=== PATIENT | female | born 1960 | race Caucasian/White ===

== ENCOUNTER 2019-07-06 13:18 | Outpatient (CLI) | payer MEDICARE, MEDICAID, SELFPAY ==
--- NOTE | ~2019-07-06 | MMUS_ITS ---
EXAMINATION: MM diagnostic deepak RT w mala, US breast RT complete HISTORY: New right breast pain and axilla and neutral nipple retraction. Patient states she feels a l ump at lower inner quadrant. TECHNIQUE: ML, MLO and cc 3-D tomosynthesis images of the right breast were performed and synthetic 2 -D images were generated. CAD analysis was submitted and interpreted. High resolution complete right breast ultrasound was performed. COMPARISON: 02/08/2019 bilateral digital screening mammogram BREAST PARENCHYMAL COMPOSITION: There are scattered areas of fibroglandular density. FINDINGS: MAMMOGRAPHIC FINDINGS: No interval suspicious mass, architectural distortion, malignant calcification, skin thickening or re traction or significant new or developing density is evident since 02/08/2019 screening mammogram. ULTRASOUND: No sonographic finding is noted in the area of complaint of right breast lump at the lower inner quad rant. At 10:00 4 cm from the nipple there is a 2.4 mm x 2.0 mm sonolucency consistent with small cyst. In the right axilla there is a 3.4 x 7.6 x 6.5 mm parallel circumscribed hypoechoic area with some va scularity at the hilus, likely a lymph node. No suspicious mass or shadowing of the right breast is detected. IMPRESSION: 1. Probably benign sonographic findings 2. 6 month diagnostic right mammogram and right breast ultrasound follow-up are recommended BI-RADS category 3, probably benign findings. Reviewed, dictated and finalized at location A. HER IMPRESSION: 1. Probably benign sonographic findings 2. 6 month diagnostic right mammogram and right breast ultrasound follow-up are recommended BI-RADS category 3, probably benign findings.
== END 2019-07-06 13:19 | disposition home or self-care (01) ==
PROVIDERS: PCP Internal Medicine; Visit Provider Nurse Practitioner
DX: N64.4 Mastodynia (principal); R92.8 Other abnormal and inconclusive findings on diagnostic imaging of breast
CPT/HCPCS: 76641; 77061; 77065; G0279

== ENCOUNTER 2019-07-22 16:23 | Emergency (ER) | payer MEDICARE, MEDICAID, SELFPAY ==
--- NOTE | ~2019-07-22 | XR_ITS ---
EXAMINATION: XR chest 2V DATE: 07/22/2019 17:26 INDICATION: Mid chest pressure TECHNIQUE: PA and lateral views of the chest are obtained. COMPARISON: 12/22/2018 FINDINGS: The lungs are free of acute opacities. There is no pleural effusion or pneumothorax. The ca rdiomediastinal silhouette is normal. There is moderate thoracic spondylosis. There are changes of an terior fusion procedure in the lower cervical spine. IMPRESSION: 1. No acute cardiopulmonary abnormality. Reviewed, dictated and finalized at location A. S PIPE INSPECTOR
--- NOTE | ~2019-07-22 | CT_ITS ---
EXAMINATION: CT brain wo con DATE: 07/22/2019 18:27 INDICATION: Sudden onset headache with subsequent left-sided hemiparesis, facial droop and slurred sp eech TECHNIQUE: Computed tomography (CT) of the head was performed without intravenous contrast. Sagittal and coronal reconstructions were performed. The mA was adjusted according to patient size. Iterative reconstruction technique was employed. The dose-length product was 681.00 mGy-cm. COMPARISON: head CT dated 05/27/2017 FINDINGS: No acute intracranial hemorrhage, acute infarction or abnormal extra axial fluid collection. No signi ficant interval change in mild scattered white matter hypoattenuation consistent with chronic small v essel ischemic disease. Ventricles are normal and symmetric. No mass/mass effect. The orbits, paranas al sinuses and mastoid air cells are normal. IMPRESSION: 1. No acute intracranial process. Pressure protocol discusses with Dr. Mccormack at 6:28 PM 2. Unchanged mild scattered white matter hypoattenuation consistent with chronic small vessel ischemi c disease. Reviewed, dictated and finalized at location A. K TRADER IMPRESSION: 1. No acute intracranial process. Pressure protocol discusses with Dr. Mccormack at 6:28 PM 2. Unchanged mild scattered white matter hypoattenuation consistent with chroni c small vessel ischemic disease.
--- NOTE | 2019-07-22 16:35 | ECG_ITS ---
Measurements Intervals [place] Rate: 81 P: 62 IN: 172 QRS: 21 QRSD: 102 T: 42 QT: 395 QTc: 460 Interpretive Statements SINUS RHYTHM BORDERLINE ST ABNORMALITY- INF/LAT LEADS BASELINE WANDER- AVR, AVL, AVF BORDERLINE ECG Electronically Signed On 07-22-2019 16:47:01 KNOCKER OFF by Remigio Rodriguez D.O.
[2019-07-22 16:36] VITALS: BP 127/84; PULSE 78; RESP 18; TEMP 37.3; O2SAT 100
[2019-07-22 16:44] LABS: Basophils Absolute Auto 0.1 K/mm3 (0.0-0.1); Basophils Percent Auto 0.5 % (0.2-1.2); Eosinophils Absolute Auto 0.3 K/mm3 (0-0.3); Eosinophils Percent Auto 1.9 % (0-4.4); Hematocrit 39.3 % (37.0-47.0); Hemoglobin 12.8 g/dL (12.0-15.0); Immature Granulocyte Absolute 0.04 K/mm3 (0.00-0.031); Immature Granulocyte Percent A 0.2 % (0-0.5); Lymphocytes Absolute Auto 4.25 K/mm3 (0.9-3.2); Lymphocytes Percent Auto 25.9 % (18.3-44.2); Mean Corpuscular HGB Conc 32.6 g/dl (32-36); Mean Corpuscular Hemoglobin 29.2 pg (26-34); Mean Corpuscular Volume 89.7 fl (80-100); Mean Platelet Volume 9.8 fl (7.4-10.4); Monocytes Absolute Auto 1.5 K/mm3 (0.1-0.6); Monocytes Percent Auto 8.8 % (2.6-8.5); Neutrophils Absolute Auto 10.3 K/mm3 (1.3-6.7); Neutrophils Percent Auto 62.7 % (45.5-73.1); Platelet Count Result 320 k/mm3 (150-375); Red Blood Count 4.38 M/mm3 (4.2-5.4); Red Cell Distribution Width 13.3 % (11.5-14.5); White Blood Count 16.4 K/mm3 (4.5-10.0)
[2019-07-22 16:54] LABS: Partial Thromboplastin Time 25.2 SECONDS (22.3-36.8); Prothrombin Time 12.6 Seconds (11.1-14.7)
[2019-07-22 16:55] LABS: Blood Urea Nitrogen 15 mg/dL (7-17); Calcium 10.1 mg/dL (8.4-10.2); Carbon Dioxide 30 mmol/L (22-30); Chloride 97 mmol/L (98-107); Estimated Glomerular Filt Rate > 60; Glucose 95 mg/dL (65-105); Potassium 3.7 mmol/L (3.4-5.0); Sodium 139 mmol/L (137-145)
[2019-07-22 17:07] LABS: Troponin I < 0.012 ng/mL (0.000-0.034)
--- NOTE | 2019-07-22 18:16 | PC.NURSE ---
Pt to ED Room 8 after having sudden facial droop & unable to speak clearly. EDP Dr Wrae at bedside, requesting stat CT. Pts BS in room 79. Pt is alert at this time.
--- NOTE | 2019-07-22 18:23 | ED.GENADULT ---
HPI - General Adult General Chief complaint: Chest Pain Stated complaint: Chest Heaviness Time Seen by Provider: 07/22/19 18:13 History of Present Illness HPI narrative: Patient is a 58-year-old female with history of A. fib and TIA who presents ER with chest pain. Began about 430 this afternoon and was sharp in the center of her chest so she opted to come to the emergency room with her . While in the waiting room at 6 PM patient developed left-sided facial weakness. She was immediately brought back to room here in the ER. On exam patient has a stroke scale of 9. She has history of atrial fibrillation but has not taken a blood thinner since 2016. Symptoms have been persistent since the starting of not improved. Related Data Home Medications Medication Instructions Recorded Confirmed atorvastatin 40 mg tablet 40 mg PO DAILY 05/31/19 epinephrine 0.3 mg/0.3 mL 0.3 mg IM ONCE 05/31/19 injection, auto-injector gabapentin 600 mg tablet 600 mg PO TID 05/31/19 losartan 100 1 tablet PO DAILY 05/31/19 mg-hydrochlorothiazide 25 mg tablet trazodone 100 mg tablet 100 mg PO DAILY tablet 05/31/19 Allergies Allergy/AdvReac Type Severity Reaction Status Date / Time aspirin Allergy Unknown Anaphylactic Verified 07/22/19 18:34 Shock bee venom protein (honey bee) Allergy Unknown Anaphylactic Verified 07/22/19 18:34 Shock codeine Allergy Unknown Hives Verified 07/22/19 18:34 latex Allergy Unknown Hives Verified 07/22/19 18:34 peanut Allergy Unknown Anaphylaxis Verified 07/22/19 18:34 penicillin G Allergy Unknown Anaphylaxis Verified 07/22/19 18:34 Penicillins Allergy Unknown Anaphylaxis Verified 07/22/19 18:34 pseudoephedrine Allergy Unknown Anaphylaxis Verified 07/22/19 18:34 strawberry Allergy Unknown Hives Verified 07/22/19 18:34 Sulfa (Sulfonamide Allergy Unknown Anaphylaxis Verified 07/22/19 18:34 Antibiotics) PSEUDOEPHEDRINE HCL Allergy Intermediate HIVES AND Uncoded 02/21/19 15:34 TONGUE SWELLING Review of Systems Review of Systems: ROS unobtainable: unobtainable due to mental condition PMFSH Family History Family History (Updated 01/11/19 @ 15:56 by DOCTOR UNKNOWN) Mother Family history of premature coronary heart disease, Onset Age: 62 Family history of malignant neoplasm of breast in first degree relative Patient's mother is Family history of gout Hypertension Family history of diabetes mellitus in first degree relative Family history of heart disease in male family member before age 55 Family history of malignant neoplasm of breast Diabetes mellitus Family history of cardiovascular disease Cerebrovascular accident Sibling Family history of kidney disease Family history of seizure disorder Family history of pancreatic cancer Diabetes mellitus Hypertension Family history of cardiovascular disease Family history of malignant neoplasm Father Malignant neoplasm of prostate, Onset Age: 50 Patient's father is Cerebrovascular accident Family history of arthritis Carcinoma of colon Grandparent Family history of malignant neoplasm of brain, Onset Age: 42 Social History Social History Smoking status: Former smoker Smoking end date: 05/26/12 Alcohol intake: never Gender identity (if verbalized by the patient): Female Comments Past medical history: Hyperlipidemia, diabetes type 2, hypertension, atrial fibrillation, GERD, GI bleeding, CVA, peripheral neuropathy, TIA, anxiety, depression, uterine cancer Past surgical history: Tonsillectomy, appendectomy, x3, hysterectomy, right knee arthroscopy, bilateral carpal tunnel release Social history: Former smoker. Exam Narrative: Exam Narrative: GENERAL: Well-appearing, well-nourished, and in no acute distress. HEAD: Normocephalic, atraumatic. EYES: PERRL and EOMI. right eye strabismus ENT: Mucous membranes moist. CHEST: Clear to auscultation. No respiratory distress.
[2019-07-22 18:29] LABS: Glucose Point of Care 79 (65-105)
[2019-07-22 18:45] VITALS: PULSE 79
[2019-07-22] MEDS: ONDANSETRON INJ 4 MG/2 ML VIAL (18:46)
[2019-07-22 18:53] VITALS: BP 148/81; PULSE 82; RESP 14; O2SAT 97
--- NOTE | 2019-07-22 19:26 | PC.NURSE ---
PER VORB DR ECHEVARRIA, ATP BOLUS 5.8 GIVEN AT 185, 51.5MG/HR GTT ONSET 1852.
--- NOTE | 2019-07-22 19:27 | PC.NURSE ---
42.8 ATP WASTED PER PROTOCOL.
[2019-07-22 19:35] VITALS: BP 147/94; PULSE 82; RESP 25; O2SAT 100
== END 2019-07-22 19:24 | disposition short-term general hospital (02) ==
PROVIDERS: Emergency Provider Emergency Medicine; PCP Internal Medicine
DX: I63.9 Cerebral infarction, unspecified (principal); E78.5 Hyperlipidemia, unspecified; I10 Essential (primary) hypertension; K21.9 Gastro-esophageal reflux disease without esophagitis; E11.42 Type 2 diabetes mellitus with diabetic polyneuropathy; R29.709 NIHSS score 9; Z87.891 Personal history of nicotine dependence; Z86.73 Personal history of transient ischemic attack (TIA), and cerebral infarction without residual deficits; Z85.42 Personal history of malignant neoplasm of other parts of uterus; F41.9 Anxiety disorder, unspecified; F32.9 Major depressive disorder, single episode, unspecified; R94.31 Abnormal electrocardiogram [ECG] [EKG]
CPT/HCPCS: 36415; 37195; 70450; 71046; 80048; 84484; 85025; 85610; 85730; 93005; 99285; J2405; J2997

== ENCOUNTER 2019-09-08 18:35 | Emergency (ER) | payer MEDICARE, MEDICAID, SELFPAY ==
[2019-09-08 18:51] VITALS: BP 138/78; PULSE 71; RESP 16; TEMP 36.9; O2SAT 97
--- NOTE | 2019-09-08 19:22 | ED.FEMALEGU ---
HPI - Female Genitourinary General Chief complaint: Urogenital-Female Stated complaint: Possible UTI Time Seen by Provider: 09/08/19 19:22 Source: patient Mode of arrival: ambulatory Limitations: no limitations History of Present Illness HPI Narrative: Gloria Menezes is a 58 yo female with a PMH of HTN, high cholesterol, GERD, who comes to this care with urinary tract infection symptoms x 2 days - has dysuria, pressure, lower abdominal pain Related Data Home Medications Medication Instructions Recorded Confirmed atorvastatin 40 mg tablet 40 mg PO DAILY 05/31/19 epinephrine 0.3 mg/0.3 mL 0.3 mg IM ONCE 05/31/19 injection, auto-injector gabapentin 600 mg tablet 600 mg PO TID 05/31/19 trazodone 100 mg tablet 100 mg PO DAILY tablet 05/31/19 losartan 09/08/19 metformin mg PO 09/08/19 sertraline mg 09/08/19 tramadol mg 09/08/19 trazodone 09/08/19 trazodone 09/08/19 Allergies Allergy/AdvReac Type Severity Reaction Status Date / Time aspirin Allergy Unknown Anaphylactic Verified 07/22/19 18:34 Shock bee venom protein (honey bee) Allergy Unknown Anaphylactic Verified 07/22/19 18:34 Shock codeine Allergy Unknown Hives Verified 07/22/19 18:34 latex Allergy Unknown Hives Verified 07/22/19 18:34 peanut Allergy Unknown Anaphylaxis Verified 07/22/19 18:34 penicillin G Allergy Unknown Anaphylaxis Verified 07/22/19 18:34 Penicillins Allergy Unknown Anaphylaxis Verified 07/22/19 18:34 pseudoephedrine Allergy Unknown Anaphylaxis Verified 07/22/19 18:34 strawberry Allergy Unknown Hives Verified 07/22/19 18:34 Sulfa (Sulfonamide Allergy Unknown Anaphylaxis Verified 07/22/19 18:34 Antibiotics) PSEUDOEPHEDRINE HCL Allergy Intermediate HIVES AND Uncoded 02/21/19 15:34 TONGUE SWELLING Review of Systems Review of Systems: Narrative: CONSTITUTIONAL: Denies fever, chills, sweats. EYES: Denies visual changes, redness, discharge. ENT: Denies rhinorrhea, congestion, sore throat, otalgia. CARDIOVASCULAR: Denies chest pain, palpitations, edema. RESPIRATORY: Denies dyspnea, wheezing, cough GASTROINTESTINAL: Denies abdominal pain, nausea, vomiting, diarrhea. GENITOURINARY: has dysuria, has hematuria, no abnormal discharge SKIN: Denies rash or itching. NEUROLOGIC: Denies numbness, or focal weakness. PSYCHIATRIC: Denies anxiety or depression. PMFSH Family History Family History Mother Family history of premature coronary heart disease, Onset Age: 62 Family history of malignant neoplasm of breast in first degree relative Patient's mother is Family history of gout Hypertension Family history of diabetes mellitus in first degree relative Family history of heart disease in male family member before age 55 Family history of malignant neoplasm of breast Diabetes mellitus Family history of cardiovascular disease Cerebrovascular accident Sibling Family history of kidney disease Family history of seizure disorder Family history of pancreatic cancer Diabetes mellitus Hypertension Family history of cardiovascular disease Family history of malignant neoplasm Father Malignant neoplasm of prostate, Onset Age: 50 Patient's father is Cerebrovascular accident Family history of arthritis Carcinoma of colon Grandparent Family history of malignant neoplasm of brain, Onset Age: 42 Social History Social History Smoking status: Former smoker Smoking end date: 05/26/12 Alcohol intake: never Gender identity (if verbalized by the patient): Female Comments At time of signature, I agree with nursing past medical, surgical, social and family history. There is no relevant family history pertinent to the presenting complaint. Exam Narrative: Exam Narrative: GENERAL: This is a well-nourished, well-developed patient, in mild distress. HEAD: normocephalic, atr
== END 2019-09-08 19:35 | disposition home or self-care (01) ==
PROVIDERS: Emergency Provider Nurse Practitioner; PCP Internal Medicine
DX: N30.01 Acute cystitis with hematuria (principal); Z87.891 Personal history of nicotine dependence; I10 Essential (primary) hypertension; E78.00 Pure hypercholesterolemia, unspecified; K21.9 Gastro-esophageal reflux disease without esophagitis; Z86.73 Personal history of transient ischemic attack (TIA), and cerebral infarction without residual deficits; E11.9 Type 2 diabetes mellitus without complications
CPT/HCPCS: 81003; 87077; 87086; 87088; 87186; 99213; G0463

== ENCOUNTER 2019-10-12 12:48 | Outpatient (CLI) | payer MEDICARE, MEDICAID, SELFPAY ==
--- NOTE | ~2019-10-12 | US_ITS ---
EXAMINATION: US joint non vasc ltd RT DATE: 10/12/2019 13:43 INDICATION: Right knee pain. Assess for Kearns's cyst. TECHNIQUE: Multiple grayscale and Doppler ultrasound images of the posterior right knee were obtained . COMPARISON: None FINDINGS/IMPRESSION: No abnormal masses or fluid collections identified. Specifically no Kearns's cyst identified at the [facility] popliteal fossa Reviewed, dictated and finalized at location A.
--- NOTE | ~2019-10-12 | XR_ITS ---
XR knee RT 3V DATE: 10/12/2019 13:18 INDICATION: Right knee pain TECHNIQUE: 3 views COMPARISON: None FINDINGS: No fracture or dislocation or joint effusion. Joint spaces are well preserved. No radiopaqu e intra-articular loose body or chondrocalcinosis. No periosteal reaction or bone destruction. IMPRESSION: Negative Reviewed, dictated and finalized at location A. IMPRESSION: Negative
== END 2019-10-12 12:49 | disposition home or self-care (01) ==
LOC: ANHIMG 12:58
PROVIDERS: PCP Nurse Practitioner; Visit Provider Nurse Practitioner
DX: M25.461 Effusion, right knee (principal)
CPT/HCPCS: 73562; 76882

== ENCOUNTER 2019-10-26 16:32 | Outpatient (CLI) | payer MEDICARE, MEDICAID, SELFPAY ==
--- NOTE | ~2019-10-26 | MR_ITS ---
EXAMINATION: MR knee RT wo con DATE: 10/26/2019 17:07 INDICATION: Right knee pain. TECHNIQUE: Magnetic resonance imaging (MRI) of the right knee was performed without intravenous contr ast. Sequences included axial PD-weighted FS FSE, coronal PD-weighted FSE and PD-weighted FS FSE, sag ittal PD-weighted FSE, and sagittal T2-weighted FS FSE. COMPARISON: Right knee radiographs 10/12/2019 FINDINGS: Medial compartment: There is a complex tear involving body and posterior horn of medial meniscus. Medial compartment cart ilage is normal. Lateral compartment: Lateral meniscus is normal. Lateral compartment cartilage is normal. Patellofemoral compartment: There is deep partial thickness cartilage loss of patellar medial facet and shallow partial-thickness cartilage loss of patellar median ridge. There is shallow partial-thickness cartilage loss of centra l and medial trochlea. Ligaments and tendons: The anterior and posterior cruciate ligaments are normal. Medial collateral ligament is normal. There are changes of prior sprain of fibular collateral ligament characterized by increased signal at its proximal attachment. The patellar tendon is normal. Fluid: There is a small knee joint effusion. There is a moderate-sized ruptured Kearns's cyst. IMPRESSION: 1. Moderate chondrosis of patellofemoral compartment. 2. Complex tear of medial meniscus. 3. Small knee joint effusion. 4. Moderate-sized ruptured Kearns's cyst. Reviewed, dictated and finalized at location A.
== END 2019-10-26 16:33 | disposition home or self-care (01) ==
LOC: ANHIMG 16:34
PROVIDERS: PCP Nurse Practitioner; Visit Provider Nurse Practitioner
DX: M25.569 Pain in unspecified knee (principal); M22.2X1 Patellofemoral disorders, right knee; S83.206A Unspecified tear of unspecified meniscus, current injury, right knee, initial encounter; M25.461 Effusion, right knee; M71.21 Synovial cyst of popliteal space [Baker], right knee
CPT/HCPCS: 73721

== ENCOUNTER 2019-11-08 10:01 | Outpatient (CLI) | payer MEDICARE, SELFPAY ==
[2019-11-08 10:54] LABS: Blood Urea Nitrogen 22 mg/dL (7-17); Calcium 9.6 mg/dL (8.4-10.2); Carbon Dioxide 32 mmol/L (22-30); Chloride 103 mmol/L (98-107); Estimated Glomerular Filt Rate > 60; Glucose 111 mg/dL (65-105); Potassium 4.9 mmol/L (3.4-5.0); Sodium 138 mmol/L (137-145)
--- NOTE | 2019-11-08 10:55 | ECG_ITS ---
Measurements Intervals [place] Rate: 61 P: 61 MO: 194 QRS: 31 QRSD: 93 T: 48 QT: 421 QTc: 426 Interpretive Statements SINUS RHYTHM BASELINE WANDER- V5 NORMAL ECG Electronically Signed On 11-08-2019 11:03:39 CDT by Remigio Rodriguez D.O.
== END 2019-11-08 10:02 | disposition home or self-care (01) ==
PROVIDERS: PCP Internal Medicine; Visit Provider Orthopaedic Surgery
DX: Z01.818 Encounter for other preprocedural examination (principal); I10 Essential (primary) hypertension
CPT/HCPCS: 36415; 80048; 93005

== ENCOUNTER 2019-12-22 14:48 | Outpatient (CLI) | payer MEDICARE, MEDICAID, SELFPAY ==
--- NOTE | ~2019-12-22 | CT_ITS ---
EXAMINATION: CT abdomen pelvis wo con DATE: 12/22/2019 15:37 INDICATION: History of kidney stones TECHNIQUE: Computed tomography (CT) of the abdomen and pelvis was performed without intravenous contr ast. The dose-length product was 479.02 mGy-cm. Automated exposure control and iterative reconstructi on technique were employed. COMPARISON: CT dated 10/10/2016 FINDINGS: Lung bases unremarkable. Heart size normal. No significant pleural or pericardial effusion. There are calcified granulomas in the spleen. The liver, pancreas, adrenal glands and kidneys are un remarkable. Gallbladder is present. Nonobstructive bowel gas pattern. No significant vascular abnorma lity. No lymphadenopathy. There are posterior spinal fusion changes at L4-S1. The pedicle screws exte nd anterior to the vertebral bodies and sacrum. There are prosthetic disc devices at L4-5 and L5-S1. IMPRESSION: 1. No acute abdominal abnormality. Reviewed, dictated and finalized at location A.
--- NOTE | ~2019-12-22 | XR_ITS ---
XR abdomen/kub 1V 12/22/2019 15:44 INDICATION: Kidney stones TECHNIQUE: KUB COMPARISON: CT dated 12/22/2019 FINDINGS: Bowel gas pattern is normal. There is no evidence of free air, mass, organomegaly, ascites or obstruction. No abnormal calculi are seen. There are pelvic phleboliths. There are surgical vasquez ges consistent with spinal fusion at L4-S1. The bones appear intact. IMPRESSION: 1: No acute abdominal abnormality identified. Reviewed, dictated and finalized at location A.
== END 2019-12-22 14:49 | disposition home or self-care (01) ==
PROVIDERS: PCP Internal Medicine; Visit Provider Urology
DX: Z87.442 Personal history of urinary calculi (principal)
CPT/HCPCS: 74018; 74176

== ENCOUNTER 2020-03-30 09:53 | Outpatient (CLI) | payer MEDICARE, MEDICAID, SELFPAY ==
--- NOTE | ~2020-03-30 | MR_ITS ---
EXAMINATION: MR lumbar spine wo con DATE: 03/30/2020 11:04 INDICATION: Intervertebral disc disorder with myelopathy TECHNIQUE: Magnetic resonance imaging (MRI) of the lumbar spine was performed without intravenous con trast. Sequences included sagittal T2-weighted FSE, sagittal fluid sensitive FSE STIR, sagittal T1-we ighted FSE, and axial T2-weighted FSE. COMPARISON: Lumbar spine CT dated 04/26/2019 FINDINGS: Alignment is normal. Metallic magnetic field artifact associated with bilateral vertical isabela and pedi kayla screw fixation for posterior spinal fusion at L4-S1. Additional artifact associated with interbod y bone graft cages for anterior spinal fusion at L4-L5 and L5-S1. Unfused vertebral heights are ana l. Normal marrow signal. Mild to moderate disc height loss at L3-L4. Mild disc desiccation without d isc height loss at L2-L3. The conus medullaris terminates at L2. There is normal signal in the caudal spinal cord. Paravertebral soft tissues are unremarkable. The following disc levels are specifically discussed: T12-L1: Small central disc protrusion. There is mild hypertrophy of the ligamentum flavum. There is mild bilateral facet joint osteoarthritis. There is no neural foraminal stenosis. There is no central canal stenosis. L1-L2: Tiny central disc protrusion. There is mild hypertrophy of the ligamentum flavum. There is mi ld bilateral facet joint osteoarthritis. There is no neural foraminal stenosis. There is no central c anal stenosis. L2-L3: Small bilateral foraminal disc protrusions. There is hypertrophy of the ligamentum flavum. The re is mild bilateral facet joint osteoarthritis. There is mild bilateral neural foraminal stenosis. T here is no central canal stenosis. L3-L4: Disc is bulging with superimposed right foraminal zone annular fissure and disc extrusion with disc material extending up to 3 mm cephalad to the of the inferior endplate of L3. There is hypertro phy of the ligamentum flavum. There is severe bilateral facet joint osteoarthritis. There is widening of the bilateral facet joints suggesting the possibility of increased mobility with the potential fo r up to 2-3 mm anterolisthesis. There is moderate bilateral neural foraminal stenosis. There is moder ate central canal stenosis. L4-L5: The disc space is fused. There is also posterior spinal fusion. Posterior decompression with l eft sided hemilaminotomy. The interbody fusion device appears shifted towards the left posterior aspe ct of the disc space with magnetic field artifact distorting the left neural foramen which on the chata or CT images appears moderately narrowed due in part to the displaced interbody fusion device. There is mild left neural foraminal stenosis. There is no central canal stenosis. L5-S1: The disc space is fused. There is also posterior spinal fusion. Posterior decompression with l eft-sided hemilaminotomy. 3 mild to moderate bilateral neural foraminal stenosis, suspected which is similarly limited by field artifact from the pedicle screws. There is no central canal stenosis. IMPRESSION: 1. L4-S1 combined instrumented anterior and posterior spinal fusions unchanged left posterior displac ement of the L4-L5 interbody fusion device which contributes to moderate neural foraminal stenosis as evidenced on prior CT. 2. Moderate lumbar spondylosis most prominent at L3-L4 where there is widening of the bilateral L3-L4 facet joint spaces suggesting the potential for motion and up to 2-3 mm anterolisthesis. This could also potentially exacerbate the moderate central canal and bilateral neural foraminal stenosis at thi s level. If clinically indicated this could be further evaluated with lateral radiographs in neutral, flexion and extension. Reviewed, dictated and finalized at location A. Electronically signed by Archie Womack M.D. o
== END 2020-03-30 09:54 | disposition home or self-care (01) ==
PROVIDERS: PCP Internal Medicine; Visit Provider Internal Medicine
DX: M51.06 Intervertebral disc disorders with myelopathy, lumbar region (principal); M47.896 Other spondylosis, lumbar region
CPT/HCPCS: 72148

== ENCOUNTER 2020-04-19 12:55 | Outpatient (CLI) | payer MEDICARE, MEDICAID, SELFPAY ==
--- NOTE | ~2020-04-19 | MM_ITS ---
EXAMINATION: MM screening deepak BI w mala HISTORY: Screening TECHNIQUE: Craniocaudal and mediolateral oblique 3-D tomosynthesis images were obtained and synthetic 2-D images were generated. CAD analysis was submitted and interpreted. COMPARISON: Comparison to multiple prior studies sequentially, with oldest reviewed study dated 12/21. BREAST PARENCHYMAL COMPOSITION: There are scattered areas of fibroglandular density. FINDINGS: There is no evidence of suspicious mass, calcification, or architectural distortion to sugg est malignancy in either breast. There has been no suspicious interval change. IMPRESSION: 1. No mammographic evidence of malignancy. 2. Recommend routine screening mammography in one year. BI-RADS Category 1: Negative Reviewed, dictated and finalized at location A. F NUCLEAR MEDICINE TECHNOLOGIST
== END 2020-04-19 12:56 | disposition home or self-care (01) ==
LOC: ANHIMG 12:59
PROVIDERS: PCP Internal Medicine; Visit Provider Internal Medicine
DX: Z12.31 Encounter for screening mammogram for malignant neoplasm of breast (principal)
CPT/HCPCS: 77063; 77067

== ENCOUNTER 2020-07-16 14:55 | Emergency (ER) | payer MEDICARE, MEDICAID, SELFPAY ==
--- NOTE | 2020-07-16 15:00 | ED.FEMALEGU ---
HPI - Female Genitourinary General Chief complaint: Urogenital-Female Stated complaint: uti Time Seen by Provider: 07/16/20 15:01 Source: patient, RN notes reviewed and old records reviewed Mode of arrival: ambulatory Limitations: no limitations History of Present Illness HPI Narrative: 59-year-old female presents to [facility] stating she believes she has a UTI. Has had burning, urgency, frequency and feeling like her bladder is not emptying since yesterday. Denies fever. Denies generalized abdominal pain. Has suprapubic pressure. Denies fevers, nausea, vomiting or diarrhea. Related Data Home Medications Medication Instructions Recorded Confirmed epinephrine 0.3 mg/0.3 mL 0.3 mg IM ONCE 05/31/19 07/16/20 injection, auto-injector Allergies Allergy/AdvReac Type Severity Reaction Status Date / Time aspirin Allergy Unknown Anaphylactic Verified 06/21/20 09:46 Shock bee venom protein (honey bee) Allergy Unknown Anaphylactic Verified 06/21/20 09:46 Shock codeine Allergy Unknown Hives Verified 06/21/20 09:46 latex Allergy Unknown Hives Verified 06/21/20 09:46 peanut Allergy Unknown Anaphylaxis Verified 06/21/20 09:46 penicillin G Allergy Unknown Anaphylaxis Verified 06/21/20 09:46 Penicillins Allergy Unknown Anaphylaxis Verified 06/21/20 09:46 pseudoephedrine Allergy Unknown Anaphylaxis Verified 06/21/20 09:46 strawberry Allergy Unknown Hives Verified 06/21/20 09:46 Sulfa (Sulfonamide Allergy Unknown Anaphylaxis Verified 06/21/20 09:46 Antibiotics) PSEUDOEPHEDRINE HCL Allergy Intermediate HIVES AND Uncoded 06/21/20 09:46 TONGUE SWELLING Review of Systems Review of Systems: Narrative: CONSTITUTIONAL: Denies fever, chills, or sweats. CARDIOVASCULAR: Denies chest pain, palpitations, or edema. RESPIRATORY: Denies cough or dyspnea. GASTROINTESTINAL: Denies abdominal pain, nausea, vomiting, or diarrhea. GENITOURINARY: Reports dysuria or hematuria. SKIN: Denies rash or itching. MUSCULOSKELETAL: Denies back pain, joint pain, or myalgia. NEUROLOGIC: Denies headache, numbness, or weakness. PSYCHIATRIC: Denies anxiety or depression. All other systems reviewed are negative, except as documented in HPI. [facility] Past Medical History Medical History Cervical radiculopathy Essential hypertension Other dissociative and conversion disorders Prediabetes Family History Family History Mother Family history of premature coronary heart disease, Onset Age: 62 Family history of malignant neoplasm of breast in first degree relative Patient's mother is Family history of gout Hypertension Family history of diabetes mellitus in first degree relative Family history of heart disease in male family member before age 55 Family history of malignant neoplasm of breast Diabetes mellitus Family history of cardiovascular disease Cerebrovascular accident Sibling Family history of kidney disease Family history of seizure disorder Family history of pancreatic cancer Diabetes mellitus Hypertension Family history of cardiovascular disease Family history of malignant neoplasm Father Malignant neoplasm of prostate, Onset Age: 50 Patient's father is Cerebrovascular accident Family history of arthritis Carcinoma of colon Grandparent Family history of malignant neoplasm of brain, Onset Age: 42 Social History Social History Smoking end date: 05/26/12 Alcohol intake: never Gender identity (if verbalized by the patient): Female Comments At the time of my signature, I reviewed and agree with the nursing past medical, surgical, social, and family history. There is no relevant family history pertinent to the patient complaint. Exam Narrative: Exam Narrative: GENERAL: This is a well-nourished, well-developed patient, in no apparent distres
[2020-07-16 15:06] VITALS: BP 138/80; PULSE 86; RESP 20; TEMP 37.1; O2SAT 96
[2020-07-16 15:08] VITALS: BP 138/80; PULSE 86; RESP 20; TEMP 37.1; O2SAT 96
== END 2020-07-16 15:25 | disposition home or self-care (01) ==
PROVIDERS: Emergency Provider Nurse Practitioner; PCP Internal Medicine
DX: N30.01 Acute cystitis with hematuria (principal); I10 Essential (primary) hypertension; R73.03 Prediabetes
CPT/HCPCS: 81003; 87077; 87086; 87088; 87186; 99213; G0463

== ENCOUNTER 2020-08-05 11:26 | Emergency (ER) | payer MEDICARE, MEDICAID, SELFPAY ==
--- NOTE | ~2020-08-05 | CT_ITS ---
EXAMINATION: CT abdomen pelvis wo con DATE: 08/05/2020 12:54 INDICATION: Left flank pain. TECHNIQUE: Computed tomography (CT) of the abdomen and pelvis was performed without intravenous contr ast. Automated exposure control and iterative reconstruction technique were employed. The dose-length product was 231.32 mGy-cm. COMPARISON: CT abdomen and pelvis 12/22/2019 FINDINGS: The visualized portions of the lung bases demonstrate minimal atelectasis. No pleural effus ion. The heart size is normal. No pericardial effusion. Calcifications in the liver and spleen are co nsistent with old granulomatous disease. The gallbladder, pancreas, adrenal glands, and kidneys are n ormal. There is no urolithiasis. There is diverticulosis of the colon without evidence of diverticuli tis. The appendix is not visualized. There are no pathologically enlarged lymph nodes. There is no fr ee intraperitoneal fluid. There are changes of anterior and posterior fusion procedures from L4 to S1 . There is moderate lumbar spondylosis. IMPRESSION: 1. No etiology for the patient's symptoms. Reviewed, dictated and finalized at location A. ING MANAGER
[2020-08-05 11:38] VITALS: BP 169/81; PULSE 105; RESP 14; TEMP 36.4; O2SAT 99
[2020-08-05 11:59] LABS: Add Urine Microscopic? YES; Appearance Urine Cloudy (Clear); Basophils Absolute Auto 0.1 K/mm3 (0.0-0.1); Basophils Percent Auto 0.7 % (0.2-1.2); Bilirubin Urine Negative (Negative); Blood Urine Negative (Negative); Color Urine Yellow (Yellow); Eosinophils Absolute Auto 0.2 K/mm3 (0-0.3); Eosinophils Percent Auto 2.1 % (0-4.4); Glucose Urine UA Negative (Negative); Hematocrit 43.2 % (37.0-47.0); Hemoglobin 14.5 g/dL (12.0-15.0); Immature Granulocyte Absolute 0.02 K/mm3 (0.00-0.031); Immature Granulocyte Percent A 0.2 % (0-0.5); Ketones Urine Negative (Negative); Leukocyte Esterase Ur Negative LEU/UL (Negative); Lymphocytes Absolute Auto 3.03 K/mm3 (0.9-3.2); Lymphocytes Percent Auto 34.6 % (18.3-44.2); Mean Corpuscular HGB Conc 33.6 g/dl (32-36); Mean Corpuscular Volume 89.4 fl (80-100); Mean Platelet Volume 9.5 fl (7.4-10.4); Monocytes Absolute Auto 0.7 K/mm3 (0.1-0.6); Monocytes Percent Auto 8.3 % (2.6-8.5); Neutrophils Absolute Auto 4.7 K/mm3 (1.3-6.7); Neutrophils Percent Auto 54.1 % (45.5-73.1); Nitrate Urine Negative (Negative); Platelet Count Result 332 k/mm3 (150-375); Protein Urine Negative (Negative); RBC Urine 0-2 /hpf (0-2); Red Blood Count 4.83 M/mm3 (4.2-5.4); Red Cell Distribution Width 13.2 % (11.5-14.5); Specific Grav Ur 1.014 (1.001-1.035); Squamous Epithelial Cell Urine Rare /hpf (Few); Urobilinogen Urine Negative mg/dL (<2.0); WBC Urine 0-3 /hpf; White Blood Count 8.8 K/mm3 (4.5-10.0)
--- NOTE | 2020-08-05 12:05 | ED.ABDPAIN ---
HPI - Abdominal Pain General Chief Complaint: Abdominal Pain Stated Complaint: Kidney Stone Pain Time Seen by Provider: 08/05/20 11:59 History of Present Illness HPI narrative: Left flank pain for more than 1 week. Radiates into the LLQ. She reports that she has passed 13 stones in her urine since the pain started. She was put on flomax by urgent care, but the pain is not going away. This is also associated with urinary hesitancy, hematuria, and dysuria. Related Data Home Medications Medication Instructions Recorded Confirmed epinephrine 0.3 mg/0.3 mL 0.3 mg IM ONCE 05/31/19 07/16/20 injection, auto-injector Allergies Allergy/AdvReac Type Severity Reaction Status Date / Time pseudoephedrine Allergy Severe Anaphylaxis Verified 08/05/20 12:24 aspirin Allergy Unknown Anaphylactic Verified 08/05/20 11:43 Shock bee venom protein (honey bee) Allergy Unknown Anaphylactic Verified 08/05/20 11:43 Shock codeine Allergy Unknown Hives Verified 08/05/20 11:43 latex Allergy Unknown Hives Verified 08/05/20 11:43 peanut Allergy Unknown Anaphylaxis Verified 08/05/20 11:43 penicillin G Allergy Unknown Anaphylaxis Verified 08/05/20 11:43 Penicillins Allergy Unknown Anaphylaxis Verified 08/05/20 11:43 strawberry Allergy Unknown Hives Verified 08/05/20 11:43 Sulfa (Sulfonamide Allergy Unknown Anaphylaxis Verified 08/05/20 11:43 Antibiotics) Review of Systems Review of Systems: All systems reviewed & are unremarkable except as noted in HPI and below Constitutional: Constitutional: Denies chills and Denies fever(s) Eyes: Eyes: Reports no additional eye complaints ENT: Reports system reviewed and no additional complaints, except as documented Cardiovascular: Cardiovascular: Reports no additional cardiovascular complaints Respiratory: Respiratory: Denies dyspnea Gastrointestinal: Gastrointestinal: Reports abdominal pain, Denies constipation, Denies diarrhea, Reports nausea and Denies vomiting Genitourinary: Genitourinary: Reports hematuria, Reports dysuria and Reports flank pain Musculoskeletal: Musculoskeletal: Reports back pain Neurologic: Denies numbness and Denies weakness PMFSH Past Medical History Medical History Cervical radiculopathy Essential hypertension Other dissociative and conversion disorders Prediabetes Family History Family History Mother Family history of premature coronary heart disease, Onset Age: 62 Family history of malignant neoplasm of breast in first degree relative Patient's mother is Family history of gout Hypertension Family history of diabetes mellitus in first degree relative Family history of heart disease in male family member before age 55 Family history of malignant neoplasm of breast Diabetes mellitus Family history of cardiovascular disease Cerebrovascular accident Sibling Family history of kidney disease Family history of seizure disorder Family history of pancreatic cancer Diabetes mellitus Hypertension Family history of cardiovascular disease Family history of malignant neoplasm Father Malignant neoplasm of prostate, Onset Age: 50 Patient's father is Cerebrovascular accident Family history of arthritis Carcinoma of colon Grandparent Family history of malignant neoplasm of brain, Onset Age: 42 Social History Social History Smoking end date: 05/26/12 Alcohol intake: never Gender identity (if verbalized by the patient): Female Exam Const: General: healthy appearing, no acute distress and alert Nutritional Appearance: well nourished Orientation/consciousness: patient oriented x3 HENMT: Head: normal to inspection Eyes: Alignment and Position: alignment abnormal Neck: Neck: normal visual inspection Resp: Effort & Inspection: normal respi
[2020-08-05 12:08] LABS: Anion Gap 7 mmol/L (8-16); Blood Urea Nitrogen 15 mg/dL (7-17); Carbon Dioxide 31 mmol/L (22-30); Chloride 101 mmol/L (98-107); Estimated CRCL calculation 64 ml/min; Estimated Glomerular Filt Rate > 60; Glucose 107 mg/dL (65-105); Potassium 3.4 mmol/L (3.4-5.0); Sodium 139 mmol/L (137-145)
[2020-08-05 12:40] LABS: Alanine Aminotransferase 26 U/L (4-35); Albumin Level 4.4 g/dL (3.5-5.1); Alkaline Phosphatase 103 U/L (38-126); Aspartate Amino Transferase 33 U/L (14-36); Bilirubin,Total 0.4 mg/dL (0.2-1.3); Lipase 104 U/L (23-300)
[2020-08-05] MEDS: fentaNYL CITRATE INJ (*CRX) 100 MCG/2 ML VIAL 50 MCG IV PUSH (12:49)
[2020-08-05] MEDS: ONDANSETRON INJ 4 MG/2 ML VIAL IV PUSH (12:49)
[2020-08-05 14:03] VITALS: BP 142/86; PULSE 98; RESP 16; O2SAT 99
== END 2020-08-05 14:18 | disposition home or self-care (01) ==
PROVIDERS: Family Medicine; Emergency Provider Emergency Medicine; PCP Internal Medicine
DX: R10.32 Left lower quadrant pain (principal); I10 Essential (primary) hypertension; R73.03 Prediabetes
CPT/HCPCS: 36415; 74176; 80048; 80076; 81001; 83690; 85025; 96374; 96375; 99284; J2405; J3010

== ENCOUNTER 2020-08-21 09:17 | Outpatient (CLI) | payer MEDICARE, MEDICAID, SELFPAY ==
--- NOTE | ~2020-08-21 | XR_ITS ---
EXAMINATION: XR abdomen/kub 1V EXAM DATE: 08/21/2020 09:31 INDICATION: History of kidney stones. TECHNIQUE: Frontal projection(s) of the abdomen for interpretation. Comparison is made to prior exami nation from 12/22/2019. Correlation was made with 08/05/2012. FINDINGS: There is expected amount of colonic stool and gas. No small bowel dilation, nonobstruct amie bowel gas pattern. Calcifications in the pelvis are believed to be phleboliths. There is no or ganomegaly suspected. Fusion L4-S1. Lung bases are unremarkable. IMPRESSION: Unremarkable abdomen x-ray exam. Reviewed, dictated and finalized at location A.
== END 2020-08-21 09:18 | disposition home or self-care (01) ==
LOC: ANHIMG 09:20
PROVIDERS: PCP Internal Medicine; Visit Provider Nurse Practitioner Family
DX: Z87.442 Personal history of urinary calculi (principal)
CPT/HCPCS: 74018

== ENCOUNTER 2020-10-17 15:55 | Emergency (ER) | payer MEDICARE, MEDICAID, SELFPAY ==
--- NOTE | ~2020-10-17 | CT_ITS ---
EXAMINATION: CT abdomen pelvis w con DATE: 10/17/2020 19:56 INDICATION: Right-sided abdominal pain. Dark stools. TECHNIQUE: Computed tomography (CT) of the abdomen and pelvis was performed with 100 cc Omnipaque 350 intravenous contrast. The dose-length product was 390.57 mGy-cm. Automated exposure control and iter ative reconstruction technique were employed. COMPARISON: CT dated 08/05/2020. FINDINGS: Lung bases unremarkable. Heart size normal. No significant pleural or pericardial effusion. There is atherosclerosis. No aneurysm. No lymphadenopathy. Fatty infiltration of the liver. Calcified granulomas of the spleen. The pancreas, adrenal glands and kidneys are unremarkable. Gallbladder is present. No free air or free fluid. Nonobstructive bowel ga s pattern. Bladder is decompressed. There are changes of anterior and posterior fusion at L4 S1-. Mod erate lumbar spondylosis. IMPRESSION: 1. No acute abdominal abnormality. Reviewed, dictated and finalized at location A.
[2020-10-17 16:57] VITALS: BP 132/99; PULSE 93; RESP 20; TEMP 36.7; O2SAT 98
[2020-10-17 17:10] LABS: Basophils Absolute Auto 0.1 K/mm3 (0.0-0.1); Basophils Percent Auto 0.5 % (0.2-1.2); Eosinophils Absolute Auto 0.2 K/mm3 (0-0.3); Eosinophils Percent Auto 1.7 % (0-4.4); Hematocrit 42.1 % (37.0-47.0); Hemoglobin 13.9 g/dL (12.0-15.0); Immature Granulocyte Absolute 0.04 K/mm3 (0.00-0.031); Immature Granulocyte Percent A 0.4 % (0-0.5); Lymphocytes Percent Auto 28.4 % (18.3-44.2); Mean Corpuscular Volume 90.7 fl (80-100); Mean Platelet Volume 9.7 fl (7.4-10.4); Monocytes Absolute Auto 0.9 K/mm3 (0.1-0.6); Monocytes Percent Auto 7.5 % (2.6-8.5); Neutrophils Absolute Auto 6.9 K/mm3 (1.3-6.7); Neutrophils Percent Auto 61.5 % (45.5-73.1); Platelet Count Result 317 k/mm3 (150-375); Red Blood Count 4.64 M/mm3 (4.2-5.4); Red Cell Distribution Width 13.4 % (11.5-14.5); White Blood Count 11.3 K/mm3 (4.5-10.0)
[2020-10-17 17:24] LABS: Alanine Aminotransferase 26 U/L (4-35); Albumin Level 4.6 g/dL (3.5-5.1); Alkaline Phosphatase 93 U/L (38-126); Anion Gap 7 mmol/L (8-16); Aspartate Amino Transferase 33 U/L (14-36); Bilirubin,Total 0.3 mg/dL (0.2-1.3); Blood Urea Nitrogen 14 mg/dL (7-17); Calcium 10.3 mg/dL (8.4-10.2); Carbon Dioxide 32 mmol/L (22-30); Chloride 102 mmol/L (98-107); Estimated CRCL calculation 56 ml/min; Estimated Glomerular Filt Rate > 60; Glucose 85 mg/dL (65-105); Lipase 168 U/L (23-300); Potassium 3.7 mmol/L (3.4-5.0); Sodium 141 mmol/L (137-145)
--- NOTE | 2020-10-17 19:02 | ED.GENADULT ---
HPI - General Adult General Chief complaint: Abdominal Pain <BHUPINDER Pierre Last Filed: 10/17/20 20:26> Stated complaint: Abd Pain <BHUPINDER Pierre Last Filed: 10/17/20 20:26> Time Seen by Provider: 10/17/20 18:47 <BHUPINDER Pierre Last Filed: 10/17/20 20:26> Source: patient and RN notes reviewed <BHUPINDER Pierre Last Filed: 10/17/20 20:26> Mode of arrival: ambulatory <BHUPINDER Pierre Last Filed: 10/17/20 20:26> Limitations: no limitations <BHUPINDER Pierre Last Filed: 10/17/20 20:26> History of Present Illness HPI narrative: Patient is a 60-year-old female who presents with cramping of the abdomen that began acutely today with episodes of diarrhea a couple episodes of emesis. Patient presents noting cramping throughout the abdomen that is worse in the right lower abdomen. Patient denies any rectal bleeding or melena. Patient notes aching pain of the abdomen with consistent pain. Patient denies sick contacts notes that yesterday she had felt fine <BHUPINDER Pierre Last Filed: 10/17/20 20:26> Related Data Home medications: Home Medications Medication Instructions Recorded Confirmed epinephrine 0.3 mg/0.3 mL 0.3 mg IM ONCE 05/31/19 07/16/20 injection, auto-injector <BHUPINDER Pierre Last Filed: 10/17/20 20:26> Allergies/adverse reactions: Allergies Allergy/AdvReac Type Severity Reaction Status Date / Time pseudoephedrine Allergy Severe Anaphylaxis Verified 09/01/20 13:27 aspirin Allergy Unknown Anaphylactic Verified 09/01/20 13:27 Shock bee venom protein (honey bee) Allergy Unknown Anaphylactic Verified 09/01/20 13:27 Shock codeine Allergy Unknown Hives Verified 09/01/20 13:27 latex Allergy Unknown Hives Verified 09/01/20 13:27 peanut Allergy Unknown Anaphylaxis Verified 09/01/20 13:27 penicillin G Allergy Unknown Anaphylaxis Verified 09/01/20 13:27 Penicillins Allergy Unknown Anaphylaxis Verified 09/01/20 13:27 strawberry Allergy Unknown Hives Verified 09/01/20 13:27 Sulfa (Sulfonamide Allergy Unknown Anaphylaxis Verified 09/01/20 13:27 Antibiotics) <Fidel Grajeda PA-C - Last Filed: 10/17/20 20:26> Review of Systems Review of Systems: All systems reviewed & are unremarkable except as noted in HPI and below <Fidel Grajeda PA-C - Last Filed: 10/17/20 20:26> [facility] Past Medical History Medical History: Medical History Cervical radiculopathy Essential hypertension Other dissociative and conversion disorders Prediabetes <Fidel Grajeda PA-C - Last Filed: 10/17/20 20:26> Family History Family History: Family History Mother Family history of premature coronary heart disease, Onset Age: 62 Family history of cardiovascular disease Cerebrovascular accident Family history of malignant neoplasm of breast in first degree relative Patient's mother is Family history of gout Hypertension Family history of diabetes mellitus in first degree relative Family history of heart disease in male family member before age 55 Family history of malignant neoplasm of breast Diabetes mellitus Sibling Family history of kidney disease Family history of seizure disorder Family history of pancreatic cancer Diabetes mellitus Hypertension Family history of cardiovascular disease Family history of malignant neoplasm Father Malignant neoplasm of prostate, Onset Age: 50 Patient's father is Cerebrovascular accident Family history of arthritis Carcinoma of colon Grandparent Family history of malignant neoplasm of brain, Onset Age: 42 <Fidel Grajeda PA-C - Last Filed: 10/17/20 20:26> Social History Social History: Social History Smoking packs per day: 0.5 Smo
[2020-10-17] MEDS: SODIUM CHLORIDE 0.9% IV 1,000 ML 999 ML IV CONT (19:27)
[2020-10-17] MEDS: ONDANSETRON INJ 4 MG/2 ML VIAL IV PUSH (19:27)
[2020-10-17] MEDS: FAMOTIDINE 20 MG/2 ML VIAL IV PUSH (19:27)
[2020-10-17] MEDS: HYOSCYAMINE SULFATE 0.125 MG TABLET PO (19:27)
[2020-10-17 20:29] LABS: Add Urine Microscopic? YES; Appearance Urine Clear (Clear); Bilirubin Urine Negative (Negative); Blood Urine Negative (Negative); Color Urine Yellow (Yellow); Glucose Urine UA Negative (Negative); Ketones Urine Negative (Negative); Leukocyte Esterase Ur 1+ LEU/UL (Negative); Mucus Urine Rare /lpf; Nitrate Urine Negative (Negative); Protein Urine Negative (Negative); RBC Urine 0-2 /hpf (0-2); Squamous Epithelial Cell Urine Moderate /hpf (Few); Urobilinogen Urine Negative mg/dL (<2.0)
[2020-10-17 20:33] LABS: Specific Grav Ur 1.058 (1.001-1.035)
[2020-10-17 20:52] VITALS: BP 128/89; PULSE 89; RESP 18; TEMP 36.7; O2SAT 98
[2020-10-17 20:54] VITALS: BP 128/89; PULSE 89; RESP 18; TEMP 36.7; O2SAT 98
== END 2020-10-17 20:55 | disposition home or self-care (01) ==
PROVIDERS: Emergency Medicine; Emergency Provider General Practice; PCP Internal Medicine
DX: R10.9 Unspecified abdominal pain (principal); I10 Essential (primary) hypertension; R73.03 Prediabetes
CPT/HCPCS: 36415; 74177; 80053; 81001; 83690; 85025; 96361; 96365; 96375; 99284; A9270; J0131; J2405; J7030; Q9967

== ENCOUNTER → 2020-11-30 14:30 | Outpatient (CLI) | payer MEDICARE, MEDICAID, SELFPAY ==
--- NOTE | ~2020-11-30 | US_ITS ---
EXAMINATION: US transvaginal DATE: 11/30/2020 14:53 INDICATION: Pelvic and perineal pain. Left adnexal tenderness. Comparison:04/10/2017 TECHNIQUE: Multiple transabdominal and endovaginal sonographic images of the pelvis performed. FINDINGS: The uterus and right ovary are surgically absent. Left ovary is not visualized due to overl ilsa bowel gas. No adnexal masses or fluid collections. There is no free fluid in the pelvis. There are no abnormal masses seen on either side. IMPRESSION: 1. Unremarkable pelvic ultrasound. No abnormal pelvic masses or fluid collections. Reviewed, dictated and finalized at location A. IMPRESSION: 1. Unremarkable pelvic ultrasound. No abnormal pelvic masses or fluid collectio ns.
== END ==
PROVIDERS: PCP Internal Medicine; Visit Provider Nurse Practitioner
DX: R10.2 Pelvic and perineal pain (principal)
CPT/HCPCS: 76830

== ENCOUNTER 2021-01-09 13:34 | Outpatient (CLI) | payer MEDICARE, MEDICAID, SELFPAY ==
--- NOTE | ~2021-01-09 | MR_ITS ---
EXAMINATION: MR cervical spine wo con DATE: 01/09/2021 14:27 INDICATION: Neck pain. TECHNIQUE: Magnetic resonance imaging (MRI) of the cervical spine was performed without intravenous c ontrast. Sequences included sagittal T2-weighted FSE, sagittal STIR FSE, sagittal T2-weighted FS FSE, sagittal T1-weighted FSE, axial MERGE, and axial T2-weighted FSE. COMPARISON: Cervical spine MRI 08/28/2015 FINDINGS: There is at least 16 degrees levoscoliosis of cervicothoracic spine. There are changes of a nterior fusion procedure from C4 to C7 with interbody bone graft and anterior plate and screws. Verte bral body heights are normal. There is severely decreased disc height at C3-C4 with endplate remodeli ng. The spinal cord signal intensity is normal. The following disc levels are specifically discussed: C2-C3: The disc does not extend beyond the endplate margin. There is no uncovertebral joint osteoarth ritis. There is mild right and severe left facet joint osteoarthritis. There is mild left neural fora paul stenosis. There is no central canal stenosis. C3-C4: The disc is bulging. There is severe bilateral uncovertebral joint osteoarthritis. There is se jackie bilateral facet joint osteoarthritis. There is moderate bilateral neural foraminal stenosis. The re is mild central canal stenosis with ventral indentation of the spinal cord. C4-C5: There is severe right and mild left uncovertebral joint hypertrophy. There is mild bilateral f acet joint osteoarthritis. There is moderate right neural foraminal stenosis. There is no central can al stenosis. C5-C6: There is moderate bilateral uncovertebral joint hypertrophy. There is mild bilateral facet angus nt hypertrophy. There is mild right neural foraminal stenosis. There is no central canal stenosis. C6-C7: There is mild bilateral uncovertebral joint hypertrophy. There is moderate bilateral facet angus nt hypertrophy. There is mild bilateral neural foraminal stenosis. There is no central canal stenosis . C7-T1: The disc does not extend beyond the endplate margin. There is no uncovertebral joint osteoarth ritis. There is severe bilateral facet joint osteoarthritis. There is mild bilateral neural foraminal stenosis. There is no central canal stenosis. IMPRESSION: 1. Severe cervical spondylosis with interval worsening at C3-C4. 2. Anterior fusion procedure from C4 to C7. Reviewed, dictated and finalized at location B.
== END 2021-01-09 13:35 | disposition home or self-care (01) ==
LOC: ANHIMG 13:47
PROVIDERS: PCP Internal Medicine; Visit Provider Nurse Practitioner
DX: M47.892 Other spondylosis, cervical region (principal); Z98.1 Arthrodesis status
CPT/HCPCS: 72141

== ENCOUNTER 2021-01-23 10:49 | Emergency (ER) | payer MEDICARE, MEDICAID, SELFPAY ==
--- NOTE | ~2021-01-23 | XR_ITS ---
EXAMINATION: XR hand LT min 3V EXAM DATE: 01/23/2021 11:40 INDICATION: Left hand pain swelli x 1 week/no trauma/pain 1st mtacarpal. TECHNIQUE: Left hand frontal, lateral and oblique projections obtained and reviewed. Comparison is ma corwin to prior examination from 05/12/2018. FINDINGS: Left metacarpal bones are unremarkable. There is moderate arthritis at the 1st carpometac arpal joint unchanged. Possible joint effusion at this location given the space between the 1st metac arpal and carpal bones. No demineralization or no bony erosions identified. There are no acute fractu res identified. No radiopaque foreign bodies identified. IMPRESSION: 1. 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 2. No acute osseous change. Reviewed, dictated and finalized at location B.
[2021-01-23 11:11] VITALS: BP 123/64; PULSE 75; RESP 18; TEMP 36.9; O2SAT 100
--- NOTE | 2021-01-23 11:28 | ED.UPPEXIN ---
HPI - Extremity Injury (Upper) General Chief Complaint: Extremity Problem,Nontraumatic Stated Complaint: Lt hand pain Source: patient and RN notes reviewed Mode of arrival: ambulatory History of Present Illness HPI narrative: This is a 60-year-old female presented to urgent care with complaints of right is the left hand swelling and pain. Patient notes that approximately 1 week ago she thinks that she twisted her wrist the wrong way and as a result she developed swelling and pain to the left hand. Patient notes that she took tramadol at home to relieve her pain and apply ice to the site which gave her some relief. Patient notes that in the past she has had issues with her hand muscles and is currently seeing a hand doctor I did explain to her that x-ray images are only able to see bone structure she would have to get a CT to evaluate her soft tissues. The patient denies SOB, CP, palpitation, extremity numbness, lightheadedness, dizziness, constipation, diarrhea, chills, or fever. No neurovascular defects noted patient with full range of motion is with pain to the affected hand pulses are palpable capillary refill within normal limits Related Data Home Medications Medication Instructions Recorded Confirmed epinephrine 0.3 mg/0.3 mL 0.3 mg IM ONCE PRN 05/31/19 01/23/21 injection, auto-injector trimethoprim 100 mg tablet 100 mg PO DAILY 12/19/20 01/23/21 aripiprazole 2 mg PO DAILY 01/23/21 01/23/21 atorvastatin 80 mg PO DAILY 01/23/21 01/23/21 cyclobenzaprine 10 mg PO HS 01/23/21 01/23/21 oxybutynin chloride 10 mg PO DAILY 01/23/21 01/23/21 sertraline 100 mg PO DAILY 01/23/21 01/23/21 trazodone 100 mg PO HS 01/23/21 01/23/21 Allergies Allergy/AdvReac Type Severity Reaction Status Date / Time pseudoephedrine Allergy Severe Anaphylaxis Verified 01/23/21 11:37 aspirin Allergy Unknown Anaphylactic Verified 01/23/21 11:37 Shock bee venom protein (honey bee) Allergy Unknown Anaphylactic Verified 01/23/21 11:37 Shock codeine Allergy Unknown Hives Verified 01/23/21 11:37 latex Allergy Unknown Hives Verified 01/23/21 11:37 peanut Allergy Unknown Anaphylaxis Verified 01/23/21 11:37 penicillin G Allergy Unknown Anaphylaxis Verified 01/23/21 11:37 Penicillins Allergy Unknown Anaphylaxis Verified 01/23/21 11:37 strawberry Allergy Unknown Hives Verified 01/23/21 11:37 Sulfa (Sulfonamide Allergy Unknown Anaphylaxis Verified 01/23/21 11:37 Antibiotics) Review of Systems Review of Systems: A 14 organ system Review of Systems was performed and pertinent positives included in the HPI, otherwise remaining ROS is negative. [facility] Past Medical History Medical History Cervical radiculopathy Essential hypertension Missed x2 Other dissociative and conversion disorders Prediabetes Vaginal delivery x1 Surgical History Surgical History History of appendectomy History of bilateral salpingectomy 09/1985 History of hysterectomy 09/1985 History of right oophorectomy 09/1985 Previous section x3 Family History Family History Mother Family history of premature coronary heart disease, Onset Age: 62 Family history of cardiovascular disease Cerebrovascular accident Family history of malignant neoplasm of breast in first degree relative Patient's mother is Family history of gout Hypertension Family history of diabetes mellitus in first degree relative Family history of heart disease in male family member before age 55 Family history of malignant neoplasm of breast Diabetes mellitus Sibling Family history of kidney disease Family history of seizure disorder Family history of pancreatic cancer Diabetes mellitus Hypertension Family history of cardiovascular disease Family history of malignant neoplasm Father Malignant sihra
== END 2021-01-23 12:24 | disposition home or self-care (01) ==
PROVIDERS: Emergency Provider Nurse Practitioner; PCP Internal Medicine
DX: M25.442 Effusion, left hand (principal); F17.210 Nicotine dependence, cigarettes, uncomplicated; M54.12 Radiculopathy, cervical region; I10 Essential (primary) hypertension; R73.03 Prediabetes
CPT/HCPCS: 73130; 99213; G0463

== ENCOUNTER 2021-05-10 16:12 | Outpatient (CLI) | payer MEDICARE, MEDICAID, SELFPAY ==
--- NOTE | ~2021-05-10 | MM_ITS ---
EXAMINATION: MM screening deepak BI w mala HISTORY: Screening TECHNIQUE: Craniocaudal and mediolateral oblique 3-D tomosynthesis images were obtained and synthetic 2-D images were generated. CAD analysis was submitted and interpreted. COMPARISON: Comparison to multiple prior studies sequentially, with oldest reviewed study dated 07/2015. BREAST PARENCHYMAL COMPOSITION: The breasts are heterogeneously dense, which may obscure small masses . FINDINGS: There is no evidence of suspicious mass, calcification, or architectural distortion to sugg est malignancy in either breast. There has been no suspicious interval change. IMPRESSION: 1. No mammographic evidence of malignancy. 2. Recommend routine screening mammography in one year. BI-RADS Category 1: Negative Reviewed, dictated and finalized at location A. ULAR SURGERY PHYSICIAN
== END 2021-05-10 16:13 | disposition home or self-care (01) ==
LOC: ANHIMG 16:14
PROVIDERS: PCP Internal Medicine; Visit Provider Internal Medicine
DX: Z12.31 Encounter for screening mammogram for malignant neoplasm of breast (principal)
CPT/HCPCS: 77063; 77067

== ENCOUNTER 2021-07-25 21:02 | Emergency (ER) | payer MEDICARE, MEDICAID, SELFPAY ==
[2021-07-25] VITALS (12 sets, daily range): BP systolic 111–153; BP diastolic 71–91; PULSE 60–75; RESP 11–20; TEMP 37.4; O2SAT 98–100
--- NOTE | ~2021-07-25 | XR_ITS ---
XR chest 1V portable 07/25/2021 21:15 Indication: Hypertension. Stroke symptoms. Procedure: AP portable chest Comparison: Comparison to multiple prior studies sequentially, with oldest reviewed study dated 10/07. Findings: Borderline heart size. Mild interstitial edema. No pleural effusion or pneumothorax. No acu te osseous abnormality. Impression: 1: Mild interstitial edema. Reviewed, dictated and finalized at location A. UTIVE CHEF Impression: 1: Mild interstitial edema.
--- NOTE | ~2021-07-25 | CT_ITS ---
EXAMINATION: CT brain wo con DATE: 07/25/2021 21:08 INDICATION: Stroke. TECHNIQUE: Computed tomography (CT) of the head was performed without intravenous contrast. The dose- length product was 681.00 mGy-cm. Automated exposure control and iterative reconstruction technique w ere employed. COMPARISON: CT dated 07/22/2019 FINDINGS: No acute intracranial hemorrhage, infarction, mass or mass effect. Normal brain parenchymal volume. Normal monge-white differentiation. No ventriculomegaly or midline shift. Basilar cisterns ar e patent. There is intracranial atherosclerosis. There are scattered mild periventricular and subcort ical white matter changes, most likely related to small vessel ischemic disease (microangiopathy). Pa ranasal sinuses and mastoids are pneumatized. No depressed skull fractures. IMPRESSION: 1. No acute intracranial abnormality. 2: Chronic age-related findings. As per stroke protocol, I called these results to emergency room, discussed with Dr. Alex gross MD at 07/25/2021 21:13 SENIOR CAREGIVER. Reviewed, dictated and finalized at location A. OR CAREGIVER IMPRESSION: 1. No acute intracranial abnormality. 2: Chronic age-related findings. As per stroke protocol, I called these results to emergency room, discussed wit h Dr. Alex Ware MD at 07/25/2021 21:13 SENIOR CAREGIVER.
--- NOTE | ~2021-07-25 | CT_ITS ---
EXAMINATION: CTA brain carotid DATE: 07/25/2021 22:25 PARLIAMENTARY COUNSEL INDICATION: CVA TECHNIQUE: Computed tomographic angiography (CTA) of the head was performed without and with 100 mL O mnipaque-350 intravenous contrast. CTA of the neck was performed with intravenous contrast. The dose- length product was 1044.03 mGy-cm. Maximum intensity projection and volume rendered 3D-reconstruction s were created by the technologist on a separate workstation. COMPARISON: CT head dated 07/25/2021. FINDINGS: HEAD CTA: The anterior, middle and posterior cerebral arteries are symmetric. There is mild atheroscl erosis of the cavernous sinuses without significant stenosis, occlusion or aneurysm. NECK CTA: There is atherosclerosis of the aortic arch. There is no significant stenosis, occlusion or dissection in the common, internal or external carotid arteries. The vertebral and basilar arteries are unremarkable. There is less than 10% stenosis of the proximal right internal carotid artery relative to normal dist al artery lumen diameter (NASCET criteria). There is less than 10% stenosis of the proximal left inte rnal carotid artery relative to normal distal artery lumen diameter. IMPRESSION: 1: No significant vascular abnormality of the intracranial or neck arteries. Reviewed, dictated and finalized at location A. IAMENTARY COUNSEL
--- NOTE | 2021-07-25 21:03 | ECG_ITS ---
Measurements Intervals [place] Rate: 69 P: 54 DC: 177 QRS: 13 QRSD: 101 T: 33 QT: 419 QTc: 449 Interpretive Statements SINUS RHYTHM WITH SINUS ARRHYTHMIA ARTIFACT DELAYED R-WAVE PROGRESSION BORDERLINE ECG COMPARED TO ECG 11/08/2019 10:59:38 SINUS ARRHYTHMIA NOW PRESENT Electronically Signed On 07-26-2021 9:50:22 DIRECTOR OF HOME HEALTH SERVICES by Jeovanny Gage M.D.
--- NOTE | 2021-07-25 21:19 | ED.NEUROSD ---
HPI - Neuro Symptoms/Deficit General Chief Complaint: Suspected CVA Stated Complaint: stroke symptoms Time Seen by Provider: 07/25/21 21:09 Source: family and EMS History of Present Illness HPI Narrative: Patient brought in for concerns for stroke. Patient has a history of CVA TIAs as well as a conversion disorder mimicking CVA-like symptoms. Reports patient woke up feeling lightheaded dizzy throughout the day today monitor her she had syncopal event around 6 PM however woke up and was acting like her usual self. At 8 PM this evening family noted a small right facial droop they monitored and her symptoms got progressively worse so they brought her to the ER for evaluation. Patient reports today he was in her usual state of health in the past few days no sudden fevers, cough, chest pain, shortness of breath. Family denies recent surgeries or major trauma or the use of blood thinners. Related Data Home Medications Medication Instructions Recorded Confirmed epinephrine 0.3 mg/0.3 mL 0.3 mg IM ONCE PRN 05/31/19 01/23/21 injection, auto-injector cyclobenzaprine 10 mg PO HS 01/23/21 01/23/21 sertraline 100 mg PO DAILY 01/23/21 01/23/21 Allergies Allergy/AdvReac Type Severity Reaction Status Date / Time pseudoephedrine Allergy Severe Anaphylaxis Verified 07/05/21 13:19 aspirin Allergy Unknown Anaphylactic Verified 07/05/21 13:19 Shock bee venom protein (honey bee) Allergy Unknown Anaphylactic Verified 07/05/21 13:19 Shock codeine Allergy Unknown Hives Verified 07/05/21 13:19 latex Allergy Unknown Hives Verified 07/05/21 13:19 peanut Allergy Unknown Anaphylaxis Verified 07/05/21 13:19 penicillin G Allergy Unknown Anaphylaxis Verified 07/05/21 13:19 Penicillins Allergy Unknown Anaphylaxis Verified 07/05/21 13:19 strawberry Allergy Unknown Hives Verified 07/05/21 13:19 Sulfa (Sulfonamide Allergy Unknown Anaphylaxis Verified 07/05/21 13:19 Antibiotics) Review of Systems Review of Systems: CONSTITUTIONAL: Denies fever, chills, or sweats. EYES: Denies visual changes, redness, or discharge. ENT: Denies rhinorrhea, congestion, sore throat, or otalgia. CARDIOVASCULAR: Denies chest pain, palpitations, or edema. RESPIRATORY: Denies cough or dyspnea. GASTROINTESTINAL: Denies abdominal pain, nausea, vomiting, or diarrhea. GENITOURINARY: Denies dysuria or hematuria. SKIN: Denies rash or itching. MUSCULOSKELETAL: Denies back pain, joint pain, or myalgia. NEUROLOGIC: Denies headache, numbness, dizziness, or weakness. PSYCHIATRIC: Denies anxiety or depression. All systems reviewed & are unremarkable except as noted in HPI and below ROS unobtainable: Yes other (ROS may be limited patient reports when asked questions) PMFSH Past Medical History Medical History Cervical radiculopathy Essential hypertension Missed x2 Other dissociative and conversion disorders Prediabetes Vaginal delivery x1 Surgical History Surgical History History of appendectomy History of bilateral salpingectomy 09/1985 History of hysterectomy 09/1985 History of right oophorectomy 09/1985 Previous section x3 Family History Family History Mother Family history of premature coronary heart disease, Onset Age: 62 Family history of cardiovascular disease Cerebrovascular accident Family history of malignant neoplasm of breast in first degree relative Patient's mother is Family history of gout Hypertension Family history of diabetes mellitus in first degree relative Family history of heart disease in male family member before age 55 Family history of malignant neoplasm of breast Diabetes mellitus Sibling Family history of kidney disease Family history of seizure disorder Family history of pancreatic cancer Diabetes mellitus Hypertension Family h
--- NOTE | 2021-07-25 21:20 | PC.NURSE ---
Patient has L sided facial droop. Does not pass Dysphagia screening. Will keep Pt NPO. EDP aware.
[2021-07-25 21:22] LABS: Basophils Absolute Auto 0.1 K/mm3 (0.0-0.1); Basophils Percent Auto 0.8 % (0.2-1.2); Eosinophils Absolute Auto 0.2 K/mm3 (0-0.3); Eosinophils Percent Auto 1.8 % (0-4.4); Hematocrit 41.2 % (37.0-47.0); Hemoglobin 13.7 g/dL (12.0-15.0); Immature Granulocyte Absolute 0.03 K/mm3 (0.00-0.031); Immature Granulocyte Percent A 0.3 % (0-0.5); Lymphocytes Absolute Auto 3.91 K/mm3 (0.9-3.2); Lymphocytes Percent Auto 39.9 % (18.3-44.2); Mean Corpuscular HGB Conc 33.3 g/dl (32-36); Mean Corpuscular Hemoglobin 29.8 pg (26-34); Mean Corpuscular Volume 89.8 fl (80-100); Mean Platelet Volume 9.5 fl (7.4-10.4); Monocytes Absolute Auto 1.1 K/mm3 (0.1-0.6); Monocytes Percent Auto 10.8 % (2.6-8.5); Neutrophils Absolute Auto 4.5 K/mm3 (1.3-6.7); Neutrophils Percent Auto 46.4 % (45.5-73.1); Platelet Count Result 343 k/mm3 (150-375); Red Blood Count 4.59 M/mm3 (4.2-5.4); Red Cell Distribution Width 13.4 % (11.5-14.5); White Blood Count 9.8 K/mm3 (4.5-10.0)
[2021-07-25 21:31] LABS: Partial Thromboplastin Time 27.3 SECONDS (22.3-36.8); Prothrombin Time 12.8 Seconds (11.1-14.7)
[2021-07-25 21:32] LABS: Alanine Aminotransferase 20 U/L (4-35); Albumin Level 4.2 g/dL (3.5-5.1); Alkaline Phosphatase 94 U/L (38-126); Anion Gap 8 mmol/L (8-16); Aspartate Amino Transferase 40 U/L (14-36); Bilirubin,Total 0.1 mg/dL (0.2-1.3); Blood Urea Nitrogen 15 mg/dL (7-17); Calcium 9.1 mg/dL (8.4-10.2); Carbon Dioxide 31 mmol/L (22-30); Chloride 101 mmol/L (98-107); Estimated CRCL calculation 58 ml/min; Estimated Glomerular Filt Rate > 60; Glucose 141 mg/dL (65-110); Potassium 3.4 mmol/L (3.4-5.0); Sodium 140 mmol/L (137-145)
[2021-07-25 21:47] LABS: Troponin I < 0.012 ng/mL (0.000-0.034)
--- NOTE | 2021-07-25 22:01 | PC.NURSE ---
Returned from CT at this time.
[2021-07-25 22:23] LABS: Glucose Point of Care 164 mg/dl (65-105)
--- NOTE | 2021-07-25 23:12 | PC.NURSE ---
50mL NS infused at this time using TPA tubing.
[2021-07-25 23:30] LABS: SARS-CoV-2 RNA PCR Negative
[2021-07-26 00:40] VITALS: BP 114/89; PULSE 60; RESP 14; TEMP 37.2; O2SAT 98
[2021-07-26 01:10] VITALS: BP 115/72; PULSE 64; RESP 14; O2SAT 99
[2021-07-26 01:40] VITALS: BP 101/73; PULSE 67; RESP 12; TEMP 37.2; O2SAT 97
--- NOTE | 2021-07-26 01:43 | PC.NURSE ---
called [facility] to request transport. ETA [phone] called [facility] to request transport. [facility] declined due to short staff.
[2021-07-26 02:10] VITALS: BP 111/70; PULSE 62; RESP 14; O2SAT 98
[2021-07-26 02:40] VITALS: BP 112/68; PULSE 59; RESP 14; O2SAT 99
[2021-07-26 03:10] VITALS: BP 111/70; PULSE 60; RESP 14; O2SAT 98
== END 2021-07-26 03:24 | disposition short-term general hospital (02) ==
PROVIDERS: Emergency Medicine; Emergency Provider Emergency Medicine; PCP Internal Medicine
DX: I63.9 Cerebral infarction, unspecified (principal); R29.720 NIHSS score 20; Z20.822 Contact with and (suspected) exposure to COVID-19; I10 Essential (primary) hypertension; R73.03 Prediabetes; F44.9 Dissociative and conversion disorder, unspecified; Z86.73 Personal history of transient ischemic attack (TIA), and cerebral infarction without residual deficits; Z87.891 Personal history of nicotine dependence; R94.31 Abnormal electrocardiogram [ECG] [EKG]; J81.1 Chronic pulmonary edema
CPT/HCPCS: 36415; 37195; 51702; 70450; 70496; 70498; 71045; 80053; 82948; 84484; 85025; 85610; 85730; 93005; 96365; 99285; C9803; J0131; J2997; Q9967; U0003; U0005

== ENCOUNTER 2021-12-06 17:01 | Emergency (ER) | payer MEDICARE, MEDICAID, SELFPAY ==
--- NOTE | ~2021-12-06 | XR_ITS ---
XR chest 2V DATE: 12/06/2021 17:33 INDICATION: Left-sided chest pain, hemoptysis TECHNIQUE: 2 views COMPARISON: 07/25/2021 portable AP chest FINDINGS: Normal heart size. Aortic arch calcification. No hilar or mediastinal enlargement. No pulmonary infiltrate or consolidation, pleural effusion or pulmonary vascular congestion or pneumo thorax. Osteopenia. Status post anterior cervical and posterior and interbody lumbar surgical fusion. IMPRESSION: No active cardiac pulmonary disease Aortic atherosclerosis Osteopenia Status post surgical fusion of cervical and lumbar spine Reviewed, dictated and finalized at location A.
[2021-12-06 17:15] VITALS: BP 143/96; PULSE 95; RESP 18; TEMP 37.2; O2SAT 99
--- NOTE | 2021-12-06 18:06 | ED.URI ---
HPI - URI/Sore Throat General Chief Complaint: Upper Respiratory Infection Stated Complaint: Sore Throat,Cough Time Seen by Provider: 12/06/21 18:06 Source: patient and RN notes reviewed Mode of arrival: ambulatory Limitations: no limitations History of Present Illness HPI Narrative: 61-year-old female presents to the [facility] with complaints of a sore throat and cough for approximately a week to 10 days. Patient denies smoking. Patient reports that she saw her primary care provider this morning and was prescribed a COVID test that she has an appointment for the drive-through in the morning. Patient states that she really just wanted an x-ray to make sure that she does not have a pneumonia. Denies fevers, chest pain, abdominal pain. Related Data Home Medications Medication Instructions Recorded Confirmed epinephrine 0.3 mg/0.3 mL 0.3 mg IM ONCE PRN Allergic 05/31/19 11/09/21 injection, auto-injector (Auvi-Q) Reaction Allergies Allergy/AdvReac Type Severity Reaction Status Date / Time pseudoephedrine Allergy Severe Anaphylaxis Verified 12/06/21 17:06 aspirin Allergy Unknown Anaphylactic Verified 12/06/21 17:06 Shock bee venom protein (honey bee) Allergy Unknown Anaphylactic Verified 12/06/21 17:06 Shock codeine Allergy Unknown Hives Verified 12/06/21 17:06 latex Allergy Unknown Hives Verified 12/06/21 17:06 peanut Allergy Unknown Anaphylaxis Verified 12/06/21 17:06 penicillin G Allergy Unknown Anaphylaxis Verified 12/06/21 17:06 Penicillins Allergy Unknown Anaphylaxis Verified 12/06/21 17:06 strawberry Allergy Unknown Hives Verified 12/06/21 17:06 Sulfa (Sulfonamide Allergy Unknown Anaphylaxis Verified 12/06/21 17:06 Antibiotics) Review of Systems Review of Systems: All systems reviewed & are unremarkable except as noted in HPI and below Constitutional: Constitutional: Reports no additional constitutional complaints, Denies chills and Denies fever(s) Eyes: Eyes: Reports no additional eye complaints ENT: Reports system reviewed and no additional complaints, except as documented Cardiovascular: Cardiovascular: Reports no additional cardiovascular complaints Respiratory: Respiratory: Reports as per HPI, Reports cough and Denies wheezing Gastrointestinal: Gastrointestinal: Reports no additional gastrointestinal complaints Musculoskeletal: Musculoskeletal: Reports no additional musculoskeletal complaints Integumentary/Breasts: Skin/Breast: Reports system reviewed and no additional complaints, except as docu Neurologic: Reports system reviewed and no additional complaints, except as documented Psychiatric: Psychiatric: Reports no additional psychiatric complaints Allergic/Immunologic: Allergic/Immunologic: Reports no additional allergic/immunologic complaints PMFSH Past Medical History Medical History Cervical radiculopathy Essential hypertension Insomnia with sleep apnea, unspecified Missed x2 Other dissociative and conversion disorders Prediabetes Vaginal delivery x1 Surgical History Surgical History H/O spinal fusion History of appendectomy History of bilateral salpingectomy 09/1985 History of hysterectomy 09/1985 History of right oophorectomy 09/1985 Previous section x3 Family History Family History Mother Family history of premature coronary heart disease, Onset Age: 62 Family history of malignant neoplasm of breast in first degree relative Patient's mother is Family history of gout Hypertension Family history of diabetes mellitus in first degree relative Family history of heart disease in male family member before age 55 Family history of malignant neoplasm of breast Diabetes mellitus Family history of cardiovascular disease Cerebrovascular accident Sibling Family hist
== END 2021-12-06 18:24 | disposition home or self-care (01) ==
PROVIDERS: Emergency Provider Nurse Practitioner; PCP Internal Medicine
DX: R05.9 Cough, unspecified (principal); R09.82 Postnasal drip; Z87.891 Personal history of nicotine dependence; I10 Essential (primary) hypertension; R73.03 Prediabetes
CPT/HCPCS: 71046; 99213; G0463

== ENCOUNTER → 2021-12-07 02:22 | Outpatient (CLI) | payer MEDICARE, MEDICAID, SELFPAY ==
[2021-12-07 17:31] LABS: SARS-CoV-2 RNA PCR Negative
== END ==
PROVIDERS: PCP Internal Medicine; Visit Provider Internal Medicine
DX: R68.89 Other general symptoms and signs (principal); Z20.822 Contact with and (suspected) exposure to COVID-19
CPT/HCPCS: C9803; U0003; U0005

== ENCOUNTER 2022-03-26 14:38 | Emergency (ER) | payer MEDICARE, MEDICAID, SELFPAY ==
--- NOTE | ~2022-03-26 | XR_ITS ---
EXAM: XR abdomen/kub 1V DATE: 03/26/2022 15:06 HISTORY: right side flank pain, no injury . COMPARISON: 08/21/2020. CT abdomen and pelvis 10/17/2020. FINDINGS: Partially visualized uncomplicated appearing lumbar fusion hardware. Normal bowel gas sumi germaine. No organomegaly. Multiple pelvic phleboliths. Regional bones and soft tissues normal for age. IMPRESSION: No radiographic evidence of obstruction or ileus. No radiographic finding that would expl ain right-sided flank pain. Reviewed, dictated and finalized at location K. IMPRESSION: No radiographic evidence of obstruction or ileus. No radiographic f inding that would explain right-sided flank pain.
--- NOTE | 2022-03-26 14:49 | ED.FEMALEGU ---
HPI - Female Genitourinary General Stated complaint: Rt Side Pain Time Seen by Provider: 03/26/22 15:22 Source: patient and RN notes reviewed Mode of arrival: ambulatory Limitations: no limitations History of Present Illness HPI Narrative: 61-year-old female presents with concerns for right flank pain that started last night. She reports the pain radiates to her suprapubic area. She reports she has been nauseated and has vomited several times and has had a fever up to 102. She reports malodorous urine this started yesterday. She reports history of kidney stones and urinary tract infections. She denies dysuria. Reports frequency MD elicited complaint: flank pain Related Data Home Medications Medication Instructions Recorded Confirmed amlodipine 5 mg tablet 5 mg DAILY 03/26/22 03/26/22 atorvastatin 80 mg tablet 80 mg DAILY 03/26/22 03/26/22 metformin 500 mg tablet,extended 500 mg DAILY 03/26/22 03/26/22 release 24 hr Allergies Allergy/AdvReac Type Severity Reaction Status Date / Time pseudoephedrine Allergy Severe Anaphylaxis Verified 03/26/22 15:01 aspirin Allergy Unknown Anaphylactic Verified 12/06/21 17:06 Shock bee venom protein (honey bee) Allergy Unknown Anaphylactic Verified 12/06/21 17:06 Shock codeine Allergy Unknown Hives Verified 12/06/21 17:06 latex Allergy Unknown Hives Verified 12/06/21 17:06 peanut Allergy Unknown Anaphylaxis Verified 12/06/21 17:06 penicillin G Allergy Unknown Anaphylaxis Verified 12/06/21 17:06 Penicillins Allergy Unknown Anaphylaxis Verified 12/06/21 17:06 strawberry Allergy Unknown Hives Verified 12/06/21 17:06 Sulfa (Sulfonamide Allergy Unknown Anaphylaxis Verified 03/26/22 15:01 Antibiotics) Review of Systems Review of Systems: CONSTITUTIONAL: Report malaise, fever. CARDIOVASCULAR: Denies chest pain, palpitations, or edema. RESPIRATORY: Denies cough or dyspnea. GASTROINTESTINAL: Denies abdominal pain, diarrhea. Reports nausea and vomiting GENITOURINARY: Denies dysuria, urgency. Reports right flank pain, frequency see, pain radiating to the suprapubic area SKIN: Denies rash or itching. MUSCULOSKELETAL: Denies back pain or myalgia. All systems reviewed & are unremarkable except as noted in HPI and below PMFSH Past Medical History Medical History Cervical radiculopathy Essential hypertension Insomnia with sleep apnea, unspecified Missed x2 Other dissociative and conversion disorders Prediabetes Vaginal delivery x1 Surgical History Surgical History H/O spinal fusion History of appendectomy History of bilateral salpingectomy 09/1985 History of hysterectomy 09/1985 History of right oophorectomy 09/1985 Previous section x3 Family History Family History Mother Family history of premature coronary heart disease, Onset Age: 62 Family history of malignant neoplasm of breast in first degree relative Patient's mother is Family history of gout Hypertension Family history of diabetes mellitus in first degree relative Family history of heart disease in male family member before age 55 Family history of malignant neoplasm of breast Diabetes mellitus Family history of cardiovascular disease Cerebrovascular accident Sibling Family history of kidney disease Family history of seizure disorder Family history of pancreatic cancer Diabetes mellitus Hypertension Family history of cardiovascular disease Family history of malignant neoplasm Father Malignant neoplasm of prostate, Onset Age: 50 Patient's father is Cerebrovascular accident Family history of arthritis Carcinoma of colon Grandparent Family history of malignant neoplasm of brain, Onset Age: 42 Social History Social History (Reviewed 11/09/21 @ 11:10 by Lisa Slater,
[2022-03-26 14:51] VITALS: BP 142/117; PULSE 86; RESP 20; TEMP 36.7; O2SAT 98
== END 2022-03-26 15:22 | disposition short-term general hospital (02) ==
PROVIDERS: Emergency Provider Nurse Practitioner; PCP Internal Medicine
DX: R10.30 Lower abdominal pain, unspecified (principal); I10 Essential (primary) hypertension; Z87.891 Personal history of nicotine dependence
CPT/HCPCS: 74018; 81003; 99213; G0463

== ENCOUNTER 2022-03-26 15:38 | Emergency (ER) | payer MEDICARE, MEDICAID, SELFPAY ==
--- NOTE | ~2022-03-26 | CT_ITS ---
EXAMINATION: CT abdomen pelvis wo con DATE: 03/26/2022 17:40 INDICATION: Right flank pain since yesterday. History kidney stones. Urinary frequency. TECHNIQUE: Computed tomography (CT) of the abdomen and pelvis was performed without intravenous contr ast. Automated exposure control and iterative reconstruction technique were employed. Exam dose: 231 .55 mGy-cm total exam DLP. COMPARISON: 03/26/2022 KUB 10/17/2020 CT abdomen pelvis with IV contrast material 08/05/2020 CT abdomen pelvis without contrast material FINDINGS: The lung bases are clear. Normal heart size. No pericardial or pleural effusion. Occasional calcified hepatic and splenic granulomas consistent with old granulomatous disease. The li denton, gallbladder, bile ducts, spleen, pancreas and pancreatic duct and adrenal glands are unremarkabl e. No renal mass lesion or urinary tract calculus or hydroureteronephrosis is detected. The urinary blad britany is unremarkable. Status post hysterectomy. There is atherosclerotic calcification but normal caliber of the abdominal aorta and iliac arteries. No intraperitoneal or retroperitoneal or pelvic mass lesion or adenopathy or ascites. Minimal colonic diverticulosis; no CT evidence of diverticulitis. No evidence of appendicitis. No bow el obstruction or intraperitoneal free air. Status post posterior and interbody spinal fusion from L3-S1. No suspicious osteolytic or osteoblastic lesions are noted. IMPRESSION: No urinary tract calculus or hydroureteronephrosis Minimal diverticulosis of the colon; no evidence of diverticulitis or appendicitis Status post posterior and interbody spinal fusion at L3-S1 Reviewed, dictated and finalized at Location [facility]. Reviewed, dictated and finalized at location A. IMPRESSION: No urinary tract calculus or hydroureteronephrosis Minimal diverticulosis of the colon; no evidence of diverticulitis or appendici tis Status post posterior and interbody spinal fusion at L3-S1
[2022-03-26 16:10] VITALS: BP 145/109; PULSE 84; RESP 16; TEMP 36.9; O2SAT 98
[2022-03-26 17:04] LABS: Appearance Urine Clear (Clear); Bilirubin Urine Negative (Negative); Blood Urine 1+ (Negative); Color Urine Yellow (Yellow); Glucose Urine UA Negative (Negative); Ketones Urine Negative (Negative); Leukocyte Esterase Ur Negative LEU/UL (Negative); Nitrate Urine Negative (Negative); Protein Urine Negative (Negative); Specific Grav Ur <= 1.005 (1.001-1.035); Urobilinogen Urine 0.2 mg/dL (<2.0)
[2022-03-26 17:07] VITALS: BP 141/58; PULSE 92; RESP 16; O2SAT 99
[2022-03-26 17:11] LABS: Bacteria Urine Trace /hpf; Mucus Urine Rare /lpf; RBC Urine 0-2 /hpf (0-2); WBC Urine 0-3 /hpf
[2022-03-26 17:24] LABS: Basophils Absolute Auto 0.1 K/mm3 (0.0-0.1); Basophils Percent Auto 0.6 % (0.2-1.2); Eosinophils Absolute Auto 0.2 K/mm3 (0-0.3); Eosinophils Percent Auto 1.7 % (0-4.4); Hematocrit 40.6 % (37.0-47.0); Hemoglobin 13.1 g/dL (12.0-15.0); Immature Granulocyte Absolute 0.01 K/mm3 (0.00-0.031); Immature Granulocyte Percent A 0.1 % (0-0.5); Lymphocytes Absolute Auto 3.17 K/mm3 (0.9-3.2); Mean Corpuscular HGB Conc 32.3 g/dl (32-36); Mean Corpuscular Hemoglobin 28.4 pg (26-34); Mean Corpuscular Volume 87.9 fl (80-100); Monocytes Percent Auto 10.3 % (2.6-8.5); Neutrophils Absolute Auto 5.2 K/mm3 (1.3-6.7); Neutrophils Percent Auto 54.3 % (45.5-73.1); Platelet Count Result 313 k/mm3 (150-375); Red Blood Count 4.62 M/mm3 (4.2-5.4); Red Cell Distribution Width 15.8 % (11.5-14.5); White Blood Count 9.6 K/mm3 (4.5-10.0)
--- NOTE | 2022-03-26 17:29 | ED.FEMALEGU ---
HPI - Female Genitourinary General Chief complaint: Urogenital-Female Stated complaint: R FLANK PAIN Time Seen by Provider: 03/26/22 17:10 History of Present Illness HPI Narrative: 61-year-old female history of kidney stones presents emergency room with sudden onset of right flank pain that began yesterday. Patient states the pain is similar to previous episodes of her kidney stone pain. Patient endorses nausea, and vomiting and inability to find a comfortable position. Patient states that she has been increasing her oral fluid intake since the pain began. Patient denies any dysuria, urinary retention. Related Data Home Medications Medication Instructions Recorded Confirmed amlodipine 5 mg tablet 5 mg DAILY 03/26/22 03/26/22 atorvastatin 80 mg tablet 80 mg DAILY 03/26/22 03/26/22 metformin 500 mg tablet,extended 500 mg DAILY 03/26/22 03/26/22 release 24 hr Allergies Allergy/AdvReac Type Severity Reaction Status Date / Time pseudoephedrine Allergy Severe Anaphylaxis Verified 03/26/22 17:07 aspirin Allergy Unknown Anaphylactic Verified 03/26/22 17:07 Shock bee venom protein (honey bee) Allergy Unknown Anaphylactic Verified 03/26/22 17:07 Shock codeine Allergy Unknown Hives Verified 03/26/22 17:07 latex Allergy Unknown Hives Verified 03/26/22 17:07 peanut Allergy Unknown Anaphylaxis Verified 03/26/22 17:07 penicillin G Allergy Unknown Anaphylaxis Verified 03/26/22 17:07 Penicillins Allergy Unknown Anaphylaxis Verified 03/26/22 17:07 strawberry Allergy Unknown Hives Verified 03/26/22 17:07 Sulfa (Sulfonamide Allergy Unknown Anaphylaxis Verified 03/26/22 17:07 Antibiotics) Review of Systems Review of Systems: CONSTITUTIONAL: Denies fever, chills, or sweats. EYES: Denies visual changes, redness, or discharge. ENT: Denies rhinorrhea, congestion, sore throat, or otalgia. CARDIOVASCULAR: Denies chest pain, palpitations, or edema. RESPIRATORY: Denies cough or dyspnea. GASTROINTESTINAL: Reports right flank pain GENITOURINARY: Denies dysuria or hematuria. SKIN: Denies rash or itching. MUSCULOSKELETAL: Denies back pain, joint pain, or myalgia. NEUROLOGIC: Denies headache, numbness, dizziness, or weakness. PSYCHIATRIC: Denies anxiety or depression. [facility] Past Medical History Medical History Cervical radiculopathy Essential hypertension Insomnia with sleep apnea, unspecified Missed x2 Other dissociative and conversion disorders Prediabetes Vaginal delivery x1 Surgical History Surgical History H/O spinal fusion History of appendectomy History of bilateral salpingectomy 09/1985 History of hysterectomy 09/1985 History of right oophorectomy 09/1985 Previous section x3 Family History Family History Mother Family history of premature coronary heart disease, Onset Age: 62 Family history of malignant neoplasm of breast in first degree relative Patient's mother is Family history of gout Hypertension Family history of diabetes mellitus in first degree relative Family history of heart disease in male family member before age 55 Family history of malignant neoplasm of breast Diabetes mellitus Family history of cardiovascular disease Cerebrovascular accident Sibling Family history of kidney disease Family history of seizure disorder Family history of pancreatic cancer Diabetes mellitus Hypertension Family history of cardiovascular disease Family history of malignant neoplasm Father Malignant neoplasm of prostate, Onset Age: 50 Patient's father is Cerebrovascular accident Family history of arthritis Carcinoma of colon Grandparent Family history of malignant neoplasm of brain, Onset Age: 42 Social History Social History Soci
[2022-03-26 17:31] LABS: Add Urine Microscopic? YES
[2022-03-26 17:37] LABS: Alanine Aminotransferase 23 U/L (6-35); Albumin Level 4.5 g/dL (3.5-5.1); Alkaline Phosphatase 106 U/L (38-126); Anion Gap 12 mmol/L (8-16); Aspartate Amino Transferase 27 U/L (14-36); Bilirubin,Total 0.2 mg/dL (0.2-1.3); Blood Urea Nitrogen 13 mg/dL (7-17); Calcium 9.1 mg/dL (8.4-10.2); Carbon Dioxide 31 mmol/L (22-30); Chloride 99 mmol/L (98-107); Estimated CRCL calculation 57 ml/min; Estimated Glomerular Filt Rate > 60; Glucose 82 mg/dL (65-110); Potassium 3.7 mmol/L (3.4-5.0); Sodium 142 mmol/L (137-145)
[2022-03-26] MEDS: SODIUM CHLORIDE 0.9% IV 1,000 ML 999 ML IV CONT (17:49)
[2022-03-26] MEDS: HYDROmorphone HCL INJ (*CRX) 1 MG/ML SYR IV PUSH (17:50)
[2022-03-26] MEDS: ONDANSETRON INJ 4 MG/2 ML VIAL IV PUSH (17:50)
[2022-03-26 18:54] VITALS: BP 131/81; PULSE 71; RESP 13; O2SAT 96
== END 2022-03-26 18:55 | disposition home or self-care (01) ==
PROVIDERS: Emergency Medicine; Emergency Provider Nurse Practitioner Family; PCP Internal Medicine
DX: R10.9 Unspecified abdominal pain (principal); I10 Essential (primary) hypertension; G47.30 Sleep apnea, unspecified
CPT/HCPCS: 36415; 74018; 74176; 80053; 81001; 81003; 85025; 96361; 96374; 96375; 99284; J1170; J2405; J7030

== ENCOUNTER 2022-03-31 19:49 | Emergency (ER) | payer MEDICARE, MEDICAID, SELFPAY ==
[2022-03-31] VITALS (11 sets, daily range): BP systolic 157–190; BP diastolic 90–103; PULSE 80–107; RESP 11–24; TEMP 37; O2SAT 96–100
--- NOTE | ~2022-03-31 | CT_ITS ---
EXAMINATION: CT cervical spine wo con DATE: 03/31/2022 20:13 INDICATION: fall TECHNIQUE: Computed tomography (CT) of the cervical spine was performed without intravenous contrast. Automated exposure control and iterative reconstruction technique were employed. The dose-length pro duct was 343.71 mGy-cm. COMPARISON: MR C-spine 01/09/2021, x-ray C-spine 07/02/2018 FINDINGS: Vertebral Body Alignment: Intact. Reversed lordosis, centered at C4-5. Stable grade 1 anterolistheses at C2-3 and C3-4. Craniocervical and atlantoaxial alignment: Moderate degenerative change. Alignment intact. Osseous structures/fracture: Anterior hardware fusion from C4 to C7. Hardware is intact. Interbody de vices in good position. No evidence of a lytic or blastic process in the visualized spine. No eviden ce of acute fracture. Cervical soft tissues: The paraspinal soft tissues planes are maintained. Degenerative changes: Multilevel degenerative disc disease. Severe right neural foraminal narrowing a t C4-5. No severe central canal narrowing. IMPRESSION: No acute fracture or traumatic malalignment in the cervical spine. Reviewed, dictated and finalized at location K. FORCE MANAGEMENT COORDINATOR
--- NOTE | ~2022-03-31 | CT_ITS ---
EXAMINATION: CT brain wo con DATE: 03/31/2022 20:13 INDICATION: head injury post fall, hematoma to forehead . TECHNIQUE: Computed tomography (CT) of the head was performed without intravenous contrast. The mA wa s adjusted according to patient size. Iterative reconstruction technique was employed. The dose-lengt h product was 605.33 mGy-cm. COMPARISON: None FINDINGS: No acute intracranial hemorrhage or extra-axial fluid collection. No hydrocephalus, mass, or herniation. No acute ischemic infarct. Unremarkable dural venous sinus attenuation. No acute osseous abnormality. Right frontal scalp swelling. The aerated spaces are clear. Mild atrophy and chronic white matter change. Atherosclerotic intracranial calcifications. IMPRESSION: No acute intracranial process. Reviewed, dictated and finalized at location K. UCTION GRAPHIC DESIGNER
--- NOTE | 2022-03-31 20:30 | ED.HEATRA ---
HPI - Head Injury General Chief complaint: Head Injury <BHUPINDER Suárez Last Filed: 04/01/22 03:07> Stated complaint: fell/ head injury <BHUPINDER Suárez Last Filed: 04/01/22 03:07> Time Seen by Provider: 03/31/22 20:17 <BHUPINDER Suárez Last Filed: 04/01/22 03:07> Source: patient <BHUPINDER Suárez Last Filed: 04/01/22 03:07> Mode of arrival: ambulatory <BHUPINDER Suárez Last Filed: 04/01/22 03:07> Limitations: no limitations <BHUPINDER Suárez Last Filed: 04/01/22 03:07> History of Present Illness HPI Narrative: This is a 61-year-old female that presents to the emergency department after head injury today. Reports she tripped and fell forward. She hit her head on the countertop. She did not lose consciousness. Reports since she has had a headache, dizziness and nausea. She is not on any blood thinners. She denies any other focal areas of pain. Reports intermittent blurry vision. Denies vomiting, or new numbness or weakness. <BHUPINDER Suárez Last Filed: 04/01/22 03:07> Related Data Home medications: Home Medications Medication Instructions Recorded Confirmed amlodipine 5 mg tablet 5 mg DAILY 03/26/22 04/09/22 atorvastatin 80 mg tablet 80 mg DAILY 03/26/22 04/09/22 metformin 500 mg tablet,extended 500 mg DAILY 03/26/22 04/09/22 release 24 hr <BHUPINDER Suárez Last Filed: 04/01/22 03:07> Allergies/Adverse reactions: Allergies Allergy/AdvReac Type Severity Reaction Status Date / Time pseudoephedrine Allergy Severe Anaphylaxis Verified 04/09/22 10:01 aspirin Allergy Unknown Anaphylactic Verified 04/09/22 10:01 Shock bee venom protein (honey bee) Allergy Unknown Anaphylactic Verified 04/09/22 10:01 Shock codeine Allergy Unknown Hives Verified 04/09/22 10:01 latex Allergy Unknown Hives Verified 04/09/22 10:01 peanut Allergy Unknown Anaphylaxis Verified 04/09/22 10:01 penicillin G Allergy Unknown Anaphylaxis Verified 04/09/22 10:01 Penicillins Allergy Unknown Anaphylaxis Verified 04/09/22 10:01 strawberry Allergy Unknown Hives Verified 04/09/22 10:01 Sulfa (Sulfonamide Allergy Unknown Anaphylaxis Verified 04/09/22 10:01 Antibiotics) <Manuela Nicholas PA-C - Last Filed: 04/01/22 03:07> Review of Systems Review of Systems: CONSTITUTIONAL: Denies fever EYES: Reports visual changes CARDIOVASCULAR: Denies chest pain, or edema. RESPIRATORY: Denies dyspnea. GASTROINTESTINAL: Denies vomiting SKIN: Denies rash MUSCULOSKELETAL: Reports joint pain, or myalgia. NEUROLOGIC: Reports headache <Manuela Nicholas PA-C - Last Filed: 04/01/22 03:07> All systems reviewed & are unremarkable except as noted in HPI and below <Manuela Nicholas PA-C - Last Filed: 04/01/22 03:07> [facility] Past Medical History Medical History: Medical History Cervical radiculopathy Essential hypertension Insomnia with sleep apnea, unspecified Missed x2 Other dissociative and conversion disorders Prediabetes Vaginal delivery x1 <Manuela Nicholas PA-C - Last Filed: 04/01/22 03:07> Surgical History Surgical History: Surgical History H/O spinal fusion History of appendectomy History of bilateral salpingectomy 09/1985 History of hysterectomy 09/1985 History of right oophorectomy 09/1985 Previous section x3 <Manuela Nicholas PA-C - Last Filed: 04/01/22 03:07> Family History Family History: Family History Mother Family history of premature coronary heart disease, Onset Age: 62 Family history of malignant neoplasm of breast in first degree relative Patient's mother is Family history of gout Hypertension Family history of diabetes mellitus in first degree relative Family history of heart disease in male
[2022-03-31] MEDS: METOCLOPRAMIDE HCL INJ 10 MG/2 ML VIAL IV PUSH (21:11)
[2022-03-31] MEDS: diphenhydrAMINE HCl INJ 50 MG/ML VIAL 25 MG IV PUSH (21:11)
[2022-03-31] MEDS: SODIUM CHLORIDE 0.9% IV 1,000 ML 999 ML IV CONT (21:11)
--- NOTE | 2022-03-31 22:45 | PC.NURSE ---
Pt not in room upon rounding. IV bag found with IV catheter on bedside table, catheter intact. PA Manuela aware.
== END 2022-03-31 22:51 | disposition left against medical advice (07) ==
LOC: ANHED 20:40
PROVIDERS: Emergency Provider Emergency Medicine; PCP Internal Medicine
DX: S09.90XA Unspecified injury of head, initial encounter (principal); I10 Essential (primary) hypertension; R73.03 Prediabetes; G47.30 Sleep apnea, unspecified; G47.00 Insomnia, unspecified; Z98.1 Arthrodesis status; Z90.721 Acquired absence of ovaries, unilateral; Z90.79 Acquired absence of other genital organ(s); Z90.710 Acquired absence of both cervix and uterus; Z87.891 Personal history of nicotine dependence; W01.198A Fall on same level from slipping, tripping and stumbling with subsequent striking against other object, initial encounter
CPT/HCPCS: 70450; 72125; 96361; 96365; 96375; 99284; J0131; J1200; J2765; J7030

== ENCOUNTER 2022-07-10 14:01 | Outpatient (CLI) | payer MEDICARE, MEDICAID, SELFPAY ==
--- NOTE | ~2022-07-10 | MM_ITS ---
EXAMINATION: MM screening deepak BI w mala HISTORY: Screening mammogram TECHNIQUE: Craniocaudal and mediolateral oblique 3-D tomosynthesis images were obtained and synthetic 2-D images were generated. Bilateral rotated lateral CC views. CAD analysis was submitted and interp reted. COMPARISON: 05/10/2021, 04/19/2020 bilateral screening mammogram examinations BREAST PARENCHYMAL COMPOSITION: There are scattered areas of fibroglandular density. FINDINGS: There is no evidence of suspicious mass, calcification, or architectural distortion to sugg est malignancy in either breast. There has been no suspicious interval change. IMPRESSION: 1. No mammographic evidence of malignancy. 2. Recommend routine screening mammography in one year. BI-RADS Category 1: Negative Reviewed, dictated and finalized at location A. SALES ADVISOR
== END 2022-07-10 14:02 | disposition home or self-care (01) ==
PROVIDERS: PCP Internal Medicine; Visit Provider Internal Medicine
DX: Z12.31 Encounter for screening mammogram for malignant neoplasm of breast (principal)
CPT/HCPCS: 77063; 77067

== ENCOUNTER 2022-08-01 07:28 | Outpatient (CLI) | payer MEDICARE, MEDICAID, SELFPAY ==
--- NOTE | ~2022-08-01 | NM_ITS ---
EXAMINATION: NM pernell stress w perfusion DATE: 08/01/2022 11:26 INDICATION: Chest pain TECHNIQUE: Rest images were obtained following intravenous administration of 10.5 mCi Tc99m tetrofosm in (Myoview). The patient was infused intravenously with Lexiscan (Regadenoson). Then, 31.7 mCi Tc99m tetrofosmin (Myoview) was administered intravenously, and stress images were obtained. Data was evelio nstructed into short axis and horizontal and vertical long axis SPECT images. Gated SPECT images were also obtained. COMPARISON: None. FINDINGS: There is no definite reversible or fixed perfusion abnormality to suggest ischemia or infar ction. There is normal left ventricular chamber size, wall motion and ejection fraction. Left ventr icular ejection fraction measures 64%. IMPRESSION: 1. Normal myocardial perfusion at rest and during stress. 2. Left ventricular ejection fraction measuring 64%. Reviewed, dictated and finalized at location A. RUCTIONAL SPECIALIST
--- NOTE | 2022-08-01 07:54 | EST_ITS ---
Patient Info Name: Gloria Menezes Age: 61 years : 1960 Gender: Female Ht: 60 in Wt: 160 lbs BSA: 1.78 m2 HR: 69 bpm BP: 136 / 80 mmHg Heart Rhythm: Sinus Rhythm Exam Date: 08/01/2022 9:50 AM Exam Location: [facility] Stress Patient Status: Outpatient Admit Date: 08/01/2022 Staff Ordering Physician: Remigio Rodriguez DO Attending Provider: Remigio Rodriguez DO Exercise Technologist: Bernadette Glez CT Exercise Physician: Remigio Rodriguez DO Exam Type: CA stress pernell w NM Study Info Indications R06.09 - Other forms of dyspnea A regadenoson stress test was performed. Summary 1. 1. Negative lexiscan stress test for ischemic ST changes by ECG criteria. 2. 2. Stable hemodynamics throughout the test. 3. 3. Nuclear scan to follow and will be reported separately. Please correlate with it. 4. 4. Patient informed of the above results. Protocol: Lexiscan Stress ECG Details Stage: REST Duration (min): 1 min : 18 sec HR (bpm): 69 SBP (mmHg): 136 DBP (mmHg): 80 Stage: REST Duration (min): 11 min : 42 sec HR (bpm): 68 SBP (mmHg): 136 DBP (mmHg): 80 Stage: STAGE 1 Duration (min): 0 min : 59 sec HR (bpm): 74 SBP (mmHg): 136 DBP (mmHg): 80 Stage: RECOVERY Duration (min): 1 min : 0 sec HR (bpm): 86 SBP (mmHg): 122 DBP (mmHg): 66 Stage: RECOVERY Duration (min): 2 min : 0 sec HR (bpm): 86 SBP (mmHg): 122 DBP (mmHg): 66 Stage: RECOVERY Duration (min): 3 min : 0 sec HR (bpm): 86 SBP (mmHg): 124 DBP (mmHg): 68 Stage: RECOVERY Duration (min): 3 min : 1 sec HR (bpm): 86 SBP (mmHg): 124 DBP (mmHg): 68 Rest HR: 68 bpm Peak HR: 89 bpm Rest Sys BP: 136 mmHg Peak Sys BP: 124 mmHg Max Pred HR: 159 bpm % Max Pred HR: 56 % Target HR: 135 bpm Max RPP: 11,036 bpm*mmHg Termination Reason: Completed protocol Cardiac Symptoms: Shortness of breath Total Time: 1 min : 0 sec Rest Moyer BP: 80 mmHg Peak Moyer BP: 68 mmHg Total Dose: 0.4 mg Resting ECG Sinus rhythm. Stress ECG No ST changes. Arrhythmias None. Report Signatures
--- NOTE | 2022-08-01 07:54 | ECHO_ITS ---
Patient Info Name: Gloria Menezes Age: 61 years : 1960 Gender: Female Ht: 60 in Wt: 160 lbs BSA: 1.78 m2 HR: 69 bpm BP: 146 / 94 mmHg Technical Quality: Good Exam Date: 08/01/2022 8:13 AM Exam Location: [facility] Pulmonary Patient Status: Outpatient Admit Date: 08/01/2022 Staff Ordering Physician: Remigio Rodriguez DO Carbon Printer: Cyn Judge RDCS Attending Provider: Remigio Rodriguez DO Referring Physician: Michael KOTHARI; Exam Type: CA echo doppler color flow Study Info Indications R06.09 - Other forms of dyspnea Complete two-dimensional, color flow and Doppler transthoracic echocardiogram is performed. Summary 1. Complete two-dimensional, color flow and Doppler transthoracic echocardiogram is performed. 2. Left ventricular chamber dimension is normal. 3. Left ventricular systolic function is normal, estimated at 60-65%. 4. There is mild concentric increased left ventricular wall thickness. 5. The left ventricular diastolic function is grade I diastolic dysfunction. 6. E/e' 7 is not elevated. 7. Global longitudinal strain is normal at -17.5%. 8. Left atrial chamber dimension is mildly enlarged. 9. There is mild aortic valve sclerosis. 10. There is mild mitral valve regurgitation. 11. There is trace tricuspid valve regurgitation. 12. No pulmonary hypertension, estimated pulmonary arterial systolic pressure is 26 mmHg. Left Ventricle E/e' 7 is not elevated. Global longitudinal strain is normal at -17.5%. Left ventricular chamber dimension is normal. Left ventricular systolic function is normal, estimated at 60-65%. There is mild concentric increased left ventricular wall thickness. The left ventricular diastolic function is grade I diastolic dysfunction. Right Ventricle Right ventricular chamber dimension is normal. Right ventricular systolic function is normal. Left Atria Left atrial chamber dimension is mildly enlarged. Right Atria Right atrial chamber dimension is normal. Aortic Valve The aortic valve is trileaflet. There is mild aortic valve sclerosis. There is no aortic valve stenosis. There is no aortic valve regurgitation. Pulmonic Valve There is no pulmonic regurgitation. Mitral Valve There is no mitral valve stenosis. There is mild mitral valve regurgitation. Tricuspid Valve There is trace tricuspid valve regurgitation. No pulmonary hypertension, estimated pulmonary arterial systolic pressure is 26 mmHg. Pericardium/Pleural There is no pericardial effusion. Inferior Vena Cava Normal inferior vena cava with >50% collapse upon inspiration consistent with normal right atrial pressure, 5 mmHg. Aorta The aortic root size at the sinus of Valsalva is normal. Left Ventricular Outflow Tract Name Value Normal LVOT 2D LVOT Diameter 2.0 cm LVOT Doppler LVOT Peak Gradient 5 mmHg LVOT Mean Gradient 3 mmHg LVOT VTI 24 cm LVOT VTI/AV VTI Ratio 0.9 LVOT Stroke Volume 74 ml LVOT CO 4.9 l/m
== END 2022-08-01 07:29 | disposition home or self-care (01) ==
LOC: ANHCARD 07:30
PROVIDERS: PCP Internal Medicine; Visit Provider Internal Medicine Cardiovascular Disease
DX: R07.9 Chest pain, unspecified (principal); R06.09 Other forms of dyspnea
CPT/HCPCS: 78452; 93017; 93306; A9502; J2785

== ENCOUNTER 2022-08-06 15:18 | Emergency (ER) | payer MEDICARE, MEDICAID, SELFPAY ==
--- NOTE | ~2022-08-06 | XR_ITS ---
EXAM: XR hand LT min 3V DATE: 08/06/2022 15:35 HISTORY: trauma today fell bent thumb backward/pain 1st cm joint . COMPARISON: 01/23/2021. FINDINGS: Normal mineralization. No fracture or dislocation. No lytic or blastic lesion. Polyarticul ar osteoarthritis of the hand, severe at the trapeziometacarpal joint. Congenitally short fifth middl e phalange. No erosion or periosteal change. Soft tissues within normal limits. IMPRESSION: No acute osseous finding in the left hand. Reviewed, dictated and finalized at location K.
--- NOTE | 2022-08-06 15:26 | ED.UPPEXIN ---
HPI - Extremity Injury (Upper) General Chief Complaint: Extremity Injury, Upper Stated Complaint: lt hand injury Time Seen by Provider: 08/06/22 15:26 Source: patient Mode of arrival: ambulatory Limitations: no limitations History of Present Illness HPI narrative: 61-year-old female presents with complaint of pain and swelling to left thumb. Reports that she was walking up steps and tripped and left thumb hyperextended. Range of motion decreased due to pain. Distal neurovascularly intact. All systems reviewed and negative except as noted above. Related Data Home Medications Medication Instructions Recorded Confirmed atorvastatin 80 mg tablet 80 mg DAILY 03/26/22 07/10/22 Allergies Allergy/AdvReac Type Severity Reaction Status Date / Time aspirin AdvReac Severe Anaphylactic Verified 08/06/22 15:27 Shock bee venom protein (honey bee) AdvReac Severe Anaphylactic Verified 08/06/22 15:27 Shock peanut AdvReac Severe Anaphylaxis Verified 08/06/22 15:27 penicillin G AdvReac Severe Anaphylaxis Verified 08/06/22 15:27 Penicillins AdvReac Severe Anaphylaxis Verified 08/06/22 15:27 pseudoephedrine AdvReac Severe Anaphylaxis Verified 08/06/22 15:27 Sulfa (Sulfonamide AdvReac Severe Anaphylaxis Verified 08/06/22 15:27 Antibiotics) codeine AdvReac Mild Hives Verified 08/06/22 15:27 latex AdvReac Mild Hives Verified 08/06/22 15:27 strawberry AdvReac Mild Hives Verified 08/06/22 15:27 Review of Systems Review of Systems: CONSTITUTIONAL: Denies fever, chills, or sweats. EYES: Denies visual changes, redness, or discharge. ENT: Denies rhinorrhea, congestion, sore throat, or otalgia. CARDIOVASCULAR: Denies chest pain, palpitations, or edema. RESPIRATORY: Denies cough or dyspnea. GASTROINTESTINAL: Denies abdominal pain, nausea, vomiting, or diarrhea. GENITOURINARY: Denies dysuria or hematuria. SKIN: Denies rash or itching. MUSCULOSKELETAL: Reports pain and swelling to left thumb. NEUROLOGIC: Denies headache, numbness, or weakness. PSYCHIATRIC: Denies anxiety or depression. All other systems reviewed are negative, except as documented in HPI. [facility] Past Medical History Medical History Cervical radiculopathy Essential hypertension Insomnia with sleep apnea, unspecified Missed x2 Other dissociative and conversion disorders Prediabetes Vaginal delivery x1 Surgical History Surgical History H/O spinal fusion History of appendectomy History of bilateral salpingectomy 09/1985 History of hysterectomy 09/1985 History of right oophorectomy 09/1985 Previous section x3 Family History Family History Mother Family history of premature coronary heart disease, Onset Age: 62 Family history of malignant neoplasm of breast in first degree relative Patient's mother is Family history of gout Hypertension Family history of diabetes mellitus in first degree relative Family history of heart disease in male family member before age 55 Family history of malignant neoplasm of breast Diabetes mellitus Family history of cardiovascular disease Cerebrovascular accident Sibling Family history of kidney disease Family history of seizure disorder Family history of pancreatic cancer Diabetes mellitus Hypertension Family history of cardiovascular disease Family history of malignant neoplasm Father Malignant neoplasm of prostate, Onset Age: 50 Patient's father is Cerebrovascular accident Family history of arthritis Carcinoma of colon Grandparent Family history of malignant neoplasm of brain, Onset Age: 42 Social History Social History Social History: pt states she stopped smoking in feb Smoking packs per day: 0.50 Smoking cigarett
[2022-08-06 15:27] VITALS: BP 154/100; PULSE 80; RESP 18; TEMP 36.4; O2SAT 98
[2022-08-06 15:28] VITALS: BP 154/100; PULSE 80; RESP 18; TEMP 36.4; O2SAT 98
== END 2022-08-06 15:55 | disposition home or self-care (01) ==
PROVIDERS: Emergency Provider Nurse Practitioner Family; PCP Internal Medicine
DX: S63.602A Unspecified sprain of left thumb, initial encounter (principal); W10.9XXA Fall (on) (from) unspecified stairs and steps, initial encounter; I10 Essential (primary) hypertension; R73.03 Prediabetes
CPT/HCPCS: 73130; 99213; G0463

== ENCOUNTER 2022-10-28 08:17 | Outpatient (CLI) | payer MEDICARE, MEDICAID, SELFPAY ==
[2022-10-28 09:02] LABS: Anion Gap 5 mmol/L (8-16); Blood Urea Nitrogen 20 mg/dL (7-17); Calcium 9.2 mg/dL (8.4-10.2); Carbon Dioxide 32 mmol/L (22-30); Chloride 103 mmol/L (98-107); Estimated Glomerular Filt Rate > 60; Glucose 125 mg/dL (65-110); Potassium 4.7 mmol/L (3.4-5.0); Sodium 140 mmol/L (137-145)
== END 2022-10-28 08:18 | disposition home or self-care (01) ==
LOC: ANHSURGERY 08:22
PROVIDERS: Anesthesiology; PCP Family Medicine; Visit Provider Plastic Surgery
DX: R73.03 Prediabetes (principal); Z01.818 Encounter for other preprocedural examination
CPT/HCPCS: 36415; 80048

== ENCOUNTER 2022-12-13 12:30 | Outpatient (RCR) | payer MEDICARE, MEDICAID, SELFPAY ==
--- NOTE | 2022-11-18 15:23 | OTOPEVAL1 ---
Assessment and note entered by Rusty Evans, OTR/Bradly, CHT Evaluation Information Assessment Status Evaluation Diagnosis s/p left trapezium resection with Arthrex Internal Brace Onset 10/31/22 Subjective Information Patient is a left hand dominate female who underwent a trapezium resection about 3 weeks ago. She presents today for fabrication of a removable splint and initiation of exercise. Reports her has been doing all the cooking and dishes since her surgery. Reported Pain Level Pain Score 0: Self Report Assessment OT Clinical Summary Patient presents just over 3 weeks following left thumb CMC arthroplasty. A custom, forearm-based thumb spica was fabricated today with the IP free. She was issued active ROM HEP. Continued skilled OT indicated to facilitate optimal functional use of her left, dominant UE. Plan of Care Interventions Therapeutic Exercise,Manual Therapy,Hot Pack/Cold Pack,Paraffin OT Services Indicated Yes Treatment Frequency and 0-1x/week for 4 weeks Duration These treatments will address the objective and functional deficits as defined above. The patient will be advanced safely and appropriately in order for the patient to progress towards his/her prior level of function. Additional exercises will be introduced and as well as a comprehensive home exercise program upon discharge, if needed, ?to ensure carryover of functional gains achieved in the clinic. This treatment plan has been reviewed and agreement upon by the patient.
--- NOTE | 2022-11-18 15:24 | OPREHPOC ---
Outpatient Therapy Plan of Care This is a Multidisciplinary Plan of Care that may contain components documented by all disciplines (PT, OT, and ST.) OT Problem 1 OT Problem #1 Knowledge Deficit OT Goal 1 Goal Patient to be independent with instructed materials. Target Visit 4 OT Goal 2 Goal Patient to adhere to splint wearing schedule. Target Visit 4 OT Problem 2 OT Problem #2 Impaired Range of Motion OT Goal 1 Goal Patient to increase left wrist RD to 15 degrees. Target Visit 4 OT Goal 2 Goal Patient to be able to touch the thumb to the base of digit V. Target Visit 4 OT Problem 3 OT Problem #3 Impaired Strength OT Goal 1 Goal Patient to be able to complete order expediter/pinch strengthenining with yellow putty x5 minutes without reports of pain. Target Visit 4
--- NOTE | 2022-12-13 13:01 | OTOPDC ---
Assessment and note entered by Rusty Evans, OTR/L, CHT Evaluation Information Assessment Status Discharge Diagnosis s/p left trapezium resection with Arthrex Internal Brace Onset 10/31/22 Subjective Information Patient is a left hand dominant female who underwent a trapezium resection about 6 weeks ago. She presents today stating she is back to functioning normally. Has been having no pain. Some residual weakness noted, but overall her meal attendant and pinches are very functional: (L) meal attendant 58 lbs. (R) meal attendant 66 lbs. Lateral pinch (L) 3 lbs. (R) 7.33 lbs. Palmar pinch (L) 3 lbs. (R) 3.67 lbs. Reported Pain Level Pain Score 0: Self Report Assessment OT Clinical Summary Patient has made excellent progress with therapy. She has return to functional ROM with some residual weakness with pinching. She has been issued meal attendant/pinch strengthening HEP. No further skilled OT indicated at this time. Plan of Care OT Services Indicated No
== END 2022-12-16 09:19 | disposition home or self-care (01) ==
LOC: ANHOT 12:30
PROVIDERS: PCP Family Medicine; Visit Provider Plastic Surgery
DX: Z48.89 Encounter for other specified surgical aftercare (principal)
CPT/HCPCS: 97110; 97165; L3806

== ENCOUNTER 2022-12-30 14:52 | Outpatient (CLI) | payer MEDICARE, MEDICAID, SELFPAY ==
--- NOTE | ~2022-12-30 | CT_ITS ---
EXAMINATION: CT lung screening DATE: 12/30/2022 15:08 INDICATION: Z87.891 - Personal history of nicotine dependence TECHNIQUE: Computed tomography (CT) of the chest was performed without intravenous contrast. Addition al 3D reconstructions utilizing coronal maximum intensity projection (MIP) were performed. Automated exposure control and iterative reconstruction technique were employed. The dose-length product was 79 .34 mGy-cm. COMPARISON: None FINDINGS: Mild emphysema in the upper lungs. A couple small nodules along the cephalad aspect of the left major fissure the larger measuring 3 mm. Couple additional <3 mm nodules along the right major fissure. Sm all linear band of atelectasis at the posterior aspect of the superior segment of the left lower lobe . Adjacent tiny calcified nodule consistent with old granulomatous disease. No pneumonia, pulmonary e camilo or pleural effusion. Heart size is normal. Small amount of atherosclerotic and/or artery calcifi c lesion along the left anterior descending coronary artery. No pericardial effusion. Thoracic aorta is normal in caliber. No pathologically enlarged thoracic lymphadenopathy. Small splenic and hepatic calcific lesions consistent with old granulomatous disease. Mild thoracic dextrocurvature with severe midthoracic spondylosis. Partially visualized anterior cervical spinal fusion with interbody fusion device at C6-C7 with anterior plate and screw fixation beginning at C7 extending to C6 and beyond the cephalad margin of the [id number]. IMPRESSION: 1. Lung-RADS category 2: Benign appearance or behavior. Continue annual screening with noncontrast lo w-dose chest CT in 12 months. Reviewed, dictated and finalized at location B. IMPRESSION: 1. Lung-RADS category 2: Benign appearance or behavior. Continue annual screeni ng with noncontrast low-dose chest CT in 12 months.
== END 2022-12-30 14:53 | disposition home or self-care (01) ==
PROVIDERS: PCP Family Medicine; Visit Provider Family Medicine
DX: Z12.2 Encounter for screening for malignant neoplasm of respiratory organs (principal); Z87.891 Personal history of nicotine dependence
CPT/HCPCS: 71271

== ENCOUNTER 2023-01-07 19:14 | Emergency (ER) | payer OTHER, MEDICARE, MEDICAID, SELFPAY ==
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
--- NOTE | ~2023-01-07 | XR_ITS ---
EXAMINATION: XR chest 1V portable Exam Date/Time: 01/07/2023 19:52 CDT HISTORY: chest Comparison: CT cervical spine lumbar spine, same date; x-ray chest 12/06/2021; CT lung screening 2022. RESULT: Lines, tubes, and devices: Incompletely visualized cervical fusion hardware. Lungs and pleura: Diffuse groundglass opacity and peripheral reticular opacities. No pneumothorax. N o effusion. Cardiomediastinal silhouette: Stable. Other: No acute osseous or upper abdominal finding. IMPRESSION: Mild pulmonary edema. No other acute process detected in the chest. Reviewed, dictated and finalized at location K.
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
--- NOTE | ~2023-01-07 | XR_ITS ---
EXAM: XR hip LT 2V w AP pelvis DATE: 01/07/2023 20:00 HISTORY: Pain . COMPARISON: None available. FINDINGS: Normal mineralization. Partially visualized lumbar fusion hardware. No fracture or disloca tion. No lytic or blastic lesion. Mild degenerative change in the bilateral hips and pubic symphysis. Spaces are maintained. No erosion or periosteal change. Multiple pelvic phleboliths. IMPRESSION: No acute osseous finding in the pelvis or bilateral hips. Reviewed, dictated and finalized at location K.
[2023-01-07 19:14] VITALS: BP 192/101; PULSE 98; RESP 14; TEMP 36.8; O2SAT 98
[2023-01-07 19:42] VITALS: BP 184/93; PULSE 88; RESP 14; O2SAT 96
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
[2023-01-07] MEDS: ACETAMINOPHEN 500 MG TABLET 1000 MG PO (20:54)
[2023-01-07] MEDS: SODIUM CHLORIDE 0.9% IV 1,000 ML 999 ML IV CONT (20:55)
[2023-01-07 20:56] LABS: Basophils Absolute Auto 0.1 K/mm3 (0.0-0.1); Basophils Percent Auto 0.4 % (0.2-1.2); Eosinophils Absolute Auto 0.2 K/mm3 (0-0.3); Eosinophils Percent Auto 1.5 % (0-4.4); Hematocrit 39.3 % (37.0-47.0); Immature Granulocyte Absolute 0.04 K/mm3 (0.00-0.031); Immature Granulocyte Percent A 0.3 % (0-0.5); Lymphocytes Absolute Auto 3.01 K/mm3 (0.9-3.2); Lymphocytes Percent Auto 26.2 % (18.3-44.2); Mean Corpuscular HGB Conc 33.1 g/dl (32-36); Mean Corpuscular Hemoglobin 29.1 pg (26-34); Mean Corpuscular Volume 87.9 fl (80-100); Mean Platelet Volume 9.8 fl (7.4-10.4); Monocytes Absolute Auto 0.9 K/mm3 (0.1-0.6); Monocytes Percent Auto 7.7 % (2.6-8.5); Neutrophils Absolute Auto 7.3 K/mm3 (1.3-6.7); Neutrophils Percent Auto 63.9 % (45.5-73.1); Platelet Count Result 291 k/mm3 (150-375); Red Blood Count 4.47 M/mm3 (4.2-5.4); White Blood Count 11.5 K/mm3 (4.5-10.0)
[2023-01-07 21:06] LABS: Partial Thromboplastin Time 26.4 SECONDS (22.3-36.8)
[2023-01-07 21:08] LABS: Appearance Urine Clear (Clear); Bacteria Urine None Seen /hpf; Bilirubin Urine Negative (Negative); Blood Urine Trace (Negative); Color Urine Yellow (Yellow); Glucose Urine UA Negative (Negative); Ketones Urine Negative (Negative); Leukocyte Esterase Ur 2+ LEU/UL (Negative); Nitrate Urine Negative (Negative); Non Pathogenic Casts 0-2; Protein Urine Negative (Negative); RBC Urine 0-2 /hpf (0-2); Specific Grav Ur 1.006 (1.001-1.035); Squamous Epithelial Cell Urine None seen /hpf (Few); Urobilinogen Urine 0.2 mg/dL (<2.0)
[2023-01-07 21:13] LABS: Alanine Aminotransferase 21 U/L (6-35); Albumin Level 4.1 g/dL (3.5-5.1); Alkaline Phosphatase 101 U/L (38-126); Anion Gap 1 mmol/L (8-16); Aspartate Amino Transferase 26 U/L (14-36); Bilirubin,Total 0.3 mg/dL (0.2-1.3); Blood Urea Nitrogen 14 mg/dL (7-17); Calcium 9.1 mg/dL (8.4-10.2); Carbon Dioxide 28 mmol/L (22-30); Chloride 107 mmol/L (98-107); Creatine Kinase 120 U/L (30-135); Estimated CRCL calculation 62 ml/min; Estimated Glomerular Filt Rate > 60; Glucose 83 mg/dL (65-110); Potassium 3.5 mmol/L (3.4-5.0); Sodium 136 mmol/L (137-145)
[2023-01-07 21:23] LABS: Add Urine Microscopic? YES
[2023-01-07 22:03] VITALS: BP 184/92; PULSE 90; RESP 14; O2SAT 98
== END 2023-01-07 22:50 | disposition home or self-care (01) ==
PROVIDERS: Emergency Provider Emergency Medicine; PCP Family Medicine
DX: S19.9XXA Unspecified injury of neck, initial encounter (principal); S79.912A Unspecified injury of left hip, initial encounter; N39.0 Urinary tract infection, site not specified; R53.1 Weakness; F44.4 Conversion disorder with motor symptom or deficit; Z79.84 Long term (current) use of oral hypoglycemic drugs; J81.1 Chronic pulmonary edema; V43.52XA Car driver injured in collision with other type car in traffic accident, initial encounter
CPT/HCPCS: 36415; 70450; 71045; 72125; 72131; 73502; 80053; 81001; 82550; 85025; 85610; 85730; 87077; 87086; 87186; 96360; 99284; A9270; J7030

== ENCOUNTER 2023-02-25 07:55 | Outpatient (CLI) | payer OTHER, MEDICARE, MEDICAID, SELFPAY ==
--- NOTE | ~2023-02-25 | MR_ITS ---
MRI of the brain Clinical History: Amnesia Technique: Axial and sagittal T1-weighted images were acquired. These were followed by axial T2-weigh carmen, diffusion weighted, gradient, and FLAIR images. COMPARISON: 08/28/2015 Findings: There is no acute infarct, intracranial hemorrhage or mass lesion. There are mild to modera te chronic microvascular ischemic changes in the periventricular white matter bilaterally, progressed from prior exam. Ventricles and subarachnoid spaces are unremarkable. Orbits are unremarkable. Paranasal sinuses and m astoid air cells are clear. Major intracranial flow voids are intact. Sagittal midline structures are intact. IMPRESSION: No acute intracranial abnormality. Mild to moderate chronic microvascular ischemic change, progressed from prior exam. Reviewed, dictated and finalized at location M. IMPRESSION: No acute intracranial abnormality. Mild to moderate chronic microvascular ischemic change, progressed from prior e xam.
== END 2023-02-25 07:56 | disposition home or self-care (01) ==
PROVIDERS: PCP Family Medicine; Visit Provider Family Medicine
DX: R41.3 Other amnesia (principal)
CPT/HCPCS: 70551

== ENCOUNTER 2023-04-05 11:08 | Emergency (ER) | payer MEDICARE, MEDICAID, SELFPAY ==
--- NOTE | ~2023-04-05 | XR_ITS ---
EXAMINATION: XR ribs LT 2V w CXR 2V DATE: 04/05/2023 11:53 INDICATION: Chest injury and pain. TECHNIQUE: Frontal and lateral views of the chest and 2 views on 3 radiographs of the left ribs were obtained. COMPARISON: Chest single view 01/07/2023 FINDINGS: CHEST TWO VIEWS: There is no pneumonia, pleural effusion, or pneumothorax. The heart size is normal. There are changes of anterior fusion procedure in cervical spine and changes of posterior fusion proc edure in lumbar spine. LEFT RIBS: There is no rib fracture. IMPRESSION: 1. No rib fracture. Reviewed, dictated and finalized at location A. ORATE ASSOCIATE ATTORNEY IMPRESSION: 1. No rib fracture.
[2023-04-05 11:19] VITALS: BP 128/107; PULSE 88; RESP 18; TEMP 36.5; O2SAT 99
--- NOTE | 2023-04-05 11:24 | ED.CHESTPAIN ---
HPI - Chest Pain General Chief Complaint: Chest Pain Stated Complaint: chest pain,fall Time Seen by Provider: 04/05/23 11:20 Source: patient Mode of arrival: ambulatory Limitations: no limitations History of Present Illness HPI narrative: Gloria is a 62-year-old female patient presenting to the clinic today with complaints of left-sided chest pain/rib pain from a fall 1.5 months ago. She reports over the last week she has become increasingly short of breath, increase in pain, and also reports she is coughing up some phlegm with blood in the sputum. Reports there is some stinging pain in her lower sternum. She denies hitting her head any loss of consciousness at that time. Denies any neck pain. Related Data Home Medications Medication Instructions Recorded Confirmed multivitamin 1 cap PO DAILY 10/24/22 02/06/23 Allergies Allergy/AdvReac Type Severity Reaction Status Date / Time aspirin Allergy Severe Anaphylactic Verified 04/05/23 12:38 Shock bee venom protein (honey bee) Allergy Severe Anaphylactic Verified 04/05/23 12:38 Shock Penicillins Allergy Severe Anaphylaxis Verified 04/05/23 12:38 pseudoephedrine Allergy Severe Anaphylaxis Verified 04/05/23 12:38 Sulfa (Sulfonamide Allergy Severe Anaphylaxis Verified 04/05/23 12:38 Antibiotics) codeine Allergy Mild Hives Verified 04/05/23 12:38 latex Allergy Mild Hives Verified 04/05/23 12:38 strawberry Allergy Mild Hives Verified 04/05/23 12:38 Review of Systems Review of Systems: Pertinent positives per HPI. Patient denies any fever, chills, rash, headache, visual changes, dizziness, runny nose, sore throat, palpitations, nausea, vomiting, diarrhea, constipation, abdominal pain, or any urinary issues. [facility] Past Medical History Medical History Cervical radiculopathy Essential hypertension Insomnia with sleep apnea, unspecified Missed x2 Other dissociative and conversion disorders Prediabetes Vaginal delivery x1 Surgical History Surgical History H/O spinal fusion History of appendectomy History of bilateral salpingectomy 09/1985 History of hysterectomy 09/1985 History of right oophorectomy 09/1985 Previous section x3 Family History Family History Mother Family history of premature coronary heart disease, Onset Age: 62 Family history of malignant neoplasm of breast in first degree relative Patient's mother is Family history of gout Hypertension Family history of diabetes mellitus in first degree relative Family history of heart disease in male family member before age 55 Family history of malignant neoplasm of breast Diabetes mellitus Family history of cardiovascular disease Cerebrovascular accident Sibling Family history of kidney disease Family history of seizure disorder Family history of pancreatic cancer Diabetes mellitus Hypertension Family history of cardiovascular disease Family history of malignant neoplasm Father Malignant neoplasm of prostate, Onset Age: 50 Patient's father is Cerebrovascular accident Family history of arthritis Carcinoma of colon Grandparent Family history of malignant neoplasm of brain, Onset Age: 42 Social History Social History Smoking packs per day: 0.50 Smoking cigarettes per day: 10.0 Years smoked: 24 Smoking pack-years: 12.00 Smoking status: Current every day smoker Tobacco type: cigarettes Second hand tobacco smoke exposure: Yes Additional smoking assessment comments: 1/2 ppd x 30 years Alcohol intake: never Substance use: current Substance use type: marijuana Other substance usage details: smoking and eatables 2-3 x a week Lack of Transportation: No Lack of Food: Never True
== END 2023-04-05 12:20 | disposition short-term general hospital (02) ==
PROVIDERS: Emergency Provider Nurse Practitioner Family; PCP Family Medicine
DX: R07.89 Other chest pain (principal); R04.2 Hemoptysis; I10 Essential (primary) hypertension; F17.210 Nicotine dependence, cigarettes, uncomplicated
CPT/HCPCS: 71046; 71100; 99213; G0463

== ENCOUNTER 2023-04-05 12:37 | Observation (INO) | payer MEDICARE, MEDICAID, SELFPAY ==
[2023-04-05] VITALS (10 sets, daily range): BP systolic 114–150; BP diastolic 60–104; PULSE 67–95; RESP 16–20; TEMP 36.2–36.6; O2SAT 97–100; BMI 29.7
--- NOTE | ~2023-04-05 | XR_ITS ---
EXAMINATION: XR barium swallow modified DATE: 04/06/2023 11:22 INDICATION: Silent aspiration. TECHNIQUE: The patient was given barium-containing material of multiple consistencies to swallow by t sammy speech pathologist while I performed fluoroscopy. Fluoroscopy exposure time was 0.7 minutes. The n umber of fluoroscopy images saved to the PACS was 1. Dose-area product was 0.477 Gy-cm^2. FINDINGS: The oral stage, pharyngeal stage, and cervical/esophageal stage of the swallow are normal. IMPRESSION: 1. Normal modified barium swallow. 2. Please refer to the speech therapy report for recommendations. Reviewed, dictated and finalized at location A. P WHEELER
--- NOTE | ~2023-04-05 | CT_ITS ---
EXAMINATION: CTA chest PE abdomen pel DATE: 04/05/2023 14:11 INDICATION: Pulmonary embolism, LUQ PAIN S/P TRAUMA TECHNIQUE: Computed tomography angiography (CTA) of the chest was performed with 100 mL Omnipaque-350 intravenous contrast timed to evaluate the pulmonary arteries, followed by portal venous phase imagi ng of the abdomen and pelvis. Coronal maximum intensity projection 3D-reconstructions were created by the technologist. The dose-length product (DLP) was 672.18 mGy-cm. Automated exposure control and it erative reconstruction technique were employed. COMPARISON: 12/15 and 03/26/2022. FINDINGS: CHEST: Lung parenchyma and airways: Diffuse peripheral groundglass opacities and reticular opacities, may re flect a component of chronic lung disease.. Pleura: Unremarkable. Thoracic inlet, axillae and chest wall: Unremarkable. Thoracic aorta: Mild ectasia and arch calcification. Mediastinum: Dilated central pulmonary arteries as can be seen with pulmonary arterial hypertension. Heart and pericardium: Normal. Coronary artery calcifications: Mild. Thoracic bones: No acute osseous finding. Partially visualized uncomplicated appearing cervical fusio n hardware. Pulmonary arteries: Study quality: Adequate. No pulmonary emboli detected. ABDOMEN/PELVIS: Liver: Normal. Biliary/Gallbladder: Gallbladder is normal. No bile duct dilation. Pancreas: No mass or duct dilation. Spleen: Normal. Adrenals:No mass. Kidneys: No suspicious mass, obstructing stone, or hydronephrosis. Right-sided hypodensities that are too small to characterize but most likely represent cysts. GI tract: No small or large bowel dilation. Appendix not confidently visualized. Diverticulosis witho ut diverticulitis. Mesentery/Peritoneum: No ascites, mass, or free air. Retroperitoneum: No mass. Atherosclerotic abdominal aortic and/or arterial calcifications. Pelvis: Absent uterus. Soft Tissues: Soft tissues and body wall unremarkable. Abdominopelvic bones: No acute osseous finding. Partially visualized uncomplicated appearing lumbar spine fusion hardware. IMPRESSION: No CT evidence of acute pulmonary embolus. No acute process detected in the chest, abdomen, or pelvis. Reviewed, dictated and finalized at location K. NETWORK ENGINEER
--- NOTE | 2023-04-05 12:52 | ECG_ITS ---
Measurements Intervals [place] Rate: 73 P: 49 HI: 173 QRS: 21 QRSD: 101 T: 45 QT: 401 QTc: 444 Interpretive Statements SINUS RHYTHM DELAYED PRECORDIAL R/S TRANSITION BASELINE ARTIFACT- I, II, III, AVR, AVL, AVF, V1, V3, V5 BORDERLINE ECG COMPARED TO ECG 07/25/2021 21:18:26 NO SIGNIFICANT CHANGES Electronically Signed On 04-05-2023 15:41:22 [employer] by Remigio Rodriguez D.O.
--- NOTE | 2023-04-05 12:53 | ED.GENADULT ---
HPI - General Adult General Chief complaint: Unspecified Stated complaint: LUQ pain sent from Time Seen by Provider: 04/05/23 12:52 Source: EMS Mode of arrival: EMS History of Present Illness HPI narrative: 62 years old white female presented to the ED by ambulance from urgent care because of left chest left shoulder blade and left upper quadrant pain started 1 and half month ago after missing a step and falling hitting left side of chest against the edge of one of the steps. Did not lose consciousness at that time. Been having pain at that area for 1 and half month got worse over the last 7 days associated with intermittent coughing up bright red blood the size of small teaspoon. She denies any fever, chills, nausea, vomiting. History of diabetes, hypertension, hyperlipidemia, COPD, CVA with left hemiplegia, patient smokes cigarettes, does not drink and uses marijuana intermittently. Currently patient on Plavix, allergic to aspirin. Patient went to urgent care today, left rib and x-ray showed no acute abnormalities referred to our emergency room for further evaluation. Related Data Home Medications Medication Instructions Recorded Confirmed multivitamin 1 cap PO DAILY 10/24/22 02/06/23 Allergies Allergy/AdvReac Type Severity Reaction Status Date / Time aspirin Allergy Severe Anaphylactic Verified 04/05/23 12:38 Shock bee venom protein (honey bee) Allergy Severe Anaphylactic Verified 04/05/23 12:38 Shock Penicillins Allergy Severe Anaphylaxis Verified 04/05/23 12:38 pseudoephedrine Allergy Severe Anaphylaxis Verified 04/05/23 12:38 Sulfa (Sulfonamide Allergy Severe Anaphylaxis Verified 04/05/23 12:38 Antibiotics) codeine Allergy Mild Hives Verified 04/05/23 12:38 latex Allergy Mild Hives Verified 04/05/23 12:38 strawberry Allergy Mild Hives Verified 04/05/23 12:38 Review of Systems Review of Systems: All systems reviewed & are unremarkable except as noted in HPI and below PMFSH Past Medical History Medical History Cervical radiculopathy Essential hypertension Insomnia with sleep apnea, unspecified Missed x2 Other dissociative and conversion disorders Prediabetes Vaginal delivery x1 Surgical History Surgical History H/O spinal fusion History of appendectomy History of bilateral salpingectomy 09/1985 History of hysterectomy 09/1985 History of right oophorectomy 09/1985 Previous section x3 Family History Family History Mother Family history of premature coronary heart disease, Onset Age: 62 Family history of malignant neoplasm of breast in first degree relative Patient's mother is Family history of gout Hypertension Family history of diabetes mellitus in first degree relative Family history of heart disease in male family member before age 55 Family history of malignant neoplasm of breast Diabetes mellitus Family history of cardiovascular disease Cerebrovascular accident Sibling Family history of kidney disease Family history of seizure disorder Family history of pancreatic cancer Diabetes mellitus Hypertension Family history of cardiovascular disease Family history of malignant neoplasm Father Malignant neoplasm of prostate, Onset Age: 50 Patient's father is Cerebrovascular accident Family history of arthritis Carcinoma of colon Grandparent Family history of malignant neoplasm of brain, Onset Age: 42 Social History Social History Smoking packs per day: 0.50 Smoking cigarettes per day: 10.0 Years smoked: 24 Smoking pack-years: 12.00 Smoking status: Current every day smoker Tobacco type: cigarettes Second hand tobacco smoke exposure: Yes Additional smoking assessment comments: 05/27 ppd x 30 years Al
[2023-04-05] MEDS: SODIUM CHLORIDE 0.9% IV 1,000 ML 999 ML IV CONT (13:07)
[2023-04-05 13:30] LABS: Basophils Absolute Auto 0.1 K/mm3 (0.0-0.1); Basophils Percent Auto 0.7 % (0.2-1.2); Eosinophils Absolute Auto 0.2 K/mm3 (0-0.3); Hematocrit 41.2 % (37.0-47.0); Hemoglobin 12.8 g/dL (12.0-15.0); Immature Granulocyte Absolute 0.02 K/mm3 (0.00-0.031); Immature Granulocyte Percent A 0.3 % (0-0.5); Lymphocytes Absolute Auto 2.64 K/mm3 (0.9-3.2); Lymphocytes Percent Auto 36.1 % (18.3-44.2); Mean Corpuscular HGB Conc 31.1 g/dl (32-36); Mean Corpuscular Hemoglobin 28.3 pg (26-34); Mean Corpuscular Volume 90.9 fl (80-100); Mean Platelet Volume 9.4 fl (7.4-10.4); Monocytes Absolute Auto 0.7 K/mm3 (0.1-0.6); Monocytes Percent Auto 9.2 % (2.6-8.5); Neutrophils Absolute Auto 3.8 K/mm3 (1.3-6.7); Neutrophils Percent Auto 51.7 % (45.5-73.1); Platelet Count Result 334 k/mm3 (150-375); Red Blood Count 4.53 M/mm3 (4.2-5.4); Red Cell Distribution Width 13.9 % (11.5-14.5); White Blood Count 7.3 K/mm3 (4.5-10.0)
[2023-04-05 13:44] LABS: Partial Thromboplastin Time 26.2 SECONDS (22.3-36.8); Prothrombin Time 13.4 Seconds (11.1-14.7)
[2023-04-05 13:46] LABS: Alanine Aminotransferase 17 U/L (6-35); Albumin Level 4.5 g/dL (3.5-5.1); Alkaline Phosphatase 95 U/L (38-126); Anion Gap 9 mmol/L (8-16); Aspartate Amino Transferase 21 U/L (14-36); Bilirubin,Total 0.4 mg/dL (0.2-1.3); Blood Urea Nitrogen 14 mg/dL (7-17); Calcium 9.6 mg/dL (8.4-10.2); Carbon Dioxide 29 mmol/L (22-30); Chloride 104 mmol/L (98-107); Estimated CRCL calculation 72 ml/min; Estimated Glomerular Filt Rate > 60; Glucose 92 mg/dL (65-110); Potassium 3.9 mmol/L (3.4-5.0); Sodium 142 mmol/L (137-145)
[2023-04-05 13:52] LABS: D Dimer 0.59 ug/mL (<0.48)
[2023-04-05 13:57] LABS: NT Pro B Type Natriuretic Pept 64 pg/mL (19.9-100); Troponin I < 0.012 ng/mL (0.000-0.034)
[2023-04-05] MEDS: levoFLOXacin 750 MG/D5W 150 ML 750 MG/150 ML BAG 100 MG IVPB (15:35)
--- NOTE | 2023-04-05 15:37 | PM.IMHP ---
H&P: HPI History of Present Illness Date/Time: 04/05/23 16:30 Chief Complaint: Left-sided chest pain, shortness of breath, coughing up blood. Narrative: This is a 62-year-old female smoker with reported history of stroke on clopidogrel, hypertension, hyperlipidemia, depression, and anxiety who presented to the emergency department via EMS from urgent care for evaluation of left-sided chest pain, shortness a breath, and coughing up blood. The patient provides the following history. She had a fall 1.5 months ago at which time she landed on the left side of her chest and she reports ongoing issues with pain on the left chest and side. This past week she developed a cough which has been productive of brown/rust-colored sputum however 3 times this week she has coughed up bright red blood, perhaps a teaspoon amount each time. She has worsening pain in the left anterior chest and she describes a pleuritic type pain with reports of a poking sensation with cough, deep inspiration, etc.. Additionally she has felt increasingly short of breath with lesser and lesser exertion. She denies sick contacts, fever, sinus congestion, sore throat, exertional chest pain, nausea, vomiting, and diarrhea. She denies concerns for aspiration however does endorse dysphagia with most solid foods ?it feels like it gets stuck in my throat all the time and I have to swallow more.? In the ED: She was afebrile on arrival with stable blood pressures and an SpO2 in the upper 90s on room air. CMP and CBC were pretty unremarkable. D-dimer was fairly elevated 0.59. CTA of the chest, abdomen, and pelvis showed no CT evidence of acute pulmonary embolus or acute process however diffuse peripheral ground-glass opacities and reticular opacities were noted however which the radiologist felt may reflect a component of chronic lung disease. The ED physician discussed the case with the on-call water quality control engineer (Dr. Rodas) who reviewed the patient's EMR and CT. He recommends holding clopidogrel and treating the patient with antibiotics for possible infection. Review of Systems Review of Systems: Twelve systems were reviewed. No vertigo. No syncope or near syncope. She reports mild left-sided weakness from previous stroke which will occasionally cause her to get tripped up and she reports this is what happened 1.5 months ago when she fell walking up steps and landed on her left side/chest. Except as documented, all systems were reviewed and are negative. [facility] Past Medical History Medical History (Updated 04/05/23 @ 17:21 by Isadora San PA-C) Arthritis Cervical radiculopathy Depression with anxiety Essential hypertension Hyperlipidemia Insomnia with sleep apnea, unspecified Missed x2 Other dissociative and conversion disorders Prediabetes Suicide attempt Tobacco abuse Transient ischemic attack Vaginal delivery x1 Surgical History Surgical History (Updated 04/05/23 @ 15:44 by Isadora San PA-C) History of 3 sections History of appendectomy History of arthroscopy of right knee History of bilateral salpingectomy 09/1985 History of carpal tunnel release History of hysterectomy 09/1985 History of right oophorectomy 09/1985 History of spinal fusion History of tonsillectomy Family History Family History Mother Family history of premature coronary heart disease, Onset Age: 62 Family history of malignant neoplasm of breast in first degree relative Patient's mother is Family history of gout Hypertension Family history of diabetes mellitus in first degree relative Family history of heart disease in male family member before age 55 Family history of malignant neoplasm of breast Diabetes mellitus Family history of cardiovascular disease Cerebrovascular accident Sibling Family history of kidney disease Family history of seizure disorder Family history of pancreatic cancer D
--- NOTE | 2023-04-05 16:14 | ADMGEN ---
This patient, Gloria Menezes, was admitted to [facility] Surg Room 306-02. Patient/family oriented to hospital policies and general routines including ID bracelet, bed and alarms, visiting hours, pain management, procedures, bathroom and other care routines, personal items, smoking policy, room service/diet, and visiting hours. Information on how to activate the Rapid Response Team has been discussed. Patient/Family are encouraged to report perceived risks to care and to ask questions if they do not understand what they are told or what they should do.
[2023-04-05 16:29] LABS: Glucose Point of Care 83 mg/dl (65-105)
[2023-04-05 16:35] LABS: Influenza A QL RT-PCR Negative (Negative); Influenza B QL RT-PCR Negative (Negative); RSV RNA, RT-PCR Negative (Negative); SARS-CoV-2 RNA PCR Negative (Negative)
[2023-04-05] MEDS: methylPREDNISolone SOD SUCC 40 MG VIAL IV PUSH (17:40)
[2023-04-05] MEDS: HYDROcodone/acetaminophen (*CRX) 7.5-325 MG TABLET 1 TAB PO (20:30)
[2023-04-05] MEDS: ARIPiprazole 2 MG TABLET BY MOUTH (20:31)
[2023-04-05] MEDS: carvediloL 12.5 MG TABLET PO (20:31)
[2023-04-05] MEDS: traZODone HCL 50 MG TABLET BY MOUTH (20:31)
[2023-04-06] MEDS: methylPREDNISolone SOD SUCC 40 MG VIAL IV PUSH ×3 (00:48→11:52)
[2023-04-06 06:25] VITALS: BP 119/62; PULSE 71; RESP 20; TEMP 36.8; O2SAT 96
[2023-04-06 06:47] LABS: Hematocrit 40.9 % (37.0-47.0); Hemoglobin 13.3 g/dL (12.0-15.0); Mean Corpuscular HGB Conc 32.5 g/dl (32-36); Mean Corpuscular Hemoglobin 28.7 pg (26-34); Mean Corpuscular Volume 88.3 fl (80-100); Mean Platelet Volume 9.8 fl (7.4-10.4); Platelet Count Result 344 k/mm3 (150-375); Red Blood Count 4.63 M/mm3 (4.2-5.4); Red Cell Distribution Width 13.4 % (11.5-14.5); White Blood Count 7.3 K/mm3 (4.5-10.0)
[2023-04-06 06:54] LABS: Anion Gap 9 mmol/L (8-16); Blood Urea Nitrogen 15 mg/dL (7-17); Calcium 9.2 mg/dL (8.4-10.2); Carbon Dioxide 26 mmol/L (22-30); Chloride 105 mmol/L (98-107); Estimated CRCL calculation 72 ml/min; Estimated Glomerular Filt Rate > 60; Glucose 162 mg/dL (65-110); Magnesium 2.2 mg/dL (1.6-2.3); Potassium 3.8 mmol/L (3.4-5.0); Sodium 140 mmol/L (137-145)
[2023-04-06] MEDS: amLODIPine BESYLATE 5 MG TABLET 10 MG PO (08:28)
[2023-04-06] MEDS: ATORVASTATIN 40 MG TABLET BY MOUTH (08:29)
[2023-04-06] MEDS: SERTRALINE HCL 50 MG TABLET BY MOUTH (08:29)
[2023-04-06] MEDS: MULTIVITAMINS THERAPEUTIC TAB (*BKC) 1 TABLET PO (08:29)
[2023-04-06] MEDS: PREGABALIN (*CRX) 75 MG CAPSULE PO ×2 (08:29→11:52)
[2023-04-06] MEDS: carvediloL 12.5 MG TABLET PO (08:29)
[2023-04-06] MEDS: hydroCHLOROthiazide 25 MG TABLET PO (08:29)
[2023-04-06] MEDS: LOSARTAN POTASSIUM 100 MG TABLET PO (08:29)
[2023-04-06] MEDS: HYDROcodone/acetaminophen (*CRX) 7.5-325 MG TABLET 1 TAB PO (08:33)
[2023-04-06] MEDS: ALPRAZolam (*CRX) 0.5 MG TABLET PO (08:34)
--- NOTE | 2023-04-06 09:05 | PM.DS ---
DS: Admitting Diagnosis Discharge Date 04/06/2023 Admitting Diagnosis Acute exacerbation of COPD Acute bronchitis DS: Discharge Diagnosis Discharge Diagnosis (1) Cough with hemoptysis: Code(s): R04.2 - Hemoptysis Status: Inactive (2) Left-sided chest wall pain: Code(s): R07.89 - Other chest pain Status: Inactive (3) Abnormal finding on lung imaging: Code(s): R91.8 - Other nonspecific abnormal finding of lung field Status: Acute (4) Essential hypertension: Code(s): I10 - Essential (primary) hypertension Status: Acute (5) Hyperlipidemia: Code(s): E78.5 - Hyperlipidemia, unspecified Status: Acute (6) Depression with anxiety: Code(s): F41.8 - Other specified anxiety disorders Status: Acute (7) Tobacco abuse: Code(s): Z72.0 - Tobacco use Status: Acute Plan The patient presented to the emergency department from urgent care for evaluation of cough and hemoptysis as detailed in HPI. Labs, imaging, EKG, and all reports were personally reviewed. CTA of the chest, abdomen, and pelvis did not show any acute findings however noted diffuse peripheral ground-glass opacities and reticular opacities which may reflect a component of chronic lung disease. Her doctor believe she probably has emphysema/COPD though she has not had any formal outpatient pulmonary studies. She does endorse intermittent dysphagia, mainly with solid foods, but denies concerns for aspiration. Swallow study has been ordered to rule out silent aspiration. As in HPI, the ED physician spoke with Dr. Rodas who recommend starting antibiotics and holding clopidogrel for now. Send sputum for culture. She can follow-up with him as an outpatient. She continues to have left-sided chest wall pain and analgesics are available as needed. She also has component of pleuritic pain as well. Blood pressures were reviewed and they are stable. Patient reports her depression anxiety are well controlled on medications. Smoking cessation is imperative and was discussed. She has previously stop smoking and feels that she could do it again however her also smokes which makes it more difficult. She declines the need for nicotine patch. Home medications will be reviewed and resumed as appropriate. Labs, imaging, EKG, and all reports were personally reviewed. DS: Summary Hospital Course Reason for hospitalization: Hemoptysis Hospital Course: 62 years old reviewing the admitted to the hospital with complaint of having hemoptysis,patient was found to bronchitis CT CS negative. Pulmonary was consulted. Patient states treat feeling better with treatment. Patient is appointment to see a doctor in tertiary care hospital tomorrow morning. Plan is to discharge her after lungs today, follow-up scheduled. Status at Discharge Cognitive/behavioral status at discharge: Stable Time Spent with Patient Time attestation: Total time spent providing and/or coordinating discharge services: Time spent: Less than 30 minutes Exam Narrative: General: Well-developed, nontoxic-appearing female sitting up in bed. Weight: 69 kg. BMI: 29.7. HEENT: PERRL. Dysconjugate gaze. Sclera anicteric. Oral mucosa moist. Oropharynx clear. Neck: Supple. No lymphadenopathy. Respiratory: Respirations are nonlabored. Lung sounds are diminished throughout all lung rolle with coarse breaths at the bases. Diffuse end-expiratory wheezing. Cardiovascular: Regular rate and rhythm with S1-S2. Chest: Reports tenderness to palpation over the left flank and anterior chest with palpation. No bruising or deformities noted. Gastrointestinal: Abdomen is soft, nontender, and nondistended with positive bowel sounds. Skin: Warm and dry. No rash or lesions on limited exam. Extremities: No cyanosis, clubbing, or edema. Radial and pedal pulses intact. Neurological: Alert. Cranial nerves 2-12 are grossly intact. No gross focal deficits to casual conversati
[2023-04-06 11:32] VITALS: O2SAT 100
--- NOTE | 2023-04-06 11:39 | PCSTNOTE ---
Modified barium swallow study completed. Patient seen in radiology department positioned upright in chair. Cursory oral peripheral examination within normal limits. Patient states that she experiences a feeling of food stuck in her throat often. Trials of thin liquids, pureed consistency, mixed consistency, and solid consistency food in barium contrast were given in varying amounts. No signs or symptoms of aspiration observed. Results are within normal limits. No further speech therapy is recommended for this patient at this time. Thank you for this referral.
[2023-04-06] MEDS: levoFLOXacin 750 MG/D5W 150 ML 750 MG/150 ML BAG 100 MG IVPB (11:52)
== END 2023-04-06 13:40 | disposition home or self-care (01) ==
LOC: ANHED 15:34 → ANH3MEDSUR 17:27
PROVIDERS: Physician Assistant; Admitting Provider Internal Medicine; Emergency Provider Emergency Medicine; PCP Family Medicine; Visit Provider Internal Medicine
DX: R04.2 Hemoptysis (principal); R07.89 Other chest pain; R91.8 Other nonspecific abnormal finding of lung field; E11.9 Type 2 diabetes mellitus without complications; I10 Essential (primary) hypertension; I69.354 Hemiplegia and hemiparesis following cerebral infarction affecting left non-dominant side; E78.5 Hyperlipidemia, unspecified; F41.8 Other specified anxiety disorders; Z20.822 Contact with and (suspected) exposure to COVID-19; J44.9 Chronic obstructive pulmonary disease, unspecified; R79.1 Abnormal coagulation profile; G47.00 Insomnia, unspecified; G47.30 Sleep apnea, unspecified; R94.31 Abnormal electrocardiogram [ECG] [EKG]; F17.210 Nicotine dependence, cigarettes, uncomplicated; F12.90 Cannabis use, unspecified, uncomplicated; Z79.02 Long term (current) use of antithrombotics/antiplatelets; Z79.891 Long term (current) use of opiate analgesic; Z79.899 Other long term (current) drug therapy; Z83.3 Family history of diabetes mellitus; Z82.49 Family history of ischemic heart disease and other diseases of the circulatory system
CPT/HCPCS: 36415; 71046; 71100; 71275; 74177; 80048; 80053; 82948; 83735; 83880; 84484; 85025; 85027; 85380; 85610; 85730; 87040; 87637; 92611; 93005; 96361; 96374; 96375; 96376; 99285; A9270; G0378; J1956; J2920; J7030; Q9967

== ENCOUNTER 2023-06-24 10:31 | Outpatient (CLI) | payer MEDICARE, MEDICAID, SELFPAY ==
--- NOTE | ~2023-06-24 | MMUS_ITS ---
EXAMINATION: MM diagnostic deepak BI w mala, US breast BI complete HISTORY: Follow-up breast asymmetries TECHNIQUE: Additional 3-D tomosynthesis images of the breasts were performed and synthetic 2-D images were generated. CAD analysis was submitted and interpreted. High resolution bilateral complete breas t ultrasound was performed. COMPARISON: Comparison to multiple prior studies sequentially, with oldest reviewed study dated 07/10. BREAST PARENCHYMAL COMPOSITION: Breast composed of scattered areas of fibroglandular density FINDINGS: MAMMOGRAPHIC FINDINGS: There are no suspicious masses, calcifications or architectural distortion in either breast to sugges t malignancy. ULTRASOUND: Complete bilateral US of all 4 quadrants of the breasts and retroareolar region was reviewed. No hete rogeneous echotexture without focal solid or cystic mass. IMPRESSION: 1. No evidence for malignancy in either breast. 2. Routine yearly screening mammogram and regular clinical breast examination are recommended. BI-RADS Category 1: Negative Reviewed, dictated and finalized at location A. UTER APPLICATIONS DEVELOPER IMPRESSION: 1. No evidence for malignancy in either breast. 2. Routine yearly screening mammogram and regular clinical breast examination a re recommended. BI-RADS Category 1: Negative
== END 2023-06-24 10:32 | disposition home or self-care (01) ==
PROVIDERS: PCP Family Medicine; Visit Provider Nurse Practitioner Family
DX: N64.4 Mastodynia (principal); R23.4 Changes in skin texture; Z80.3 Family history of malignant neoplasm of breast
CPT/HCPCS: 76641; 77062; 77066; G0279

== ENCOUNTER 2023-07-04 12:37 | Outpatient (CLI) | payer MEDICARE, MEDICAID, SELFPAY ==
--- NOTE | 2023-07-04 15:49 | WPDSIXMINUTE ---
Six Minute Walk Procedure Procedure Performed Pulmonary Stress Test (6 min walk) Six Minute Walk Six Minute Walk: This is a 6 minute walk test. The test was performed and interpreted in accordance with the 2014 ERS/ATS task force guidelines. Findings: The patient's resting room air oxygen saturation measured by pulse oximetry was 97% and heart rate was 86 bpm. Patient ambulated for 366 meters and oxygen saturation remained 95 to 97%. Heart rate at the end of the study was 107 bpm. The patient did not qualify for supplemental oxygen at rest or with ambulation. There are no prior studies for comparison.
--- NOTE | 2023-07-04 15:50 | WPDPFTINT ---
PFT Procedure Performed PFT Procedure Performed Spirometry with Pre/Post Bronchodilator Plethysmography (Lung Vol) Diffusing Cap (DLCO) Flow Vol Loop PFT Interpretation This is a pulmonary function test with pre and post-bronchodilator spirometry, plethysmography and diffusing capacity. The test was performed and results interpreted in accordance with the 2019 and 2005 ATS/ERS Task Force guidelines respectively using the Global Lung Function Initiative-2012 reference equations. Patient demonstrated good effort and cooperation. Reproducibility criteria were met. The quality of the pre bronchodilator spirometry maneuver was Grade B and post bronchodilator spirometry maneuver was Grade A. Findings: Spirometry: The contour the inspiratory and expiratory flow tracing are normal. The pre bronchodilator FVC is 2.45 L, 92% predicted. The pre bronchodilator FEV1 is 1.90 L, 90% predicted. The pre bronchodilator FEV1: FVC ratio 78%. The post bronchodilator FVC is 2.29 L, representing a 6% decrease. The post bronchodilator FEV1 is 1.90 L, representing no change. The post bronchodilator FEV1: FVC ratio is 83%. Plethysmography: The total lung capacity is 4.16 L, 94% predicted. The functional residual capacity is 1.98 L, 80% predicted. The residual volume is 1.71 L, 94% predicted. Diffusing capacity: The diffusing capacity unadjusted for hemoglobin and carboxyhemoglobin is 9.40, 47% predicted. The diffusing capacity adjusted for alveolar volume is 3.19, 69% predicted. Impression: The spirometry is normal without evidence of an obstructive abnormality. There is no significant improvement after inhaling a single dose of albuterol. The lung volumes are normal. The diffusing capacity unadjusted for hemoglobin and carboxyhemoglobin is moderately decreased and remains mildly decreased when adjusted for alveolar volume. There are no prior studies for comparison
== END 2023-07-04 12:38 | disposition home or self-care (01) ==
LOC: ANHPFT 12:37
PROVIDERS: PCP Family Medicine; Visit Provider Internal Medicine Pulmonary Disease
DX: J61 Pneumoconiosis due to asbestos and other mineral fibers (principal); Z87.891 Personal history of nicotine dependence
CPT/HCPCS: 94060; 94618; 94726; 94729

== ENCOUNTER 2023-08-27 10:20 | Outpatient (CLI) | payer MEDICARE, MEDICAID, SELFPAY ==
--- NOTE | ~2023-08-27 | CT_ITS ---
CT Scan of the Chest without Contrast: Clinical Indication: Lung nodules, smoking history Technique: Contiguous sections were acquired throughout the chest without intravenous contrast. Dose reduction technique was used on this scan by utilizing automated exposure control and iterative recon struction technique. The dose-length product (DLP) was 78.08 mGy-cm. COMPARISON: 04/05/2023 Findings: There is no evidence of any significant mediastinal, hilar or axillary lymphadenopathy. The mediastin al soft tissues appear normal. There is no evidence of pleural or pericardial effusion. The lungs are clear. No pulmonary nodules or infiltrates are noted. Images through the upper abdomen reveal no abnormalities. Impression: No significant abnormalities seen. Reviewed, dictated and finalized at location . Impression: No significant abnormalities seen.
== END 2023-08-27 10:21 | disposition home or self-care (01) ==
LOC: ANHIMG 10:21
PROVIDERS: PCP Family Medicine; Visit Provider Internal Medicine Pulmonary Disease
DX: R91.8 Other nonspecific abnormal finding of lung field (principal)
CPT/HCPCS: 71250

== ENCOUNTER 2024-06-15 15:12 | Outpatient (CLI) | payer MEDICARE, MEDICAID, SELFPAY ==
--- NOTE | ~2024-06-15 | CT_ITS ---
EXAMINATION: CT brain wo con DATE: 06/15/2024 15:49 INDICATION: Unspecified fall, initial encounter. TECHNIQUE: Computed tomography (CT) of the head was performed without intravenous contrast. The mA wa s adjusted according to patient size. Iterative reconstruction technique was employed. The dose-lengt h product was 605.33 mGy-cm. COMPARISON: Head CT 01/07/2023 FINDINGS: There are scattered areas of low attenuation in the cerebral white matter. There is no intr acranial hemorrhage, acute infarction, or abnormal intracranial mass lesion. The ventricles are ana l in size. The orbits are normal. There is mild mucosal thickening in the paranasal sinuses. The mast oid air cells are normal. IMPRESSION: 1. Stable mild nonspecific cerebral white matter disease, which likely represents chronic small vesse l ischemic disease. Reviewed, dictated and finalized at location B. NSTRATOR ELECT[employer]IC G[employer] APPLIANCES IMPRESSION: 1. Stable mild nonspecific cerebral white matter disease, which likely represen ts chronic small vessel ischemic disease.
--- OUTSIDE RECORDS SUMMARY | 2024-06-17 19:40 | XMS_ITS | Patient Health Summary ---
Author Organization [facility] Address [address] [place] [address] Care Team Providers Care Store Leader Name Role Phone Unavailable Primary Care Provider Unavailabl e Note from [facility],non-owned Affiliates and Associated Physician Practices is amultiple site organization consisting of ambulatory clinics and hospital sitesin [place], [place], [place] and [place]. This disclosure is being madepursuant to the Care Everywhere program and may not contain all information available regarding this patient. Last updated 18.[facility] Allergies * Aspirin(Anaphylaxis) -High Criticality * Codeine(Urticaria) -Medium Criticality * Honey Bee Venom(Anaphylaxis) -High Criticality * Latex(Urticaria) -Medium Criticality * Peanut-Derived(Anaphylaxis) -High Criticality * Penicillin G(Anaphylaxis) -High Criticality * Penicillins(Anaphylaxis) -High Criticality * Pseudoephedrine Base(Urticaria) -Medium Criticality * Clear [place](Urticaria) -Medium Criticality * Sulfa Drugs(Anaphylaxis) -High Criticality Medications * Be aware that medications may not be up to date on this document. Alwaysverify current medications with the patient. * atorvastatin (LIPITOR) 40 MG tablet Take 40 mg by mouth at bedtime * gabapentin (NEURONTIN) 600 MG tablet Take 600 mg by mouth 3 times daily * losartan-hydroCHLOROthiazide (HYZAAR) 100-25 MG tablet Take 1 tablet by mouth once daily * amLODIPine (NORVASC) 5 MG tablet Take 5 mg by mouth once daily * baclofen (LIORESAL) 10 MG tablet Take 10 mg by mouth 2 times daily May cause drowsiness. * ALPRAZolam (XANAX) 0.25 MG tablet Take 0.25 mg by mouth 2 times daily Active Problems Problem Noted Date Diagnosed Date Cerebrovascular accident (CVA) 07/22/2019 Social History Tobacco Use Types Packs/Day Years Used Date Smoking Tobacco: Never Smokeless Tobacco: Never Alcohol Use Standard Drinks/Week Comments Never 0 (1 standard drink = 0.6 oz pur e alcohol) AUDIT-C Answer Date Recorded Frequency of Alcohol Consumption Never 07/22/2019 Average Number of Drinks Not on file 020 Frequency of Binge Drinking Not on file 06/27 Sex and Gender Information Value Date Recorded Sex Assigned at Not on file Gender Identity Not on file Sexual Orientation Not on file Last Filed Vital Signs Vital Sign Reading Time Taken Comments Blood Pressure 139/79 07/24/2019 4:42 PM REFRIGERATING MACHINE OPERATOR Pulse 80 07/24/2019 4:17 PM REFRIGERATING MACHINE OPERATOR Temperature 36.8 ??C (98.2 ??F) 07/24/2019 4:17 PM CS T Respiratory Rate 20 07/24/2019 4:17 PM REFRIGERATING MACHINE OPERATOR Oxygen Saturation 99% 07/24/2019 4:17 PM REFRIGERATING MACHINE OPERATOR Inhaled Oxygen Concentration - - Weight 62.9 kg (138 lb 9.6 oz) 07/22/2019 10:38 PM REFRIGERATING MACHINE OPERATOR Height 152.4 cm (5') 07/22/2019 10:38 PM REFRIGERATING MACHINE OPERATOR Body Mass Index 27.07 07/22/2019 10:38 PM REFRIGERATING MACHINE OPERATOR Procedures * CARDIAC EKG ORDER(Performed 08/13/2019) * GLUCOSE - POINT OF CARE(Performed 07/24/2019) * GLUCOSE - POINT OF CARE(Performed 07/24/2019) * GLUCOSE - POINT OF CARE(Performed 07/24/2019) * T4 FREE(Performed 07/24/2019) Performed for Cerebrovascular accident (CVA), unspecified mechanism (HCC) * TSH(Performed 07/24/2019) Performed for Cerebrovascular accident (CVA), unspecified mechanism (HCC) * PHOSPHORUS BLOOD(Performed 07/24/2019) * MAGNESIUM BLOOD(Performed 07/24/2019) * CBC W/O DIFFERENTIAL(Performed 07/24/2019) * BASIC METABOLIC PANEL (CALCIUM TOTAL)(Performed 07/24/2019) * GLUCOSE - POINT OF CARE(Performed 07/23/2019) * MRI BRAIN WO CONTRAST(Performed 07/23/2019) Performed for Cerebrovascular accident (CVA), unspecified mechanism (HCC) * GLUCOSE - POINT OF CARE(Performed 07/23/2019) * ECHO COMPLETE W BUBBLE STUDY(Performed 07/23/2019) Performed for Cerebrovascular accident (CVA), unspecified mechanism (HCC) * GLUCOSE - POINT OF CARE(Performed 07/23/2019) * URINALYSIS REFLEX TO MICROSCOPIC NO CULTURE(Performed 07/23/2019) * GLUCOSE - POINT OF CARE(Performed 07/23/2019) * CARDIAC EKG ORDER(Performed 07/23/2019) * GLUCOSE - POINT OF CARE(Performed 07/23/2019) * TROPONIN I(Performed 07/23/2019) * PHOSPHORUS BLOOD(Performed 07/23/2019) * MAGNESIUM BLOOD(Performed 07/23/2019) * BASIC METABOLIC PANEL (CALCIUM TOTAL)(Performed 07/23/2019) * HEMOGLOBIN A1C(Performed 07/23/2019) * GLUCOSE - POINT OF CARE(Performed 07/23/2019) * CBC W/O DIFFERENTIAL(Performed 07/22/2019) * TROPONIN I(Performed 07/22/2019) * LIPID PROFILE(Performed 07/22/2019) * TROPONIN I(Performed 07/22/2019) * TYPE + SCREEN PANEL(Performed 07/22/2019) * XR CHEST 1VW PORTABLE(Performed 07/22/2019) Performed for Cerebrovascular accident (CVA), unspecified mechanism (HCC) * TROPONIN I(Performed 07/22/2019) * PT-INR [facility](Performed 07/22/2019) * COMPREHENSIVE METABOLIC PANEL(Performed 07/22/2019) * CBC W AUTO DIFFERENTIAL(Performed 07/22/2019) * EKG 12-LEAD(Performed 07/22/2019) Performed for Cerebrovascular accident (CVA), unspecified mechanism (HCC) * CT ANGIO BRAIN NECK STROKE(Performed 07/22/2019) Performed for Cerebrovascular accident (CVA), unspecified mechanism (HCC) * GLUCOSE - POINT OF CARE(Performed 07/22/2019) Results * CARDIAC EKG ORDER (08/13/2019 2:59 PM CDT) Only the most recent of2 resultswithin the time period is included. Narrative 08/13/2019 2:59 PM CDT Ordered by an unspecified provider. Scanned Document CARDIAC SERVICES ORD ERABLES * GLUCOSE - POINT OF CARE (07/24/2019 5:50 PM REFRIGERATING MACHINE OPERATOR) Only the most recent of10 resultswithin the time period is included. Glucose WB/POC 97 70 - 115 mg/dL 07/24/2019 5:51 PM [facility] Specimen Type Arterial/C apillary 07/24/2019 5:51 PM [facility] Blood BLOOD SPECIMEN / Unknown 07/24/2019 5:50 PM REFRIGERATING MACHINE OPERATOR 07/24/2019 5:51 PM REFRIGERATING MACHINE OPERATOR Craig Rosas MD LAB - POINT OF CARE ORDERABLES [address] [phone] * (ABNORMAL) CBC W/O DIFFERENTIAL (07/24/2019 3:06 AM REFRIGERATING MACHINE OPERATOR) Only the most recent of2 resultswithin the time period is included. WBC 9.4 3.5 - 10.5 10? 3 /uL 07/24/2019 4:03 AM [facility] RBC 4.13 3.90 - 5.00 10? 6 /uL 07/24/2019 4:03 AM [facility] Hemoglobin 11.9(L) 12.0 - 15.5 g/dL 07/24/2019 4:03 AM [facility] Hematocrit 36.9 35.0 - 45.0 % 07/24/2019 4:03 AM [facility] MCV 89.3 81.0 - 97.0 fL 07/24/2019 4:03 AM [facility] MCH 28.8 28.0 - 34.0 pg 07/24/2019 4:03 AM [facility] MCHC 32.2 32.0 - 36.0 g/dL 07/24/2019 4:03 AM [facility] Platelet Count 287 150 - 400 10? 3 /uL 07/24/2019 4:03 AM [facility] RDW-SD 43.5 36.0 - 50.0 fL 07/24/2019 4:03 AM [facility] RDW-CV 13.2 11.2 - 14.8 % 07/24/2019 4:03 AM [facility] MPV 10.5 9.3 - 12.8 fL 07/24/2019 4:03 AM [facility] nRBC Absolute 0.00 0 10? 3 /uL 07/24/2019 4:03 AM [facility] nRBC Auto 0.0 0 /100 WBC 07/24/2019 4:03 AM [facility] Blood BLOOD SPECIMEN / Unknown Lab Venipuncture / Unknown 07/24/2019 3:06 AM REFRIGERATING MACHINE OPERATOR 07/24/2019 3:39 AM [facility] Keith Rossi MD LAB - HEMATOLOGY ORD ERABLES [facility] [address] [phone] * (ABNORMAL) BASIC METABOLIC PANEL (CALCIUM TOTAL) (07/24/2019 3:06 AM [facility]) Only the most recent of2 resultswithin the time period is included. BUN 6(L) 7 - 26 mg/dL 07/24/2019 4:35 AM [facility] Creatinine 0.6 0.6 - 1.2 mg/dL 07/24/2019 4:35 AM [facility] Sodium 144 136 - 145 mmol/L 07/24/2019 4:35 AM [facility] Potassium 3.6 3.5 - 4.5 mmol/L 07/24/2019 4:35 AM [facility] Chloride 111(H) 98 - 107 mmol/L 07/24/2019 4:35 AM [facility] CO2 24 22 - 29 mmol/L 07/24/2019 4:35 AM [facility] Glucose 97 70 - 115 mg/dL 07/24/2019 4:35 AM [facility] Calcium 9.2 8.4 - 10.2 mg/dL 07/24/2019 4:35 AM [facility] Anion Gap 13 8 - 18 07/24/2019 4:35 AM [facility] BUN/Creatinine Ratio 10 7 - 23 07/24/2019 4:35 AM [facility] Osmolality Calculated 296 270 - 300 mOsm/kg 07/24/2019 4:35 AM [facility] eGFR >60 >60 mL/min/1.7 3 m2 07/24/2019 4:35 AM REFRIGERATING MACHINE OPERATOR [facility] Blood BLOOD SPECIMEN / Unknown Lab Venipuncture / Unknown 07/24/2019 3:06 AM REFRIGERATING MACHINE OPERATOR 07/24/2019 3:40 AM REFRIGERATING MACHINE OPERATOR Keith Rossi MD LAB - [place] [address], [facility] [phone] * PHOSPHORUS BLOOD (07/24/2019 3:06 AM REFRIGERATING MACHINE OPERATOR) Only the most recent of2 resultswithin the time period is included. Phosphorus 2.9 2.3 - 4.7 mg/dL 07/24/2019 4:35 AM REFRIGERATING MACHINE OPERATOR [facility] Blood BLOOD SPECIMEN / Unknown Lab Venipuncture / Unknown 07/24/2019 3:06 AM REFRIGERATING MACHINE OPERATOR 07/24/2019 3:40 AM REFRIGERATING MACHINE OPERATOR Keith Rossi MD LAB - CHEMISTRY [place] Performing Organization Address [facility] [place] [address], [facility] [phone] * MAGNESIUM BLOOD (07/24/2019 3:06 AM REFRIGERATING MACHINE OPERATOR) Only the most recent of2 resultswithin the time period is included. Magnesium 2.2 1.6 - 2.6 mg/dL 07/24/2019 4:35 AM REFRIGERATING MACHINE OPERATOR [facility] Blood BLOOD SPECIMEN / Unknown Lab Venipuncture / Unknown 07/24/2019 3:06 AM REFRIGERATING MACHINE OPERATOR 07/24/2019 3:40 AM REFRIGERATING MACHINE OPERATOR Keith Rossi MD LAB - CHEMISTRY [place] Performing Organization Address City/[facility]/[place] [address], [facility] [phone] * TSH (07/24/2019 3:06 AM REFRIGERATING MACHINE OPERATOR) TSH 0.710 0.350 - 4.940 uIU/mL 07/24/2019 4:28 AM REFRIGERATING MACHINE OPERATOR [facility] Blood BLOOD SPECIMEN / Unknown Lab Venipuncture / Unknown 07/24/2019 3:06 AM REFRIGERATING MACHINE OPERATOR 07/24/2019 3:40 AM REFRIGERATING MACHINE OPERATOR Keith Rossi MD LAB - CHEMISTRY [place] Performing Organization Address [facility]/ZIP Co de Phone Number [address] [phone] * T4 FREE (07/24/2019 3:06 AM REFRIGERATING MACHINE OPERATOR) T4 Free 0.8 0.7 - 1.5 ng/dL 07/24/2019 4:28 AM REFRIGERATING MACHINE OPERATOR [facility] Blood BLOOD SPECIMEN / Unknown Lab Venipuncture / Unknown 07/24/2019 3:06 AM REFRIGERATING MACHINE OPERATOR 07/24/2019 3:40 AM REFRIGERATING MACHINE OPERATOR Keith Rossi MD LAB - CHEMISTRY [place] Performing Organization Address [facility] Co de Phone Number [address] [phone] * MRI BRAIN WO CONTRAST (07/23/2019 9:38 PM REFRIGERATING MACHINE OPERATOR) Anatomical Region Laterality Modality Head Magnetic Resonan ce 07/24/2019 8:04 AM REFRIGERATING MACHINE OPERATOR Impressions 07/24/2019 8:12 AM REFRIGERATING MACHINE OPERATOR IMPRESSION: 1. No acute infarct. Intracranial atrophy. Small vessel ischemia. 2. Abnormal prominence of the nasopharynx. Direct visualization is recommended. Right greater than left mastoid effusions. This report was electronically signed by CARLOS FREEMAN ??on 07/24/2019 8:12 AM . Narrative 07/24/2019 8:12 AM REFRIGERATING MACHINE OPERATOR INDICATION: Cerebrovascular accident COMPARISON: CT 07/22/2019 TECHNIQUE: MRI brain without intravenous contrast FINDINGS: Secretions in the pharynx. Nasopharynx is prominent. There is no marrow replacement involving the clivus. Right greater than left mastoid effusions. Intracranial atrophy. T2 bright hyperintensities in the supratentorial white matter are nonspecific but statistically most likely related to small vessel ischemia. No abnormal diffusion restriction. No abnormal intracranial blood products. Normal flow voids are seen in the visualized vertebral, basilar, and internal carotid arteries. No abnormal extra-axial fluid collection. No mass effect or midline shift. No hydrocephalus. Procedure Note Carlos Freeman MD - 07/24/2019 INDICATION: Cerebrovascular accident COMPARISON: CT 07/22/2019 TECHNIQUE: MRI brain without intravenous contrast FINDINGS: Secretions in the pharynx. Nasopharynx is prominent. There is no marrow replacement involving the clivus. Right greater than left mastoid effusions. Intracranial atrophy. T2 bright hyperintensities in the supratentorial white matter are nonspecific but statistically mostlikely related to small vessel ischemia. No abnormal diffusion restriction. No abnormal intracranial blood products. Normal flow voids are seen in the visualized vertebral, basilar, and internal carotid arteries. No abnormal extra-axial fluid collection. No mass effect or midline shift. No hydrocephalus. IMPRESSION: 1. No acute infarct. Intracranial atrophy. Small vessel ischemia. 2. Abnormal prominence of the nasopharynx. Direct visualization is recommended. Right greater than left mastoid effusions. This report was electronically signed by CARLOS FREEMAN on 07/24/2019 8:12 AM . Keith Rossi MD MR ORDERABLES * ECHO COMPLETE W BUBBLE STUDY (07/23/2019 2:33 PM REFRIGERATING MACHINE OPERATOR) Anatomical Region Laterality Modality Chest Echo 07/23/2019 2:03 PM REFRIGERATING MACHINE OPERATOR Narrative Procedure Note Ras Harris MD - 07/23/2019 Keith Rossi MD ECHOCARDIOGRAPHY RAD IANT * (ABNORMAL) URINALYSIS REFLEX TO MICROSCOPIC NO CULTURE (07/23/2019 12:09 PM REFRIGERATING MACHINE OPERATOR) Color UA Yellow Straw, Yellow, Colorless 07/23/2019 12:52 PM REFRIGERATING MACHINE OPERATOR [facility] Clarity UA Cloudy(A) Clear, Slt Cloudy 07/23/2019 12:52 PM REFRIGERATING MACHINE OPERATOR [facility] Specific [place] UA 1.011 1.005 - 1.030 07/23/2019 12:52 PM REFRIGERATING MACHINE OPERATOR [facility] pH UA 8.0 5.0 - 8.0 pH 07/23/2019 12:52 PM [facility] Protein UA Negative Negative mg/dL 07/23/2019 12:52 PM [facility] Glucose UA Negative Negative mg/dL 07/23/2019 12:52 PM [facility] Ketone UA Negative Negative mg/dL 07/23/2019 12:52 PM [facility] Bilirubin UA Negative Negative mg/dL 07/23/2019 12:52 PM [facility] Blood UA Negative Negative 07/23/2019 12:52 PM [facility] Nitrite UA Negative Negative 07/23/2019 12:52 PM [facility] Leukocyte Esterase Negative Negative 07/23/2019 12:52 PM [facility] Urobilinogen UA Negative Negative mg/dL 07/23/2019 12:52 PM [facility] RBC UA 3-5 None Seen, 0-2, 3-5 /HPF 07/23/2019 12:52 PM [facility] WBC UA 0-5 None Seen, 0-5 /HPF 07/23/2019 12:52 PM [facility] Bacteria UA 1+(A) None, Trace /HPF 07/23/2019 12:52 PM [facility] Squamous Epithelial Cells UA 0-2 None Seen, 0-2 /HPF 07/23/2019 12:52 PM [facility] Amorphous Crystals Few Rare, Occasional, Few, Moderate, None /HPF 07/23/2019 12:52 PM [facility] Urine URINE SPECIMEN OBTAINED BY CLEAN CATCH PROCEDURE / Unknown Collection / Unknown 07/23/2019 12:09 PM REFRIGERATING MACHINE OPERATOR 07/23/2019 12:15 PM REFRIGERATING MACHINE OPERATOR [facility] - 07/23/2019 12:52 PM REFRIGERATING MACHINE OPERATOR Tyra Ferrell MD LAB - URINALYSIS ORD ERABLES [facility] [address] [phone] * TROPONIN I (07/23/2019 2:22 AM REFRIGERATING MACHINE OPERATOR) Only the most recent of4 resultswithin the time period is included. Troponin I <0.010 <0.032 ng/mL 07/23/2019 3:03 AM [facility] Blood BLOOD SPECIMEN / Unknown Venipuncture / Unknown 07/23/2019 2:22 AM REFRIGERATING MACHINE OPERATOR 07/23/2019 2:30 AM REFRIGERATING MACHINE OPERATOR Keith Rossi MD LAB - CHEMISTRY [place] Performing Organization Address City/[facility]/ZIP Co de Phone Number [address] [phone] * HEMOGLOBIN A1C (07/23/2019 2:22 AM REFRIGERATING MACHINE OPERATOR) Hemoglobin A1c 5.4 4.4 - 6.3 % 07/23/2019 10:06 AM [facility] Estimated Average Glucose 108 mg/dL 07/23/2019 10:06 AM [facility] Comment: HbA1c Interpretation: Treatment target values recommended by ADA and other clinical organizations should be used to evaluate metabolic control in patients. Treatment Target Values: Normal : < 5.7% Pre-diabetes: 5.7-6.4% Diabetes: Equal to or greater than 6.5% Reference: [place] Diabetes [employer] Standards of Care in Diabetes -2014 In patients 70 years and older consider HbA1c target range of 7.0-7.5% Reference: ??Diabetes Mellitus in Older People: Position Statement on behalf of the International Association of Gerontology and Geriatrics (IAGG), the Diabetes Working Libertarian for Older People (EDWPOP), and the International Task Force of Experts in Diabetes. ??Davide Ruiz, et al. J [place] [employer] Association. 2012 Test results diagnostic of diabetes should be repeated for confirmation. The Sebia Capillary 2 assay for the measurement of HbA1c is a National Glycohemoglobin Standardization Program (NGSP)certified method. Blood BLOOD SPECIMEN / Unknown Venipuncture / Unknown 07/23/2019 2:22 AM REFRIGERATING MACHINE OPERATOR 07/23/2019 2:29 AM REFRIGERATING MACHINE OPERATOR Keith Rossi MD LAB - CHEMISTRY [place] [address] [phone] * (ABNORMAL) LIPID PROFILE (07/22/2019 9:05 PM [facility]) Pathologist [facility] Cholesterol Total 167 <200 mg/dL 07/22/2019 9:42 PM [facility] HDL 45 >40 mg/dL 07/22/2019 9:42 PM [facility] Comment: ATP III Classification of HDL Cholesterol: ? <40 mg/dL: ??Considered a major risk factor. ? >60 mg/dL: ??Considered a negative risk factor. ? LDL Calculated 82 <100 mg/dL 07/22/2019 9:42 PM [facility] Comment: ATP III Classification of LDL Cholesterol: ?<100 mg/dL: ??Optimal ? 100 - 129 mg/dL: ??Near Optimal/Above Optimal ? 130 - 159 mg/dL: ??Borderline High ? 160 - 189 mg/dL: ??High ?>190 mg/dL: ??Very High ? Triglycerides 198(H) <150 mg/dL 07/22/2019 9:42 PM [facility] Comment: ATP III Classification of Triglycerides: ?<150 mg/dL: ??Normal ? 150 - 199 mg/dL: ??Borderline High ? 200 - 400 mg/dL: ??High ?>500 mg/dL: ??Very High Blood BLOOD SPECIMEN / Unknown Venipuncture / Unknown 07/22/2019 9:05 PM REFRIGERATING MACHINE OPERATOR 07/22/2019 9:20 PM [facility] Keith Rossi MD LAB - [place] [address], [facility] [phone] * TYPE + SCREEN PANEL (07/22/2019 9:00 PM [facility]) [facility] Antibody Screen NEG 0 10:08 PM REFRIGERATING MACHINE OPERATOR [facility] ABO Rh A POS 07/22/2019 10:08 PM REFRIGERATING MACHINE OPERATOR [facility] Blood Bank BLOOD SPECIMEN / Unknown Venipuncture / Unknown 07/22/2019 9:00 PM REFRIGERATING MACHINE OPERATOR 07/22/2019 9:24 PM REFRIGERATING MACHINE OPERATOR Enrique Alston MD LAB - BLOOD BANK ORD ERABLES [facility] [address] [place] [address], [facility] * XR CHEST 1VW PORTABLE (07/22/2019 8:50 PM REFRIGERATING MACHINE OPERATOR) Anatomical Region Laterality Modality Chest Radiographic Rachael ging 07/22/2019 9:41 PM REFRIGERATING MACHINE OPERATOR Impressions 07/23/2019 6:38 AM REFRIGERATING MACHINE OPERATOR IMPRESSION: Right infrahilar opacity likely reflecting airspace disease and/or atelectasis with possible contribution of prominent right pulmonary artery. Dictated by Kashif Champion MD (resident). I, Dr. NESTOR MYERS have personally reviewed and interpreted this examination/study. This report was electronically signed by NESTOR MYERS ??on 07/23/2019 6:38 AM . Narrative 07/23/2019 6:38 AM REFRIGERATING MACHINE OPERATOR EXAMINATION: Chest radiograph, AP portable HISTORY: CVA COMPARISON: None FINDINGS: Cervical spine fusion hardware is noted. There is no focal consolidation, pleural effusion, or pneumothorax. Right infrahilar opacity likely represents enlarged pulmonary artery when correlating with the CTA head and neck. However right basilar atelectasis or airspace disease not excluded. The cardiac silhouette is normal. The aorta is atherosclerotic. The visible bony thorax is intact. Procedure Note Nestor Myers, DO - 07/23/2019 EXAMINATION: Chest radiograph, AP portable HISTORY: CVA COMPARISON: None FINDINGS: Cervical spine fusion hardware is noted. There is no focal consolidation, pleural effusion, or pneumothorax.Right infrahilar opacity likely represents enlarged pulmonary artery when correlating with the CTA head and neck. However right basilaratelectasis or airspace disease not excluded. The cardiac silhouette is normal. The aorta is atherosclerotic. The visible bony thorax is intact. IMPRESSION: Right infrahilar opacity likely reflecting airspace disease and/or atelectasis with possible contribution of prominent right pulmonary artery. Dictated by Kashif Champion MD (resident). I, Dr. NESTOR MYERS have personally reviewed and interpreted this examination/study. This report was electronically signed by NESTOR MYERS on 07/23/2019 6:38 AM . Keith Rossi MD DIAGNOSTIC IMAGING O RDERABLES * PT-INR [facility] (07/22/2019 8:31 PM REFRIGERATING MACHINE OPERATOR) Pathologist [facility] PT 13.5 12.1 - 14.8 Seconds 07/22/2019 8:50 PM [facility] INR 1.1 See Comment 07/22/2019 8:50 PM [facility] Comment:The suggested therap eutic range for standard coumadin (warfarin) therapy is an INR of 2.0-3.0. For high-risk patients (Mechanical Mitral Valve Prosthesis, etc.), the suggested prophylactic therapeutic range is an INR of 2.5-3.5. Blood BLOOD SPECIMEN / Unknown Venipuncture / Unknown 07/22/2019 8:31 PM REFRIGERATING MACHINE OPERATOR 07/22/2019 8:37 PM REFRIGERATING MACHINE OPERATOR Enrique Alston MD LAB - COAGULATION OR DERABLES Performing Organization Address City/State/[facility] Co de Phone Number [address] [phone] * (ABNORMAL) CBC W AUTO DIFFERENTIAL (07/22/2019 8:31 PM REFRIGERATING MACHINE OPERATOR) WBC 13.1(H) 3.5 - 10.5 10? 3 /uL 07/22/2019 8:49 PM [facility] RBC 4.37 3.90 - 5.00 10? 6 /uL 07/22/2019 8:49 PM [facility] Hemoglobin 12.8 12.0 - 15.5 g/dL 07/22/2019 8:49 PM [facility] Hematocrit 38.6 35.0 - 45.0 % 07/22/2019 8:49 PM [facility] MCV 88.3 81.0 - 97.0 fL 07/22/2019 8:49 PM [facility] MCH 29.3 28.0 - 34.0 pg 07/22/2019 8:49 PM [facility] MCHC 33.2 32.0 - 36.0 g/dL 07/22/2019 8:49 PM [facility] Platelet Count 316 150 - 400 10? 3 /uL 07/22/2019 8:49 PM [facility] RDW-SD 43.2 36.0 - 50.0 fL 07/22/2019 8:49 PM [facility] RDW-CV 13.3 11.2 - 14.8 % 07/22/2019 8:49 PM [facility] MPV 9.8 9.3 - 12.8 fL 07/22/2019 8:49 PM [facility] nRBC Absolute 0.00 0 10? 3 /uL 07/22/2019 8:49 PM [facility] nRBC Auto 0.0 0 /100 WBC 07/22/2019 8:49 PM [facility] Neutrophils % 65.3 35.0 - 70.0 % 07/22/2019 8:49 PM [facility] Lymphocytes % 23.7 19.7 - 55.1 % 07/22/2019 8:49 PM [facility] Monocytes % 7.7 3.0 - 15.0 % 07/22/2019 8:49 PM [facility] Eosinophils % 2.6 0.0 - 6.0 % 07/22/2019 8:49 PM [facility] Basophil % 0.4 0.0 - 1.5 % 07/22/2019 8:49 PM [facility] Neutrophils Absolute 8.5(H) 1.6 - 7.0 10? 3 /uL 07/22/2019 8:49 PM [facility] Lymphocyte Absolute 3.1(H) 0.8 - 2.9 10? 3 /uL 07/22/2019 8:49 PM [facility] Monocytes Absolute 1.00(H) 0.14 - 0.66 10? 3 /uL 07/22/2019 8:49 PM [facility] Eosinophils Absolute 0.34 0.00 - 0.45 10? 3 /uL 07/22/2019 8:49 PM [facility] Basophils Absolute 0.05 0.00 - 0.06 10? 3 /uL 07/22/2019 8:49 PM [facility] Immature Granulocytes % 0.3 0.0 - 1.0 % 07/22/2019 8:49 PM [facility] Blood BLOOD SPECIMEN / Unknown Venipuncture / Unknown 07/22/2019 8:31 PM REFRIGERATING MACHINE OPERATOR 07/22/2019 8:37 PM REFRIGERATING MACHINE OPERATOR Enrique Alston MD LAB - HEMATOLOGY ORD ERABLES [facility] [address] [place] [address] * (ABNORMAL) COMPREHENSIVE METABOLIC PANEL (07/22/2019 8:31 PM [facility]) BUN 12 7 - 26 mg/dL 07/22/2019 8:59 PM [facility] Creatinine 0.7 0.6 - 1.2 mg/dL 07/22/2019 8:59 PM [facility] Sodium 140 136 - 145 mmol/L 07/22/2019 8:59 PM [facility] Potassium 3.4(L) 3.5 - 4.5 mmol/L 07/22/2019 8:59 PM [facility] Chloride 102 98 - 107 mmol/L 07/22/2019 8:59 PM [facility] CO2 28 22 - 29 mmol/L 07/22/2019 8:59 PM [facility] Glucose 77 70 - 115 mg/dL 07/22/2019 8:59 PM [facility] Calcium 9.3 8.4 - 10.2 mg/dL 07/22/2019 8:59 PM [facility] Protein Total 7.1 6.0 - 8.3 g/dL 07/22/2019 8:59 PM [facility] Albumin 4.0 3.4 - 5.0 g/dL 07/22/2019 8:59 PM [facility] Bilirubin Total 0.4 0.2 - 1.2 mg/dL 07/22/2019 8:59 PM [facility] Alkaline Phosphatase 83 40 - 150 Units/L 07/22/2019 8:59 PM [facility] ALT 16 0 - 55 Units/L 07/22/2019 8:59 PM [facility] AST 16 5 - 34 Units/L 07/22/2019 8:59 PM [facility] Anion Gap 13 8 - 18 07/22/2019 8:59 PM [facility] BUN/Creatinine Ratio 17 7 - 23 07/22/2019 8:59 PM [facility] Osmolality Calculated 289 270 - 300 mOsm/kg 07/22/2019 8:59 PM [facility] Albumin/Globulin Ratio 1.3 1.1 - 2.3 07/22/2019 8:59 PM [facility] eGFR >60 >60 mL/min/1.7 3 m2 07/22/2019 8:59 PM [facility] Blood BLOOD SPECIMEN / Unknown Venipuncture / Unknown 07/22/2019 8:31 PM REFRIGERATING MACHINE OPERATOR 07/22/2019 8:37 PM REFRIGERATING MACHINE OPERATOR Enrique Alston MD LAB - CHEMISTRY [place] Performing Organization Address [facility] Co de Phone Number [address] [phone] * EKG 12-LEAD (07/22/2019 8:15 PM REFRIGERATING MACHINE OPERATOR) Ventricular Rate 81 BPM SL MUSE Atrial Rate 81 BPM [facility] MUSE P-R Interval 194 ms [facility] MUSE QRS Duration ms 84 ms [facility] MUSE Q-T Interval ms 414 ms [facility] MUSE QTC Calculation (Bezet) 480 ms [facility] MUSE Calculated P [place] 70 degrees [facility] MUSE Calculated R [place] 55 degrees [facility] MUSE Calculated T [place] 67 degrees [facility] MUSE Interpretation EKG NORMAL SINUS RHYTHM NORMAL ECG NO PREVIOUS ECGS AVAILABLE Confirmed by Jorge L Dunn ([id number]), web editor HUY JOSEPH ([id number]) on 08/06/2019 11:02:08 AM [facility] MUSE 07/22/2019 8:15 PM REFRIGERATING MACHINE OPERATOR 08/06/2019 11:02 AM CDT Enrique Alston MD ECG ORDERABLES Performing Organization Address [facility]/ZIP Co de Phone Number [facility] MUSE * CT ANGIO BRAIN NECK STROKE (07/22/2019 8:09 PM REFRIGERATING MACHINE OPERATOR) Anatomical Region Laterality Modality Head Computed Tomogra phy 07/23/2019 7:54 AM REFRIGERATING MACHINE OPERATOR Impressions 07/23/2019 10:29 AM REFRIGERATING MACHINE OPERATOR IMPRESSION: 1. No acute intracranial hemorrhage. 2. No large arterial occlusions or significant stenoses identified in the head or neck. This report was electronically signed by ARISTEO DEGROOT ??on 07/23/2019 10:29 AM . Narrative 07/23/2019 10:29 AM REFRIGERATING MACHINE OPERATOR CT ANGIO BRAIN NECK STROKE DATE: 07/22/2019 8:10 PM EXAMINATION: 1. Computed tomographic (CT) angiography of the head without and with contrast 2. CT angiography of the neck with contrast HISTORY: Code Stroke TECHNIQUE: CT of the head was performed without contrast according to standard protocol. Then CT angiography of the head and neck was obtained after the uneventful administration of 75 mL Isovue-370 intravenous contrast. Three dimensional postprocessing was performed by the technologist and sent to the workstation for review. COMPARISON: Comparison is made with an outside institution from 07/22/2019 at 6:21 AM FINDINGS: Non-angiographic findings: No acute intra- or extra-axial fluid collections are identified. The ventricles are of stable size, shape, and morphology. The basilar cisterns are patent. No mass effect or midline shift is seen. The monge-white matter differentiation is normal. Periventricular white matter hypoattenuation is indicative of chronic small vessel ischemic disease. There is vascular calcification of the carotid siphons. Other than mild paranasal sinus disease, the visualized portions of the orbits, paranasal sinuses, and mastoids appear normal. No acute fracture is identified. No soft tissue abnormalities are identified in the neck. Postoperative findings ACDF from C4 through C7. Multilevel degenerative changes of the cervical spine. Angiographic findings: There is atherosclerotic disease of the aortic arch. There is a common origin of the innominate and left common carotid arteries from the aortic arch. The innominate artery and both subclavian arteries appear normal. There is atherosclerotic disease of the right carotid bifurcation and origin of the right internal carotid artery with no focal stenosis. The right common and internal carotid arteries otherwise appear normal. There is atherosclerotic disease of the left carotid bifurcation and origin of the left internal carotid artery with no focal stenosis. The left common and internal carotid arteries otherwise appear normal. The cervical vertebral arteries appear normal. There is atherosclerotic disease involving the distal internal carotid arteries without significant focal stenosis. The anterior and middle cerebral arteries appear normal. The distal vertebral arteries appear normal. The basilar artery and posterior cerebral arteries appear normal. No aneurysms, vascular occlusions, or intracranial stenoses are identified. Procedure Note Aristeo Degroot MD - 07/23/2019 CT ANGIO BRAIN NECK STROKE DATE: 07/22/2019 8:10 PM EXAMINATION: 1. Computed tomographic (CT) angiography of the head without and with contrast 2. CT angiography of the neck with contrast HISTORY: Code Stroke TECHNIQUE: CT of the head was performed without contrast according to standard protocol. Then CT angiography of the head and neck was obtained after the uneventful administration of 75 mL Isovue-370 intravenous contrast. Three dimensional postprocessing was performed by the technologist and sent to the workstation for review. COMPARISON: Comparison is made with an outside institution from07/22/2019 at 6:21 AM FINDINGS: Non-angiographic findings: No acute intra- or extra-axial fluid collections are identified. The ventricles are of stable size, shape, and morphology. The basilarcisterns are patent. No mass effect or midline shift is seen. The monge-whitematter differentiation is normal. Periventricular white matter hypoattenuationis indicative of chronic small vessel ischemic disease. There is vascular calcification of the carotid siphons. Other than mild paranasal sinus disease, the visualized portions of the orbits, paranasal sinuses, and mastoids appear normal. No acute fracture is identified. No soft tissue abnormalities are identified in the neck. Postoperative findings ACDF from C4 through C7. Multilevel degenerative changes of the cervical spine. Angiographic findings: There is atherosclerotic disease of the aortic arch. There is a common origin of the innominate and left common carotid arteries from theaortic arch. The innominate artery and both subclavian arteries appear normal. There is atherosclerotic disease of the right carotid bifurcation and origin of the right internal carotid artery with no focal stenosis. The right common and internal carotid arteries otherwise appear normal.There is atherosclerotic disease of the left carotid bifurcation and origin of the left internal carotid artery with no focal stenosis. The left common and internal carotid arteries otherwise appear normal. The cervical vertebral arteries appear normal. There is atherosclerotic disease involving the distal internal carotid arteries without significant focal stenosis. The anterior and middle cerebral arteries appear normal. The distal vertebral arteries appear normal. The basilar artery and posterior cerebral arteries appearnormal. No aneurysms, vascular occlusions, or intracranial stenoses are identified. IMPRESSION: 1. No acute intracranial hemorrhage. 2. No large arterial occlusions or significant stenoses identified inthe head or neck. This report was electronically signed by ARISTEO DEGROOT on07/23/2019 10:29 AM . Enrique Alston MD CT ORDERABLES
--- OUTSIDE RECORDS SUMMARY | 2024-06-17 19:40 | XMS_ITS | Clinical Summary ---
Author Organization [facility] Address [address] [place] [address] Care Team Providers Care Sorter Pricer Name Role Phone Unavailable Primary Care Provider Unavailabl e Source Comments [facility],non-owned Affiliates and Associated Physician Practices is amultiple site organization consisting of ambulatory clinics and hospital sitesin [place], [place], [place] and [place]. This disclosure is being madepursuant to the Care Everywhere program and may not contain all information available regarding this patient. Last updated 18.[facility] GroupCharger Allergies Active Allergy Reactions Criticality Noted Date Comments Aspirin Anaphylaxis High 07/23/2019 Codeine Urticaria Medium 07/23/2019 Honey Bee Venom Anaphylaxis High 07/23/2019 Latex Urticaria Medium 07/23/2019 Peanut-Derived Anaphylaxis High 07/23/2019 Penicillin G Anaphylaxis High 07/23/2019 Penicillins Anaphylaxis High 07/23/2019 Pseudoephedrine Base Urticaria Medium 07/23/2019 With tongue swelling [place] Urticaria Medium 07/23/2019 Sulfa Drugs Anaphylaxis High 07/23/2019 Medications * Be aware that medications may not be up to date on this document. Alwaysverify current medications with the patient. Medication Sig Dispensed Refills Start Date End Date Status atorvastatin (LIPITOR) 40 MG tablet Take 40 mg by mouth at bedtime Active gabapentin (NEURONTIN) 600 MG tablet Take 600 mg by mouth 3 times daily Active losartan-hydroCHLOROth iazide (HYZAAR) 100-25 MG tablet Take 1 tablet by mouth once daily Active amLODIPine (NORVASC) 5 MG tablet Take 5 mg by mouth once daily Active baclofen (LIORESAL) 10 MG tablet Take 10 mg by mouth 2 times daily May cause drowsiness. Active ALPRAZolam (XANAX) 0.25 MG tablet Take 0.25 mg by mouth 2 times daily Active Active Problems Problem Noted Date Diagnosed Date [...] Comments Blood Pressure 139/79 07/24/2019 4:42 PM MANAGER OF PHOTOGRAPHY Pulse 80 07/24/2019 4:17 PM MANAGER OF PHOTOGRAPHY Temperature 36.8 ??C (98.2 ??F) 07/24/2019 4:17 PM CS T Respiratory Rate 20 07/24/2019 4:17 PM MANAGER OF PHOTOGRAPHY Oxygen Saturation 99% 07/24/2019 4:17 PM MANAGER OF PHOTOGRAPHY Inhaled Oxygen Concentration - - Weight 62.9 kg (138 lb 9.6 oz) 07/22/2019 10:38 PM MANAGER OF PHOTOGRAPHY Height 152.4 cm (5') 07/22/2019 10:38 PM MANAGER OF PHOTOGRAPHY Body Mass Index 27.07 07/22/2019 10:38 PM MANAGER OF PHOTOGRAPHY Plan of Treatment Health Maintenance Due Date Last Done Comments COLOGUARD (AGES 45-75) - COL ON CA SCREENING 1960 COLON MONITORING 1960 COLONOSCOPY - COLON CA SCREENING 1960 CT COLONOGRAPHY - COLON CA SCREENING 1960 Colorectal Cancer Screening 1960 FIT - COLON CA SCREENING 1960 FLEX SIG - COLON CA SCREENING 1960 MAMMOGRAM 1960 PAP SMEAR 1960 HIV SCREENING 10/11/1975 HEPATITIS C SCREENING 10/06/1978 DTAP/TDAP/TD VACCINES (1 - Tdap) 10/11/1979 PNEUMOCOCCAL VACCINE 50+ (1 of 1 - PCV) 2010 ZOSTER VACCINE (1 of 2) 2010 COVID-19 VACCINE ( - 2023-2 5 season) 2024 INFLUENZA VACCINE (#1) 2024 DEPRESSION SCREENING 05/26/2024 MEDICARE AWV ? CALENDAR YEAR 2024 Respiratory Syncytial Virus (RSV) Vaccine Pt: or over 60 yrs (1 - 1-dose 75+ series) 10/11/2035 HEPATITIS B VACCINE Aged Out No longe r eligible based on patient's age to complete this topic HIB VACCINE Aged Out No longer eligi ble based on patient's age to complete this topic HPV VACCINE Aged Out No longer eligi ble based on patient's age to complete this topic MENINGOCOCCAL (Group B) VACCINE Aged Out No longer eligible based on patient's age to complete this topic MENINGOCOCCAL VACCINE Aged Out No song peggy eligible based on patient's age to complete this topic PNEUMOCOCCAL VACCINE Aged Out No long er eligible based on patient's age to complete this topic Advance Directives * Full Code (Latest Code Status on File) Date Activated Date Inactivated Comments 07/22/2019 8:22 PM 07/24/2019 8:59 PM * Full Code Date Activated Date Inactivated Comments 07/22/2019 7:59 PM 07/22/2019 9:35 PM
--- OUTSIDE RECORDS SUMMARY | 2024-06-17 19:40 | XMS_ITS | Clinical Summary ---
Author Organization [facility] Address [address] [place] [address]. [place] [address] [place] [address] Care Team Providers Care Stonecutter Apprentice Hand Name Role Phone Kobi Amezquita Primary Care Provider [phone] Allergies Active Allergy Reactions Criticality Noted Date Comments Aspirin Anaphylaxis,Hives High 07/23/2019 Codeine Anaphylaxis High 11/14/2020 Latex Hives,Unknown Medium 08/07/2017 Hives Penicillins Anaphylaxis High 11/14/2020 Pseudoephedrine Anaphylaxis,Hives,Ot her (see comment) High 03/28/2014 With tongue swelling Reaction: With tongue swelling Hives Sulfa Antibiotics Anaphylaxis High 07/23/2019 Medications ALPRAZolam 0.5 MG tablet Take 0.5 mg by mouth 2 (two) times daily as needed. FOR ANXIETY 1 Active amLODIPine 5 MG tablet Take 5 mg by mouth daily. 1 Active ARIPiprazole 2 MG tablet Take 2 mg by mouth daily. 1 Active atorvastatin 80 MG tablet Take 80 mg by mouth daily. 1 Active EPINEPHrine 0.3 MG/0.3ML injection epinephrine 0.3 mg/0.3 mL injection, auto-injector Active gabapentin 600 MG tablet Take 600 mg by mouth 3 (three) times daily. 1 Active losartan-hydroC HLOROthiazide 100-25 MG tablet Take 1 tablet by mouth daily. 1 Active metFORMIN ER 500 MG 24 hr tablet TAKE 1 TABLET BY MOUTH EVERY EVENING WITH SUPPER 1 Active sertraline 100 MG tablet Take 100 mg by mouth daily. 1 Active traMADol 50 MG tablet TAKE 1 TABLET BY MOUTH EVERY 8 HOURS NEEDED FOR PAIN 1 Active traZODone 100 MG tablet Take 100 mg by mouth nightly at bedtime. at bedtime 1 Active pregabalin (LYRICA) 100 MG capsule Active HYDROcodone-thania taminophen (NORCO) 7.5-325 MG tablet 2 Active Social History Tobacco Use Types Packs/Day Years Used Date Smoking Tobacco: Former Cigarettes 1 40 1 973 - 2013 Smokeless Tobacco: Never Tobacco Cessation:Counseling Given: Not Answered Alcohol Use Standard Drinks/Week Comments Not Currently 0 (1 standard drink = 0.6 oz pur e alcohol) Comments No Sex and Gender Information Value Date Recorded Sex Assigned at Not on file Legal Sex Female 7:59 AM CDT Gender Identity Not on file Sexual Orientation Not on file Last Filed Vital Signs Vital Sign Reading Time Taken Comments Blood Pressure 135/79 05/12/2022 1:00 PM RF TEST ENGINEER Pulse 76 05/12/2022 1:05 PM RF TEST ENGINEER Temperature 36.6 ??C (97.8 ??F) 05/12/2022 11:[address] Respiratory Rate 20 05/12/2022 1:05 PM RF TEST ENGINEER Oxygen Saturation 96% 05/12/2022 1:05 PM RF TEST ENGINEER Inhaled Oxygen Concentration - - Weight 70.3 kg (155 lb) 05/12/2022 11:33 AM RF TEST ENGINEER Height 152.4 cm (5') 05/12/2022 11:33 AM RF TEST ENGINEER Body Mass Index 30.27 05/12/2022 11:33 AM RF TEST ENGINEER Plan of Treatment Health Maintenance Due Date Last Done Comments Cervical Cancer Screening Pa p Smear (Age 30 to 64) Every 3 Years 1960 Colorectal Cancer Screening Colonoscopy (10 Years) 1960 Annual Physical 10/11/1963 Hepatitis C 1978 Cervical Cancer Screening Pa p with HPV Testing (Age 30 to 64) Every 5 Years 1990 Cervical Cancer Screening with HPV 1990 Mammogram Screening 2000 Zoster Vaccines (2 of 2) 04/05/2018 02/08/2018 DTaP, Tdap and Td Vaccines ( 2 - Td or Tdap) 05/26/2023 05/26/2013 COVID-19 Vaccine (2 - 2023-2 5 season) 2024 08/31/2020 Influenza Adult (#1) 2024 RSV Immunization or 60+ Years (1 - 1-dose 75+ series) 10/11/2035 Meningococcal Vaccine Aged Out No song peggy eligible based on patient's age to complete this topic Pneumococcal Vaccine: Pediat rics (0 to 5 Years) and At-Risk Patients (6 to 64 Years) Aged Out No longer eligi ble based on patient's age to complete this topic RSV Immunizations Under 20 Months Aged Out No longer eligible based on patient's age to complete this topic Insurance [employer] MEDICAID Care Teams Stonecutter Apprentice Hand Relationship Specialty Start Date End Date Kobi Amezquita DO [address] [address] PCP - General INTERNAL MEDICINE 11/14/20
--- OUTSIDE RECORDS SUMMARY | 2024-06-17 19:40 | XMS_ITS | Referral Summary ---
Author Organization [facility] Address [address] [place] [address] Care Team Providers Care Instructional Technology Specialist Name Role Phone Unavailable Primary Care Provider Unavailabl e Source Comments [facility],non-owned Affiliates and Associated Physician Practices is amultiple site organization consisting of ambulatory clinics and hospital sitesin [place] and [place]. This disclosure is being madepursuant to the Care Everywhere program and may not contain all information available regarding this patient. Last updated 18.[facility] Allergies Active Allergy Reactions Criticality Noted Date Comments Aspirin Anaphylaxis High 07/23/2019 Codeine Urticaria Medium 07/23/2019 Honey Bee Venom Anaphylaxis High 07/23/2019 Latex Urticaria Medium 07/23/2019 Peanut-Derived Anaphylaxis High 07/23/2019 Penicillin G Anaphylaxis High 07/23/2019 Penicillins Anaphylaxis High 07/23/2019 Pseudoephedrine Base Urticaria Medium 07/23/2019 With tongue swelling [place] Urticaria Medium 07/23/2019 Sulfa Drugs Anaphylaxis High [...] Comments Blood Pressure 139/79 07/24/2019 4:42 PM TRUCK CAR AND BUS CLEANER Pulse 80 07/24/2019 4:17 PM TRUCK CAR AND BUS CLEANER Temperature 36.8 ??C (98.2 ??F) 07/24/2019 4:17 PM CS T Respiratory Rate 20 07/24/2019 4:17 PM TRUCK CAR AND BUS CLEANER Oxygen Saturation 99% 07/24/2019 4:17 PM TRUCK CAR AND BUS CLEANER Inhaled Oxygen Concentration - - Weight 62.9 kg (138 lb 9.6 oz) 07/22/2019 10:38 PM TRUCK CAR AND BUS CLEANER Height 152.4 cm (5') 07/22/2019 10:38 PM TRUCK CAR AND BUS CLEANER Body Mass Index 27.07 07/22/2019 10:38 PM TRUCK CAR AND BUS CLEANER Functional Status Functional Status Response Date of Assess ment Is person deaf or have serious hearing difficult y? No 07/24/2019 Is person blind or have serious difficulty seein g? No 07/24/2019 Does person have serious dif ficulty walking/climbing stairs? No 07/24/2019 Does person have difficulty dressing/bathing? No 07/24/2019 Does person have difficulty doing errands alone? No 07/24/2019 Cognitive Status Response Date of Assessm ent Does person have difficulty concentrating/remembering/making decisions? No 07/24/2019 Plan of Treatment Not on file Advance Directives * Full Code (Latest Code Status on File) Date Activated Date Inactivated Comments 07/22/2019 8:22 PM 07/24/2019 8:59 PM * Full Code Date Activated Date Inactivated Comments 07/22/2019 7:59 PM 07/22/2019 9:35 PM
--- OUTSIDE RECORDS SUMMARY | 2024-06-17 19:41 | XMS_ITS | Referral Summary ---
Author Organization [facility] [address] Address [address] [place] [address] Care Team Providers Care Four [employer] Stayer Machine Operator Name Role Phone Ramón Mcdaniel MD Primary Care Provider [phone] Allergies Active Allergy Reactions Criticality Noted Date Comments Adhesive Hives,Redness Medium 05/16/2021 Aspirin Anaphylaxis,Hives High 07/23/2019 Bee Pollen Anaphylaxis High 05/16/2021 Codeine Anaphylaxis,Urticari a High 07/23/2019 Latex Hives,Urticaria Medium 08/07/2017 Hives Other Anaphylaxis High 08/07/2017 Anaphylaxis Peanut Anaphylaxis High 05/16/2021 Penicillins Anaphylaxis,Hives,Ot her (See comments) High 03/28/2014 Reaction: Hives Pseudoephedrine Anaphylaxis,Hives,Ot her (See comments),Urticaria High 03/28/2014 Reaction: With tongue swelling Hives [place] Hives,Itching,Urtica klaus Medium 08/07/2017 Hives Sulfa (Sulfonamide Antibiotics) Anaphylaxis High 07/23/2019 Tree Nut Anaphylaxis High 05/16/2021 Venom-Honey Bee Anaphylaxis High 05/16/2021 Medications losartan-hydroc hlorothiazide (HYZAAR) 100-25 mg per tabletIndicatio ns:hypertension Take 1 tablet by mouth nightly 12/14/2020 Active traZODone (DESYREL) 100 mg tabletIndicatio ns:insomnia associated with depression Take 1 tablet (100 mg total) by mouth nightly 12/14/2020 Active sertraline (ZOLOFT) 100 mg tabletIndicatio ns:Generalized Anxiety Disorder Take 1 tablet (100 mg total) by mouth every morning 08/14/2020 Active ALPRAZolam (XANAX) 0.5 mg tabletIndicatio ns:anxiety Take 1 tablet (0.5 mg total) by mouth 2 (two) times a day as needed 11/17/2020 Active atorvastatin (LIPITOR) 80 mg tabletIndicatio ns:hyperlipidem ia Take 1 tablet (80 mg total) by mouth every morning 12/14/2020 Active ARIPiprazole (ABILIFY) 2 mg tabletIndicatio ns:anxiety Take 1 tablet (2 mg total) by mouth nightly 11/30/2020 Active EPINEPHrine 0.3 mg/0.3 mL auto-injection syringeIndicati ons:Anaphylaxis Inject 0.3 mL (0.3 mg total) under the skin as needed Active pregabalin (LYRICA) 75 mg capsuleIndicati ons:nerve pain Take 1 capsule (75 mg total) by mouth 3 (three) times a day 05/02/2021 Active multivitamin capsuleIndicati ons:Vitamin Deficiency Prevention Take 1 capsule by mouth every morning Active HYDROcodone-thania taminophen (NORCO) 7.5-325 mg per tablet Take by mouth every 8 (eight) hours as needed 11/19/2021 Active amLODIPine (NORVASC) 10 mg tablet 07/21/2022 Active clopidogreL (PLAVIX) 75 mg tablet Take 1 tablet (75 mg total) by mouth daily 07/10/2022 Active carvediloL (COREG) 12.5 mg tablet TAKE 1 TABLET BY MOUTH EVERY 12 HOURS WITH FOOD 07/14/2022 Active predniSONE (DELTASONE) 20 mg tablet Take 2 tablets (40 mg) by mouth daily 04/06/2023 Active Active Problems Problem Noted Date Diagnosed Date DDD (degenerative disc disease), lumbar 12/27/19 21 Assessment & Plan (12/26/2020 4:13 PM CDT): Assessment Status post posterior interbody fusion L4-5, L5-S1 with subsidence of the cage and retropulsion into the left neural foramina at L4-5 producing severe left foraminal stenosis. Degenerative disc disease L3-4 with central canal stenosis. Plan Recommended treatment would be an extension of the fusion to include L3-4. I would also recommend trying to remove the cage at the L4-5 level in an effort to try to relieve some of her left-sided leg pain. I feel another surgery is in order to resolve her continued lower back and left radiating leg pain. DDD (degenerative disc disease), cervical 2020 Assessment & Plan (12/26/2020 4:13 PM CDT): Assessment: Status post cervical spine fusion. Multilevel disc protrusions, degenerative disc disease and kyphosis. Plan I did not have any x-rays of CT scan following her cervical spine fusion by Dr. Murphy, so I cannot comment on her fusion status or any need for further treatment with regard to the cervical spine. DDD (degenerative disc disease), thoracic 2020 Assessment & Plan (12/26/2020 4:14 PM CDT): Assessment: Multilevel degenerative disc disease. Plan Acceptance of her condition. No further treatment is recommended and the patient is not all that symptomatic with regard to her thoracic spine. Current tear of medial cartilage or meniscus of knee 11/30/2019 Cerebrovascular accident (CVA) 07/22/2019 Tendinosis of right shoulder 07/28/2018 Lumbosacral spondylosis without myelopathy 07/28 Herpes labialis 07/28/2018 Atypical chest pain 07/28/2018 Vitamin D deficiency 05/06/2018 Type 2 diabetes mellitus without complication (C MS/HCC) 05/06/2018 Strabismus 05/06/2018 Persistent insomnia 05/06/2018 Overweight 05/06/2018 Osteopenia 05/06/2018 Osteoarthritis 05/06/2018 Neuropathy 05/06/2018 Mixed anxiety and depressive disorder 05/06/2018 Hyperlipidemia 05/06/2018 Anaphylaxis 05/06/2018 Hypertensive disorder 03/07/2017 Chronic neck pain 03/28/2014 Social History Tobacco Use Types Packs/Day Years Used Date Smoking Tobacco: Former Cigarettes 1 33 1 - 2012 Smokeless Tobacco: Never Alcohol Use Standard Drinks/Week Comments No 0 (1 standard drink = 0.6 oz pur e alcohol) AUDIT-C Answer Date Recorded Q1: How often do you have a drink containing alc ohol? Never 08/13/2021 Average Number of Drinks Not on file 022 Frequency of Binge Drinking Not on file 07/25 PHQ-2 Answer Date Recorded PHQ-2 Total Score 3 07/27/2021 Comments No Sex and Gender Information Value Date Recorded Sex Assigned at Not on file Legal Sex Female 2:56 AM WIRE BOUND BOX MACHINE HELPER Gender Identity Not on file Sexual Orientation Not on file Occupation Industry Job Start Date Job End Date disabled Not on file Not on file Not on file Last Filed Vital Signs Vital Sign Reading Time Taken Comments Blood Pressure 133/79 04/07/2023 9:22 AM WIRE BOUND BOX MACHINE HELPER Pulse 76 04/07/2023 9:22 AM WIRE BOUND BOX MACHINE HELPER Temperature 37 ??C (98.6 ??F) 08/15/2021 7:55 AM CDT Respiratory Rate 18 08/15/2021 7:55 AM CDT Oxygen Saturation 96% 08/15/2021 7:55 AM CDT Inhaled Oxygen Concentration - - Weight 71 kg (156 lb 9.6 oz) 04/07/2023 9:22 AM WIRE BOUND BOX MACHINE HELPER Height 152.4 cm (5') 04/07/2023 9:22 AM WIRE BOUND BOX MACHINE HELPER Body Mass Index 30.58 04/07/2023 9:22 AM WIRE BOUND BOX MACHINE HELPER Plan of Treatment Not on file Medical Devices Implanted Type Area Rigger Supervisor Device Identifier Shelf Expiration Date Model / Serial / Lot Bmp Infuse Sm [id number] - [id number] Implanted:Qty: 1 on 08/13/2021 by Jason Garcia MD at [facility] N/A: Spine Lumbar [employer] 12/23/2022 [id number] / / [id number] [employer] [id number] 1-4mm Freeze Dried Crushed Graft 30ml Bone Cancellous - [id number] Implanted:Qty: 1 on 08/13/2021 by Jason Garcia MD at [facility] N/A: Spine Lumbar [employer] 06/21/2025 [id number] / / [id number] [employer] [id number] Creo Od6.5 Mm L50 Mm Thread; Polyaxial Spine Screw Bone Titanium; - [id number] Implanted:Qty: 3 on 08/13/2021 by Jason Garcia MD at [facility] N/A: Spine Lumbar [employer] [id number] / / Glob[employer] 1119.0010 Creo Thread Spinal Cap Locking Nonsterile - [id number] Implanted:Qty: 8 on 08/13/2021 by Jason Garcia MD at [facility] N/A: Spine Lumbar [employer] 1119.0010 / / [employer] 1119.7125 Creo 5.5mm 125mm Curve Javier Spinal Titanium - [id number] Implanted:Qty: 1 on 08/13/2021 by Jason Garcia MD at [facility] N/A: Spine Lumbar [employer] [id number] / / [employer] [id number] Creo Od7.5 Mm L50 Mm Thread; Polyaxial Spine Screw Bone Titanium; - [id number] Implanted:Qty: 3 on 08/13/2021 by Jason Garcia MD at [facility] N/A: Spine Lumbar [employer] [id number] / / [employer] [id number] Creo 5.5mm 125mm Curve Javier Spinal Titanium - [id number] Implanted:Qty: 1 on 08/13/2021 by Jason Garcia MD at [facility] N/A: Spine Lumbar [employer] [id number] / / Globus [id number] Implanted:Qty: 1 on 08/13/2021 by Jason Garcia MD at [facility] N/A: Spine Lumbar GLOBUS [id number] / / Description:Correction. Scre w is 75x40 NOT 75x45 Globuys Tlif Cage [id number] Implanted:Qty: 1 on 08/13/2021 by Jason Garcia MD at [facility] N/A: Spine Lumbar GLOBUS [id number] / / Procedures Procedure Name Priority Date/Time Associated Diagnosis Comments EGFR Routine 08/15/2021 2:46 AM CDT POCT HEMOGLOBIN A1C Routine 08/09/2021 5 :12 PM CDT SERUM LIPID PANEL Routine 07/21/2015 8:3 5 PM WIRE BOUND BOX MACHINE HELPER from Last 3 Months or Most Recently Relevant to Health Maintenance Results * eGFR (08/15/2021 2:46 AM CDT) eGFR 99 mL/min/1. 73 m2 [facility] Comment: Interpretive Data Reference Interval Normal ?>/= 90 mL/min/1.73m2 Mildly decreased* ? 60 - 89 mL/min/1.73m2 Mildly to moderately decreased ?45 - 59 mL/min/1.73m2 Moderately to severely decreased ??30 - 44 mL/min/1.73m2 Severely decreased ?15 - 29 mL/min/1.73m2 Kidney Failure ?< 15 ??mL/min/1.73m2 *Relative to young adult level Estimated glomerular filtration rate is determined by the 2020 CKD-EPI equation recommended by the National Kidney Foundation (A Unifying Approach to GFR Estimation: Recommendations of the NKF-ASK Task Force on Reassessing the Inclusion of Race in Diagnosing Kidney Disease, JASN 202). The CKD-EPI equation should not be used for patients with unstable renal function and has not been validated in children and those over 70. Current interpretive data was last reviewed 2021. Blood 08/15/2021 2:46 AM CDT 08/15/2021 2:53 AM CDT us Blayne Elise MD LAB BLOOD ORDERABLES Fin al Result [facility] [address] [facility]. Department [place] [address] * (ABNORMAL) POCT hemoglobin A1c (08/09/2021 5:12 PM CDT) Hgb A1C, POC 5.7(H) 4.0 - 5.6 % [facility] Est Average Gluc POC 117 mg/dL [facility] Comment: The ADA recommends reporting an estimated Average Glucose (eAG) with all Hemoglobin A1c results using the equation derived from a study of 507 normal and diabetic adults. ??Minority populations were underrepresented and children were not included. ?? (Diabetes Care 31:2756-8857, 2008). ??The eAG is not equivalent to a fasting glucose. Blood 08/09/2021 5:12 PM CDT 08/09/2021 5:12 PM CDT Jason Garcia MD POINT OF CARE TEST ORD ERABLES Final Result [facility] Department [place] [address] * Serum lipid panel (07/21/2015 8:35 PM WIRE BOUND BOX MACHINE HELPER) [facility] Cholesterol 192 0 - 200 mg/dl HISTORICAL RESULTS Comment: Interpretive Data Desirable: ?<200 mg/dL Borderline high: ??200-239 mg/dL High: ? >240 mg/dL Literature Reference: National Cholesterol Education Program (NCEP) Expert Panel on Detection, Evaluation, and Treatment of High Blood Cholesterol in Adults (Adult Treatment Panel III). ??Circulation 2004; 110:227. Current interpretive data was last revised on 2005. Triglycerides 128 0 - 150 mg/dl HISTORICAL RESULTS Comment: Interpretive Data Desirable: ? < 150 mg/dL Borderline High: ? 150 - 199 mg/dL High: ?> 200 mg/dL Literature Reference: See Cholesterol Current interpretive data was last revised on 06. HDL 53 40 - 199 mg/dl HISTORICAL RESULTS Comment: Interpretive Data Less than 40 mg/dL - low; A major risk factor for heart disease. Greater than or equal to 60 mg/dL - High; ??considered protective of heart disease. Literature Reference: See Cholesterol Current interpretive data was last revised on 2008. LDL 113 0 - 129 mg/dl HISTORICAL RESULTS Comment: Interpretive Data Optimal: ? < 100 mg/dL Near Optimal: ?100 - 129 mg/dL Borderline High: ?? 130 - 159 mg/dL High: ?> 160 mg/dL Literature Reference: See Cholesterol Current interpretive data was last revised on 06. Non-HDL cholesterol, calculated 139 mg/dl HISTORICAL RESULTS Comment: Interpretive Data When triglycerides are >200 mg/dL, non-HDL C is a secondary target of therapy, with a goal 30 mg/dL higher than the identified LDL-C goal. Reference: ??See Cholesterol Reference. Current interpretive data was last revised 2011. Serum 07/21/2015 8:35 PM WIRE BOUND BOX MACHINE HELPER Hudson Yung MD LAB BLOOD ORDERABLES Final Res ult HISTORICAL RESULTS from Last 3 Months or Most Recently Relevant to Health Maintenance Insurance [facility] [employer] WORKERS COMPENSATION GENERIC [facility] WORKERS COMPENSATION GENERIC Advance Directives For more information, please contact: [phone] * Full Code (Latest Code Status on File) Date Activated Date Inactivated Comments 08/13/2021 3:04 PM 08/15/2021 3:49 PM * Full Code Date Activated Date Inactivated Comments 07/26/2021 4:34 AM 07/27/2021 1:56 PM Care Teams [employer] Stayer Machine Operator Relationship Specialty Start Date End Date Ramón Mcdaniel MD PCP - General Family Practice 02/17/23
--- OUTSIDE RECORDS SUMMARY | 2024-06-17 19:41 | XMS_ITS | Encounter Summary ---
Author Organization [facility] Healthcare Address [address] [place] [address] Care Team Providers Care Director Of Rotc Name Role Phone Kobi Amezquita Primary Care Provider [phone] Ramón Mcdaniel MD Primary Care Provider [phone] Encounter Details Date Type Department Care Team (Late st Contact Info) Description 08/15/2021 Documentation [facility] Case Management [id number] [place] [address] Jacque Conte RN Social History Tobacco Use Types Packs/Day Years Used Date Smoking Tobacco: Former Cigarettes 1 33 1 2012 Smokeless Tobacco: Never Alcohol Use Standard [...] on file Legal Sex Female 2:56 AM CIGAR BINDER Gender Identity Not on file Sexual Orientation Not on file Occupation Industry Job Start Date Job End Date disabled Not on file Not on file Not on file documented as of this encounter Plan of Treatment Not on file documented as of this encounter Visit Diagnoses Not on filedocumented in this encounter Care Teams Director Of Rotc Relationship Specialty Start Date End Date Kobi Amezquita DO PCP - General Internal Medicine 04/11/20 02/16/23 Ramón Mcdaniel MD PCP - General Family Practice 02/17/23 documented as of this encounter
--- OUTSIDE RECORDS SUMMARY | 2024-06-17 19:41 | XMS_ITS | Clinical Summary ---
Author Organization [facility] [place] [address] Address [address] [place] [address] Care Team Providers Care Butting Saw Operator Name Role Phone Ramón Mcdaniel MD Primary Care Provider [phone] Allergies Active Allergy Reactions Criticality Noted Date Comments Adhesive Hives,Redness Medium 05/16/2021 Aspirin Anaphylaxis,Hives High 07/23/2019 Bee Pollen Anaphylaxis High 05/16/2021 Codeine Anaphylaxis,Urticari a High 07/23/2019 Latex Hives,Urticaria Medium 08/07/2017 Hives Other Anaphylaxis High 08/07/2017 Anaphylaxis Peanut Anaphylaxis High 05/16/2021 Penicillins Anaphylaxis,Hives,Ot her (See comments) High 03/28/2014 Reaction: Hives Pseudoephedrine Anaphylaxis,Hives,Ot her (See comments),Urticaria High 03/28/2014 Reaction: With tongue swelling Hives [place] Hives,Itching,Urtica klaus Medium 08/07/2017 Hives Sulfa (Sulfonamide [...] Hypertensive disorder 03/07/2017 Chronic neck pain 03/28/2014 Surgical History Surgery Date Site/Laterality Comments CARPAL TUNNEL RELEASE 05/26/1991 - 05/25/1992 Bilateral KNEE SURGERY 05/26/1989 - 05/25/1990 Left FOOT SURGERY 05/26/1995 - 05/25/1996 Left SECTION 05/26/1979 - 05/25/1980 SECTION 05/26/1983 - 05/25/1984 SECTION 05/26/1985 - 05/25/1986 HYSTERECTOMY 05/26/1985 - 05/25/1986 APPENDECTOMY 05/26/1987 - 05/25/1988 SPINAL FUSION 06/14/2015 CERVICAL SPINE SURGERY 03/13/2019 TRIGGER FINGER RELEASE 04/25/2013 - 05/25/2013 Left TRIGGER FINGER RELEASE 06/26/2013 - 07/23/2013 Right Medical History Medical History Date Comments Osteoarthritis Osteoarthritis Hx Other Medical history of GI b leed Stroke (HCC) Depression Hypercholesteremia Hypertension Cancer (CMS/HCC) (HCC) Kidney stone GERD (gastroesophageal reflux disease) Family History Medical History Relation Name Comments Cancer Father Family history of malignant neoplasm - (Added by TW Conv) Diabetes Father Family history of diabetes mellitus - (Added by TW Conv) Heart failure Father Congestive Hea rt Failure; Cause of : Congestive Heart Failure Kidney disease Father Family histor y of kidney disease - (Added by TW Conv) Lung disease Father Family history of lung disease - (Added by TW Conv) Other Father Pacemaker; Arthritis Mother Family history of arthritis - (Added by TW Conv) Diabetes Mother Family history of diabetes mellitus - (Added by TW Conv) Heart disease Mother Family history of cardiac disorder - (Added by TW Conv) Hypertension Mother Hypertension; Lung disease Mother Family history of lung disease - (Added by TW Conv) Sudden Mother Sudden ; C ause of : Sudden Other Sister 4 Pacemaker; Other Sister 5 Renal Failure, Acute; Hypertension Sister 6 Hypertension; Seizures Sister 7 Family history of seizures - (Added by TW Conv) Hypertension Sister 8 Family history of hypertension - (Added by TW Conv) Bleeding Disorder Sister 9 Family his tory of bleeding disorder - (Added by TW Conv) Kidney disease Sister 10 Family histor y of kidney disease - (Added by TW Conv) Heart disease Sister 11 Family history of cardiac disorder - (Added by TW Conv) Arthritis Sister 12 Family history of arthritis - (Added by TW Conv) Lung disease Sister 13 Family history of lung disease - (Added by TW Conv) Relation Name Status Comments Father Alive Mother Alive Sister 1 Alive Sister 2 Alive Sister 3 Alive Sister 4 Sister 5 Sister 6 Sister 7 Sister 8 Sister 9 Sister 10 Sister 11 Sister 12 Sister 13 Social History Tobacco Use Types Packs/Day Years [...] on file Legal Sex Female 2:56 AM SYSTEMS ANALYST ENGINEER Gender Identity Not on file Sexual Orientation Not on file Occupation Industry Job Start Date Job End Date disabled Not on file Not on file Not on file Obstetrics History Last Filed Vital Signs Vital Sign Reading Time Taken Comments Blood Pressure 133/79 04/07/2023 9:22 AM SYSTEMS ANALYST ENGINEER Pulse 76 04/07/2023 9:22 AM SYSTEMS ANALYST ENGINEER Temperature 37 ??C (98.6 ??F) 08/15/2021 7:55 AM CDT Respiratory Rate 18 08/15/2021 7:55 AM CDT Oxygen Saturation 96% 08/15/2021 7:55 AM CDT Inhaled Oxygen Concentration - - Weight 71 kg (156 lb 9.6 oz) 04/07/2023 9:22 AM SYSTEMS ANALYST ENGINEER Height 152.4 cm (5') 04/07/2023 9:22 AM SYSTEMS ANALYST ENGINEER Body Mass Index 30.58 04/07/2023 9:22 AM SYSTEMS ANALYST ENGINEER Plan of Treatment Health Maintenance Due Date Last Done Comments Albumin Creatinine Ratio, Urine 1960 Breast Cancer Screening-Mammogram 1960 Colon Cancer Screening-Colonoscopy 1960 Hepatitis C Screening 1960 Dilated Eye Exam 1960 Foot Exam 1960 Hepatitis B Screening 1978 Regular Well Visit/Exam 18-64 1978 Lung Cancer Screening 2010 Zoster Vaccine (2 of 2) 04/05/2018 02/08/2018 Pneumococcal vaccine <65 (2 of 2 - PCV) 05/06/2019 05/06/2018 Lipid Panel 07/22/2020 07/22/2019, 07/21/2015 Hemoglobin A1C 02/09/2022 08/09/2021 Depression Screening 07/25/2022 07/25/2021, 07/25/2021, 12/14/2020, Additional history exists eGFR 08/15/2022 08/15/2021, 07/25, 08/13/2021, Additional history exists DTaP/Tdap/Td Vaccine (2 - Td or Tdap) 05/26/2023 05/26/2013 Covid-19 Vaccine (3 - 2023-2 5 season) 2024 06/04/2021, 08/31/2020 Influenza Vaccine (#1) 2024 8, 02/08/2018, 06/13/2014 Medical Devices Implanted Type Area Wind Turbine Performance Engineer Device Identifier Shelf Expiration Date Model / Serial / Lot Bmp Infuse Sm [id number] - [id number] Implanted:Qty: 1 on 08/13/2021 by Jason Garcia MD at [facility] N/A: Spine Lumbar Medtronic Inc 12/23/2022 [id number] / / [id number] [employer] [id number] 1-4mm Freeze Dried Crushed Graft 30ml Bone Cancellous - [id number] Implanted:Qty: 1 on 08/13/2021 by Jason Garcia MD at [facility] N/A: Spine Lumbar Allosource 06/21/2025 [id number] / / [id number] Globus [employer] 5146.1652 Creo Od6.5 Mm L50 Mm Thread; Polyaxial Spine Screw Bone Titanium; - [id number] Implanted:Qty: 3 on 08/13/2021 by Jason Garcia MD at [facility] N/A: Spine Lumbar [employer] 5146.1652 / / [employer] 1119.0010 Creo Thread Spinal Cap Locking Nonsterile - [id number] Implanted:Qty: 8 on 08/13/2021 by Jason Garcia MD at [facility] N/A: Spine Lumbar [employer] 1119.0010 / / [employer] 1119.7125 Creo 5.5mm 125mm Curve Javier Spinal Titanium - [id number] Implanted:Qty: 1 on 08/13/2021 by Jason Garcia MD at [facility] N/A: Spine Lumbar [employer] 1119.7125 / / [employer] 5146.1752 Creo Od7.5 Mm L50 Mm Thread; Polyaxial Spine Screw Bone Titanium; - [id number] Implanted:Qty: 3 on 08/13/2021 by Jason Garcia MD at [facility] N/A: Spine Lumbar [employer] 5146.1752 / / [employer] 1119.7125 Creo 5.5mm 125mm Curve Javier Spinal Titanium - [id number] Implanted:Qty: 1 on 08/13/2021 by Jason Garcia MD at [facility] N/A: Spine Lumbar [employer] 1119.7125 / / Globus 75x45 Implanted:Qty: 1 on 08/13/2021 by Jason Garcia MD at [facility] N/A: Spine Lumbar GLOBUS [id number] / / Description:Correction. Scre w is 75x40 NOT 75x45 Globuys Tlif Cage [id number] Implanted:Qty: 1 on 08/13/2021 by Jason Garcia MD at [facility] N/A: Spine Lumbar GLOBUS 168.251 / / Procedures Procedure Name Priority Date/Time Associated Diagnosis Comments EGFR Routine 08/15/2021 2:46 AM CDT POCT HEMOGLOBIN A1C Routine 08/09/2021 5 :12 PM CDT SERUM LIPID PANEL Routine 07/21/2015 8:3 5 PM SYSTEMS ANALYST ENGINEER from Last 3 Months or Most Recently Relevant to Health Maintenance Results * eGFR (08/15/2021 2:46 AM CDT) [facility] eGFR 99 mL/min/1. 73 m2 [facility] [...] of Race in Diagnosing Kidney Disease, JASN 2020). The CKD-EPI equation should not be used for patients with unstable renal function and has not been validated in children and those over 70. Current interpretive data was last reviewed 2021. Blood 08/15/2021 2:46 AM CDT 08/15/2021 2:53 AM CDT us Blayne Elise MD LAB BLOOD ORDERABLES Fin al Result [facility] [address] [facility] [place] [address] * (ABNORMAL) POCT hemoglobin A1c (08/09/2021 5:12 PM CDT) Hgb A1C, POC 5.7(H) 4.0 - 5.6 % [facility] Est Average Gluc POC 117 mg/dL [facility] Comment: The ADA recommends reporting an estimated Average Glucose (eAG) with all Hemoglobin A1c results using the equation derived from a study of 507 normal and diabetic adults. ??Minority populations were underrepresented and children were not included. ?? (Diabetes Care 31:1318-9140, 2008). ??The eAG is not equivalent to a fasting glucose. Blood 08/09/2021 5:12 PM CDT 08/09/2021 5:12 PM CDT us Jason Garcia MD POINT OF CARE TEST ORD ERABLES Final Result [facility] Department [place] [address] * Serum lipid panel (07/21/2015 8:35 PM SYSTEMS ANALYST ENGINEER) Cholesterol 192 0 - 200 mg/dl HISTORICAL [...] last revised 2011. Serum 07/21/2015 8:35 PM SYSTEMS ANALYST ENGINEER us Hudson Yung MD LAB BLOOD ORDERABLES Final Res ult HISTORICAL RESULTS from Last 3 Months or Most Recently Relevant to Health Maintenance Insurance [facility] [employer] Connect [employer] [facility] [employer] Connect IDPA [facility] IDPA WORKERS COMPENSATION GENERIC [facility] WORKERS COMPENSATION GENERIC Advance Directives For more information, please contact: [phone] * Full Code (Latest Code Status on File) Date Activated Date Inactivated Comments 08/13/2021 3:04 PM 08/15/2021 3:49 PM * Full Code Date Activated Date Inactivated Comments 07/26/2021 4:34 AM 07/27/2021 1:56 PM Care Teams Butting Saw Operator Relationship Specialty Start Date End Date Ramón Mcdaniel MD PCP - General Family Practice 02/17/23
== END 2024-06-15 15:13 | disposition home or self-care (01) ==
PROVIDERS: PCP Family Medicine; Visit Provider Family Medicine
DX: S09.90XA Unspecified injury of head, initial encounter (principal); W19.XXXA Unspecified fall, initial encounter; R90.82 White matter disease, unspecified
CPT/HCPCS: 70450

== ENCOUNTER 2024-07-08 07:39 | Outpatient (CLI) | payer MEDICARE, MEDICAID, SELFPAY ==
--- NOTE | ~2024-07-08 | NM_ITS ---
EXAM: NM gastric emptying study DATE: 07/08/2024 12:44 INDICATION: Dysphagia TECHNIQUE: A gastric emptying study was performed using the methodology of Marbella PITT, et al. J Nucl Med 2007; 48:568-572. The patient was given a meal consisting of 2 scrambled eggs labeled with 1.01 mCi Tc-99m sulfur colloid, 2 slices of toast, two packages of jam, and approximately 120 mL of water. Simultaneous anterior and posterior 1-min images of the abdomen were obtained with the patient supin e at multiple time points over a total period of 4 hours. The geometric mean of anterior and posterio r views was determined, and the percentage retention was calculated for each time point. COMPARISON: None. FINDINGS: Gastric retention of the radiotracer-labeled meal was 64%, 35%, and 21% at the 1-hour, 2-hour, and 4- hour time points, respectively. With this technique, apparent rapid gastric emptying is suggested by <30% gastric retention at 1 hour. Delayed gastric emptying is defined by gastric retention of >90% at 1 hour, >60% retention at 2 hours, or >10% retention at 4 hours. IMPRESSION: 1. Delayed gastric emptying. Reviewed, dictated and finalized at location A. D UP FORKLIFT OPERATOR
--- OUTSIDE RECORDS SUMMARY | 2024-07-08 07:43 | XMS_ITS | Referral Summary ---
Author Organization [facility] [address] Address [address] [place] [address] Care Team Providers Care Inclusion Special Educator Name Role Phone Ramón Mcdaniel MD Primary Care Provider [phone] Allergies Active Allergy Reactions Criticality Noted Date Comments Adhesive Hives,Redness Medium 05/16/2021 Aspirin Anaphylaxis,Hives High 07/23/2019 Bee Pollen Anaphylaxis High 05/16/2021 Codeine Anaphylaxis,Urticari a High 07/23/2019 Latex Hives,Urticaria Medium 08/07/2017 Hives Other Anaphylaxis High 08/07/2017 Anaphylaxis Peanut Anaphylaxis High 05/16/2021 Penicillins Anaphylaxis,Hives,Ot her (See comments) High 03/28/2014 Reaction: Hives Pseudoephedrine Anaphylaxis,Hives,Ot her (See comments),Urticaria High 03/28/2014 Reaction: With tongue swelling Hives [place] Hives,Itching,Urtica klaus Medium 08/07/2017 Hives Sulfa (Sulfonamide [...] on file Legal Sex Female 2:56 AM FISHER EEL Gender Identity Not on file Sexual Orientation Not on file Occupation Industry Job Start Date Job End Date disabled Not on file Not on file Not on file Last Filed Vital Signs Vital Sign Reading Time Taken Comments Blood Pressure 133/79 04/07/2023 9:22 AM FISHER EEL Pulse 76 04/07/2023 9:22 AM FISHER EEL Temperature 37 C (98.6 F) 08/15/2021 7:55 AM CDT Respiratory Rate 18 08/15/2021 7:55 AM CDT Oxygen Saturation 96% 08/15/2021 7:55 AM CDT Inhaled Oxygen Concentration - - Weight 71 kg (156 lb 9.6 oz) 04/07/2023 9:22 AM FISHER EEL Height 152.4 cm (5') 04/07/2023 9:22 AM FISHER EEL Body Mass Index 30.58 04/07/2023 9:22 AM FISHER EEL Plan of Treatment Not on file Medical Devices Implanted Type Area Irrigation Supervisor Device Identifier Shelf Expiration Date Model / Serial / Lot Bmp Infuse Sm [id number] - [id number] Implanted:Qty: 1 on 08/13/2021 by Jason Garcia MD at [facility] N/A: Spine Lumbar Medtronic Inc 12/23/2022 [id number] / / [id number] [employer] [id number] 1-4mm Freeze Dried Crushed Graft 30ml Bone Cancellous - [id number] Implanted:Qty: 1 on 08/13/2021 by Jason Garcia MD at [facility] N/A: Spine Lumbar Allosource 06/21/2025 [id number] / / [id number] [facility]ms 5146.1652 Creo Od6.5 Mm L50 Mm Thread; Polyaxial Spine Screw Bone Titanium; - [id number] Implanted:Qty: 3 on 08/13/2021 by Jason Garcia MD at [facility] N/A: Spine Lumbar Glob[employer] 5146.1652 / / Glob[employer] 1119.0010 Creo Thread Spinal Cap Locking Nonsterile - [id number] Implanted:Qty: 8 on 08/13/2021 by Jason Garcia MD at [facility] N/A: Spine Lumbar [employer] 1119.0010 / / Gl[employer] 1119.7125 Creo 5.5mm 125mm Curve Javier Spinal Titanium - [id number] Implanted:Qty: 1 on 08/13/2021 by Jason Garcia MD at [facility] N/A: Spine Lumbar [employer] 1119.7125 / / Gl[employer] 5146.1752 Creo Od7.5 Mm L50 Mm Thread; Polyaxial Spine Screw Bone Titanium; - [id number] Implanted:Qty: 3 on 08/13/2021 by Jason Garcia MD at [facility] N/A: Spine Lumbar [employer] 5146.1752 / / Gl[employer] 1119.7125 Creo 5.5mm 125mm Curve Javier Spinal Titanium - [id number] Implanted:Qty: 1 on 08/13/2021 by Jason Garcia MD at [facility] N/A: Spine Lumbar Glob[employer] 1119.7125 / / Globus 75x45 Implanted:Qty: 1 on 08/13/2021 by Jason Garcia MD at [facility] N/A: Spine Lumbar GLOBUS 5146.1742 / / Description:Correction. Scre w is 75x40 NOT 75x45 Globuys Tlif Cage [id number] Implanted:Qty: 1 on 08/13/2021 by Jason Garcia MD at [facility] N/A: Spine Lumbar GLOBUS 168.251 / / Procedures Procedure Name Priority Date/Time Associated Diagnosis Comments EGFR Routine 08/15/2021 2:46 AM CDT POCT HEMOGLOBIN A1C Routine 08/09/2021 5 :12 PM CDT SERUM LIPID PANEL Routine 07/21/2015 8:3 5 PM FISHER EEL from Last 3 Months or Most Recently Relevant to Health Maintenance Results * eGFR (08/15/2021 2:46 AM CDT) eGFR 99 mL/min/1. 73 m2 [facility] Comment: Interpretive Data Reference Interval Normal >/= 90 mL/min/1.73m2 Mildly decreased* 60 - 89 mL/min/1.73m2 Mildly to moderately decreased 45 - 59 mL/min/1.73m2 Moderately to severely decreased 30 - 44 mL/min/1.73m2 Severely decreased 15 - 29 mL/min/1.73m2 Kidney Failure < 15 mL/min/1.73m2 *Relative to young adult level Estimated glomerular [...] MD LAB BLOOD ORDERABLES Fin al Result Performing Organization Address City/State/[facility] [place] Phone Number [facility] [id number] [facility] Department [place] [address] * (ABNORMAL) POCT hemoglobin A1c (08/09/2021 5:12 PM CDT) Hgb A1C, POC 5.7(H) 4.0 - 5.6 % [facility] Est Average Gluc POC 117 mg/dL [facility] Comment: The ADA recommends reporting an estimated Average Glucose (eAG) with all Hemoglobin A1c results using the equation derived from a study of 507 normal and diabetic adults. Minority populations were underrepresented and children were not included. (Diabetes Care 31:0236-2583, 2007). The eAG is not equivalent to a fasting glucose. Blood 08/09/2021 5:12 PM CDT 08/09/2021 5:12 PM CDT us Jason Garcia MD POINT OF CARE TEST ORD ERABLES Final Result [facility] Department [place] [address] * Serum lipid panel (07/21/2015 8:35 PM FISHER EEL) Cholesterol 192 0 - 200 mg/dl HISTORICAL RESULTS Comment: Interpretive Data Desirable: <200 mg/dL Borderline high: 200-239 mg/dL High: >240 mg/dL Literature Reference: National Cholesterol Education Program (NCEP) Expert Panel on Detection, Evaluation, and Treatment of High Blood Cholesterol in Adults (Adult Treatment Panel III). Circulation 2004; 110:227. Current interpretive data was last revised on 2005. Triglycerides 128 0 - 150 mg/dl HISTORICAL RESULTS Comment: Interpretive Data Desirable: < 150 mg/dL Borderline High: 150 - 199 mg/dL High: > 200 mg/dL Literature Reference: See Cholesterol Current interpretive data was last revised on 06. HDL 53 40 - 199 mg/dl HISTORICAL RESULTS Comment: Interpretive Data Less than 40 mg/dL - low; A major risk factor for heart disease. Greater than or equal to 60 mg/dL - High; considered protective of heart disease. Literature Reference: See Cholesterol Current interpretive data was last revised on 2008. LDL 113 0 - 129 mg/dl HISTORICAL RESULTS Comment: Interpretive Data Optimal: < 100 mg/dL Near Optimal: 100 - 129 mg/dL Borderline High: 130 - 159 mg/dL High: > 160 mg/dL Literature Reference: See Cholesterol Current interpretive data was last revised on 06. Non-HDL cholesterol, calculated 139 mg/dl HISTORICAL RESULTS Comment: Interpretive Data When triglycerides are >200 mg/dL, non-HDL C is a secondary target of therapy, with a goal 30 mg/dL higher than the identified LDL-C goal. Reference: See Cholesterol Reference. Current interpretive data was last revised 2011. Serum 07/21/2015 8:35 PM FISHER EEL us Hudson Yung MD LAB BLOOD ORDERABLES Final Res ult HISTORICAL RESULTS from Last 3 Months or Most Recently Relevant to Health Maintenance Insurance [facility] Funzio IDPA [facility] Funzio IDPA [facility] IDPA WORKERS COMPENSATION GENERIC [facility] AETNA [facility] ADVANTRA WORKERS COMPENSATION GENERIC Advance Directives For more information, please contact: [phone] * Full Code (Latest Code Status on File) Date Activated Date Inactivated Comments 08/13/2021 3:04 PM 08/15/2021 3:49 PM * Full Code Date Activated Date Inactivated Comments 07/26/2021 4:34 AM 07/27/2021 1:56 PM Care Teams Inclusion Special Educator Relationship Specialty Start Date End Date Ramón Mcdaniel MD PCP - General Family Practice 02/17/23
--- OUTSIDE RECORDS SUMMARY | 2024-07-08 07:43 | XMS_ITS | Data Portability ---
Author Organization [facility], [employer] Address [address] [address] Care Team Providers Care Horse Doctor Name Role Phone [facility] Pain Management Assessment Encounter Date Assessment Date Assessment LastModified by Organization Details LastModified Time 07/08/2017 07/08/2017 Patient presented for follow up. Studies ordered as below. Discussed plan with patient/careg iver, who expressed understanding . Follow up as noted below. [email or web address] Not available 07/08/2017 12:00:15 01/07/2018 01/07/2018 Patient presented for follow up. Studies ordered as below. Discussed plan with patient/careg iver, who expressed understanding . Follow up as noted below. Not available 01/07/2018 13:20:27 Plan of Treatment Reminders Order Date Submit Date Provider Last Modified By Organization Details Last Modified Time Details Appointments None recorded . Lab lipid panel, serum 2017 018 lcallison [facility], [address] [facility], [place], [address], 8 09:38:26 CMP, serum or plasma 2017 018 [facility], [address] , [place], [address], 8 09:38:26 CK (creatin e kinase), total, serum 2017 018 lcallison [facility], [address] , [place], [address], 8 09:38:26 HbA1c (hemoglo bin A1c), blood 2017 018 lcallison [facility], [address], [place], [address], 8 09:38:26 microalb umin/cre atinine, mass ratio, urine 2017 018 lcallison [facility], [address], [place], [address], 8 09:38:26 vitamin D, 25-hydro xy, total, serum 2017 018 lcallison [facility], [address], [place], [address], 8 09:38:25 CBC w/ auto diff 2017 018 ALENA [facility], [address], [place], [address], 8 04:51:26 unlisted lab - amylase (refl) 2017 018 ALENA [facility], [address], [place], [address], 8 02:49:09 lipase, serum or plasma 2017 018 ALENA [facility], [address], [place], [address], 8 02:49:08 urinalys is complete , reflex culture 2017 018 ALENA [facility], [address], [place], [address], 8 02:49:07 CBC w/ auto diff 2017 018 ALENA [facility], [address], [place], [address], 8 02:49:08 CBC w/ auto diff 2017 018 lcallison [facility], [address], [place], [address], 8 09:00:51 CMP, serum or plasma 2017 018 ALENA [facility], [address] [facility], [place], [address], 8 02:49:07 hepatiti s C virus Ab, serum 2017 018 [facility], [address] [facility], [place], [address], 8 08:39:06 vitamin D, 25-hydro xy, total, serum 2017 018 [facility], [address] [facility], [place], [address], 8 08:39:06 microalb umin/cre atinine, mass ratio, urine 2017 018 [facility], [address] [facility], [place], [address], 8 22:42:48 Referral pain manageme nt referral 2017 018 miranda [facility], [address], [address], [place], [address], 8 08:33:41 neurolog ist referral 2017 018 [facility], [address] [place], [address], 8 08:33:39 psychiat rist referral 2017 018 miranda Rubio MD, [address], [address], [place], [address], 8 08:33:38 ophthalm ologist referral 2017 018 miranda Mckeon, [address] [facility], [place], [address], 8 08:37:10 pulmonol ogist referral 2017 018 miranda Manley MD, [address] [facility], [address], [place], [address], 8 08:33:39 psychiat rist referral 2017 018 miranda Yang, [address], [address], [place], [address], 8 08:57:01 ophthalm ologist referral 2017 018 miranda Mckeon, [address] [facility], [place], [address], 8 08:57:02 ENT referral 2017 018 [email or web address] Alex Grant MD, [address] [facility], [place], [address], 8 10:04:38 Procedures None recorded . Surgeries None recorded . Imaging MAMMO, screenin g, digital, bilatera l 2017 018 [facility], [address], [address], [place], [address], 8 13:40:27 XR, chest, 2 view 2017 [facility], [address], [address], [place], [address], 8 12:26:00 , fide garg - -- please include pancreas 2017 018 ALENA [facility], [address], [address], [place], [address], 8 15:34:29 Medication Orders atorvast atin 10 mg tablet 2017 018 ATHENAFAX Not available 8 13:35:13 metformi n ER 500 mg tablet,e xtended release 24 hr 2017 018 ATHENAFAX Not available 8 13:40:12 gabapent in 600 mg tablet 2017 018 ATHENAFAX Not available 8 13:35:13 duloxeti ne 60 mg capsule, delayed release 2017 018 ATHENAFAX Not available 8 13:40:20 losartan 50 mg-hydro chloroth iazide 12.5 mg tablet 2017 018 ATHENAFAX Not available 8 13:35:05 tramadol 50 mg tablet 2017 018 [id number], [address] [place], [place], [id number], 8 13:26:39 benzonat ate 200 mg capsule [address] [id number], [address] [place], [place], [id number], 8 13:08:20 prometha zine 6.25 mg-codei ne 10 mg/5 mL syrup 2017 018 Not available 8 00:02:04 Levaquin 500 mg tablet 2017 018 Not available 8 00:02:09 metformi n ER 500 mg tablet,e xtended release 24 hr 2017 018 ATHENAFAX Not available 8 12:58:34 gabapent in 600 mg tablet 2017 018 ATHENAFAX Not available 8 12:57:15 duloxeti ne 60 mg capsule, delayed release 2017 018 ATHENAFAX Not available 8 12:59:40 baclofen 10 mg tablet 2017 018 INTERFACE [facility] #[id number], [address] [facility], [place], [place], [id number], 8 12:44:00 losartan 50 mg-hydro chloroth iazide 12.5 mg tablet 2017 018 lcallison Not available 8 12:21:29 Patient TargetsNo targets recorded. Patient Instructions Encounter Date Encounter Id Patient Instructions Last Modified By Organization Details Last Modified Time 06/02/2017 [id number] broken nose: car e instructions Not available 06/02/2017 12:02:56 bruises: care instructions Not available 06/02/2017 12:02:56 chest contusion: care instructions Not available 06/02/2017 12:02:56 I spent 27 minut e face to face time with this patient (> 50% spent on counseling), explaining the test result and counseling patient on pt's medical conditions. Not available 06/02/2017 12:03:24 07/08/2017 [id number] broken nose: car e instructions Not available 07/08/2017 12:43:53 bruises: care instructions Not available 07/08/2017 12:43:53 prediabetes: car e instructions Not available 07/08/2017 12:43:53 back care and preventing injuries: care instructions Not available 07/08/2017 12:43:53 getting back to normal after low back pain: care instructions Not available 07/08/2017 12:43:53 learning about relief for back pain Not available 07/08/2017 12:43:53 chest contusion: care instructions Not available 07/08/2017 12:43:53 advised to lose weight Not available 07/08/2017 12:43:53 10/07/2017 [id number] cough: care instructions Not available 10/07/2017 12:48:34 01/07/2018 [id number] prediabetes: car e instructions Not available 01/07/2018 13:26:33 back care and preventing injuries: care instructions Not available 01/07/2018 13:26:34 getting back to normal after low back pain: care instructions Not available 01/07/2018 13:26:33 learning about relief for back pain Not available 01/07/2018 13:26:33 advised to lose weight Not available 01/07/2018 13:26:34 Reason for Referral ENT Referral for Fractured n renee bones Referring Physician: [facility], Encounter Date: 06/02/2017 Psychiatrist Referral for An xiety disorder Referring Physician: [facility] L [facility], Encounter Date: 07/08/2017 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 Referral for Hypertelorism Referring Physician: [facility] L [facility], Encounter Date: 07/08/2017 Psychiatrist Referral for An xiety disorder Referring Physician: [facility] L [facility], Encounter Date: 01/07/2018 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 Referral for Hypertelorism Referring Physician: Jorge L [facility], Encounter Date: 01/07/2018 Neurologist Referral for Epi lepsy Referring Physician: Jorge L [facility], Encounter Date: 01/07/2018 Oil Sprayer Referral for B ronchiolitis Referring Physician: Jorge L [facility], Encounter Date: 01/07/2018 Pain Management Referral for Low back pain Referring Physician: Jorge L [facility], Encounter Date: 01/07/2018 Results Created Date Observation Date Name Description Value Unit Range Abnormal Flag Note LastModifiedBy Organization Detail LastModifiedTime 08/14/19 18 08/14/2017 CMP, serum or plasm a glucose 94 mg/dL 65-99 normal Fasti ng refer ence inter kali Not Available [employer] [facility] [id number] [place] [address], [address], 08/14/2017 02:49:07 08/14/19 18 08/14/2017 CMP, serum or plasm a urea nitrogen (BUN) 18 mg/dL 7-25 normal Not Available [employer] [facility] [address], [address], 08/14/2017 02:49:07 08/14/19 18 08/14/2017 CMP, serum or plasm a creatinine 0.83 mg/dL 0.50-1 .05 normal For patie nts >49 years of age, the refer ence limit for Creat inine is appro ximat arabella 13% highe r for peopl e ident ified as Afric an-Am luaren n. Not Available [address], [address], 08/14/2017 02:49:07 08/14/19 18 08/14/2017 CMP, serum or plasm a eGFR non-afr. maltese 79 mL/mi n/1.7 3m2 > or = 60 normal Not Available [address], [address], 08/14/2017 02:49:07 08/14/19 18 08/14/2017 CMP, serum or plasm a eGFR 91 mL/mi n/1.7 3m2 > or = 60 normal Not Available [address], [address], 08/14/2017 02:49:07 08/14/19 18 08/14/2017 CMP, serum or plasm a BUN/creatini ne ratio NOT APPLIC ABLE (calc ) 6-22 Not Available [address], [address], 08/14/2017 02:49:07 08/14/19 18 08/14/2017 CMP, serum or plasm a sodium 139 mmol/ L 135-14 6 normal Not Available [facility] [address], [address], 08/14/2017 02:49:07 08/14/19 18 08/14/2017 CMP, serum or plasm a potassium 4.4 mmol/ L 3.5-5. 3 normal Not Available [facility] [address], [address], 08/14/2017 02:49:07 08/14/19 18 08/14/2017 CMP, serum or plasm a chloride 104 mmol/ L 98-110 normal Not Available [address], [address], 08/14/2017 02:49:07 08/14/19 18 08/14/2017 CMP, serum or plasm a carbon dioxide 27 mmol/ L 20-31 normal Not Available [address], [address], 08/14/2017 02:49:07 08/14/19 18 08/14/2017 CMP, serum or plasm a calcium 10.0 mg/dL 8.6-10 .4 normal Not Available [address], [address], 08/14/2017 02:49:07 08/14/19 18 08/14/2017 CMP, serum or plasm a protein, total 7.0 g/dL 6.1-8. 1 normal Not Available [address], [address], 08/14/2017 02:49:07 08/14/19 18 08/14/2017 CMP, serum or plasm a albumin 4.4 g/dL 3.6-5. 1 normal Not Available [address], [address], 08/14/2017 02:49:07 08/14/19 18 08/14/2017 CMP, serum or plasm a globulin 2.6 g/dL_ (calc ) 1.9-3. 7 normal Not Available [address], [address], 08/14/2017 02:49:07 08/14/19 18 08/14/2017 CMP, serum or plasm a albumin/glob ulin ratio 1.7 (calc ) 1.0-2. 5 normal Not Available [address], [address], 08/14/2017 02:49:07 08/14/19 18 08/14/2017 CMP, serum or plasm a bilirubin, total 0.2 mg/dL 0.2-1. 2 normal Not Available [address], [address], 08/14/2017 02:49:07 08/14/19 18 08/14/2017 CMP, serum or plasm a alkaline phosphatase 67 U/L 33-130 normal Not Available [address], [address], 08/14/2017 02:49:07 08/14/19 18 08/14/2017 CMP, serum or plasm a AST 16 U/L 10-35 normal Not Available [address], [address], 08/14/2017 02:49:07 08/14/19 18 08/14/2017 CMP, serum or plasm a ALT 16 U/L 6-29 normal Not Available [address], [address], 08/14/2017 02:49:07 08/14/19 18 08/14/2017 urina lysis compl ete, refle x cultu re color YELLOW yellow normal Not Available [address], [address], 08/14/2017 02:49:07 08/14/19 18 08/14/2017 urina lysis compl ete, refle x cultu re appearance CLEAR clear normal Not Available [address], [address], 08/14/2017 02:49:07 08/14/19 18 08/14/2017 urina lysis compl ete, refle x cultu re specific gravity 1.015 1.001- 1.035 normal Not Available [address] [place], [address], 08/14/2017 02:49:07 08/14/19 18 08/14/2017 urina lysis compl ete, refle x cultu re pH 6.5 5.0-8. 0 normal Not Available [address], [address], 08/14/2017 02:49:07 08/14/19 18 08/14/2017 urina lysis compl ete, refle x cultu re glucose NEGATI VE negati ve normal Not Available [facility] [address], [address], 08/14/2017 02:49:07 08/14/19 18 08/14/2017 urina lysis compl ete, refle x cultu re bilirubin NEGATI VE negati ve normal Not Available [facility] [address], [address], 08/14/2017 02:49:07 08/14/19 18 08/14/2017 urina lysis compl ete, refle x cultu re ketones NEGATI VE negati ve normal Not Available [facility] [address], [address], 08/14/2017 02:49:07 08/14/19 18 08/14/2017 urina lysis compl ete, refle x cultu re occult blood NEGATI VE negati ve normal Not Available [facility] [address], [address], 08/14/2017 02:49:07 08/14/19 18 08/14/2017 urina lysis compl ete, refle x cultu re protein NEGATI VE negati ve normal Not Available [facility] [address], [address], 08/14/2017 02:49:07 08/14/19 18 08/14/2017 urina lysis compl ete, refle x cultu re nitrite NEGATI VE negati ve normal Not Available [facility] [address] [address] [place], [address], 08/14/2017 02:49:07 08/14/19 18 08/14/2017 urina lysis compl ete, refle x cultu re leukocyte esterase NEGATI VE negati ve normal Not Available [address], [address], 08/14/2017 02:49:07 08/14/19 18 08/14/2017 urina lysis compl ete, refle x cultu re WBC NONE SEEN /hpf < or = 5 normal Not Available [address], [address], 08/14/2017 02:49:07 08/14/19 18 08/14/2017 urina lysis compl ete, refle x cultu re RBC NONE SEEN /hpf < or = 2 normal Not Available [address], [address], 08/14/2017 02:49:07 08/14/19 18 08/14/2017 urina lysis compl ete, refle x cultu re squamous epithelial cells NONE SEEN /hpf < or = 5 normal Not Available [address] [address] [place], [address], 08/14/2017 02:49:07 08/14/19 18 08/14/2017 urina lysis compl ete, refle x cultu re bacteria NONE SEEN /hpf none seen normal Not Available [facility] [address] [address] [place], [address], 08/14/2017 02:49:07 08/14/19 18 08/14/2017 urina lysis compl ete, refle x cultu re hyaline cast NONE SEEN /lpf none seen normal Not Available [facility] [address] [place], [address], 08/14/2017 02:49:07 08/14/19 18 08/14/2017 urina lysis compl ete, refle x cultu re reflexive urine culture NO CULTUR E INDICA LES Not Available [address], [address], 08/14/2017 02:49:07 08/14/19 18 08/14/2017 CBC w/ auto diff white blood cell count 9.6 thous and/u L 3.8-10 .8 normal Not Available [address], [address], 08/14/2017 02:49:08 08/14/19 18 08/14/2017 CBC w/ auto diff red blood cell count 4.50 ella on/uL 3.80-5 .10 normal Not Available [address], [address], 08/14/2017 02:49:08 08/14/19 18 08/14/2017 CBC w/ auto diff hemoglobin 13.6 g/dL 11.7-1 5.5 normal Not Available [address], [address], 08/14/2017 02:49:08 08/14/19 18 08/14/2017 CBC w/ auto diff hematocrit 40.0 % 35.0-4 5.0 normal Not Available [address], [address], 08/14/2017 02:49:08 08/14/19 18 08/14/2017 CBC w/ auto diff MCV 88.9 fL 80.0-1 00.0 normal Not Available [address], [address], 08/14/2017 02:49:08 08/14/19 18 08/14/2017 CBC w/ auto diff MCH 30.2 pg 27.0-3 3.0 normal Not Available [address], [address], 08/14/2017 02:49:08 08/14/19 18 08/14/2017 CBC w/ auto diff MCHC 34.0 g/dL 32.0-3 6.0 normal Not Available [address], [address], 08/14/2017 02:49:08 08/14/19 18 08/14/2017 CBC w/ auto diff RDW 12.4 % 11.0-1 5.0 normal Not Available [address] [place], [address], 08/14/2017 02:49:08 08/14/19 18 08/14/2017 CBC w/ auto diff platelet count 344 thous and/u L 140-40 0 normal Not Available [address], [address], 08/14/2017 02:49:08 08/14/19 18 08/14/2017 CBC w/ auto diff MPV 10.2 fL 7.5-12 .5 normal Not Available [address], [address], 08/14/2017 02:49:08 08/14/19 18 08/14/2017 CBC w/ auto diff absolute neutrophils 5357 cells /uL 1500-7 800 normal Not Available [address], [address], 08/14/2017 02:49:08 08/14/19 18 08/14/2017 CBC w/ auto diff absolute lymphocytes 3197 cells /uL 850-39 00 normal Not Available [address], [address], 08/14/2017 02:49:08 08/14/19 18 08/14/2017 CBC w/ auto diff absolute monocytes 826 cells /uL 200-95 0 normal Not Available [address], [address], 08/14/2017 02:49:08 03/21/20 18 08/14/2017 CBC w/ auto diff absolute eosinophils 173 cells /uL 15-500 normal Not Available [address], [address], 08/14/2017 02:49:08 08/14/19 18 08/14/2017 CBC w/ auto diff absolute basophils 48 cells /uL 0-200 normal Not Available [address], [address], 08/14/2017 02:49:08 08/14/19 18 08/14/2017 CBC w/ auto diff neutrophils 55.8 % normal Not Available [address], [address], 08/14/2017 02:49:08 08/14/19 18 08/14/2017 CBC w/ auto diff lymphocytes 33.3 % normal Not Available [address], [address], 08/14/2017 02:49:08 08/14/19 18 08/14/2017 CBC w/ auto diff monocytes 8.6 % normal Not Available [address], [address], 08/14/2017 02:49:08 08/14/19 18 08/14/2017 CBC w/ auto diff eosinophils 1.8 % normal Not Available [address], [address], 08/14/2017 02:49:08 08/14/19 18 08/14/2017 CBC w/ auto diff basophils 0.5 % normal Not Available [address], [address], 08/14/2017 02:49:08 08/14/19 18 08/14/2017 lipas e, serum or plasm a lipase 55 U/L 7-60 normal Not Available [address], [address], 08/14/2017 02:49:08 08/14/19 18 08/14/2017 amyla se (refl ) amylase (refl) 44 U/L 21-101 normal Not Available [address], [address], 08/14/2017 02:49:09 10/08/19 18 10/08/2017 CBC w/ auto diff white blood cell count 8.9 thous and/u L 3.8-10 .8 normal Not Available [address], [address], 10/08/2017 04:51:26 10/08/19 18 10/08/2017 CBC w/ auto diff red blood cell count 4.56 ella on/uL 3.80-5 .10 normal Not Available [address], [address], 10/08/2017 04:51:26 10/08/19 18 10/08/2017 CBC w/ auto diff hemoglobin 13.7 g/dL 11.7-1 5.5 normal Not Available [address], [address], 10/08/2017 04:51:26 10/08/19 18 10/08/2017 CBC w/ auto diff hematocrit 41.1 % 35.0-4 5.0 normal Not Available [address], [address], 10/08/2017 04:51:26 10/08/19 18 10/08/2017 CBC w/ auto diff MCV 90.1 fL 80.0-1 00.0 normal Not Available [address], [address], 10/08/2017 04:51:26 10/08/19 18 10/08/2017 CBC w/ auto diff MCH 30.0 pg 27.0-3 3.0 normal Not Available [address], [place], [address], 10/08/2017 04:51:26 10/08/19 18 10/08/2017 CBC w/ auto diff MCHC 33.3 g/dL 32.0-3 6.0 normal Not Available [address], [address], 10/08/2017 04:51:26 10/08/19 18 10/08/2017 CBC w/ auto diff RDW 12.4 % 11.0-1 5.0 normal Not Available [address], [address], 10/08/2017 04:51:26 10/08/19 18 10/08/2017 CBC w/ auto diff platelet count 338 thous and/u L 140-40 0 normal Not Available [address], [address], 10/08/2017 04:51:26 10/08/19 18 10/08/2017 CBC w/ auto diff MPV 9.9 fL 7.5-12 .5 normal Not Available [address], [address], 10/08/2017 04:51:26 10/08/19 18 10/08/2017 CBC w/ auto diff absolute neutrophils 4325 cells /uL 1500-7 800 normal Not Available [address], [address], 10/08/2017 04:51:26 10/08/19 18 10/08/2017 CBC w/ auto diff absolute lymphocytes 3516 cells /uL 850-39 00 normal Not Available [address], [address], 10/08/2017 04:51:26 10/08/19 18 10/08/2017 CBC w/ auto diff absolute monocytes 872 cells /uL 200-95 0 normal Not Available [address], [address], 10/08/2017 04:51:26 10/08/19 18 10/08/2017 CBC w/ auto diff absolute eosinophils 134 cells /uL 15-500 normal Not Available [address], [address], 10/08/2017 04:51:26 10/08/19 18 10/08/2017 CBC w/ auto diff absolute basophils 53 cells /uL 0-200 normal Not Available [address], [address], 10/08/2017 04:51:26 10/08/19 18 10/08/2017 CBC w/ auto diff neutrophils 48.6 % normal Not Available [address], [address], 10/08/2017 04:51:26 10/08/19 18 10/08/2017 CBC w/ auto diff lymphocytes 39.5 % normal Not Available [address], [address], 10/08/2017 04:51:26 10/08/19 18 10/08/2017 CBC w/ auto diff monocytes 9.8 % normal Not Available [address], [address], 10/08/2017 04:51:26 10/08/19 18 10/08/2017 CBC w/ auto diff eosinophils 1.5 % normal Not Available [address], [address], 10/08/2017 04:51:26 10/08/19 18 10/08/2017 CBC w/ auto diff basophils 0.6 % normal Not Available [address], [address], 10/08/2017 04:51:26 06/02/19 18 05/27/2017 XR, chest , 2 view No observ ation record ed. Not Available 2017 12:41:44 06/03/19 18 05/27/2017 XR, chest , 2 view No observ [facility]ion record ed[facility] Not Available 2017 12:41:44 06/03/19 18 05/28/2017 CT, abdom en + pelvi s, w/o contr ast No observ ation record ed. [facility] Not Available 2017 12:41:44 06/03/19 18 05/28/2017 CT, thora cic spine , w/ contr ast No observ ation record ed. [facility] Not Available 2017 12:41:44 06/03/19 18 05/28/2017 XR, hand No observ ation record ed. [facility] Not Available 2017 12:41:44 06/03/19 18 05/28/2017 CT, lumba r spine , w/ contr ast No observ ation record ed. [facility] Not Available 2017 12:41:44 08/08/19 18 08/07/2017 CT, abdom en + pelvi s, w/ contr ast No observ ation record ed. [facility] Not Available 2017 10:18:24 08/16/19 18 08/15/2017 US, gallb ladde r No observ ation record ed. [facility] [address], [place], [address], 10/07/2017 12:49:38 08/19/19 18 08/18/2017 MAMMO , scree janeen, digit al, bilat eral No observ ation record ed. [address] (Imaging) [address], [place], [address], 10/07/2017 12:49:38 08/21/19 18 08/15/2017 US, abdom en No observ ation record ed. [facility] [address] [facility] [address], [place], [address], 10/07/2017 12:49:38 08/28/19 18 08/27/2017 NM, hepat obili anant scan, w/ CCK No observ ation record ed. [facility] [address] [place], [address], 10/07/2017 12:49:38 10/15/19 18 10/07/2017 XR, chest , 2 view No observ ation record ed. [address] [facility] [address], [place], [address], 01/07/2018 13:28:24 01/21/20 18 elect rocar diogr am No observ ation record ed. [email or web address] Not Available 2017 13:55:39 Result Notes None recorded. Problems Name Problem SNOMED Code Status Onset Date Resolution Date Notes Provider Name and Address Organization Details Recorded Time Hypertensive disorder 44149757 Active 2016 [facility] 7 11:46:05 Heart disease 99881678 Active 2016 Ischemic Disease [facility] 7 11:47:10 Problem Notes None recorded. Procedures Surgical History Date Name Laterality Status Provider Name and Address Organization Details Recorded Time 10/25/19 17 Date of Last Pap Smear completed [facility] 03/07/2017 11:23:05 07/25/19 17 Date of Last Mammogram completed [facility] 03/07/2017 11:23:13 08/25/19 16 Colonoscopy completed [facility] 03/11/2017 12:46:40 Tonsillectomy completed Jorge L Barnes MD [address], [place], [address], [facility] 03/07/2017 12:40:03 delivery completed Jorge L Barnes MD [address], [place], [address], [facility] 03/07/2017 12:40:31 Dilation and curettage completed Jorge L Barnes MD [address], [place], [address], [facility] 03/07/2017 12:41:13 Knee Surgery completed Jorge L Barnes MD [address] [address], [place], [address], [facility] 03/07/2017 12:44:20 Partial Hysterectomy completed Jorge L Barnes MD [address], [place], [address], [facility] 03/07/2017 12:42:51 Appendectomy completed Jorge L Barnes MD [address], [place], [address], [facility] 03/07/2017 12:43:26 Carpal tunnel surgery completed Jorge L Barnes MD [address], [place], [address], [facility] 03/07/2017 12:43:51 Unlisted px foot/toes completed Jorge L Barnes MD [address], [place], [address], [facility] 03/07/2017 12:46:11 Arthrd ant ntrbd min dsc lum completed Jorge L Barnes MD [address], [place], [address], [facility] 03/07/2017 12:49:59 Other completed Jorge L Barnes MD [address], [place], [address], [facility] 03/07/2017 12:48:07 Imaging Results Imaging Date Name Status LastModified by Organization Details LastModified Time 05/27/2017 XR, chest, 2 view completed Informa tion not available 07/08/2017 12:41:44 05/27/2017 XR, chest, 2 view completed Informa tion not available 07/08/2017 12:41:44 05/28/2017 CT, abdomen + pelvis, w/o contrast completed Information not available 07/08/2017 12:41:44 05/28/2017 CT, thoracic spine, w/ contrast completed Information not available 07/08/2017 12:41:44 05/28/2017 XR, hand completed Information no t available 07/08/2017 12:41:44 05/28/2017 CT, lumbar spine, w/ contrast [facility] Information not available 07/08/2017 12:41:44 08/07/2017 CT, abdomen + pelvis, w/ contrast completed [facility] Information not available 08/13/2017 10:18:24 08/15/2017 US[facility] [address], [place], [address], 10/07/2017 12:49:38 08/18/2017 MAMMO, screening, digital, bilateral completed [address] (Imaging) [address], [place], [address], 10/07/2017 12:49:38 08/15/2017 US[facility] abdomen [facility] [address], [place], [address], 10/07/2017 12:49:38 08/27/2017 NM, hepatobiliary scan, w/ CCK completed [address] [facility], [place], [address], 10/07/2017 12:49:38 10/07/2017 XR, chest, 2 view completed [address] [facility] [address], [place], [address], 01/07/2018 13:28:24 01/20/2018 electrocardiogram completed [email or web address] Informa tion not available 01/21/2018 13:55:39 Procedure Notes None recorded. Medical Equipment None Reported. Allergies Allergen ID Allergen Name Allergen Category Reaction Reaction Severity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 abdominal pain x2 days. Patient reports pain radiates from the right upper quadrant laterally towards the back. Pain seems worse after eating. It is associated with both nausea and vomiting without any hematemesis. Patient also complained of diarrhea but without any bright red blood per rectum, or melena. She also complained of low-grade temperature at home. Patient went to [facility] on 08/07/17. At [facility] scan of the abdomen was unrevealing. Except for elevated white count, rest of the labs also unrevealing. Patient still experiencing bloating & RUQ burning w/ low-grade fever less than 100.3 F She has hoarseness, diarrhea and fatigue. Jorge L Barnes MD [address], [place], [address], [facility] 08/13/2017 10:21:26 10/07/2017 text/html CoughReported bypatient.Quality:h paresh;barking Severity:moderate Duration:intermitte nt Context:non-smoker Associated Symptoms:no fever; no chills; no chest pain; no heartburn; no nausea; no vomiting; no edema; no post nasal drip;wheezing Jorge L Barnes MD [address], [place], [address], [facility] 10/07/2017 12:49:55 01/07/2018 text/html Patient denies a ny headache/chest discomfort or pain/diaphoresis/br eathing problems/nausea/vom iting/any angina equivalent symptoms/visual changes Jorge L Banres MD [address] [facility] [address], [place], [address], [place] [facility] 01/07/2018 13:29:28 OBGyn Episode No OBEpisode recorded.
--- OUTSIDE RECORDS SUMMARY | 2024-07-08 07:44 | XMS_ITS | Clinical Summary ---
Author Organization [facility] Address [facility] [place] [address] Care Team Providers Care Motorsports Technician Name Role Phone Kobi Amezquita Primary Care Provider [phone] Allergies Active Allergy Reactions Criticality Noted Date [...] Comments Blood Pressure 135/79 05/12/2022 1:00 PM TURBINE MEASUREMENTS ENGINEER Pulse 76 05/12/2022 1:05 PM TURBINE MEASUREMENTS ENGINEER Temperature 36.6 C (97.8 F) 05/12/2022 11:56 AM TURBINE MEASUREMENTS ENGINEER Respiratory Rate 20 05/12/2022 1:05 PM TURBINE MEASUREMENTS ENGINEER Oxygen Saturation 96% 05/12/2022 1:05 PM TURBINE MEASUREMENTS ENGINEER Inhaled Oxygen Concentration - - Weight 70.3 kg (155 lb) 05/12/2022 11:33 AM TURBINE MEASUREMENTS ENGINEER Height 152.4 cm (5') 05/12/2022 11:33 AM TURBINE MEASUREMENTS ENGINEER Body Mass Index 30.27 05/12/2022 11:33 AM TURBINE MEASUREMENTS ENGINEER Plan of Treatment Health Maintenance Due [...] (1 - 1-dose 75+ series) 10/11/2035 Meningococcal B Vaccine Aged Out No l onger eligible based on patient's age to complete this topic Meningococcal Vaccine Aged Out No song peggy [...] this topic Insurance [employer] MEDICAID Care Teams Motorsports Technician Relationship Specialty Start Date End Date Kobi Amezquita DO [address] [address] PCP - General INTERNAL MEDICINE 11/14/20
--- OUTSIDE RECORDS SUMMARY | 2024-07-08 07:44 | XMS_ITS | Referral Summary ---
Author Organization [facility] Address [address] [place] [address] Care Team Providers Care Cellophane Bath Mixer Name Role Phone Unavailable Primary Care Provider Unavailabl e Source Comments [facility],non-[facility] Affiliates and Associated Physician Practices is amultiple site organization consisting of ambulatory clinics and hospital sitesin [place], [place], [place] and [place]. This disclosure is being madepursuant to the Care Everywhere program and may not contain all information available regarding this patient. Last updated 18.[facility] [employer] Allergies Active Allergy Reactions Criticality Noted Date Comments Aspirin Anaphylaxis High 07/23/2019 Codeine Urticaria Medium 07/23/2019 Honey Bee Venom Anaphylaxis High 07/23/2019 Latex Urticaria Medium 07/23/2019 Peanut-Derived Anaphylaxis High 07/23/2019 Penicillin G Anaphylaxis High 07/23/2019 Penicillins Anaphylaxis High 07/23/2019 Pseudoephedrine Base Urticaria Medium 07/23/2019 With tongue swelling [place] Urticaria Medium 07/23/2019 Sulfa Drugs Anaphylaxis High [...] Comments Blood Pressure 139/79 07/24/2019 4:42 PM SENIOR SYSTEMS ADMINISTRATOR Pulse 80 07/24/2019 4:17 PM SENIOR SYSTEMS ADMINISTRATOR Temperature 36.8 C (98.2 F) 07/24/2019 4:17 PM SENIOR SYSTEMS ADMINISTRATOR Respiratory Rate 20 07/24/2019 4:17 PM SENIOR SYSTEMS ADMINISTRATOR Oxygen Saturation 99% 07/24/2019 4:17 PM SENIOR SYSTEMS ADMINISTRATOR Inhaled Oxygen Concentration - - Weight 62.9 kg (138 lb 9.6 oz) 07/22/2019 10:38 PM SENIOR SYSTEMS ADMINISTRATOR Height 152.4 cm (5') 07/22/2019 10:38 PM SENIOR SYSTEMS ADMINISTRATOR Body Mass Index 27.07 07/22/2019 10:38 PM SENIOR SYSTEMS ADMINISTRATOR Functional Status Functional Status Response Date of [...]
--- OUTSIDE RECORDS SUMMARY | 2024-07-08 07:44 | XMS_ITS | Patient Health Summary ---
Author Organization [facility] Address [address] [place] [address] Care Team Providers Care Waiter/Waitress Buffet Name Role Phone Unavailable Primary Care Provider Unavailabl e Note from [facility] [place] [facility] [place]non-owned Affiliates and Associated Physician Practices is amultiple site organization consisting of ambulatory clinics and hospital sitesin [place], [place], [place] and [place]. This disclosure is being madepursuant to the Care Everywhere program and may not contain all information available regarding this patient. Last updated 18.[facility] Allergies * Aspirin(Anaphylaxis) -High Criticality * Codeine(Urticaria) -Medium Criticality * Honey Bee Venom(Anaphylaxis) -High Criticality * Latex(Urticaria) -Medium Criticality * Peanut-Derived(Anaphylaxis) -High Criticality * Penicillin G(Anaphylaxis) -High Criticality * Penicillins(Anaphylaxis) -High Criticality * Pseudoephedrine Base(Urticaria) -Medium Criticality * [place](Urticaria) -Medium Criticality * Sulfa Drugs(Anaphylaxis) -High Criticality [...] Comments Blood Pressure 139/79 07/24/2019 4:42 PM [employer] OFFBEARER Pulse 80 07/24/2019 4:17 PM [employer] OFFBEARER Temperature 36.8 C (98.2 F) 07/24/2019 4:17 PM [employer] OFFBEARER Respiratory Rate 20 07/24/2019 4:17 PM [employer] OFFBEARER Oxygen Saturation 99% 07/24/2019 4:17 PM [employer] OFFBEARER Inhaled Oxygen Concentration - - Weight 62.9 kg (138 lb 9.6 oz) 07/22/2019 10:38 PM [employer] OFFBEARER Height 152.4 cm (5') 07/22/2019 10:38 PM [employer] OFFBEARER Body Mass Index 27.07 07/22/2019 10:38 PM [employer] OFFBEARER Procedures * CARDIAC EKG ORDER(Performed 08/13/2019) * [...] - POINT OF CARE (07/24/2019 5:50 PM [employer] FE[employer] OFFBEARER) Only the most recent of10 resultswithin the time period is included. Glucose WB/POC 97 70 - 115 mg/dL 07/24/2019 5:51 PM [facility] Specimen Type Arterial/C apillary 07/24/2019 5:51 PM [facility] Blood BLOOD SPECIMEN / Unknown 07/24/2019 5:50 PM [employer] OFFBEARER 07/24/2019 5:51 PM [employer] OFFBEARER Craig Rosas MD LAB - POINT OF CARE ORDERABLES [facility] [address] [place] [address] * (ABNORMAL) CBC W/O DIFFERENTIAL (07/24/2019 3:06 AM [employer] OFFBEARER) Only the most recent of2 resultswithin the time period is included. Pathologist [facility] WBC 9.4 3.5 - 10.5 10 3/uL 07/24/2019 4:03 AM [facility] RBC 4.13 3.90 - 5.00 10 6/uL 07/24/2019 4:03 AM [facility] Hemoglobin 11.9(L) 12.0 - 15.5 g/dL 07/24/2019 4:03 AM [facility] Hematocrit 36.9 35.0 - 45.0 % 07/24/2019 4:03 AM [facility] MCV 89.3 81.0 - 97.0 fL 07/24/2019 4:03 AM [facility] MCH 28.8 28.0 - 34.0 pg 07/24/2019 4:03 AM [facility] MCHC 32.2 32.0 - 36.0 g/dL 07/24/2019 4:03 AM [facility] Platelet Count 287 150 - 400 10 3/uL 07/24/2019 4:03 AM [facility] RDW-SD 43.5 36.0 - 50.0 fL 07/24/2019 4:03 AM [facility] RDW-CV 13.2 11.2 - 14.8 % 07/24/2019 4:03 AM [facility] MPV 10.5 9.3 - 12.8 fL 07/24/2019 4:03 AM [facility] nRBC Absolute 0.00 0 10 3/uL 07/24/2019 4:03 AM [facility] nRBC Auto 0.0 0 /100 WBC 07/24/2019 4:03 AM [facility] Blood BLOOD SPECIMEN / Unknown Lab Venipuncture / Unknown 07/24/2019 3:06 AM [employer]ARER 07/24/2019 3:39 AM [employer] OFFBEARER Keith Rossi MD LAB - HEMATOLOGY ORD ERABLES [facility] [address] [phone] * (ABNORMAL) BASIC METABOLIC PANEL (CALCIUM TOTAL) (07/24/2019 3:06 AM [facility]) Only the most recent of2 resultswithin the time period is included. BUN 6(L) 7 - 26 mg/dL 07/24/2019 4:35 AM [facility] Creatinine 0.6 0.6 - 1.2 mg/dL 07/24/2019 4:35 AM [facility] Sodium 144 136 - 145 mmol/L 07/24/2019 4:35 AM [facility] Potassium 3.6 3.5 - 4.5 mmol/L 07/24/2019 4:35 AM [facility] Chloride 111(H) 98 - 107 mmol/L 07/24/2019 4:35 AM [facility] CO2 24 22 - 29 mmol/L 07/24/2019 4:35 AM [facility] Glucose 97 70 - 115 mg/dL 07/24/2019 4:35 AM [facility] Calcium 9.2 8.4 - 10.2 mg/dL 07/24/2019 4:35 AM [facility] Anion Gap 13 8 - 18 07/24/2019 4:35 AM [facility] BUN/Creatinine Ratio 10 7 - 23 07/24/2019 4:35 AM [facility] Osmolality Calculated 296 270 - 300 mOsm/kg 07/24/2019 4:35 AM [facility] eGFR >60 >60 mL/min/1.7 3 m2 07/24/2019 4:35 AM [facility] Blood BLOOD SPECIMEN / Unknown Lab Venipuncture / Unknown 07/24/2019 3:06 AM [employer]AR[employer] 07/24/2019 3:40 AM [employer] OFFBEARER Keith Rossi MD LAB - [place] [address], [facility] [phone] * PHOSPHORUS BLOOD (07/24/2019 3:06 AM [employer] OFFBEARER) Only the most recent of2 resultswithin the time period is included. Phosphorus 2.9 2.3 - 4.7 mg/dL 07/24/2019 4:35 AM [employer] OFFBEAR[employer] [facility] Blood BLOOD SPECIMEN / Unknown Lab Venipuncture / Unknown 07/24/2019 3:06 AM [employer] OFFBEARER 07/24/2019 3:40 AM [employer] OFFBEARER Keith Rossi MD LAB - CHEMISTRY [place] Performing Organization Address City/[facility]/[place] [address], [facility] [phone] * MAGNESIUM BLOOD (07/24/2019 3:06 AM [employer] OFFBEARER) Only the most recent of2 resultswithin the time period is included. Magnesium 2.2 1.6 - 2.6 mg/dL 07/24/2019 4:35 AM [employer] OFFBEARER [facility] Blood BLOOD SPECIMEN / Unknown Lab Venipuncture / Unknown 07/24/2019 3:06 AM [employer] OFFBEARER 07/24/2019 3:40 AM [employer] OFFBEARER Keith Rossi MD LAB - [place] [address], [facility] [phone] * TSH (07/24/2019 3:06 AM [employer] OFFBEARER) TSH 0.710 0.350 - 4.940 uIU/mL 07/24/2019 4:28 AM [employer] OFFBEARER [facility] Blood BLOOD SPECIMEN / Unknown Lab Venipuncture / Unknown 07/24/2019 3:06 AM [employer] OFFBEARER 07/24/2019 3:40 AM [employer] OFFBEARER Keith Rossi MD LAB - CHEMISTRY [place] Performing Organization Address [facility]/ZIP Co de Phone Number [address] [phone] * T4 FREE (07/24/2019 3:06 AM [employer] OFFBEARER) T4 Free 0.8 0.7 - 1.5 ng/dL 07/24/2019 4:28 AM [employer] OFFBEARER [facility] Blood BLOOD SPECIMEN / Unknown Lab Venipuncture / Unknown 07/24/2019 3:06 AM [employer] OFFBEARER 07/24/2019 3:40 AM [employer] OFFBEARER Keith Rossi MD LAB - CHEMISTRY [place] Performing Organization Address [facility] Co de Phone Number [address] [phone] * MRI BRAIN WO CONTRAST (07/23/2019 9:38 PM [employer] FE[employer] OFFBEARER) Anatomical Region Laterality Modality Head Magnetic Resonan ce 07/24/2019 8:04 AM [employer] OFFBEARER Impressions 07/24/2019 8:12 AM [employer] OFFBEARER IMPRESSION: 1. No acute infarct. Intracranial atrophy. Small vessel ischemia. 2. Abnormal prominence of the nasopharynx. Direct visualization is recommended. Right greater than left mastoid effusions. This report was electronically signed by CARLOS FREEMAN on 07/24/2019 8:12 AM . Narrative 07/24/2019 8:12 AM [employer] OFFBEARER INDICATION: Cerebrovascular accident COMPARISON: CT 07/22/2019 TECHNIQUE: [...] COMPLETE W BUBBLE STUDY (07/23/2019 2:33 PM [employer] FE[employer] OFFBEARER) Anatomical Region Laterality Modality Chest Echo 07/23/2019 2:03 PM [employer] OFFBEARER Narrative Procedure Note Ras Harris MD - 07/23/2019 Keith Rossi MD ECHOCARDIOGRAPHY RAD IANT * (ABNORMAL) URINALYSIS REFLEX TO MICROSCOPIC NO CULTURE (07/23/2019 12:09 PM [employer] OFFBEARER) Color UA Yellow Straw, Yellow, Colorless 07/23/2019 12:52 PM [employer] FE[employer]ER OFFBEARER [facility] Clarity UA Cloudy(A) Clear, Slt Cloudy 07/23/2019 12:52 PM [employer]ER OFFBEARER [facility] Specific [place] UA 1.011 1.005 - 1.030 07/23/2019 12:52 PM [employer] OFFBEARER [facility] pH UA 8.0 5.0 - 8.0 pH 07/23/2019 12:52 PM [facility] Protein UA Negative Negative mg/dL 07/23/2019 12:52 PM [facility] Glucose UA Negative Negative mg/dL 07/23/2019 12:52 PM [facility] Ketone UA Negative Negative mg/dL 07/23/2019 12:52 PM [facility] Bilirubin UA Negative Negative mg/dL 07/23/2019 12:52 PM [facility] Blood UA Negative Negative 07/23/2019 12:52 PM [facility] Nitrite UA Negative Negative 07/23/2019 12:52 PM [facility] Leukocyte Esterase Negative Negative 07/23/2019 12:52 PM [facility] Urobilinogen UA Negative Negative mg/dL 07/23/2019 12:52 PM [facility] RBC UA 3-5 None Seen, 0-2, 3-5 /HPF 07/23/2019 12:52 PM [facility] WBC UA 0-5 None Seen, 0-5 /HPF 07/23/2019 12:52 PM [facility] Bacteria UA 1+(A) None, Trace /HPF 07/23/2019 12:52 PM [facility] Squamous Epithelial Cells UA 0-2 None Seen, 0-2 /HPF 07/23/2019 12:52 PM [facility] Amorphous Crystals Few Rare, Occasional, Few, Moderate, None /HPF 07/23/2019 12:52 PM [facility] Urine URINE SPECIMEN OBTAINED BY CLEAN CATCH PROCEDURE / Unknown Collection / Unknown 07/23/2019 12:09 PM [employer]BEARER 07/23/2019 12:15 PM [employer] OFFBEARER Narrative [facility] - 07/23/2019 12:52 PM [employer] FE[employer] OFFBEARER Tyra Ferrell MD LAB - URINALYSIS ORD ERABLES [address] [phone] * TROPONIN I (07/23/2019 2:22 AM [employer] OFFBEARER) Only the most recent of4 resultswithin the time period is included. Troponin I <0.010 <0.032 ng/mL 07/23/2019 3:03 AM [employer] FE[employer]ER OFFBEARER [facility] Blood BLOOD SPECIMEN / Unknown Venipuncture / Unknown 07/23/2019 2:22 AM [employer] OFFBEARER 07/23/2019 2:30 AM [employer] OFFBEARER Keith Rossi MD LAB - CHEMISTRY [place] Performing Organization Address City/[facility]/ZIP Co de Phone Number [address] [phone] * HEMOGLOBIN A1C (07/23/2019 2:22 AM [employer] OFFBEARER) Hemoglobin A1c 5.4 4.4 - 6.3 % 07/23/2019 10:06 AM [facility] Estimated Average Glucose 108 mg/dL 07/23/2019 10:06 AM [facility] Comment: HbA1c Interpretation: Treatment target values recommended by ADA and other clinical organizations should be used to evaluate metabolic control in patients. Treatment Target Values: Normal : < 5.7% Pre-diabetes: 5.7-6.4% Diabetes: Equal to or greater than 6.5% Reference: [place] [employer] Standards of Care in Diabetes -2014 In patients 70 years and older consider HbA1c target range of 7.0-7.5% Reference: Diabetes Mellitus in Older People: Position Statement on behalf of the International Association of Gerontology and Geriatrics (IAGG), the Diabetes Working Libertarian for Older People (EDWPOP), and the International Task Force of Experts in Diabetes. Davide Ruiz, et al. J [place] [employer]. 2012 Test results diagnostic of diabetes should be repeated for confirmation. The Sebia Capillary 2 assay for the measurement of HbA1c is a National Glycohemoglobin Standardization Program (NGSP)certified method. Blood BLOOD SPECIMEN / Unknown Venipuncture / Unknown 07/23/2019 2:22 AM [employer] OFFBEARER 07/23/2019 2:29 AM [employer] FE[employer] OFFBEARER Keith Rossi MD LAB - CHEMISTRY [place] [address] [phone] * (ABNORMAL) LIPID PROFILE (07/22/2019 9:05 PM [employer] OFFBEARER) Cholesterol Total 167 <200 mg/dL 07/22/2019 9:42 PM [facility] HDL 45 >40 mg/dL 07/22/2019 9:42 PM [facility] Comment: ATP III Classification of HDL Cholesterol: <40 mg/dL: Considered a major risk factor. >60 mg/dL: Considered a negative risk factor. LDL Calculated 82 <100 mg/dL 07/22/2019 9:42 PM [facility] Comment: ATP III Classification of LDL Cholesterol: <100 mg/dL: Optimal 100 - 129 mg/dL: Near Optimal/Above Optimal 130 - 159 mg/dL: Borderline High 160 - 189 mg/dL: High >190 mg/dL: Very High Triglycerides 198(H) <150 mg/dL 07/22/2019 9:42 PM [facility] Comment: ATP III Classification of Triglycerides: <150 mg/dL: Normal 150 - 199 mg/dL: Borderline High 200 - 400 mg/dL: High >500 mg/dL: Very High Blood BLOOD SPECIMEN / Unknown Venipuncture / Unknown 07/22/2019 9:05 PM [employer] OFFBEARER 07/22/2019 9:20 PM [employer] FE[employer] OFFBEARER Keith Rossi MD LAB - CHEMISTRY [place] [address] [phone] * TYPE + SCREEN PANEL (07/22/2019 9:00 PM [employer] OFFBEARER) Antibody Screen NEG 0 10:08 PM [facility] ABO Rh A POS 07/22/2019 10:08 PM [facility] Blood Bank BLOOD SPECIMEN / Unknown Venipuncture / Unknown 07/22/2019 9:00 PM [employer] OFFBEARER 07/22/2019 9:24 PM [employer] FE[employer] OFFBEARER Enrique Alston MD LAB - BLOOD BANK ORD ERABLES [facility] B[facility]OD [facility] [address] [place] [address] * XR CHEST 1VW PORTABLE (07/22/2019 8:50 PM PERF[employer]ER FEEDER OFFBEARER) Anatomical Region Laterality Modality Chest Radiographic Rachael ging 07/22/2019 9:41 PM [employer] OFFBEARER Impressions 07/23/2019 6:38 AM [employer] FE[employer] OFFBEARER IMPRESSION: Right infrahilar opacity likely reflecting airspace disease and/or atelectasis with possible contribution of prominent right pulmonary artery. Dictated by Kashif Champion MD (resident). Dr. NESTOR Lugo have personally reviewed and interpreted this examination/study. This report was electronically signed by NESTOR MYERS on 07/23/2019 6:38 AM . Narrative 07/23/2019 6:38 AM [employer] OFFBEARER EXAMINATION: Chest radiograph, AP portable HISTORY: CVA [...] bony thorax is intact. Procedure Note Nestor Myers DO - 07/23/2019 EXAMINATION: Chest radiograph, AP [...] artery. Dictated by Kashif Champion MD (resident). Dr. NESTOR Lugo have personally reviewed and interpreted this examination/study. This report was electronically signed by NESTOR MYERS on 07/23/2019 6:38 AM . Keith Rossi MD DIAGNOSTIC IMAGING O RDERABLES * PT-INR [facility] (07/22/2019 8:31 PM PER[employer] FEEDER OFFBEARER) PT 13.5 12.1 - 14.8 Seconds 07/22/2019 8:50 PM [facility] INR 1.1 See Comment 07/22/2019 8:50 PM [facility] Comment:The suggested therap eutic range for standard coumadin (warfarin) therapy is an INR of 2.0-3.0. For high-risk patients (Mechanical Mitral Valve Prosthesis, etc.), the suggested prophylactic therapeutic range is an INR of 2.5-3.5. Blood BLOOD SPECIMEN / Unknown Venipuncture / Unknown 07/22/2019 8:31 PM [employer] OFFBEARER 07/22/2019 8:37 PM [employer] FE[employer] OFFBEARER Enrique Alston MD LAB - COAGULATION OR DERABLES [facility] [address] [place] [address] * (ABNORMAL) CBC W AUTO DIFFERENTIAL (07/22/2019 8:31 PM [employer] FE[employer] OFFBEARER) WBC 13.1(H) 3.5 - 10.5 10 3/uL 07/22/2019 8:49 PM [facility] RBC 4.37 3.90 - 5.00 10 6/uL 07/22/2019 8:49 PM [facility] Hemoglobin 12.8 12.0 - 15.5 g/dL 07/22/2019 8:49 PM [facility] Hematocrit 38.6 35.0 - 45.0 % 07/22/2019 8:49 PM [facility] MCV 88.3 81.0 - 97.0 fL 07/22/2019 8:49 PM [facility] MCH 29.3 28.0 - 34.0 pg 07/22/2019 8:49 PM [facility] MCHC 33.2 32.0 - 36.0 g/dL 07/22/2019 8:49 PM [facility] Platelet Count 316 150 - 400 10 3/uL 07/22/2019 8:49 PM [facility] RDW-SD 43.2 36.0 - 50.0 fL 07/22/2019 8:49 PM [facility] RDW-CV 13.3 11.2 - 14.8 % 07/22/2019 8:49 PM [facility] MPV 9.8 9.3 - 12.8 fL 07/22/2019 8:49 PM [facility] nRBC Absolute 0.00 0 10 3/uL 07/22/2019 8:49 PM [facility] nRBC Auto 0.0 0 /100 WBC 07/22/2019 8:49 PM [facility] Neutrophils % 65.3 35.0 - 70.0 % 07/22/2019 8:49 PM [facility] Lymphocytes % 23.7 19.7 - 55.1 % 07/22/2019 8:49 PM [facility] Monocytes % 7.7 3.0 - 15.0 % 07/22/2019 8:49 PM [facility] Eosinophils % 2.6 0.0 - 6.0 % 07/22/2019 8:49 PM [facility] Basophil % 0.4 0.0 - 1.5 % 07/22/2019 8:49 PM [facility] Neutrophils Absolute 8.5(H) 1.6 - 7.0 10 3/uL 07/22/2019 8:49 PM [facility] Lymphocyte Absolute 3.1(H) 0.8 - 2.9 10 3/uL 07/22/2019 8:49 PM [facility] Monocytes Absolute 1.00(H) 0.14 - 0.66 10 3/uL 07/22/2019 8:49 PM [facility] Eosinophils Absolute 0.34 0.00 - 0.45 10 3/uL 07/22/2019 8:49 PM [facility] Basophils Absolute 0.05 0.00 - 0.06 10 3/uL 07/22/2019 8:49 PM [facility] Immature Granulocytes % 0.3 0.0 - 1.0 % 07/22/2019 8:49 PM [facility] Blood BLOOD SPECIMEN / Unknown Venipuncture / Unknown 07/22/2019 8:31 PM [employer]BEARER 07/22/2019 8:37 PM [employer] OFFBEARER Enrique Alston MD LAB - HEMATOLOGY ORD ERABLES [facility] [address] [place] [address] * (ABNORMAL) COMPREHENSIVE METABOLIC PANEL (07/22/2019 8:31 PM [facility]) BUN 12 7 - 26 mg/dL 07/22/2019 8:59 PM [facility] Creatinine 0.7 0.6 - 1.2 mg/dL 07/22/2019 8:59 PM [facility] Sodium 140 136 - 145 mmol/L 07/22/2019 8:59 PM [facility] Potassium 3.4(L) 3.5 - 4.5 mmol/L 07/22/2019 8:59 PM [facility] Chloride 102 98 - 107 mmol/L 07/22/2019 8:59 PM [facility] CO2 28 22 - 29 mmol/L 07/22/2019 8:59 PM [facility] Glucose 77 70 - 115 mg/dL 07/22/2019 8:59 PM [facility] Calcium 9.3 8.4 - 10.2 mg/dL 07/22/2019 8:59 PM [facility] Protein Total 7.1 6.0 - 8.3 g/dL 07/22/2019 8:59 PM [facility] Albumin 4.0 3.4 - 5.0 g/dL 07/22/2019 8:59 PM [facility] Bilirubin Total 0.4 0.2 - 1.2 mg/dL 07/22/2019 8:59 PM [facility] Alkaline Phosphatase 83 40 - 150 Units/L 07/22/2019 8:59 PM [facility] ALT 16 0 - 55 Units/L 07/22/2019 8:59 PM [facility] AST 16 5 - 34 Units/L 07/22/2019 8:59 PM [facility] Anion Gap 13 8 - 18 07/22/2019 8:59 PM [facility] BUN/Creatinine Ratio 17 7 - 23 07/22/2019 8:59 PM [facility] Osmolality Calculated 289 270 - 300 mOsm/kg 07/22/2019 8:59 PM [facility] Albumin/Globulin Ratio 1.3 1.1 - 2.3 07/22/2019 8:59 PM [facility] eGFR >60 >60 mL/min/1.7 3 m2 07/22/2019 8:59 PM [facility] Blood BLOOD SPECIMEN / Unknown Venipuncture / Unknown 07/22/2019 8:31 PM [employer]ARER 07/22/2019 8:37 PM [employer] OFFBEARER Enrique Alston MD LAB - CHEMISTRY [place] [id number] [address] [phone] * EKG 12-LEAD (07/22/2019 8:15 PM [employer] FE[employer] OFFBEARER) Ventricular Rate 81 BPM [facility] MUSE Atrial Rate 81 BPM [facility] MUSE P-R Interval 194 ms [facility] MUSE QRS Duration ms 84 ms [facility] MUSE Q-T Interval ms 414 ms [facility] MUSE QTC Calculation (Bezet) 480 ms [facility] MUSE Calculated P [place] 70 degrees SL MUSE Calculated R [place] 55 degrees SL MUSE Calculated T [place] 67 degrees [facility] MUSE Interpretation EKG NORMAL SINUS RHYTHM NORMAL ECG NO PREVIOUS ECGS AVAILABLE Confirmed by Jorge L Dunn ([id number]), editorial assistant HUY JOSEPH ([id number]) on 08/06/2019 11:02:08 AM [facility] 07/22/2019 8:15 PM [employer] OFFBEARER 08/06/2019 11:02 AM CDT Enrique Alston MD ECG ORDERABLES Performing Organization Address [facility] Co de Phone Number [facility] * CT ANGIO BRAIN NECK STROKE (07/22/2019 8:09 PM [employer] FE[employer]ER OFFBEARER) Anatomical Region Laterality Modality Head Computed Tomogra phy 07/23/2019 7:54 AM [employer] OFFBEARER Impressions 07/23/2019 10:29 AM [employer] OFFBEARER IMPRESSION: 1. No acute intracranial hemorrhage. 2. No large arterial occlusions or significant stenoses identified in the head or neck. This report was electronically signed by ARISTEO DEGROOT on 07/23/2019 10:29 AM . Narrative 07/23/2019 10:29 AM PERF[employer] FEEDER OFFBEARER CT ANGIO BRAIN NECK STROKE DATE: 07/22/2019 [...]
--- OUTSIDE RECORDS SUMMARY | 2024-07-08 07:44 | XMS_ITS | Clinical Summary ---
Author Organization [facility] [place] [address] Address [address] [place] [address] Care Team Providers Care Police Judge Name Role Phone Ramón Mcdaniel MD Primary Care Provider [phone] Allergies Active Allergy Reactions Criticality Noted Date Comments Adhesive Hives,Redness Medium 05/16/2021 Aspirin Anaphylaxis,Hives High 07/23/2019 Bee Pollen Anaphylaxis High 05/16/2021 Codeine Anaphylaxis,Urticari a High 07/23/2019 Latex Hives,Urticaria Medium 08/07/2017 Hives Other Anaphylaxis High 08/07/2017 Anaphylaxis Peanut Anaphylaxis High 05/16/2021 Penicillins Anaphylaxis,Hives,Ot her (See comments) High 03/28/2014 Reaction: Hives Pseudoephedrine Anaphylaxis,Hives,Ot her (See comments),Urticaria High 03/28/2014 Reaction: With tongue swelling Hives [place] Hives,Itching,Urtica klaus Medium 08/07/2017 Hives Sulfa (Sulfonamide [...] on file Legal Sex Female 2:56 AM L TACKER Gender Identity Not on file Sexual Orientation Not on file Occupation Industry Job Start Date Job End Date disabled Not on file Not on file Not on file Obstetrics History Last Filed Vital Signs Vital Sign Reading Time Taken Comments Blood Pressure 133/79 04/07/2023 9:22 AM L TACKER Pulse 76 04/07/2023 9:22 AM L TACKER Temperature 37 C (98.6 F) 08/15/2021 7:55 AM CDT Respiratory Rate 18 08/15/2021 7:55 AM CDT Oxygen Saturation 96% 08/15/2021 7:55 AM CDT Inhaled Oxygen Concentration - - Weight 71 kg (156 lb 9.6 oz) 04/07/2023 9:22 AM L TACKER Height 152.4 cm (5') 04/07/2023 9:22 AM L TACKER Body Mass Index 30.58 04/07/2023 9:22 AM L TACKER Plan of Treatment Health Maintenance Due Date [...] 02/08/2018, 06/13/2014 Medical Devices Implanted Type Area Evidence Technician Device Identifier Shelf Expiration Date Model / Serial / Lot Bmp Infuse Sm [id number] - [id number] Implanted:Qty: 1 on 08/13/2021 by Jason Garcia MD at [facility] N/A: Spine Lumbar Medtronic Inc 12/23/2022 [id number] / / [id number] [employer] [id number] 1-4mm Freeze Dried Crushed Graft 30ml Bone Cancellous - [id number] Implanted:Qty: 1 on 08/13/2021 by Jason Garcia MD at [facility] N/A: Spine Lumbar Allosource 06/21/2025 [id number] / / [id number] Glob[employer] [id number] Creo Od6.5 Mm L50 Mm Thread; Polyaxial Spine Screw Bone Titanium; - [id number] Implanted:Qty: 3 on 08/13/2021 by Jason Garcia MD at [facility] N/A: Spine Lumbar [employer] [id number] / / Gl[employer] 1119.0010 Creo Thread Spinal Cap Locking Nonsterile - [id number] Implanted:Qty: 8 on 08/13/2021 by Jason Garcia MD at [facility] N/A: Spine Lumbar [employer] 1119.0010 / / Gl[employer] 1119.7125 Creo 5.5mm 125mm Curve Javier Spinal Titanium - [id number] Implanted:Qty: 1 on 08/13/2021 by Jason Garcia MD at [facility] N/A: Spine Lumbar [employer] [id number] / / [employer] [id number] Creo Od7.5 Mm L50 Mm Thread; Polyaxial Spine Screw Bone Titanium; - [id number] Implanted:Qty: 3 on 08/13/2021 by Jason Garcia MD at [facility] N/A: Spine Lumbar [employer] [id number] / / [employer] 1119.7125 Creo 5.5mm 125mm Curve Javier Spinal Titanium - [id number] Implanted:Qty: 1 on 08/13/2021 by Jason Garcia MD at [facility] N/A: Spine Lumbar [employer] [id number] / / Globus [id number] Implanted:Qty: 1 on 08/13/2021 by Jason Garcia MD at [facility] N/A: Spine Lumbar GLOBUS [id number] / / Description:Correction. Scre w is 75x40 NOT 75x45 Globuys Tlif Cage [id number] Implanted:Qty: 1 on 08/13/2021 by Jason Garcia MD at [facility] N/A: Spine Lumbar GLOBUS 168.251 / / Procedures Procedure Name Priority Date/Time Associated Diagnosis Comments EGFR Routine 08/15/2021 2:46 AM CDT POCT HEMOGLOBIN A1C Routine 08/09/2021 5 :12 PM CDT SERUM LIPID PANEL Routine 07/21/2015 8:3 5 PM L TACKER from Last 3 Months or Most Recently [...] ORDERABLES Fin al Result Performing Organization Address [facility] Co de Phone Number [facility] [address] [facility] [place] [address] * (ABNORMAL) POCT hemoglobin A1c (08/09/2021 5:12 PM CDT) Pathologist [facility] Hgb A1C, POC 5.7(H) 4.0 - 5.6 % [facility] Est Average Gluc POC 117 mg/dL [facility] Comment: The ADA recommends reporting an estimated Average Glucose (eAG) with all Hemoglobin A1c results using the equation derived from a study of 507 normal and diabetic adults. Minority populations were underrepresented and children were not included. (Diabetes Care 31:3705-7524, 2008). The eAG is not equivalent to a fasting glucose. Blood 08/09/2021 5:12 PM CDT 08/09/2021 5:12 PM CDT us Jason Garcia MD POINT OF CARE TEST ORD ERABLES Final Result Performing Organization Address City/[facility]/ZIP Co de Phone Number [facility] [place] [address] * Serum lipid panel (07/21/2015 8:35 PM L TACKER) Cholesterol 192 0 - 200 mg/dl HISTORICAL [...] last revised 2011. Serum 07/21/2015 8:35 PM L TACKER us Hudson Yung MD LAB BLOOD ORDERABLES Final Res ult HISTORICAL RESULTS from Last 3 Months or Most Recently Relevant to Health Maintenance Insurance [facility] ADVANTRA [facility] ADVANTRA [place] AETNA MCR ADVANTRA IDPA WORKERS COMPENSATION GENERIC [facility] ADVANTRA WORKERS COMPENSATION GENERIC Advance Directives For more information, please contact: [phone] * Full Code (Latest Code Status on File) Date Activated Date Inactivated Comments 08/13/2021 3:04 PM 08/15/2021 3:49 PM * Full Code Date Activated Date Inactivated Comments 07/26/2021 4:34 AM 07/27/2021 1:56 PM Care Teams Police Judge Relationship Specialty Start Date End Date Ramón Mcdaniel MD PCP - General Family Practice 02/17/23
--- OUTSIDE RECORDS SUMMARY | 2024-07-08 07:44 | XMS_ITS | Clinical Summary ---
Author Organization [facility] Address [address] [place] [address] Care Team Providers Care Hospice Physician Name Role Phone Unavailable Primary Care Provider Unavailabl e Source Comments [facility],non-[facility] Affiliates and Associated Physician Practices is amultiple site organization consisting of ambulatory clinics and hospital sitesin [place], [place], [place] and [place]. This disclosure is being madepursuant to the Care Everywhere program and may not contain all information available regarding this patient. Last updated 18.[facility] [place] Allergies Active Allergy Reactions Criticality Noted Date Comments Aspirin Anaphylaxis High 07/23/2019 Codeine Urticaria Medium 07/23/2019 Honey Bee Venom Anaphylaxis High 07/23/2019 Latex Urticaria Medium 07/23/2019 Peanut-Derived Anaphylaxis High 07/23/2019 Penicillin G Anaphylaxis High 07/23/2019 Penicillins Anaphylaxis High 07/23/2019 Pseudoephedrine Base Urticaria Medium 07/23/2019 With tongue swelling U[place]es Urticaria Medium 07/23/2019 Sulfa Drugs Anaphylaxis High [...] Comments Blood Pressure 139/79 07/24/2019 4:42 PM HIGH SCHOOL AUTO REPAIR TEACHER Pulse 80 07/24/2019 4:17 PM HIGH SCHOOL AUTO REPAIR TEACHER Temperature 36.8 C (98.2 F) 07/24/2019 4:17 PM HIGH SCHOOL AUTO REPAIR TEACHER Respiratory Rate 20 07/24/2019 4:17 PM HIGH SCHOOL AUTO REPAIR TEACHER Oxygen Saturation 99% 07/24/2019 4:17 PM HIGH SCHOOL AUTO REPAIR TEACHER Inhaled Oxygen Concentration - - Weight 62.9 kg (138 lb 9.6 oz) 07/22/2019 10:38 PM HIGH SCHOOL AUTO REPAIR TEACHER Height 152.4 cm (5') 07/22/2019 10:38 PM HIGH SCHOOL AUTO REPAIR TEACHER Body Mass Index 27.07 07/22/2019 10:38 PM HIGH SCHOOL AUTO REPAIR TEACHER Plan of Treatment Health Maintenance Due Date [...] VACCINE (1 of 2) 2010 COVID-19 VACCINE (1 - 2023-2 5 season) 2024 INFLUENZA VACCINE (#1) 2024 DEPRESSION SCREENING 05/26/2024 MEDICARE AWV CALENDAR YEAR 2024 Respiratory Syncytial Virus (RSV) [...]
--- OUTSIDE RECORDS SUMMARY | 2024-07-08 07:44 | XMS_ITS | Encounter Summary ---
Author Organization [facility] Healthcare Address [address] [place] [address] Care Team Providers Care Basketball Commentator Name Role Phone Kobi Amezquita Primary Care Provider [phone] Ramón Mcdaniel MD Primary Care Provider [phone] Encounter Details Date Type Department Care Team (Late st Contact Info) Description 08/15/2021 Documentation 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
== END 2024-07-08 07:40 | disposition home or self-care (01) ==
PROVIDERS: PCP Family Medicine; Visit Provider Internal Medicine Gastroenterology
DX: K30 Functional dyspepsia (principal)
CPT/HCPCS: 78264; A9541

== ENCOUNTER 2024-07-24 17:46 | Emergency (ER) | payer MEDICARE, MEDICAID, SELFPAY ==
--- NOTE | 2024-07-24 17:53 | ED.FEMALEGU ---
HPI - Female Genitourinary General Chief complaint: Urogenital-Female Stated complaint: vaginal issues Source: patient and RN notes reviewed Mode of arrival: ambulatory Limitations: no limitations History of Present Illness HPI Narrative: 63-year-old female history of AFib, diabetes, COPD and kidney stones presented for complaint of right flank pain and vaginal discomfort. Onset yesterday. Pain is described as stabbing. states she thought she passed a kidney stone yesterday because she saw a lot of blood in urine. Patient also endorses vaginal itching, red/brown vaginal discharge, blood in urine, dysuria, fever, and nausea. Reports fever up to 102.5 this morning. Also reports severe increase thirst. Does not regularly check blood glucose. Denies diarrhea or body aches. Taking hydrocodone for pain. Hx hysterectomy, denies concern for STD. Says her last kidney stone was about a year ago. Related Data Home Medications ?Medication ?Instructions ?Recorded ?Confirmed ?Last Taken ?Type multivitamin 1 cap PO DAILY 10/24/22 06/28/24 06/27/24 History buspirone 10 mg tablet 10 mg PO BID 12/15/23 06/25/24 Unknown History quetiapine 50 mg tablet 50 mg PO HS 12/15/23 06/28/24 06/27/24 History aripiprazole 2 mg tablet 2 mg PO HS 06/25/24 06/28/24 06/27/24 History buspirone 15 mg tablet 15 mg PO BID 06/25/24 06/28/24 06/27/24 History Allergies Allergy/AdvReac Type Severity Reaction Status Date / Time aspirin Allergy Severe Anaphylactic Verified 07/24/24 17:57 Shock bee venom protein (honey bee) Allergy Severe Anaphylactic Verified 07/24/24 17:57 Shock Penicillins Allergy Severe Anaphylaxis Verified 07/24/24 17:57 pseudoephedrine Allergy Severe Anaphylaxis Verified 07/24/24 17:57 Sulfa (Sulfonamide Allergy Severe Anaphylaxis Verified 07/24/24 17:57 Antibiotics) codeine Allergy Mild Hives Verified 07/24/24 17:57 latex Allergy Mild Hives Verified 07/24/24 17:57 strawberry Allergy Mild Hives Verified 07/24/24 17:57 Review of Systems Review of Systems: CONSTITUTIONAL: Denies body aches, fever, chills, or sweats. CARDIOVASCULAR: Denies chest pain, palpitations, or edema. RESPIRATORY: Denies cough or dyspnea. GASTROINTESTINAL: Denies abdominal pain, nausea, vomiting, or diarrhea. GENITOURINARY: Reports dysuria, hematuria, flank pain vaginal itching and discharge SKIN: Denies rash or wounds. MUSCULOSKELETAL: Denies back pain or myalgia. [facility] Past Medical History Medical History Tobacco abuse Suicide attempt Depression with anxiety Arthritis Hyperlipidemia Transient ischemic attack Missed x2 Vaginal delivery x1 Cervical radiculopathy Essential hypertension Insomnia with sleep apnea, unspecified Other dissociative and conversion disorders Prediabetes Surgical History Surgical History History of carpal tunnel release History of arthroscopy of right knee History of tonsillectomy History of 3 sections History of spinal fusion History of right oophorectomy 09/1985 History of bilateral salpingectomy 09/1985 History of hysterectomy 09/1985 History of appendectomy Family History Family History Mother Family history of premature coronary heart disease, Onset Age: 62 Family history of malignant neoplasm of breast in first degree relative Patient's mother is Family history of gout Hypertension Family history of diabetes mellitus in first degree relative Family history of heart disease in male family member before age 55 Family history of malignant neoplasm of breast Diabetes mellitus Family history of cardiovascular disease Cerebrovascular accident Sibling Family history of kidney disease Family history of seizure disorder Family history of pancreatic cancer Diabetes mellitus Hypertension Family history of cardiovascular disease Family history of malignant neoplasm Father Malignant neoplasm of prostate, Onset Age: 50 Patient's father is Cerebrovascular accident Family history of arthritis Carcinoma of colon Grandparent Family history of malignant neoplasm of brain, Onset Age: 42 Social History Social History Social History: Surrogate medical decision maker: Enrique Menezes, spouse. Code status: Full code. Smoking packs per day: 0.50 Smoking cigarettes per day: 10.0 Years smoked: 30 Smoking pack-years: 15.00 Smoking status: Former smoker Second hand tobacco smoke exposure: Yes Alcohol intake: never Substance use: current Substance use type: marijuana Last use: 04/04/2023 Lack of Transportation: No Lack of Food: Never True Current Housing: I Have Housing Concerned About Future Housing: No Difficulty Paying Gas/Electric Bills: No Difficulty Paying for Meds: No Currently Unemployed: No Education: Associate Degree Difficulty w/ Childcare or Family Care: No Living arrangements: with family Spiritual care concerns: No Agree to blood products: Yes Comments At time of signature, I have reviewed and agree with nursing past medical, surgical, social and family history unless otherwise noted. Please see nursing chart for further information. There is no relevant family history pertinent to the presenting complaint Exam Narrative: GENERAL: Well-appearing ENT: Mucous membranes pink and moist. NECK: Normal AROM. Supple. CHEST: No respiratory distress. Clear to auscultation. HEART: Regular rate and rhythm. ABDOMEN: Soft, nondistended, normal active bowel sounds. Suprapubic tenderness with palpation. Right CVA tenderness SKIN: Warm, dry, no rash. NEURO: No focal deficits. Alert and oriented x3. Gait steady. Course Course Emergency Course: Patient is aware of diagnosis, understands and agrees to treatment plan. Anticipatory guidance given. Patient agrees to follow-up as directed and is aware of reasons to seek care at the emergency department. Portions of this record may have been created with voice recognition software Level of Care: Express Care Visit Vital Signs Vital signs: Reviewed Transfer Transfered to: Other ([facility]) Transportation: Other (private vehicle) Transfer rationale: Pt is agreeable to transfer. Requests transfer to [facility] via private vehicle. Risks of transportation reviewed with pt including injury, worsening of condition and . v/u.Report called to hospital, spoke with Gladis Cheek, accepting physician. Pt is in stable condition at time of transfer. Advised to remain NPO and go directly to the hospital. MDM - Female Genitourinary MDM Narrative Medical decision making narrative: Discussed physical exam findings, BS 86, urine dip unremarkable. Given pt's report of stabbing right flank pain and hx renal stones, advised ER transfer. Pt requests [facility]. Differential Diagnosis Differential diagnosis: Likely urinary tract infection, bacterial vaginosis, trichomoniasis, vaginitis and cystitis Discharge Plan Discharge Clinical Impression: Acute right flank pain Patient Disposition: Acute Care Hospital Condition: Stable Patient Language: Syriac Prescriptions: No Action carvedilol 12.5 mg tablet 12.5 mg PO Q12H Qty: 180 2RF Rx Instructions: must administer with a meal/food buspirone 10 mg tablet 10 mg PO BID quetiapine 50 mg tablet 50 mg PO HS multivitamin Capsule 1 cap PO DAILY aripiprazole 2 mg tablet 2 mg PO HS buspirone 15 mg tablet 15 mg PO BID atorvastatin 80 mg tablet See Rx Instructions .ROUTE .COMPLEX Qty: 100 1RF Dose Instruction: TAKE 1 TABLET BY MOUTH DAILY Rx Instructions: TAKE 1 TABLET BY MOUTH DAILY amlodipine 10 mg tablet 10 mg PO DAILY Qty: 90 1RF clopidogrel 75 mg tablet See Rx Instructions .ROUTE .COMPLEX Qty: 90 2RF Dose Instruction: TAKE 1 TABLET BY MOUTH DAILY Rx Instructions: TAKE 1 TABLET BY MOUTH DAILY sertraline 100 mg tablet See Rx Instructions .ROUTE .COMPLEX Qty: 90 1RF Dose Instruction: TAKE 1 TABLET BY MOUTH DAILY Rx Instructions: TAKE 1 TABLET BY MOUTH DAILY metformin 500 mg tablet extended release 24 hr 500 mg PO QPM Qty: 100 1RF pregabalin [Lyrica] 75 mg capsule 75 mg PO TID Qty: 90 3RF Mounjaro 7.5 mg/0.5 mL pen injector 7.5 mg subcut WEEKLY Qty: 2 2RF hydrocodone-acetaminophen 7.5-325 mg tablet 1 tablet PO Q8H PRN (Reason: pain) Qty: 80 0RF Patient Comments: takes q 8hours Follow-up/Referrals: Ramón Mcdaniel MD [Primary Care Provider] - Time of Disposition: 18:37
[2024-07-24 17:56] VITALS: BP 152/88; PULSE 97; RESP 18; TEMP 37.1; O2SAT 99
[2024-07-24 18:14] LABS: EDUAAPPEAR Clear; EDUABILI Negative (Negative); EDUABLOOD Negative (Negative); EDUACOLOR1 Yellow; EDUAGLUCOSE Negative (Negative); EDUAKETONE Negative (Negative); EDUALEUKO Negative (Negative); EDUANITRATE Negative (Negative); EDUAPH 6.5; EDUAPROTEIN Negative (Negative); EDUAUROBILI 0.2
[2024-07-24 18:18] LABS: Glucose Point of Care 86 mg/dl (65-105)
== END 2024-07-24 18:28 | disposition short-term general hospital (02) ==
LOC: EXPTROY 17:49
PROVIDERS: Emergency Provider Nurse Practitioner Family; PCP Family Medicine
DX: R10.9 Unspecified abdominal pain (principal); Z87.891 Personal history of nicotine dependence; M19.90 Unspecified osteoarthritis, unspecified site; E78.5 Hyperlipidemia, unspecified; Z86.73 Personal history of transient ischemic attack (TIA), and cerebral infarction without residual deficits; I10 Essential (primary) hypertension; R73.03 Prediabetes; F41.8 Other specified anxiety disorders
CPT/HCPCS: 81003; 82948; 87086; 99213; G0463

== ENCOUNTER 2024-08-10 14:33 | Outpatient (CLI) | payer MEDICARE, MEDICAID, SELFPAY ==
--- NOTE | ~2024-08-10 | CT_ITS ---
CT scan of the Neck Technique: 2.5 mm axial scans were obtained through the neck after intravenous administration of 75 c c Omnipaque 350. Coronal and sagittal reconstructions of the neck were obtained. Dose reduction techn ique was used on this scan by utilizing automated exposure control and iterative reconstruction techn ique. The dose-length product (DLP) was 389.25 mGy-cm. Clinical History: Follow-up of focal cord and larynx Findings: There is no evidence of any significant cervical lymphadenopathy. Several small, nonenlarged jugulo- digastric and posterior cervical lymph nodes are noted bilaterally. Parapharyngeal spaces appear norm al bilaterally. The parotid and submandibular glands appear normal. The pharyngeal mucosal spaces appear normal. No soft tissue masses are seen in the neck. The thyroid gland appears normal. Images of the lung apices reveal no abnormalities. There is anterio r and interbody fusion from C4 through C7. There is 3 mm anterolisthesis of C2 over C3. There is adva nced degenerative disc narrowing at C3-C4 and C7-T1. Impression: No soft tissue mass or polyp evident. Postsurgical and degenerative changes of the cervical spine, as above. Reviewed, dictated and finalized at location . Impression: No soft tissue mass or polyp evident. Postsurgical and degenerative changes of the cervical spine, as above.
[2024-08-10 14:49] LABS: Estimated Glomerular Filt Rate > 60
== END 2024-08-10 14:34 | disposition home or self-care (01) ==
PROVIDERS: PCP Family Medicine; Visit Provider Otolaryngology
DX: J38.1 Polyp of vocal cord and larynx (principal); J37.0 Chronic laryngitis; K21.9 Gastro-esophageal reflux disease without esophagitis; R13.10 Dysphagia, unspecified
CPT/HCPCS: 70491; Q9967

== ENCOUNTER 2024-10-15 12:48 | Outpatient (CLI) | payer MEDICARE, MEDICAID, SELFPAY ==
--- OUTSIDE RECORDS SUMMARY | 2024-10-15 12:51 | XMS_ITS | Clinical Summary ---
Author Organization [facility] [place] Address [address] [place] [address] Care Team Providers Care Registered Route Associate Name Role Phone Unavailable Primary Care Provider Unavailabl e Source Comments [facility] [place],non-[facility] Affiliates and Associated Physician Practices is amultiple site organization consisting of ambulatory clinics and hospital sitesin [place], [place], [place]. This disclosure is being madepursuant to the Care Everywhere program and may not contain all information available regarding this patient. Last updated 18.[facility] [place] Allergies Active Allergy Reactions Criticality Noted Date Comments Aspirin Anaphylaxis High 07/23/2019 Codeine Urticaria Medium 07/23/2019 Honey Bee Venom Anaphylaxis High 07/23/2019 Latex Urticaria Medium 07/23/2019 Peanut-Derived Anaphylaxis High 07/23/2019 Penicillin G Anaphylaxis High 07/23/2019 Penicillins Anaphylaxis High 07/23/2019 Pseudoephedrine Base Urticaria Medium 07/23/2019 With tongue swelling [place] Urticaria Medium 07/23/2019 Sulfa Drugs Anaphylaxis High 07/23/2019 Medications * Be aware that medications may not be up to date on this document. Alwaysverify current medications with the patient. 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 Gender Identity Not on file Sexual Orientation Not on file Last Filed Vital Signs Vital Sign Reading Time Taken Comments Blood Pressure 139/79 07/24/2019 4:42 PM ELECTRIC LOCOMOTIVE FIRER/FIREMAN Pulse 80 07/24/2019 4:17 PM ELECTRIC LOCOMOTIVE FIRER/FIREMAN Temperature 36.8 C (98.2 F) 07/24/2019 4:17 PM ELECTRIC LOCOMOTIVE FIRER/FIREMAN Respiratory Rate 20 07/24/2019 4:17 PM ELECTRIC LOCOMOTIVE FIRER/FIREMAN Oxygen Saturation 99% 07/24/2019 4:17 PM ELECTRIC LOCOMOTIVE FIRER/FIREMAN Inhaled Oxygen Concentration - - Weight 62.9 kg (138 lb 9.6 oz) 07/22/2019 10:38 PM ELECTRIC LOCOMOTIVE FIRER/FIREMAN Height 152.4 cm (5') 07/22/2019 10:38 PM ELECTRIC LOCOMOTIVE FIRER/FIREMAN Body Mass Index 27.07 07/22/2019 10:38 PM ELECTRIC LOCOMOTIVE FIRER/FIREMAN Plan of Treatment Health Maintenance Due Date [...] VACCINE (1 - 2023-2 5 season) 2024 DEPRESSION SCREENING 05/26/2024 MEDICARE AWV CALENDAR YEAR 2024 INFLUENZA VACCINE (Season Ended) 2025 Respiratory Syncytial Virus (RSV) Vaccine Pt: or [...] to complete this topic MENINGOCOCCAL (Group B) VACC INE SHARED DECISION-MAKING Aged Out No longer eligibl e based on patient's age to complete this topic MENINGOCOCCAL GROUPS A/C/Y/W VACCINE Aged Out No longer eligible b ased on patient's age to complete this topic Insurance [facility] MANAGED MEDICARE ADV MEDICAID - [place] SELF PAY NO INSURANCE Member Subscriber Plan / Payer (Ef fective for All Dates) Name:Gloria Menezes Member ID:Not on file Relation to Subscriber:Not on file Name:GLORIA MENEZES Subscriber ID:Not on file (Home) Address: [address] [id number] Payer ID:Not on file Group ID:Not on file Type:Self Pay Address: [place], [place] UHC MANAGED MEDICARE ADV Advance Directives * Full Code (Latest Code Status on File) Date Activated Date Inactivated Comments 07/22/2019 8:22 PM 07/24/2019 8:59 PM * Full Code Date Activated Date Inactivated Comments 07/22/2019 7:59 PM 07/22/2019 9:35 PM
--- OUTSIDE RECORDS SUMMARY | 2024-10-15 12:51 | XMS_ITS | Referral Summary ---
Author Organization [facility] [address] Address [address] [place] [address] Care Team Providers Care Manager Property Name Role Phone Ramón Mcdaniel MD Primary Care Provider [phone] Allergies Active Allergy Reactions Criticality Noted Date Comments Adhesive Hives,Redness Medium 05/16/2021 Aspirin Anaphylaxis,Hives High 07/23/2019 Bee Pollen Anaphylaxis High 05/16/2021 Codeine Anaphylaxis,Urticari a High 07/23/2019 Latex Hives,Urticaria Medium 08/07/2017 Hives Other Anaphylaxis High 08/07/2017 Anaphylaxis Peanut Anaphylaxis High 05/16/2021 Penicillins Anaphylaxis,Hives,Ot her (See comments) High 03/28/2014 Reaction: Hives Pseudoephedrine Anaphylaxis,Hives,Ot her (See comments),Urticaria High 03/28/2014 Reaction: With tongue swelling Hives [place] Hives,Itching,Urtica klaus Medium 08/07/2017 Hives Sulfa (Sulfonamide [...] 05/06/2018 Type 2 diabetes mellitus without complication Strabismus 05/06/2018 Persistent insomnia 05/06/2018 Overweight 05/06/2018 [...] on file Legal Sex Female 2:56 AM DOLL MAKER Gender Identity Not on file Sexual Orientation Not on file Occupation Industry Job Start Date Job End Date disabled Not on file Not on file Not on file Last Filed Vital Signs Vital Sign Reading Time Taken Comments Blood Pressure 133/79 04/07/2023 9:22 AM DOLL MAKER Pulse 76 04/07/2023 9:22 AM DOLL MAKER Temperature 37 C (98.6 F) 08/15/2021 7:55 AM CDT Respiratory Rate 18 08/15/2021 7:55 AM CDT Oxygen Saturation 96% 08/15/2021 7:55 AM CDT Inhaled Oxygen Concentration - - Weight 71 kg (156 lb 9.6 oz) 04/07/2023 9:22 AM DOLL MAKER Height 152.4 cm (5') 04/07/2023 9:22 AM DOLL MAKER Body Mass Index 30.58 04/07/2023 9:22 AM DOLL MAKER Plan of Treatment Not on file Medical Devices Implanted Type Area Blueprinter Device Identifier Shelf Expiration Date Model / Serial / Lot Bmp Infuse Sm [id number] - [id number] Implanted:Qty: 1 on 08/13/2021 by Jason Garcia MD at [facility] N/A: Spine Lumbar Medtronic Inc 12/23/2022 [id number] / / [id number] Joint [employer] [id number] 1-4mm Freeze Dried Crushed Graft 30ml Bone Cancellous - [id number] Implanted:Qty: 1 on 08/13/2021 by Jason Garcia MD at [facility] N/A: Spine Lumbar Allosource 06/21/2025 [id number] / / [id number] [facility] GettingHired 5146.1652 Creo Od6.5 Mm L50 Mm Thread; Polyaxial Spine Screw Bone Titanium; - [id number] Implanted:Qty: 3 on 08/13/2021 by Jason Garcia MD at [facility] N/A: Spine Lumbar Globus [employer] 5146.1652 / / Globus [employer] 1119.0010 Creo Thread Spinal Cap Locking Nonsterile - [id number] Implanted:Qty: 8 on 08/13/2021 by Jason Garcia MD at [facility] N/A: Spine Lumbar [employer] 1119.0010 / / [employer] 1119.7125 Creo 5.5mm 125mm Curve Javier Spinal Titanium - [id number] Implanted:Qty: 1 on 08/13/2021 by Jason Garcia MD at [facility] N/A: Spine Lumbar [employer] 1119.7125 / / [employer] 5146.1752 Creo Od7.5 Mm L50 Mm Thread; Polyaxial Spine Screw Bone Titanium; - [id number] Implanted:Qty: 3 on 08/13/2021 by Jason Garcia MD at [facility] N/A: Spine Lumbar [employer] 5146.1752 / / [employer] 1119.7125 Creo 5.5mm 125mm Curve Javier Spinal Titanium - [id number] Implanted:Qty: 1 on 08/13/2021 by Jason Garcia MD at [facility] N/A: Spine Lumbar [employer] 1119.7125 / / Globus 75x45 Implanted:Qty: 1 on 08/13/2021 by Jason Garcia MD at [facility] N/A: Spine Lumbar GLOBUS 5146.1742 / / Description:Correction. Scre w is 75x40 NOT 75x45 Globuys Tlif Cage [id number] Implanted:Qty: 1 on 08/13/2021 by Jason Garcia MD at [facility] N/A: Spine Lumbar GLOBUS 168.251 / / Procedures Procedure Name Priority Date/Time Associated Diagnosis Comments EGFR Routine 08/15/2021 2:46 AM CDT POCT HEMOGLOBIN A1C Routine 08/09/2021 5 :12 PM CDT SERUM LIPID PANEL Routine 07/21/2015 8:3 5 PM DOLL MAKER from Last 3 Months or Most Recently [...] us Blayne Elise MD LAB BLOOD ORDERABLES [facility] al Result Performing Organization Address City/State/[facility] Co ut Phone Number [facility] [address] [facility] Department [place] [address] * (ABNORMAL) POCT hemoglobin A1c (08/09/2021 5:12 PM CDT) Hgb A1C, POC 5.7(H) 4.0 - 5.6 % [facility] Est Average Gluc POC 117 mg/dL [facility] Comment: The ADA recommends reporting an estimated Average Glucose (eAG) with all Hemoglobin A1c results using the equation derived from a study of 507 normal and diabetic adults. Minority populations were underrepresented and children were not included. (Diabetes Care 31:2843-4377, 2008). The eAG is not equivalent to a fasting glucose. Blood 08/09/2021 5:12 PM CDT 08/09/2021 5:12 PM CDT Jason Garcia MD POINT OF CARE TEST ORD ERABLES Final Result [facility] Department [place] [address] * Serum lipid panel (07/21/2015 8:35 PM DOLL MAKER) Cholesterol 192 0 - 200 mg/dl HISTORICAL [...] last revised 2011. Serum 07/21/2015 8:35 PM DOLL MAKER us Hudson Yung MD LAB BLOOD ORDERABLES Final Res ult HISTORICAL RESULTS from Last 3 Months or Most Recently Relevant to Health Maintenance Insurance [facility] [email or web address] [employer] [facility] TapEngage IDPA [facility] IDPA WORKERS COMPENSATION GENERIC [facility] AETNA MCR ADVANTRA WORKERS COMPENSATION GENERIC Advance Directives For more information, please contact: [phone] * Full Code (Latest Code Status on File) Date Activated Date Inactivated Comments 08/13/2021 3:04 PM 08/15/2021 3:49 PM * Full Code Date Activated Date Inactivated Comments 07/26/2021 4:34 AM 07/27/2021 1:56 PM Care Teams Manager Property Relationship Specialty Start Date End Date Ramón Mcdaniel MD PCP - General Family Practice 02/17/23
--- OUTSIDE RECORDS SUMMARY | 2024-10-15 12:51 | XMS_ITS | Encounter Summary ---
Author Organization [facility] Address [address] [place] [address] Care Team Providers Care Tire And Lube Technician Name Role Phone Kobi Amezquita Primary Care Provider [phone] Ramón Mcdaniel MD Primary Care Provider [phone] Encounter Details Date Type Department Care Team (Late st Contact Info) Description 08/15/2021 Documentation [facility] Case Management [address] [place] [address] Jacque Conte RN Social History Tobacco Use [...] on file Legal Sex Female 2:56 AM SILK TRIMMER Gender Identity Not on file Sexual Orientation Not on file Occupation Industry Job Start Date Job End Date disabled Not on file Not on file Not on file documented as of this encounter Plan of Treatment Not on file documented as of this encounter Visit Diagnoses Not on filedocumented in this encounter Care Teams Tire And Lube Technician Relationship Specialty Start Date End Date Kobi Amezquita DO PCP - General Internal Medicine 04/11/20 02/16/23 Ramón Mcdaniel MD PCP - General Family Practice 02/17/23 documented as of this encounter
--- OUTSIDE RECORDS SUMMARY | 2024-10-15 12:51 | XMS_ITS | Clinical Summary ---
Author Organization [facility] [address] Address [address] [place] [address] Care Team Providers Care Barrel Inspector Tight Name Role Phone Ramón Mcdaniel MD Primary Care Provider [phone] Allergies Active Allergy Reactions Criticality Noted Date Comments Adhesive Hives,Redness Medium 05/16/2021 Aspirin Anaphylaxis,Hives High 07/23/2019 Bee Pollen Anaphylaxis High 05/16/2021 Codeine Anaphylaxis,Urticari a High 07/23/2019 Latex Hives,Urticaria Medium 08/07/2017 Hives Other Anaphylaxis High 08/07/2017 Anaphylaxis Peanut Anaphylaxis High 05/16/2021 Penicillins Anaphylaxis,Hives,Ot her (See comments) High 03/28/2014 Reaction: Hives Pseudoephedrine Anaphylaxis,Hives,Ot her (See comments),Urticaria High 03/28/2014 Reaction: With tongue swelling Hives [place] Hives,Itching,Urtica klaus Medium 08/07/2017 Hives Sulfa (Sulfonamide [...] leed Stroke (HCC) Depression Hypercholesteremia Hypertension Cancer (HCC) Kidney stone GERD (gastroesophageal reflux disease) [...] Smoking Tobacco: Former Cigarettes 1 33 1 980 - 2012 Smokeless Tobacco: Never Alcohol Use [...] on file Legal Sex Female 2:56 AM DESTINATION SIGN REPAIRER Gender Identity Not on file Sexual Orientation Not on file Occupation Industry Job Start Date Job End Date disabled Not on file Not on file Not on file Obstetrics History Last Filed Vital Signs Vital Sign Reading Time Taken Comments Blood Pressure 133/79 04/07/2023 9:22 AM DESTINATION SIGN REPAIRER Pulse 76 04/07/2023 9:22 AM DESTINATION SIGN REPAIRER Temperature 37 C (98.6 F) 08/15/2021 7:55 AM CDT Respiratory Rate 18 08/15/2021 7:55 AM CDT Oxygen Saturation 96% 08/15/2021 7:55 AM CDT Inhaled Oxygen Concentration - - Weight 71 kg (156 lb 9.6 oz) 04/07/2023 9:22 AM DESTINATION SIGN REPAIRER Height 152.4 cm (5') 04/07/2023 9:22 AM DESTINATION SIGN REPAIRER Body Mass Index 30.58 04/07/2023 9:22 AM DESTINATION SIGN REPAIRER Plan of Treatment Health Maintenance Due Date [...] Panel 07/22/2020 07/22/2019, 07/21/2015 Hemoglobin A1C 02/09/2022 08/09/2021, 07/23/2019 Depression Screening 07/25/2022 07/25/2021, 07/25/2021, 12/14/2020, Additional history exists eGFR 08/15/2022 08/15/2021, 07/25, 08/13/2021, Additional history exists DTaP/Tdap/Td Vaccine (2 - Td or Tdap) 05/26/2023 05/26/2013 Covid-19 Vaccine (3 - 2023-2 5 season) 2024 06/04/2021, 08/31/2020 Influenza Vaccine (Season Ended) 2025 02/19/2018, 02/08/2018, 06/13/2014 Medical Devices Implanted Type Area Referral Rn Device Identifier Shelf Expiration Date Model / Serial / Lot Bmp Infuse Sm [id number] - [id number] Implanted:Qty: 1 on 08/13/2021 by Jason Garcia MD at [facility] N/A: Spine Lumbar Medtronic Inc 12/23/2022 [id number] / / [id number] Joint [employer] [id number] 1-4mm Freeze Dried Crushed Graft 30ml Bone Cancellous - [id number] Implanted:Qty: 1 on 08/13/2021 by Jason Garcia MD at [facility] N/A: Spine Lumbar Allosource 06/21/2025 [id number] / / [id number] Globus [employer] 5146.1652 Creo Od6.5 Mm L50 Mm Thread; Polyaxial Spine Screw Bone Titanium; - [id number] Implanted:Qty: 3 on 08/13/2021 by Jason Garcia MD at [facility] N/A: Spine Lumbar [employer] 5146.1652 / / Glob[employer] 1119.0010 Creo Thread Spinal Cap Locking Nonsterile - [id number] Implanted:Qty: 8 on 08/13/2021 by Jason Garcia MD at [facility] N/A: Spine Lumbar [employer] 1119.0010 / / [employer] 1119.7125 Creo 5.5mm 125mm Curve Javier Spinal Titanium - [id number] Implanted:Qty: 1 on 08/13/2021 by Jason Garcia MD at [facility] N/A: Spine Lumbar [employer] 1119.7125 / / [employer] 5146.1752 Creo Od7.5 Mm L50 Mm Thread; Polyaxial Spine Screw Bone Titanium; - [id number] Implanted:Qty: 3 on 08/13/2021 by Jason Garcia MD at [facility] N/A: Spine Lumbar [employer] 5146.1752 / / [employer] 1119.7125 Creo 5.5mm 125mm Curve Javier Spinal Titanium - [id number] Implanted:Qty: 1 on 08/13/2021 by Jason Garcia MD at [facility] N/A: Spine Lumbar [employer] 1119.7125 / / Globus 75x45 Implanted:Qty: 1 on 08/13/2021 by Jason Garcia MD at [facility] N/A: Spine Lumbar GLOBUS 5146.1742 / / Description:Correction. Scre w is 75x40 NOT 75x45 Globuys Tlif Cage [id number] Implanted:Qty: 1 on 08/13/2021 by Jason Garcia MD at [facility] N/A: Spine Lumbar GLOBUS 168.251 / / Procedures Procedure Name Priority Date/Time Associated Diagnosis Comments EGFR Routine 08/15/2021 2:46 AM CDT POCT HEMOGLOBIN A1C Routine 08/09/2021 5 :12 PM CDT SERUM LIPID PANEL Routine 07/21/2015 8:3 5 PM DESTINATION SIGN REPAIRER from Last 3 Months or Most Recently Relevant to Health Maintenance Results * eGFR (08/15/2021 2:46 AM CDT) [facility] eGFR 99 mL/min/1. 73 m2 NATALIO [facility] [...] ORDERABLES Fin al Result Performing Organization Address [facility] [[email or web address]] Co de Phone Number [facility] [address] [facility] [place] [address] * (ABNORMAL) POCT hemoglobin A1c (08/09/2021 5:12 PM CDT) Hgb A1C, POC 5.7(H) 4.0 - 5.6 % [facility] Est Average Gluc POC 117 mg/dL [facility] Comment: The ADA recommends reporting an estimated Average Glucose (eAG) with all Hemoglobin A1c results using the equation derived from a study of 507 normal and diabetic adults. Minority populations were underrepresented and children were not included. (Diabetes Care 31:8994-2673, 2008). The eAG is not equivalent to a fasting glucose. Blood 08/09/2021 5:12 PM CDT 08/09/2021 5:12 PM CDT us Jason Garcia MD POINT OF CARE TEST ORD ERABLES Final Result Performing Organization Address City/[facility]/ZIP Co de Phone Number [facility] [place] [address] * Serum lipid panel (07/21/2015 8:35 PM DESTINATION SIGN REPAIRER) Cholesterol 192 0 - 200 mg/dl HISTORICAL [...] last revised 2011. Serum 07/21/2015 8:35 PM DESTINATION SIGN REPAIRER us Hudson Yung MD LAB BLOOD ORDERABLES Final Res ult HISTORICAL RESULTS from Last 3 Months or Most Recently Relevant to Health Maintenance Insurance [facility] ADVANTRA [facility] ADVANTRA IDDE AETNA MCR ADVANTRA IDPA WORKERS COMPENSATION GENERIC [employer] AETNA [facility] WORKERS COMPENSATION GENERIC Advance Directives For more information, please contact: [phone] * Full Code (Latest Code Status on File) Date Activated Date Inactivated Comments 08/13/2021 3:04 PM 08/15/2021 3:49 PM * Full Code Date Activated Date Inactivated Comments 07/26/2021 4:34 AM 07/27/2021 1:56 PM Care Teams Barrel Inspector Tight Relationship Specialty Start Date End Date Ramón Mcdaniel MD PCP - General Family Practice 02/17/23
--- OUTSIDE RECORDS SUMMARY | 2024-10-15 12:52 | XMS_ITS | Data Portability ---
Author Organization [facility], [employer] Address [address] [address] Care Team Providers Care Product Assurance Engineer Name Role Phone [facility] Pain [...] Lab lipid panel, serum 2017 018 lcallison [employer] [facility], [address] [facility], [place], [address], 8 09:38:26 CMP, serum or plasma 2017 018 [facility], [address] , [place], [address], 8 09:38:26 CK (creatin e kinase), total, serum 2017 018 [facility], [address] , [place], [address], 8 09:38:26 HbA1c (hemoglo bin A1c), blood 2017 018 [facility], [address], [place], [address], 8 09:38:26 microalb umin/cre atinine, mass ratio, urine 2017 018 [facility], [address], [place], [address], 8 09:38:26 vitamin D, 25-hydro xy, total, serum 2017 018 [facility], [address], [place], [address], 8 09:38:25 CBC w/ auto diff 2017 018 ALENA [facility], [address], [place], [address], 8 04:51:26 unlisted lab - amylase (refl) 2017 018 ALENA [facility], [address], [place], [address], 8 02:49:09 lipase, serum or plasma 2017 018 ALENA [facility], [address], [place], [address], 8 02:49:08 urinalys is complete , reflex culture 2017 018 ALENA [facility], [address], [place], [address], 8 02:49:07 CBC w/ auto diff 2017 018 ALENA [facility], [address], [place], [address], 8 02:49:08 CBC w/ auto diff 2017 018 [facility], [address], [place], [address], 8 09:00:51 CMP, serum or plasma 2017 018 ALENA [employer] [facility], [address] [facility], [place], [address], 8 02:49:07 hepatiti s C virus Ab, serum 2017 018 [facility] [employer] [facility], [address] [facility], [place], [address], 8 08:39:06 vitamin D, 25-hydro xy, total, serum 2017 018 [facility] [employer] [facility], [address] [facility], [place], [address], 8 08:39:06 microalb umin/cre atinine, mass ratio, urine 2017 018 [employer] [facility], [address] [facility], [place], [address], 8 22:42:48 Referral pain manageme nt referral 2017 018 [facility], [address], [address], [place], [address], 8 08:33:41 neurolog ist referral 2017 018 [facility], [address] [place], [address], 8 08:33:39 psychiat rist referral 2017 018 miranda Rubio MD, [address], [address], [place], [address], 8 08:33:38 ophthalm ologist referral 2017 018 miranda Mckeon, [address] [facility], [place], [address], 8 08:37:10 pulmonol ogist referral 2017 018 miranda Manley MD, [address] [facility], [address], [place], [address], 8 08:33:39 psychiat rist referral 2017 018 miranda Yang, [address], [address], [place], [address], 8 08:57:01 ophthalm ologist referral 2017 018 miranda Mckeon, [address] [facility], [place], [address], 8 08:57:02 ENT referral 2017 018 Alex Grant MD, [address] [facility], [place], [address], 8 10:04:38 Procedures None recorded . Surgeries None recorded . Imaging MAMMO, screenin g, digital, bilatera l 2017 018 ATHE[facility], [address], [place], [address], 8 13:40:27 XR, chest, 2 view 2017 ALENA [facility], [address], [address], [place], [address], 8 12:26:00 fide PALMER - -- please include pancreas 2017 ALENA Not available 8 15:34:29 Medication Orders atorvast atin 10 mg tablet 2017 ATHENAFAX Not available 8 13:35:13 metformi n [...] tramadol 50 mg tablet 2017 018 [facility], [address], [place], [id number], 8 13:26:39 benzonat ate 200 mg capsule [address] [facility], [address], [place], [id number], 8 13:08:20 prometha zine 6.25 mg-codei ne 10 mg/5 mL syrup 2017 018 [facility] Not available 8 00:02:04 Levaquin 500 mg tablet [address] [facility] Not available 8 00:02:09 metformi n ER 500 mg tablet,e xtended release 24 hr 2017 018 ATHENAFAX Not available 8 12:58:34 gabapent in 600 mg tablet 2017 018 ATHENAFAX Not available 8 12:57:15 duloxeti ne 60 mg capsule, delayed release 2017 018 ATHENAFAX Not available 8 12:59:40 baclofen 10 mg tablet 2017 018 [facility]857, [address] [facility], [place], [place], [id number], 8 12:44:00 losartan 50 mg-hydro chloroth iazide 12.5 mg tablet 2017 018 lcallison Not available 8 12:21:29 Patient TargetsNo targets recorded. Patient Instructions Encounter Date Encounter Id Patient Instructions Last Modified By Organization Details Last Modified Time 06/02/2017 [id number] broken nose: car e instructions Not available 06/02/2017 12:02:56 bruises: care instructions Not available 06/02/2017 12:02:56 chest contusion: care instructions Not available 06/02/2017 12:02:56 I spent 27 minut e face to face time with this patient (> 50% spent on counseling), explaining the test result and counseling patient on pt's medical conditions. Not available 06/02/2017 12:03:24 07/08/2017 [id number] broken nose: car e instructions Not available [...] lose weight Not available 07/08/2017 12:43:53 10/07/2017 [id number] cough: care instructions Not available 10/07/2017 12:48:34 01/07/2018 [id number] prediabetes: car e instructions Not available 01/07/2018 [...] [facility], Encounter Date: 07/08/2017 Emergency Vehicle Operations Instructor Referral for Hypertelorism Referring Physician: Jorge L [facility], Encounter Date: 07/08/2017 Psychiatrist Referral for An xiety disorder Referring Physician: Jorge L [facility], Encounter Date: 01/07/2018 Emergency Vehicle Operations Instructor Referral for Hypertelorism Referring Physician: Jorge L [facility], Encounter Date: 01/07/2018 Neurologist Referral for Epi lepsy Referring Physician: Jorge L [facility], Encounter Date: 01/07/2018 Architect Referral for B ronchiolitis Referring Physician: Jorge [...] ng refer ence inter kali Not Available [facility] [address] [place], [address], 08/14/2017 02:49:07 08/14/19 18 08/14/2017 CMP, serum or plasm a urea nitrogen (BUN) 18 mg/dL 7-25 normal Not Available [facility] [address] [place], [address], 08/14/2017 02:49:07 08/14/19 18 08/14/2017 CMP, serum or plasm a creatinine 0.83 mg/dL 0.50-1 .05 normal For patie nts >49 years of age, the refer ence limit for Creat inine is appro carolyn bell 13% highe r for peopl e ident ified as Afric an-Am lauren n. Not Available [address] [place], [address], 08/14/2017 02:49:07 08/14/19 18 08/14/2017 CMP, serum or plasm a eGFR non-afr. grenadian 79 mL/mi n/1.7 3m2 > or = 60 normal Not Available [employer] [address] [place], [address], 08/14/2017 02:49:07 08/14/19 18 08/14/2017 CMP, serum or plasm a eGFR 91 mL/mi n/1.7 3m2 > or = 60 normal Not Available [employer] [facility] [address] [address] [place], [address], 08/14/2017 02:49:07 08/14/19 18 08/14/2017 CMP, serum or plasm a BUN/creatini ne ratio NOT APPLIC ABLE (calc ) - Not Available [employer] [facility] [address] [address] [place], [address], 08/14/2017 02:49:07 08/14/19 18 08/14/2017 CMP, serum or plasm a sodium 139 mmol/ L 135-14 6 normal Not Available [employer] [address] [address] [place], [address], 08/14/2017 02:49:07 08/14/19 18 08/14/2017 CMP, serum or plasm a potassium 4.4 mmol/ L 3.5-5. 3 normal Not Available [employer] [facility] [address] [address] [place], [address], 08/14/2017 02:49:07 08/14/19 18 08/14/2017 CMP, serum or plasm a chloride 104 mmol/ L 98-110 normal Not Available [address], [address], 08/14/2017 02:49:07 08/14/19 18 08/14/2017 CMP, serum or plasm a carbon dioxide 27 mmol/ L 20-31 normal Not Available [address], [address], 08/14/2017 02:49:07 08/14/19 18 08/14/2017 CMP, serum or plasm a calcium 10.0 mg/dL 8.6-10 .4 normal Not Available [address], [address], 08/14/2017 02:49:07 08/14/19 18 08/14/2017 CMP, serum or plasm a protein, total 7.0 g/dL 6.1-8. 1 normal Not Available [address], [address], 08/14/2017 02:49:07 08/14/19 18 08/14/2017 CMP, serum or plasm a albumin 4.4 g/dL 3.6-5. 1 normal Not Available [address], [address], 08/14/2017 02:49:07 08/14/19 18 08/14/2017 CMP, serum or plasm a globulin 2.6 g/dL_ (calc ) 1.9-3. 7 normal Not Available [address], [address], 08/14/2017 02:49:07 08/14/19 18 08/14/2017 CMP, serum or plasm a albumin/glob ulin ratio 1.7 (calc ) 1.0-2. 5 normal Not Available [address], [address], 08/14/2017 02:49:07 08/14/19 18 08/14/2017 CMP, serum or plasm a bilirubin, total 0.2 mg/dL 0.2-1. 2 normal Not Available [address], [address], 08/14/2017 02:49:07 08/14/19 18 08/14/2017 CMP, serum or plasm a alkaline phosphatase 67 U/L 33-130 normal Not Available [address], [address], 08/14/2017 02:49:07 08/14/19 18 08/14/2017 CMP, serum or plasm a AST 16 U/L 10-35 normal Not Available [address], [address], 08/14/2017 02:49:07 08/14/19 18 08/14/2017 CMP, serum or plasm a ALT 16 U/L 6-29 normal Not Available [address], [address], 08/14/2017 02:49:07 08/14/19 18 08/14/2017 urina lysis compl ete, refle x cultu re color YELLOW yellow normal Not Available [address], [address], 08/14/2017 02:49:07 08/14/19 18 08/14/2017 urina lysis compl ete, refle x cultu re appearance CLEAR clear normal Not Available [address], [address], 08/14/2017 02:49:07 08/14/19 18 08/14/2017 urina lysis compl ete, refle x cultu re specific gravity 1.015 1.001- 1.035 normal Not Available [address], [address], 08/14/2017 02:49:07 08/14/19 18 08/14/2017 urina lysis compl ete, refle x cultu re pH 6.5 5.0-8. 0 normal Not Available [address], [address], 08/14/2017 02:49:07 08/14/19 18 08/14/2017 urina lysis compl ete, refle x cultu re glucose NEGATI VE negati ve normal Not Available [address], [address], 08/14/2017 02:49:07 08/14/19 18 08/14/2017 urina lysis compl ete, refle x cultu re bilirubin NEGATI VE negati ve normal Not Available [address], [address], 08/14/2017 02:49:07 08/14/19 18 08/14/2017 urina lysis compl ete, refle x cultu re ketones NEGATI VE negati ve normal Not Available [facility] [address], [address], 08/14/2017 02:49:07 08/14/19 18 08/14/2017 urina lysis compl ete, refle x cultu re occult blood NEGATI VE negati ve normal Not Available [address], [address], 08/14/2017 02:49:07 08/14/19 18 08/14/2017 urina lysis compl ete, refle x cultu re protein NEGATI VE negati ve normal Not Available [facility] [address], [address], 08/14/2017 02:49:07 08/14/19 18 08/14/2017 urina lysis compl ete, refle x cultu re nitrite NEGATI VE negati ve normal Not Available [facility] [address], [address], 08/14/2017 02:49:07 08/14/19 18 08/14/2017 urina lysis compl ete, refle x cultu re leukocyte esterase NEGATI VE negati ve normal Not Available [address], [address], 08/14/2017 02:49:07 08/14/19 18 08/14/2017 urina lysis compl ete, refle x cultu re WBC NONE SEEN /hpf < or = 5 normal Not Available [address], [address], 08/14/2017 02:49:07 08/14/19 18 08/14/2017 urina lysis compl ete, refle x cultu re RBC NONE SEEN /hpf < or = 2 normal Not Available [address], [address], 08/14/2017 02:49:07 08/14/19 18 08/14/2017 urina lysis compl ete, refle x cultu re squamous epithelial cells NONE SEEN /hpf < or = 5 normal Not Available [address], [address], 08/14/2017 02:49:07 08/14/19 18 08/14/2017 urina lysis compl ete, refle x cultu re bacteria NONE SEEN /hpf none seen normal Not Available [address], [address], 08/14/2017 02:49:07 08/14/19 18 08/14/2017 urina lysis compl ete, refle x cultu re hyaline cast NONE SEEN /lpf none seen normal Not Available [address], [address], 08/14/2017 02:49:07 08/14/19 18 08/14/2017 urina lysis compl ete, refle x cultu re reflexive urine culture NO CULTUR E INDICA LES Not Available [facility] [address], [place], [address], 08/14/2017 02:49:07 08/14/19 18 08/14/2017 CBC w/ auto diff white blood cell count 9.6 thous and/u L 3.8-10 .8 normal Not Available [address], [address], 08/14/2017 02:49:08 08/14/19 18 08/14/2017 CBC w/ auto diff red blood cell count 4.50 ella on/uL 3.80-5 .10 normal Not Available [address], [address], 08/14/2017 02:49:08 08/14/19 18 08/14/2017 CBC w/ auto diff hemoglobin 13.6 g/dL 11.7-1 5.5 normal Not Available [address], [address], 08/14/2017 02:49:08 08/14/19 18 08/14/2017 CBC w/ auto diff hematocrit 40.0 % 35.0-4 5.0 normal Not Available [address], [address], 08/14/2017 02:49:08 08/14/19 18 08/14/2017 CBC w/ auto diff MCV 88.9 fL 80.0-1 00.0 normal Not Available [address], [address], 08/14/2017 02:49:08 08/14/19 18 08/14/2017 CBC w/ auto diff MCH 30.2 pg 27.0-3 3.0 normal Not Available [address], [address], 08/14/2017 02:49:08 08/14/19 18 08/14/2017 CBC w/ auto diff MCHC 34.0 g/dL 32.0-3 6.0 normal Not Available [address], [address], 08/14/2017 02:49:08 08/14/19 18 08/14/2017 CBC w/ auto diff RDW 12.4 % 11.0-1 5.0 normal Not Available [address], [address], 08/14/2017 02:49:08 08/14/19 18 08/14/2017 CBC w/ auto diff platelet count 344 thous and/u L 140-40 0 normal Not Available [address], [address], 08/14/2017 02:49:08 08/14/19 18 08/14/2017 CBC w/ auto diff MPV 10.2 fL 7.5-12 .5 normal Not Available [address], [address], 08/14/2017 02:49:08 08/14/19 18 08/14/2017 CBC w/ auto diff absolute neutrophils 5357 cells /uL 1500-7 800 normal Not Available [address], [address], 08/14/2017 02:49:08 08/14/19 18 08/14/2017 CBC w/ auto diff absolute lymphocytes 3197 cells /uL 850-39 00 normal Not Available [address], [address], 08/14/2017 02:49:08 08/14/19 18 08/14/2017 CBC w/ auto diff absolute monocytes 826 cells /uL 200-95 0 normal Not Available [address], [address], 08/14/2017 02:49:08 08/14/19 18 08/14/2017 CBC w/ auto diff absolute eosinophils 173 cells /uL 15-500 normal Not Available [address] [address] [place], [address], 08/14/2017 02:49:08 08/14/19 18 08/14/2017 CBC w/ auto diff absolute basophils 48 cells /uL 0-200 normal Not Available [facility] [address] [address] [place], [address], 08/14/2017 02:49:08 08/14/19 18 08/14/2017 CBC w/ auto diff neutrophils 55.8 % normal Not Available [facility] [address] [address] [place], [address], 08/14/2017 02:49:08 08/14/19 18 08/14/2017 CBC w/ auto diff lymphocytes 33.3 % normal Not Available [address] [address] [place], [address], 08/14/2017 02:49:08 08/14/19 18 08/14/2017 CBC w/ auto diff monocytes 8.6 % normal Not Available [address] [address] [place], [address], 08/14/2017 02:49:08 08/14/19 18 08/14/2017 CBC w/ auto diff eosinophils 1.8 % normal Not Available [address] [address] [place], [address], 08/14/2017 02:49:08 08/14/19 18 08/14/2017 CBC w/ auto diff basophils 0.5 % normal Not Available [facility] [address] [address] [place], [address], 08/14/2017 02:49:08 08/14/19 18 08/14/2017 lipas e, serum or plasm a lipase 55 U/L 7-60 normal Not Available [address] [address] [place], [address], 08/14/2017 02:49:08 08/14/19 18 08/14/2017 amyla se (refl ) amylase (refl) 44 U/L 21-101 normal Not Available [address], [address], 08/14/2017 02:49:09 10/08/19 18 10/08/2017 CBC w/ auto diff white blood cell count 8.9 thous and/u L 3.8-10 .8 normal Not Available [address], [address], 10/08/2017 04:51:26 10/08/19 18 10/08/2017 CBC w/ auto diff red blood cell count 4.56 ella on/uL 3.80-5 .10 normal Not Available [address], [address], 10/08/2017 04:51:26 10/08/19 18 10/08/2017 CBC w/ auto diff hemoglobin 13.7 g/dL 11.7-1 5.5 normal Not Available [address], [address], 10/08/2017 04:51:26 10/08/19 18 10/08/2017 CBC w/ auto diff hematocrit 41.1 % 35.0-4 5.0 normal Not Available [address], [address], 10/08/2017 04:51:26 10/08/19 18 10/08/2017 CBC w/ auto diff MCV 90.1 fL 80.0-1 00.0 normal Not Available [address], [address], 10/08/2017 04:51:26 10/08/19 18 10/08/2017 CBC w/ auto diff MCH 30.0 pg 27.0-3 3.0 normal Not Available [address], [address], 10/08/2017 04:51:26 05/15/20 18 10/08/2017 CBC w/ auto diff MCHC 33.3 g/dL 32.0-3 6.0 normal Not Available [address], [address], 10/08/2017 04:51:26 10/08/19 18 10/08/2017 CBC w/ auto diff RDW 12.4 % 11.0-1 5.0 normal Not Available [address], [address], 10/08/2017 04:51:26 10/08/19 18 10/08/2017 CBC w/ auto diff platelet count 338 thous and/u L 140-40 0 normal Not Available [address], [address], 10/08/2017 04:51:26 10/08/19 18 10/08/2017 CBC w/ auto diff MPV 9.9 fL 7.5-12 .5 normal Not Available [address], [address], 10/08/2017 04:51:26 10/08/1910/08/2017 CBC w/ auto diff absolute neutrophils 4325 cells /uL 1500-7 800 normal Not Available [address], [address], 10/08/2017 04:51:26 10/08/19 18 10/08/2017 CBC w/ auto diff absolute lymphocytes 3516 cells /uL 850-39 00 normal Not Available [address], [address], 10/08/2017 04:51:26 10/08/19 18 10/08/2017 CBC w/ auto diff absolute monocytes 872 cells /uL 200-95 0 normal Not Available [address], [address], 10/08/2017 04:51:26 10/08/19 18 10/08/2017 CBC w/ auto diff absolute eosinophils 134 cells /uL 15-500 normal Not Available [address], [address], 10/08/2017 04:51:26 10/08/19 18 10/08/2017 CBC w/ auto diff absolute basophils 53 cells /uL 0-200 normal Not Available [address], [address], 10/08/2017 04:51:26 10/08/19 18 10/08/2017 CBC w/ auto diff neutrophils 48.6 % normal Not Available [address], [address], 10/08/2017 04:51:26 10/08/19 18 10/08/2017 CBC w/ auto diff lymphocytes 39.5 % normal Not Available [address], [address], 10/08/2017 04:51:26 10/08/19 18 10/08/2017 CBC w/ auto diff monocytes 9.8 % normal Not Available [address], [address], 10/08/2017 04:51:26 10/08/19 18 10/08/2017 CBC w/ auto diff eosinophils 1.5 % normal Not Available [address], [address], 10/08/2017 04:51:26 10/08/19 18 10/08/2017 CBC w/ auto diff basophils 0.6 % normal Not Available [address], [address], 10/08/2017 04:51:26 06/02/19 18 05/27/2017 XR, chest , 2 view No observ ation record ed. [facility] Not Available 2017 12:41:44 06/03/19 18 05/27/2017 XR, chest , 2 view No observ ation record ed. [facility] Not Available 2017 12:41:44 06/03/19 18 05/28/2017 CT, abdom en + pelvi s, w/o contr ast No observ ation record ed. [facility] Not Available 2017 12:41:44 06/03/19 18 05/28/2017 CT, thora cic spine , w/ contr ast No observ ation record ed. [facility] Not Available 2017 12:41:44 06/03/19 18 05/28/2017 XR, hand No observ ation record ed. [facility] Not Available 2017 12:41:44 06/03/19 18 05/28/2017 CT, lumba r spine , w/ contr ast No observ ation record ed. [facility] Not Available 2017 12:41:44 08/08/19 18 08/07/2017 CT, abdom en + pelvi s, w/ contr ast No observ ation record ed. [facility] Not Available 2017 10:18:24 08/16/19 18 08/15/2017 US, gallb ladde r No observ ation record ed. [facility] [address], [place], [address], 10/07/2017 12:49:38 08/19/19 18 08/18/2017 MAMMO , scree janeen, digit al, bilat eral No observ ation record ed. [address] (Imaging) [address], [place], [address], 10/07/2017 12:49:38 08/21/19 18 08/15/2017 US, abdom en No observ ation record ed. [facility] [address], [place], [address], 10/07/2017 12:49:38 08/28/19 18 08/27/2017 NM, hepat obili anant scan, w/ CCK No observ ation record ed. [address] [facility], [place], [address], 10/07/2017 12:49:38 10/15/19 18 10/07/2017 XR, chest , 2 view No observ ation record ed. [facility] [address], [place], [address], 01/07/2018 13:28:24 01/21/20 18 elect rocar diogr am No observ ation record ed. [email or web address] Not Available 2017 13:55:39 Result Notes None recorded. Problems Name Problem SNOMED Code Status Onset Date Resolution Date Notes Provider Name and Address Organization Details Recorded Time Hypertensive disorder 39803241 Active 2016 [facility] 7 11:46:05 Heart disease 49770286 Active 2016 Ischemic Disease [facility] 7 11:47:10 Problem Notes None recorded. Procedures Surgical History Date Name Laterality Status Provider Name and Address Organization Details Recorded Time 10/25/19 17 Date of Last Pap Smear completed [facility] 03/07/2017 11:23:05 07/25/19 17 Date of Last Mammogram completed [facility] 03/07/2017 11:23:13 08/25/19 16 Colonoscopy completed [facility] 03/11/2017 12:46:40 Tonsillectomy completed Jorge L Barnes MD [address], [place], [address], [facility] 03/07/2017 12:40:03 delivery completed Jorge L Barnes MD [address], [place], [address], [facility] 03/07/2017 12:40:31 Dilation and curettage completed Jorge L Barnes MD [address], [place], [address], [facility] 03/07/2017 12:41:13 Knee Surgery completed Jorge L Barnes MD [address], [place], [address], [facility] 03/07/2017 12:44:20 Partial Hysterectomy completed Joreg L Barnes MD [address], [place], [address], [facility] 03/07/2017 12:42:51 Appendectomy completed Jorge L Barnes MD [address], [place], [address], [facility] 03/07/2017 12:43:26 Carpal tunnel surgery completed Jorge L Barnes MD [address], [place], [address], [facility] 03/07/2017 12:43:51 Unlisted px foot/toes completed Jorge L Barnes MD [address], [place], [address], [facility] 03/07/2017 12:46:11 Arthrd ant ntrbd min dsc lum completed Jorge L Barnes MD [address], [place], [address], [facility] 03/07/2017 12:49:59 Other completed Jorge L Barnes MD [address], [place], [address], [facility] 03/07/2017 12:48:07 Imaging Results Imaging Date Name [...] 05/28/2017 CT, lumbar spine, w/ contrast completed Information not available 07/08/2017 12:41:44 08/07/2017 CT, abdomen + pelvis, w/ contrast completed [facility] Information not available 08/13/2017 10:18:24 08/15/2017 US, gallbladder completed [facility] [address], [place], [address], 10/07/2017 12:49:38 08/18/2017 MAMMO, screening, digital, bilateral completed [address] (Imaging) [address], [place], [address], 10/07/2017 12:49:38 08/15/2017 US, abdomen completed [facility] [address] [address], [place], [address], 10/07/2017 12:49:38 08/27/2017 NM, hepatobiliary scan, w/ CCK completed [address] [place], [address], 10/07/2017 12:49:38 10/07/2017 XR, chest, 2 view completed [address] [facility] [address], [place], [address], 01/07/2018 13:28:24 01/20/2018 electrocardiogram completed [email or web address] Informa tion not available 01/21/2018 13:55:39 Procedure Notes None recorded. Medical Equipment None Reported. Allergies Allergen ID Allergen Name Allergen Category Reaction Reaction Severity Criticality Documentation Date Start Date Code Code System Note Provider Name and Address Organization Details Recorded Time 6276 Product containin g penicilli n (product) medicatio n anaphylax is hives Not available Not available Not available 03/07/2017 62210 8001 SNOMED Carmen tim OR Karthik [facility] 7 11:23:41 6277 pseudoeph edrine Not available anaphylax is hives Not available Not available Not available 03/07/2017 8896 RxNorm FLEX [facility] 7 11:24:27 6278 bee pollen environme nt,medica tion anaphylax is Not available Not available 03/07/2017 53357 7 RxNorm Carmen tim [facility] 7 11:25:29 6279 peanut allergeni c extract food,medi cation anaphylax is Not available Not available 03/07/2017 84250 8 RxNorm Carmen tim [facility] 7 11:25:41 Medications Name Sig Start Date Stop Date Status Note LastModified by Organization Details LastModified Time buspirone 5 mg tablet 03/07 completed Not Available Not Available Not Available gabapentin 600 mg tablet Take 1 tablet 4 times a day by oral route. 2017 active Not Available Not Available Not Avai [facility]more clindamycin HCl 300 mg capsule 03/07 completed Not Available Not Available Not Available atorvastati n 10 mg tablet Take 1 tablet every day by oral route. 2017 active Not Available Not Available Not Avanjali mccrary azithromyci n 250 mg tablet 03/07 completed [...] Updated DateTime 8 157.48 cm 29.1 kg/m2 97749.1 9 g 16 /min 84 /min 135 mm[Hg] 88 mm[Hg] Carmen Eduardo [facility] 8 11:21:30 Date Recorded Body height Respiratory rate Body mass index (BMI) Body weight Heart rate Body temperature Provider Name and Address Organization Details Last Updated DateTime 8 157.48 cm 16 /min 28.9 kg/m2 61642.5 9 g 71 /min 97.2 [degF] [facility] 8 12:06:38 Date Recorded Systolic blood pressure Diastolic blood pressure Provider Name and Address Organization Details Last Updated DateTime 07/08/2017 116 mm[Hg] 83 mm[Hg] Jorge L Barnes MD [address] [facility] [address], [place], [address], [facility] 07/08/2017 12:38:26 Date Recorded Body height Respiratory rate Body mass index (BMI) Body weight Heart rate Systolic blood pressure Diastolic blood pressure Provider Name and Address Organization Details Last Updated DateTime 8 157.48 cm 16 /min 29.3 kg/m2 48772.7 8 g 76 /min 133 mm[Hg] 80 mm[Hg] [facility] 8 09:25:14 Date Recorded Body height Heart rate Respiratory rate Body temperature Body mass index (BMI) Body weight Systolic blood pressure Diastolic blood pressure Provider Name and Address Organization Details Last Updated DateTime 8 157.48 cm 76 /min 16 /min 97.5 [degF] 28.7 kg/m2 66244 g 165 mm[Hg] 95 mm[Hg] Carmen [facility] 8 12:18:10 Date Recorded Body height Body mass index (BMI) Body weight Respiratory rate Heart rate Systolic blood pressure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
== END 2024-10-15 12:49 | disposition home or self-care (01) ==
LOC: ANHAUDASC 12:49
PROVIDERS: PCP Family Medicine; Visit Provider Otolaryngology
DX: H90.3 Sensorineural hearing loss, bilateral (principal); H69.90 Unspecified Eustachian tube disorder, unspecified ear; J38.1 Polyp of vocal cord and larynx; R13.10 Dysphagia, unspecified; K21.9 Gastro-esophageal reflux disease without esophagitis
CPT/HCPCS: 92557; 92567

== ENCOUNTER 2024-12-03 14:45 | Outpatient (CLI) | payer MEDICARE, SELFPAY ==
--- NOTE | ~2024-12-03 | CT_ITS ---
CT Scan of the Chest without Contrast: Clinical Indication: Lung cancer screening, nicotine dependence Technique: Contiguous sections were acquired throughout the chest without intravenous contrast. Dose reduction technique was used on this scan by utilizing automated exposure control and iterative recon struction technique. The dose-length product (DLP) was 59.10 mGy-cm. COMPARISON: 08/27/2023 Findings: There is no evidence of any significant mediastinal, hilar or axillary lymphadenopathy. The mediastin al soft tissues appear normal. There is no evidence of pleural or pericardial effusion. The lungs are clear. No pulmonary nodules or infiltrates are noted. Images through the upper abdomen reveal no abnormalities. Impression: Lung RADS 1: Negative. 12 month follow-up screening CT advised. Reviewed, dictated and finalized at location . Impression: Lung RADS 1: Negative. 12 month follow-up screening CT advised.
--- OUTSIDE RECORDS SUMMARY | 2024-12-03 14:50 | XMS_ITS | Clinical Summary ---
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 Name Role Phone Ramón Mcdaniel MD Primary Care Provider [phone] Allergies Active Allergy Reactions Criticality Noted Date [...] Information Value Date Recorded Sex Assigned at Female 07/24/2024 6:35 PM WEIGHT RECORDER Legal Sex Female 7:59 AM CDT Gender Identity Not on file Sexual Orientation Not on file Last Filed Vital Signs Vital Sign Reading Time Taken Comments Blood Pressure 172/93 07/24/2024 11:00 PM WEIGHT RECORDER Pulse 91 07/24/2024 7:38 PM WEIGHT RECORDER Temperature 37.5 C (99.5 F) 07/24/2024 7:38 PM WEIGHT RECORDER Respiratory Rate 18 07/24/2024 11:00 PM WEIGHT RECORDER Oxygen Saturation 96% 07/24/2024 11:00 PM WEIGHT RECORDER Inhaled Oxygen Concentration - - Weight 70.3 kg (155 lb) 07/24/2024 7:38 PM WEIGHT RECORDER Height 152.4 cm (5') 07/24/2024 7:38 PM WEIGHT RECORDER Body Mass Index 30.27 07/24/2024 7:38 PM WEIGHT RECORDER Plan of Treatment Health Maintenance Due Date Last Done Comments Cervical Cancer Screening Pa p Smear (Age 30 to 64) Every 3 Years 1960 Colorectal Cancer Screening Colonoscopy (10 Years) 1960 Annual Physical 10/11/1963 Hepatitis C 1978 Cervical Cancer Screening Pa p with HPV Testing (Age 30 to 64) Every 5 Years 1990 Cervical Cancer Screening with HPV 1990 Mammogram Screening 2000 Lung Cancer Screening 2010 Pneumococcal Vaccine: 50+ Ye ars (1 of 1 - PCV) 2010 Zoster Vaccines (2 of 2) 04/05/2018 02/08/2018 DTaP, Tdap and Td Vaccines ( 2 - Td or Tdap) 05/26/2023 05/26/2013 COVID-19 Vaccine (2 - 2023-2 5 season) 2024 08/31/2020 RSV Immunization or 60+ Years (1 - 1-dose 75+ series) 10/11/2035 Meningococcal B Vaccine Aged Out No l onger eligible based on patient's age to complete this topic Meningococcal Vaccine Aged Out No song peggy eligible based on patient's age to complete this topic RSV Immunizations Under 20 Months Aged Out No longer eligible based on patient's age to complete this topic Insurance MEDICAID DEPT OF [address] Care Teams Mushroom Cutter Relationship Specialty Start Date End Date Ramón Mcdaniel MD [address] [place] [address] PCP - General FAMILY PRACTICE 07/24/24
--- OUTSIDE RECORDS SUMMARY | 2024-12-03 14:50 | XMS_ITS | Referral Summary ---
Author Organization [facility] [place] [address] Address [address] [place] [address] Care Team Providers Care Sales Counselor Name Role Phone Ramón Mcdaniel MD Primary Care Provider [phone] Allergies Active Allergy Reactions Criticality Noted Date Comments Adhesive Hives,Redness Medium 05/16/2021 Aspirin Anaphylaxis,Hives High 07/23/2019 Bee Pollen Anaphylaxis High 05/16/2021 Codeine Anaphylaxis,Urticari a High 07/23/2019 Latex Hives,Urticaria Medium 08/07/2017 Hives Other Anaphylaxis High 08/07/2017 Anaphylaxis Peanut Anaphylaxis High 05/16/2021 Penicillins Anaphylaxis,Hives,Ot her (See comments) High 03/28/2014 Reaction: Hives Pseudoephedrine Anaphylaxis,Hives,Ot her (See comments),Urticaria High 03/28/2014 Reaction: With tongue swelling Hives [place] Hives,Itching,Urtica klaus Medium 08/07/2017 Hives Sulfa (Sulfonamide [...] on file Legal Sex Female 2:56 AM PHYSICAL THERAPY ASSISTANT INSTRUCTOR Gender Identity Not on file Sexual Orientation Not on file Occupation Industry Job Start Date Job End Date disabled Not on file Not on file Not on file Last Filed Vital Signs Vital Sign Reading Time Taken Comments Blood Pressure 133/79 04/07/2023 9:22 AM PHYSICAL THERAPY ASSISTANT INSTRUCTOR Pulse 76 04/07/2023 9:22 AM PHYSICAL THERAPY ASSISTANT INSTRUCTOR Temperature 37 C (98.6 F) 08/15/2021 7:55 AM CDT Respiratory Rate 18 08/15/2021 7:55 AM CDT Oxygen Saturation 96% 08/15/2021 7:55 AM CDT Inhaled Oxygen Concentration - - Weight 71 kg (156 lb 9.6 oz) 04/07/2023 9:22 AM PHYSICAL THERAPY ASSISTANT INSTRUCTOR Height 152.4 cm (5') 04/07/2023 9:22 AM PHYSICAL THERAPY ASSISTANT INSTRUCTOR Body Mass Index 30.58 04/07/2023 9:22 AM PHYSICAL THERAPY ASSISTANT INSTRUCTOR Plan of Treatment Not on file Medical Devices Implanted Type Area Doctor Of Pharmacy Device Identifier Shelf Expiration Date Model / Serial / Lot Bmp Infuse Sm [id number] - [id number] Implanted:Qty: 1 on 08/13/2021 by Jason Garcia MD at [facility] N/A: Spine Lumbar Medtronic Inc 12/23/2022 [id number] / / [id number] [employer] [id number] 1-4mm Freeze Dried Crushed Graft 30ml Bone Cancellous - [id number] Implanted:Qty: 1 on 08/13/2021 by Jason Garcia MD at [facility] N/A: Spine Lumbar Allosource 06/21/2025 [id number] / / [id number] [facility] blogfoster 5146.1652 Creo Od6.5 Mm L50 Mm Thread; Polyaxial Spine Screw Bone Titanium; - [id number] Implanted:Qty: 3 on 08/13/2021 by Jason Garcia MD at [facility] N/A: Spine Lumbar Globus Medical 5146.1652 / / Globus Medical 1119.0010 Creo Thread Spinal Cap Locking Nonsterile - [id number] Implanted:Qty: 8 on 08/13/2021 by Jason Garcia MD at [facility] N/A: Spine Lumbar [employer] 1119.0010 / / Gl[employer] 1119.7125 Creo 5.5mm 125mm Curve Javier Spinal Titanium - [id number] Implanted:Qty: 1 on 08/13/2021 by Jason Garcia MD at [facility] N/A: Spine Lumbar [employer] 1119.7125 / / Gl[employer] 5146.1752 Creo Od7.5 Mm L50 Mm Thread; Polyaxial Spine Screw Bone Titanium; - [id number] Implanted:Qty: 3 on 08/13/2021 by Jason Garcia MD at [facility] N/A: Spine Lumbar [employer] 5146.1752 / / [employer] 1119.7125 Creo 5.5mm 125mm Curve Javier Spinal Titanium - [id number] Implanted:Qty: 1 on 08/13/2021 by Jason Garcia MD at [facility] N/A: Spine Lumbar [employer] 1119.7125 / / Globus 75x45 Implanted:Qty: 1 on 08/13/2021 by Jason Garcia MD at [facility] N/A: Spine Lumbar GLOBUS [id number] / / Description:Correction. Scre w is 75x40 NOT 75x45 Globuys Tlif Cage [id number] Implanted:Qty: 1 on 08/13/2021 by Jason Garcia MD at [facility] N/A: Spine Lumbar GLOBUS 168.251 / / Procedures Procedure Name Priority Date/Time Associated Diagnosis Comments EGFR Routine 08/15/2021 2:46 AM CDT POCT HEMOGLOBIN A1C Routine 08/09/2021 5 :12 PM CDT SERUM LIPID PANEL Routine 07/21/2015 8:3 5 PM PHYSICAL THERAPY ASSISTANT INSTRUCTOR from Last 3 Months or Most Recently [...] us Blayne Elise MD LAB BLOOD ORDERABLES [facility] al Result Performing Organization Address City/State/[facility] Co ri Phone Number [facility] [address] [facility] [place] [address] * (ABNORMAL) POCT hemoglobin A1c (08/09/2021 5:12 PM CDT) Hgb A1C, POC 5.7(H) 4.0 - 5.6 % [facility] Est Average Gluc POC 117 mg/dL [facility] Comment: The ADA recommends reporting an estimated Average Glucose (eAG) with all Hemoglobin A1c results using the equation derived from a study of 507 normal and diabetic adults. Minority populations were underrepresented and children were not included. (Diabetes Care 31:7001-3997, 2008). The eAG is not equivalent to a fasting glucose. Blood 08/09/2021 5:12 PM CDT 08/09/2021 5:12 PM CDT Jason Garcia MD POINT OF CARE TEST ORD ERABLES Final Result [facility] Department [place] [address] * Serum lipid panel (07/21/2015 8:35 PM PHYSICAL THERAPY ASSISTANT INSTRUCTOR) Cholesterol 192 0 - 200 mg/dl HISTORICAL [...] last revised 2011. Serum 07/21/2015 8:35 PM PHYSICAL THERAPY ASSISTANT INSTRUCTOR us Hudson Yung MD LAB BLOOD ORDERABLES Final Res ult HISTORICAL RESULTS from Last 3 Months or Most Recently Relevant to Health Maintenance Insurance [facility] [employer] [facility] [employer] IDPA [facility] IDPA WORKERS COMPENSATION GENERIC [facility] AETNA MCR ADVANTRA WORKERS COMPENSATION GENERIC Advance Directives For more information, please contact: [phone] * Full Code (Latest Code Status on File) Date Activated Date Inactivated Comments 08/13/2021 3:04 PM 08/15/2021 3:49 PM * Full Code Date Activated Date Inactivated Comments 07/26/2021 4:34 AM 07/27/2021 1:56 PM Care Teams Sales Counselor Relationship Specialty Start Date End Date Ramón Mcdaniel MD PCP - General Family Practice 02/17/23
--- OUTSIDE RECORDS SUMMARY | 2024-12-03 14:50 | XMS_ITS | Clinical Summary ---
Author Organization [facility] [address] Address [address] [place] [address] Care Team Providers Care Drop Wire Operator Name Role Phone Ramón Mcdaniel MD Primary Care Provider [phone] Allergies Active Allergy Reactions Criticality Noted Date Comments Adhesive Hives,Redness Medium 05/16/2021 Aspirin Anaphylaxis,Hives High 07/23/2019 Bee Pollen Anaphylaxis High 05/16/2021 Codeine Anaphylaxis,Urticari a High 07/23/2019 Latex Hives,Urticaria Medium 08/07/2017 Hives Other Anaphylaxis High 08/07/2017 Anaphylaxis Peanut Anaphylaxis High 05/16/2021 Penicillins Anaphylaxis,Hives,Ot her (See comments) High 03/28/2014 Reaction: Hives Pseudoephedrine Anaphylaxis,Hives,Ot her (See comments),Urticaria High 03/28/2014 Reaction: With tongue swelling Hives [place] Hives,Itching,Urtica klaus Medium 08/07/2017 Hives Sulfa (Sulfonamide [...] on file Legal Sex Female 2:56 AM 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 PRESS 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 Gender Identity Not on file Sexual Orientation Not on file Occupation Industry Job Start Date Job End Date disabled Not on file Not on file Not on file Obstetrics History Last Filed Vital Signs Vital Sign Reading Time Taken Comments Blood Pressure 133/79 04/07/2023 9:22 AM VENEER PRESS OPERATOR Pulse 76 04/07/2023 9:22 AM VENEER PRESS OPERATOR Temperature 37 C (98.6 F) 08/15/2021 7:55 AM CDT Respiratory Rate 18 08/15/2021 7:55 AM CDT Oxygen Saturation 96% 08/15/2021 7:55 AM CDT Inhaled Oxygen Concentration - - Weight 71 kg (156 lb 9.6 oz) 04/07/2023 9:22 AM VENEER PRESS OPERATOR Height 152.4 cm (5') 04/07/2023 9:22 AM VENEER PRESS OPERATOR Body Mass Index 30.58 04/07/2023 9:22 AM VENEER PRESS OPERATOR Plan of Treatment Health Maintenance Due Date [...] 02/08/2018, 06/13/2014 Medical Devices Implanted Type Area Cage Fighter Device Identifier Shelf Expiration Date Model / Serial / Lot Bmp Infuse Sm [id number] - [id number] Implanted:Qty: 1 on 08/13/2021 by Jason Garcia MD at [facility] N/A: Spine Lumbar Medtronic Inc 12/23/2022 [id number] / / [id number] Joint [employer] [id number] 1-4mm Freeze Dried Crushed Graft 30ml Bone Cancellous - [id number] Implanted:Qty: 1 on 08/13/2021 by Jason Garcia MD at [facility] N/A: Spine Lumbar Allosource 06/21/2025 [id number] / / [id number] Globus Medical 5146.1652 Creo Od6.5 Mm L50 Mm Thread; Polyaxial Spine Screw Bone Titanium; - [id number] Implanted:Qty: 3 on 08/13/2021 by Jason Garcia MD at [facility] N/A: Spine Lumbar Gl[employer] 5146.1652 / / Globus Medical 1119.0010 Creo Thread Spinal Cap Locking Nonsterile - [id number] Implanted:Qty: 8 on 08/13/2021 by Jason Garcia MD at [facility] N/A: Spine Lumbar [employer] 1119.0010 / / Glob[employer] Medical 1119.7125 Creo 5.5mm 125mm Curve Javier Spinal Titanium - [id number] Implanted:Qty: 1 on 08/13/2021 by Jason Garcia MD at [facility] N/A: Spine Lumbar Gl[employer] 1119.7125 / / Globus Medical 5146.1752 Creo Od7.5 Mm L50 Mm Thread; Polyaxial Spine Screw Bone Titanium; - [id number] Implanted:Qty: 3 on 08/13/2021 by Jason Garcia MD at [facility] N/A: Spine Lumbar Glob[employer] 5146.1752 / / Globus Medical 1119.7125 Creo 5.5mm 125mm Curve Javier Spinal Titanium - [id number] Implanted:Qty: 1 on 08/13/2021 by Jason Garcia MD at [facility] N/A: Spine Lumbar Gl[employer] 1119.7125 / / Globus 75x45 Implanted:Qty: 1 on 08/13/2021 by Jason Garcia MD at [facility] N/A: Spine Lumbar GLOBUS 5146.1742 / / Description:Correction. Scre w is 75x40 NOT 75x45 Globuys Tlif Cage [id number] Implanted:Qty: 1 on 08/13/2021 by Jason Garcia MD at [facility] N/A: Spine Lumbar GLOBUS 168.251 / / Procedures Procedure Name Priority Date/Time Associated Diagnosis Comments EGFR Routine 08/15/2021 2:46 AM CDT POCT HEMOGLOBIN A1C Routine 08/09/2021 5 :12 PM CDT SERUM LIPID PANEL Routine 07/21/2015 8:3 5 PM VENEER PRESS OPERATOR from Last 3 Months or Most Recently Relevant to Health Maintenance Results * eGFR (08/15/2021 2:46 AM CDT) [facility] eGFR 99 mL/min/1. 73 m2 [facility] [...] ORDERABLES Fin al Result Performing Organization Address [facility] Co de Phone Number [facility] [address] [facility] Department [employer] [address] * (ABNORMAL) POCT hemoglobin A1c (08/09/2021 5:12 PM CDT) Hgb A1C, POC 5.7(H) 4.0 - 5.6 % [facility] Est Average Gluc POC 117 mg/dL [facility] Comment: The ADA recommends reporting an estimated Average Glucose (eAG) with all Hemoglobin A1c results using the equation derived from a study of 507 normal and diabetic adults. Minority populations were underrepresented and children were not included. (Diabetes Care 31:6068-7969, 2008). The eAG is not equivalent to a fasting glucose. Blood 08/09/2021 5:12 PM CDT 08/09/2021 5:12 PM CDT us Jason Garcia MD POINT OF CARE TEST ORD ERABLES Final Result Performing Organization Address City/[facility]/ZIP Co de Phone Number [facility] [place] [address] * Serum lipid panel (07/21/2015 8:35 PM VENEER PRESS OPERATOR) Cholesterol 192 0 - 200 mg/dl HISTORICAL [...] last revised 2011. Serum 07/21/2015 8:35 PM VENEER PRESS OPERATOR us Hudson Yung MD LAB BLOOD ORDERABLES Final Res ult HISTORICAL RESULTS from Last 3 Months or Most Recently Relevant to Health Maintenance Insurance [facility] ADVANTRA [facility] ADVANTRA IDRI AETNA MCR ADVANTRA IDPA WORKERS COMPENSATION GENERIC [employer] AETNA [facility] WORKERS COMPENSATION GENERIC Advance Directives For more information, please contact: [phone] * Full Code (Latest Code Status on File) Date Activated Date Inactivated Comments 08/13/2021 3:04 PM 08/15/2021 3:49 PM * Full Code Date Activated Date Inactivated Comments 07/26/2021 4:34 AM 07/27/2021 1:56 PM Care Teams Drop Wire Operator Relationship Specialty Start Date End Date Ramón Mcdaniel MD PCP - General Family Practice 02/17/23
--- OUTSIDE RECORDS SUMMARY | 2024-12-03 14:50 | XMS_ITS | Patient Health Record ---
Author Organization [facility] Address [address] [place] [address] Care Team Providers Care Coil Connector Name Role Phone Josh Rubio Unavailable [phone] Reason For Referral No Information Plan Of Treatment No Information
--- OUTSIDE RECORDS SUMMARY | 2024-12-03 14:50 | XMS_ITS | Continuity of Care Document ---
Author Organization [facility] Address [address] [place] [address] [place] [address] Phone Care Team Providers Care Accountant Helper Name Role Phone [facility] [place] Unavailable U navailable Procedures Procedure Date Cystoureth/ureter &/pyeloscpy; 18 Cystourethroscopy W/insrt Sten 18 Guidewire .038 Stent Percuflex Cystourethroscopy W/insrt Sten 18 Guidewire .038 Stent Percuflex Advance Directives Directive Yes / No Effective Date File Name No Information Encounters Encounter Description Practice Location Reason(s) For Visit Diagnoses Date Provider Providers Copied on Encounter [facility], [address] [place] [address] [place], [place], [id number], tel:[phone] [facility] 09/21/20 No Information [facility]. [address] [place] [address], [id number] , [place]. tel:[phone] Referring Provider: Sanford Mandujano, [address] [place] [address], [address] . tel:[phone] [facility], [address] [place] [address], [id number], tel:[phone] [facility] No Information [facility]. [address] [place] [address], [id number] , [place]. tel:[phone] Referring Provider: Alex Samuel, [address] [place] [address], [place], [address] . tel:[phone] Family History Family Member Type Diagnosis Age At Onset No Information Payers Payer name Insurance type Covered constitution party ID Authoriza tion(s) No Information Social History Type Description Quantity Date Captured Comments Sex Female Smoking Status No Information Chief Complaint And Reason For Visit No Information Reason For Referral Reason For Referral No Information History Of Present Illness Encounter Date Complaint History Of Prese nt Illness No Information Functional Status Date Functional Assessmen t No Information Instructions Date Instruction Additional Infor mation No Information Assessments Type Assessment Date No Information Patient Care Teams Name Effective Dates (start - stop) Status Members No Information
--- OUTSIDE RECORDS SUMMARY | 2024-12-03 14:50 | XMS_ITS | Continuity of Care Document ---
Author Organization [facility] Address [address] [place] [address] Phone Care Team Providers Care Healthcare Specialist Name Role Phone Feliz RODRIGUEZ MD, Javon Unavailable Unavailable Procedures Procedure Date IO-Perfusion Scan, Multiple Advance Directives Directive Yes / No Effective Date File Name No Information Encounters Encounter Description Practice Location Reason(s) For Visit Diagnoses Date Provider Providers Copied on Encounter [facility], [address], [place], [address], [place] tel:[phone] [facility] No Information 3 Feliz Alejandro. [facility], [address], [place], [place], [id number], [place]. tel:[phone] [facility], [address], [place], [address], [place] tel:[phone] [facility] No Information 3 Rasheeda Tavares. [facility], [address], [place], [place], [id number], [place]. tel:[phone] Referring Provider: Kenderik Quintanilla, [address], [address]. tel:[phone] Family History Family Member Type Diagnosis Age At Onset No Information Payers Payer name Insurance type Covered republican ID Authorstephani moore(s) Bernardo Acevedo Premerrol CI [id number] Social History Type Description Quantity Date Captured [...]
--- OUTSIDE RECORDS SUMMARY | 2024-12-03 14:50 | XMS_ITS | Clinical Summary ---
Author Organization [facility] Address [address] [address] Care Team Providers Care Substance Abuse Specialist Name Role Phone Unavailable Primary Care Provider Unavailabl e Source Comments [facility] Affiliates and Associated Physician Practices is amultiple site organization consisting of ambulatory clinics and hospital sitesin [place], [place], [place] and [place]. This disclosure is being madepursuant to the Care Everywhere program and may not contain all information available regarding this patient. Last updated 18.[facility] [employer] Allergies Active Allergy Reactions Criticality Noted Date Comments Aspirin Anaphylaxis High 07/23/2019 Codeine Urticaria Medium 07/23/2019 Honey Bee Venom Anaphylaxis High 07/23/2019 Latex Urticaria Medium 07/23/2019 Peanut-Derived Anaphylaxis High 07/23/2019 Penicillin G Anaphylaxis High 07/23/2019 Penicillins Anaphylaxis High 07/23/2019 Pseudoephedrine Base Urticaria Medium 07/23/2019 With tongue swelling [place] Urticaria Medium 07/23/2019 Sulfa Drugs Anaphylaxis High [...] on file Legal Sex Female 7:46 PM FLIGHT INSTRUCTOR Gender Identity Not on file Sexual Orientation Not on file Last Filed Vital Signs Vital Sign Reading Time Taken Comments Blood Pressure 139/79 07/24/2019 4:42 PM FLIGHT INSTRUCTOR Pulse 80 07/24/2019 4:17 PM FLIGHT INSTRUCTOR Temperature 36.8 C (98.2 F) 07/24/2019 4:17 PM FLIGHT INSTRUCTOR Respiratory Rate 20 07/24/2019 4:17 PM FLIGHT INSTRUCTOR Oxygen Saturation 99% 07/24/2019 4:17 PM FLIGHT INSTRUCTOR Inhaled Oxygen Concentration - - Weight 62.9 kg (138 lb 9.6 oz) 07/22/2019 10:38 PM FLIGHT INSTRUCTOR Height 152.4 cm (5') 07/22/2019 10:38 PM FLIGHT INSTRUCTOR Body Mass Index 27.07 07/22/2019 10:38 PM FLIGHT INSTRUCTOR Plan of Treatment Health Maintenance Due Date Last Done Comments COLOGUARD (AGES 45-75) - COL ON CA SCREENING 1960 COLON MONITORING 1960 COLONOSCOPY - COLON CA SCREENING 1960 CT COLONOGRAPHY - COLON CA SCREENING 1960 Colorectal Cancer Screening 1960 FIT - COLON CA SCREENING 1960 FLEX SIG - COLON CA SCREENING 1960 MAMMOGRAM 1960 HIV SCREENING 10/11/1975 HEPATITIS C SCREENING 10/06/1978 DTAP/TDAP/TD VACCINES (1 - Tdap) 10/11/1979 PAP SMEAR 1981 PNEUMOCOCCAL VACCINE 50+ (1 of 1 - PCV) 2010 ZOSTER VACCINE (1 of 2) 2010 COVID-19 VACCINE (1 - 2023-2 5 season) 2024 DEPRESSION SCREENING 05/26/2024 MEDICARE AWV CALENDAR YEAR 2024 INFLUENZA VACCINE (#1) 2025 Respiratory Syncytial Virus (RSV) Vaccine Pt: [...] patient's age to complete [place] [address] [facility] MANAGED MEDICARE ADV MEDICAID - [place] SELF PAY NO INSURANCE Member Subscriber Plan / Payer (Ef fective for All Dates) Name:Gloria Menezes Member ID:Not on file Relation to Subscriber:Not on file Name:GLORIA MENEZES Subscriber ID:Not on file (Home) Address: [address] [id number] Payer ID:Not on file Group ID:Not on file Type:Self Pay Address: [place], [place] [employer] MANAGED MEDICARE ADV Advance Directives * Full Code (Latest Code Status on File) Date Activated Date Inactivated Comments 07/22/2019 8:22 PM 07/24/2019 8:59 PM * Full Code Date Activated Date Inactivated Comments 07/22/2019 7:59 PM 07/22/2019 9:35 PM
--- OUTSIDE RECORDS SUMMARY | 2024-12-03 14:50 | XMS_ITS | Encounter Summary ---
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
--- OUTSIDE RECORDS SUMMARY | 2024-12-03 14:50 | XMS_ITS | Data Portability ---
Author Organization [facility] [employer] Address [address] [address] Care Team Providers Care Aeronautical Test Engineer Name Role Phone [facility] [...] Lab lipid panel, serum 2017 018 lcallison [facility], [address] [facility], [place], [address], 8 09:38:26 CMP, serum or plasma 2017 018 lcallison [employer], [address] , [place], [address], 8 09:38:26 CK (creatin e kinase), total, serum 2017 018 lcallison [facility], [address] [facility], [place], [address], 8 09:38:26 HbA1c (hemoglo bin A1c), blood 2017 018 lcallison [facility], [address], [place], [address], 8 09:38:26 microalb umin/cre atinine, mass ratio, urine 2017 018 lcallison [facility], [address], [place], [address], 8 09:38:26 vitamin D, 25-hydro xy, total, serum 2017 018 lcallison [facility], [address], [place], [address], 8 09:38:25 CBC w/ auto diff 2017 018 ALENA [facility], [address], [place], [address], 8 04:51:26 unlisted lab - amylase (refl) 2017 018 ALENA [facility], [address], [place], [address], 8 02:49:09 lipase, serum or plasma 2017 018 ALENA [facility], [address], [place], [address], 8 02:49:08 urinalys is complete , reflex culture 2017 018 ALENA [facility], [address], [place], [address], 8 02:49:07 CBC w/ auto diff 2017 018 ALENA [facility], [address], [place], [address], 8 02:49:08 CBC w/ auto diff 2017 018 lcallison [facility], [address], [place], [address], 8 09:00:51 CMP, serum or plasma 2017 018 ALENA [facility], [address] [facility], [place], [address], 8 02:49:07 hepatiti s C virus Ab, serum 2017 018 lcaison [facility], [address] [facility], [place], [address], 8 08:39:06 vitamin D, 25-hydro xy, total, serum 2017 018 [facility] [employer] [facility], [address] [facility], [place], [address], 8 08:39:06 microalb umin/cre atinine, mass ratio, urine 2017 018 [facility], [address] [facility], [place], [address], 8 22:42:48 Referral pain manageme nt referral 2017 018 miranda [facility], [address], [address], [place], [address], 8 08:33:41 neurolog ist referral 2017 018 miranda [facility], [address] [place], [address], 8 08:33:39 psychiat rist referral 2017 018 miranda Rubio MD, [address] [facility] [address], [place], [address], 8 08:33:38 ophthalm ologist referral 2017 018 miranda Mckeon, [address] [facility], [facility], [place], [address], 8 08:37:10 pulmonol ogist referral 2017 018 miranda Manley MD, [address] [facility], [address], [place], [address], 8 08:33:39 psychiat rist referral 2017 018 miranda Yang, [address], [address], [place], [address], 8 08:57:01 ophthalm ologist referral 2017 018 miranda Mckeon, [address] [facility], [address] [place] [address], [address], 8 08:57:02 ENT referral 2017 018 [email or web address] Alex Grant MD, [address] [facility], [place], [address], 8 10:04:38 Procedures None recorded . Surgeries None recorded . Imaging MAMMO, screenin g, digital, bilatera l 2017 018 ATHENAFAX [facility], [address], [place], [address], 8 13:40:27 XR, chest, 2 view 2017 ALENA [facility], [address], [place], [address], 8 12:26:00 , fide garg - -- please include pancreas 2017 018 ALENA Not available 8 15:34:29 Medication Orders [...] tramadol 50 mg tablet 2017 018 INTERFACE [id number], [address] [facility], [place], [place], [id number], 8 13:26:39 benzonat ate 200 mg capsule [address] [facility], [address] [facility], [place], [place], [id number], 8 13:08:20 prometha zine 6.25 mg-codei ne 10 mg/5 mL syrup 2017 018 [facility] Not available 8 00:02:04 Levaquin 500 mg tablet 2017 018 [facility] Not available 8 00:02:09 metformi n ER 500 mg tablet,e xtended release 24 hr 2017 018 ATHENAFAX Not available 8 12:58:34 gabapent in 600 mg tablet 2017 018 ATHENAFAX Not available 8 12:57:15 duloxeti ne 60 mg capsule, delayed release 2017 018 [facility] Not available 8 12:59:40 baclofen 10 mg tablet 2017 018 INTERFACE [facility] #48209, [address], [place], [place], [id number], 8 12:44:00 losartan 50 mg-hydro chloroth iazide 12.5 mg tablet 2017 018 lcallison Not available 8 12:21:29 Patient TargetsNo targets recorded. Patient Instructions Encounter Date Encounter Id Patient Instructions Last Modified By Organization Details Last Modified Time 06/02/2017 [id number] broken nose: car e instructions Not available 06/02/2017 12:02:56 bruises: care instructions Not available 06/02/2017 12:02:56 chest contusion: care instructions Not available 06/02/2017 12:02:56 I spent 27 minut e face to face time with this patient (> 50% spent on counseling), explaining the test result and counseling patient on pt's medical conditions. Not available 06/02/2017 12:03:24 07/08/2017 [id number] broken nose: car e instructions Not available [...] lose weight Not available 07/08/2017 12:43:53 10/07/2017 [id number] cough: care instructions Not available 10/07/2017 12:48:34 01/07/2018 [id number] prediabetes: car e instructions Not available 01/07/2018 [...] [facility], Encounter Date: 07/08/2017 Seasonal Customer Service Associate Referral for Hypertelorism Referring Physician: Jorge L [facility], Encounter Date: 07/08/2017 Psychiatrist Referral for An xiety disorder Referring Physician: Jorge L [facility], Encounter Date: 01/07/2018 Seasonal Customer Service Associate Referral for Hypertelorism Referring Physician: Jorge L [facility], Encounter Date: 01/07/2018 Neurologist Referral for Epi lepsy Referring Physician: Jorge L [facility], Encounter Date: 01/07/2018 Talent Sourcing Specialist Referral for B ronchiolitis Referring Physician: Jorge [...] ng refer ence inter kali Not Available [employer] [facility] [address] [place], [address], 08/14/2017 02:49:07 08/14/19 18 08/14/2017 CMP, serum or plasm a urea nitrogen (BUN) 18 mg/dL 7-25 normal Not Available [employer] [facility] [address] [place], [address], 08/14/2017 02:49:07 08/14/19 18 08/14/2017 CMP, serum or plasm a creatinine 0.83 mg/dL 0.50-1 .05 normal For patie nts >49 years of age, the refer ence limit for Creat inine is appro ednat arabella 13% highe r for peopl e ident ified as Afric an-Am lauren n. Not Available [address] [address] [place], [address], 08/14/2017 02:49:07 08/14/19 18 08/14/2017 CMP, serum or plasm a eGFR non-afr. guyanese 79 mL/mi n/1.7 3m2 > or = 60 normal Not Available [employer] [address] [address] [place], [address], 08/14/2017 02:49:07 08/14/19 18 08/14/2017 CMP, serum or plasm a eGFR 91 mL/mi n/1.7 3m2 > or = 60 normal Not Available [address] [address] [place], [address], 08/14/2017 02:49:07 08/14/19 18 08/14/2017 CMP, serum or plasm a BUN/creatini ne ratio NOT APPLIC ABLE (calc ) 6-22 Not Available [employer] [facility] [address] [address] [place], [address], 08/14/2017 02:49:07 08/14/19 18 08/14/2017 CMP, serum or plasm a sodium 139 mmol/ L 135-14 6 normal Not Available [employer] [facility] [facility] [address] [address] [place], [address], 08/14/2017 02:49:07 08/14/19 18 08/14/2017 CMP, serum or plasm a potassium 4.4 mmol/ L 3.5-5. 3 normal Not Available [employer] [facility] [address] [address] [place], [address], 08/14/2017 02:49:07 08/14/19 18 08/14/2017 CMP, serum or plasm a chloride 104 mmol/ L 98-110 normal Not Available [address], [address], 08/14/2017 02:49:07 08/14/19 18 08/14/2017 CMP, serum or plasm a carbon dioxide 27 mmol/ L 20-31 normal Not Available [address], [address], 08/14/2017 02:49:07 08/14/19 18 08/14/2017 CMP, serum or plasm a calcium 10.0 mg/dL 8.6-10 .4 normal Not Available [address], [address], 08/14/2017 02:49:07 08/14/19 18 08/14/2017 CMP, serum or plasm a protein, total 7.0 g/dL 6.1-8. 1 normal Not Available [address], [address], 08/14/2017 02:49:07 08/14/19 18 08/14/2017 CMP, serum or plasm a albumin 4.4 g/dL 3.6-5. 1 normal Not Available [address], [address], 08/14/2017 02:49:07 08/14/19 18 08/14/2017 CMP, serum or plasm a globulin 2.6 g/dL_ (calc ) 1.9-3. 7 normal Not Available [address], [address], 08/14/2017 02:49:07 08/14/19 18 08/14/2017 CMP, serum or plasm a albumin/glob ulin ratio 1.7 (calc ) 1.0-2. 5 normal Not Available [address], [address], 08/14/2017 02:49:07 08/14/19 18 08/14/2017 CMP, serum or plasm a bilirubin, total 0.2 mg/dL 0.2-1. 2 normal Not Available [address], [address], 08/14/2017 02:49:07 08/14/19 18 08/14/2017 CMP, serum or plasm a alkaline phosphatase 67 U/L 33-130 normal Not Available [address], [address], 08/14/2017 02:49:07 08/14/19 18 08/14/2017 CMP, serum or plasm a AST 16 U/L 10-35 normal Not Available [address], [address], 08/14/2017 02:49:07 08/14/19 18 08/14/2017 CMP, serum or plasm a ALT 16 U/L 6-29 normal Not Available [address], [address], 08/14/2017 02:49:07 08/14/19 18 08/14/2017 urina lysis compl ete, refle x cultu re color YELLOW yellow normal Not Available [address], [address], 08/14/2017 02:49:07 08/14/19 18 08/14/2017 urina lysis compl ete, refle x cultu re appearance CLEAR clear normal Not Available [address], [address], 08/14/2017 02:49:07 08/14/19 18 08/14/2017 urina lysis compl ete, refle x cultu re specific gravity 1.015 1.001- 1.035 normal Not Available [address], [address], 08/14/2017 02:49:07 08/14/19 18 08/14/2017 urina lysis compl ete, refle x cultu re pH 6.5 5.0-8. 0 normal Not Available [address], [address], 08/14/2017 02:49:07 08/14/19 18 08/14/2017 urina lysis compl ete, refle x cultu re glucose NEGATI VE negati ve normal Not Available [address], [address], 08/14/2017 02:49:07 08/14/19 18 08/14/2017 urina lysis compl ete, refle x cultu re bilirubin NEGATI VE negati ve normal Not Available [address], [address], 08/14/2017 02:49:07 08/14/19 18 08/14/2017 urina lysis compl ete, refle x cultu re ketones NEGATI VE negati ve normal Not Available [address], [address], 08/14/2017 02:49:07 08/14/19 18 08/14/2017 urina lysis compl ete, refle x cultu re occult blood NEGATI VE negati ve normal Not Available [address], [address], 08/14/2017 02:49:07 08/14/19 18 08/14/2017 urina lysis compl ete, refle x cultu re protein NEGATI VE negati ve normal Not Available [address], [address], 08/14/2017 02:49:07 08/14/19 18 08/14/2017 urina lysis compl ete, refle x cultu re nitrite NEGATI VE negati ve normal Not Available [address], [address], 08/14/2017 02:49:07 08/14/19 18 08/14/2017 urina lysis compl ete, refle x cultu re leukocyte esterase NEGATI VE negati ve normal Not Available [address], [address], 08/14/2017 02:49:07 08/14/19 18 08/14/2017 urina lysis compl ete, refle x cultu re WBC NONE SEEN /hpf < or = 5 normal Not Available [address], [address], 08/14/2017 02:49:07 08/14/19 18 08/14/2017 urina lysis compl ete, refle x cultu re RBC NONE SEEN /hpf < or = 2 normal Not Available [address], [address], 08/14/2017 02:49:07 08/14/19 18 08/14/2017 urina lysis compl ete, refle x cultu re squamous epithelial cells NONE SEEN /hpf < or = 5 normal Not Available [address], [address], 08/14/2017 02:49:07 08/14/19 18 08/14/2017 urina lysis compl ete, refle x cultu re bacteria NONE SEEN /hpf none seen normal Not Available [address], [address], 08/14/2017 02:49:07 08/14/19 18 08/14/2017 urina lysis compl ete, refle x cultu re hyaline cast NONE SEEN /lpf none seen normal Not Available [address], [address], 08/14/2017 02:49:07 08/14/19 18 08/14/2017 urina lysis compl ete, refle x cultu re reflexive urine culture NO CULTUR E INDICA LES Not Available [address] [place], [address], 08/14/2017 02:49:07 08/14/19 18 08/14/2017 CBC w/ auto diff white blood cell count 9.6 thous and/u L 3.8-10 .8 normal Not Available [address], [address], 08/14/2017 02:49:08 08/14/19 18 08/14/2017 CBC w/ auto diff red blood cell count 4.50 ella on/uL 3.80-5 .10 normal Not Available [address], [address], 08/14/2017 02:49:08 08/14/19 18 08/14/2017 CBC w/ auto diff hemoglobin 13.6 g/dL 11.7-1 5.5 normal Not Available [address], [address], 08/14/2017 02:49:08 08/14/19 18 08/14/2017 CBC w/ auto diff hematocrit 40.0 % 35.0-4 5.0 normal Not Available [address], [address], 08/14/2017 02:49:08 08/14/19 18 08/14/2017 CBC w/ auto diff MCV 88.9 fL 80.0-1 00.0 normal Not Available [address], [address], 08/14/2017 02:49:08 08/14/19 18 08/14/2017 CBC w/ auto diff MCH 30.2 pg 27.0-3 3.0 normal Not Available [address], [address], 08/14/2017 02:49:08 08/14/19 18 08/14/2017 CBC w/ auto diff MCHC 34.0 g/dL 32.0-3 6.0 normal Not Available [address], [address], 08/14/2017 02:49:08 08/14/19 18 08/14/2017 CBC w/ auto diff RDW 12.4 % 11.0-1 5.0 normal Not Available [address], [address], 08/14/2017 02:49:08 08/14/19 18 08/14/2017 CBC w/ auto diff platelet count 344 thous and/u L 140-40 0 normal Not Available [address], [address], 08/14/2017 02:49:08 08/14/19 18 08/14/2017 CBC w/ auto diff MPV 10.2 fL 7.5-12 .5 normal Not Available [address], [address], 08/14/2017 02:49:08 08/14/19 18 08/14/2017 CBC w/ auto diff absolute neutrophils 5357 cells /uL 1500-7 800 normal Not Available [address], [address], 08/14/2017 02:49:08 08/14/19 18 08/14/2017 CBC w/ auto diff absolute lymphocytes 3197 cells /uL 850-39 00 normal Not Available [address], [address], 08/14/2017 02:49:08 08/14/19 18 08/14/2017 CBC w/ auto diff absolute monocytes 826 cells /uL 200-95 0 normal Not Available [address], [address], 08/14/2017 02:49:08 08/14/19 18 08/14/2017 CBC w/ auto diff absolute eosinophils 173 cells /uL 15-500 normal Not Available [address] [address] [place], [address], 08/14/2017 02:49:08 08/14/19 18 08/14/2017 CBC w/ auto diff absolute basophils 48 cells /uL 0-200 normal Not Available [address] [address] [place], [address], 08/14/2017 02:49:08 08/14/19 18 08/14/2017 CBC w/ auto diff neutrophils 55.8 % normal Not Available [address] [address] [place], [address], 08/14/2017 02:49:08 08/14/19 18 08/14/2017 CBC w/ auto diff lymphocytes 33.3 % normal Not Available [address] [address] [place], [address], 08/14/2017 02:49:08 08/14/19 18 08/14/2017 CBC w/ auto diff monocytes 8.6 % normal Not Available [address] [address] [place], [address], 08/14/2017 02:49:08 08/14/19 18 08/14/2017 CBC w/ auto diff eosinophils 1.8 % normal Not Available [address] [address] [place], [address], 08/14/2017 02:49:08 08/14/19 18 08/14/2017 CBC w/ auto diff basophils 0.5 % normal Not Available [address] [address] [place], [address], 08/14/2017 02:49:08 08/14/19 18 08/14/2017 lipas e, serum or plasm a lipase 55 U/L 7-60 normal Not Available [address] [address] [place], [address], 08/14/2017 02:49:08 08/14/19 18 08/14/2017 amyla se (refl ) amylase (refl) 44 U/L 21-101 normal Not Available [address], [address], 08/14/2017 02:49:09 10/08/19 18 10/08/2017 CBC w/ auto diff white blood cell count 8.9 thous and/u L 3.8-10 .8 normal Not Available [address], [address], 10/08/2017 04:51:26 10/08/19 18 10/08/2017 CBC w/ auto diff red blood cell count 4.56 ella on/uL 3.80-5 .10 normal Not Available [address], [address], 10/08/2017 04:51:26 10/08/19 18 10/08/2017 CBC w/ auto diff hemoglobin 13.7 g/dL 11.7-1 5.5 normal Not Available [address], [address], 10/08/2017 04:51:26 10/08/19 18 10/08/2017 CBC w/ auto diff hematocrit 41.1 % 35.0-4 5.0 normal Not Available [address], [address], 10/08/2017 04:51:26 10/08/19 18 10/08/2017 CBC w/ auto diff MCV 90.1 fL 80.0-1 00.0 normal Not Available [address], [address], 10/08/2017 04:51:26 10/08/19 18 10/08/2017 CBC w/ auto diff MCH 30.0 pg 27.0-3 3.0 normal Not Available [address], [address], 10/08/2017 04:51:26 10/08/19 18 10/08/2017 CBC w/ auto diff MCHC 33.3 g/dL 32.0-3 6.0 normal Not Available [address], [address], 10/08/2017 04:51:26 10/08/19 18 10/08/2017 CBC w/ auto diff RDW 12.4 % 11.0-1 5.0 normal Not Available [address], [address], 10/08/2017 04:51:26 10/08/19 18 10/08/2017 CBC w/ auto diff platelet count 338 thous and/u L 140-40 0 normal Not Available [address], [address], 10/08/2017 04:51:26 10/08/19 18 10/08/2017 CBC w/ auto diff MPV 9.9 fL 7.5-12 .5 normal Not Available [address], [address], 10/08/2017 04:51:26 10/08/19 18 10/08/2017 CBC w/ auto diff absolute neutrophils 4325 cells /uL 1500-7 800 normal Not Available [address], [address], 10/08/2017 04:51:26 10/08/19 18 10/08/2017 CBC w/ auto diff absolute lymphocytes 3516 cells /uL 850-39 00 normal Not Available [address], [address], 10/08/2017 04:51:26 10/08/19 18 10/08/2017 CBC w/ auto diff absolute monocytes 872 cells /uL 200-95 0 normal Not Available [address], [address], 10/08/2017 04:51:26 10/08/19 18 10/08/2017 CBC w/ auto diff absolute eosinophils 134 cells /uL 15-500 normal Not Available [address], [address], 10/08/2017 04:51:26 10/08/19 18 10/08/2017 CBC w/ auto diff absolute basophils 53 cells /uL 0-200 normal Not Available [address], [address], 10/08/2017 04:51:26 10/08/19 18 10/08/2017 CBC w/ auto diff neutrophils 48.6 % normal Not Available [address], [address], 10/08/2017 04:51:26 10/08/19 18 10/08/2017 CBC w/ auto diff lymphocytes 39.5 % normal Not Available [address], [address], 10/08/2017 04:51:26 10/08/19 18 10/08/2017 CBC w/ auto diff monocytes 9.8 % normal Not Available [address], [address], 10/08/2017 04:51:26 10/08/19 18 10/08/2017 CBC w/ auto diff eosinophils 1.5 % normal Not Available [address], [address], 10/08/2017 04:51:26 10/08/19 18 10/08/2017 CBC w/ auto diff basophils 0.6 % normal Not Available [address], [address], 10/08/2017 04:51:26 06/02/19 18 05/27/2017 XR, chest , 2 view No observ ation record ed. Not Available 2017 12:41:44 06/03/19 18 05/27/2017 XR, chest , 2 view No observ ation record ed. [facility] Not Available 2017 12:41:44 06/03/19 18 05/28/2017 CT, abdom en + pelvi s, w/o contr ast No observ ation record ed. [facility] Not Available 2017 12:41:44 06/03/19 18 05/28/2017 CT, thora cic spine , w/ contr ast No observ ation record ed. [facility] Not Available 2017 12:41:44 06/03/19 18 05/28/2017 XR, hand No observ ation record ed. [facility] Not Available 2017 12:41:44 06/03/19 18 05/28/2017 CT, lumba r spine , w/ contr ast No observ ation record ed. [facility] Not Available 2017 12:41:44 08/08/19 18 08/07/2017 CT, abdom en + pelvi s, w/ contr ast No observ ation record ed. [facility] Not Available 2017 10:18:24 08/16/19 18 08/15/2017 US, gallb ladde r No observ ation record ed. [facility] [address], [place], [address], 10/07/2017 12:49:38 08/19/19 18 08/18/2017 MAMMO , scree janeen, digit al, bilat eral No observ ation record ed. [address] (Imaging) [address], [place], [address], 10/07/2017 12:49:38 08/21/19 18 08/15/2017 US, abdom en No observ ation record ed. [facility] [address], [place], [address], 10/07/2017 12:49:38 08/28/19 18 08/27/2017 NM, hepat obili anant scan, w/ CCK No observ ation record ed. [address] [facility] Sched[facility] [address] [facility], [place], [address], 10/07/2017 12:49:38 10/15/19 18 10/07/2017 XR, chest , 2 view No observ ation record ed. [facility] [address], [place], [address], 01/07/2018 13:28:24 01/21/20 18 elect rocar diogr am No observ ation record ed. [facility] Not Available 2017 13:55:39 Result Notes None recorded. Problems Name Problem SNOMED Code Status Onset Date Resolution Date Notes Provider Name and Address Organization Details Recorded Time Hypertensive disorder 66059827 Active 2016 [facility] 7 11:46:05 Heart disease 84260602 Active [address] [facility] 7 11:47:10 Problem Notes None [...] Tonsillectomy completed Jorge L Barnes MD [address], [place], [address], [facility] 03/07/2017 12:40:03 delivery completed Jorge L Barnes MD [address], [place], [address], [facility] 03/07/2017 12:40:31 Dilation and curettage completed Jorge L Barnes MD [address], [place], [address], [facility] 03/07/2017 12:41:13 Knee Surgery completed Jorge L Barnes MD [address], [place], [address], [facility] 03/07/2017 12:44:20 Partial Hysterectomy completed Jorge L Barnes MD [address], [place], [address], [facility] 03/07/2017 12:42:51 Appendectomy completed Jorge L Barnes MD [address], [place], [address], [facility] 03/07/2017 12:43:26 Carpal tunnel surgery completed Jorge L Barnes MD [address], [place], [address], [facility] 03/07/2017 12:43:51 Unlisted px foot/toes completed Jorge L Barnes MD [address], [place], [address], [facility] 03/07/2017 12:46:11 Arthrd ant ntrbd min dsc lum completed Jorge L Barnes MD [address], [place], [address], [facility] 03/07/2017 12:49:59 Other completed Jorge L Barnes MD [address], [place], [address], [facility] 03/07/2017 12:48:07 Imaging Results None recorded. Procedure Notes None recorded. Medical Equipment None Reported. Allergies Allergen ID Allergen Name Allergen Category Reaction Reaction Severity Criticality Documentation Date Start Date Code Code System Note Provider Name and Address Organization Details Recorded Time 6276 Product containin g penicilli n (product) medicatio n anaphylax is hives Not available Not available Not available 03/07/2017 [address] [facility] 7 11:23:41 6277 pseudoeph edrine Not available anaphylax is hives Not available Not available Not available 03/07/[address] [facility] 7 11:24:27 6278 bee pollen environme nt,medica tion anaphylax is Not available Not available 03/07/2017 90998 7 RxAnshu tim [facility] 7 11:25:29 6279 peanut allergeni c extract food,medi cation anaphylax is Not available Not available 03/07/2017 80517 8 RxAnshu tim [facility] 7 11:25:41 Medications Name Sig Start [...] active Not Available Not Available Not Avanjali labmore fenofibrate micronized 134 mg capsule 01/07 completed [...] Body weight Respiratory rate Heart rate Systolic And Diastolic Provider Name and Address Organization Details Last Updated DateTime 8 157.48 cm 29.1 kg/m2 87858.1 9 g 16 /min 84 /min 135/88 mm[Hg] Carmen Eduardo [facility] 8 11:21:30 Date Recorded Systolic And Diastolic Provider Name and Address Organization Details Last Updated DateTime 07/08/2017 116/83 mm[Hg] Jorge L Barnes MD [address], [place], [address], [facility] 07/08/2017 12:38:26 Date Recorded Body height Respiratory rate Body mass index (BMI) Body weight Heart rate Body temperature Provider Name and Address Organization Details Last Updated DateTime 8 157.48 cm 16 /min 28.9 kg/m2 27922.5 9 g 71 /min 97.2 [degF] [facility] 8 12:06:38 Date Recorded Body height Respiratory rate Body mass index (BMI) Body weight Heart rate Systolic And Diastolic Provider Name and Address Organization Details Last Updated DateTime 8 157.48 cm 16 /min 29.3 kg/m2 39285.7 8 g 76 /min 133/80 mm[Hg] [facility] 8 09:25:14 Date Recorded Body height Heart rate Respiratory rate Body temperature Body mass index (BMI) Body weight Systolic And Diastolic Provider Name and Address Organization Details Last Updated DateTime 8 157.48 cm 76 /min 16 /min 97.5 [degF] 28.7 kg/m2 04173 g 165/95 mm[Hg] [facility] 8 12:18:10 Date Recorded Body height Body mass index (BMI) Body weight Respiratory rate Heart rate Systolic And Diastolic Provider Name and Address Organization Details Last Updated DateTime 8 157.48 cm 27.3 kg/m2 81977.2 6 g 16 /min 89 /min 129/75 mm[Hg] [facility] 8 12:40:12 Social History Question Answer Notes LastModified by Organizat ion Details LastModified Time Tobacco Smoking Status Former Smoker Smoked for about 22 years. Quit in 2012. Witnessed pt smoke a cig on 03/11- current status if daily? [facility] 03/07/2017 11:31:12 Do You Have An Advance Directive? Yes Information not available 03/07/2017 What Is Your Level Of Caffeine Consumption? Moderate ( 2 Cups A Day) Information not available 03/07/2017 How Much Tobacco Do You Chew? None Information not available 03/07/2017 What Is Your Code Status? Full Code Information not available 03/07/2017 What Type Of Diet Are You Following? CARDIAC Information not available 03/07/2017 Which Illicit Or Recreational Drugs Have You Used? None Information not available 03/07/2017 Live Alone Or With Others? 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
--- OUTSIDE RECORDS SUMMARY | 2024-12-03 14:50 | XMS_ITS | Continuity of Care Document ---
Author Organization [facility] Address [address] [address] Phone Care Team Providers Care Stove Mechanic Name Role Phone Alex Samuel MD Unavailable Unavailable Allergies, Adverse Reactions, Alerts Substance Reaction Status Criticality PENICILLIN Active No Information Medications Medication Instructions Dosage Effective Dates (start - stop) Status Comments sulfamethoxazole 800 mg-trimethoprim 160 mg tablet take 1 tablet by oral route every 12 hours 1.00 tablet - Active oxycodone-acetaminophe n 5 mg-325 mg tablet take 1 - 2 tablet by oral route every 4 - 6 hours as needed 1.00-2.00 tablet - Active oxybutynin chloride ER 10 mg tablet,extended release 24 hr take 1 tablet by oral route every day 10 MG - Active OMEPRAZOLE (unknown strength) Not Available - Active ATORVASTATIN CALCIUM (unknown strength) Not Available - Active METFORMIN HCL (unknown strength) Not Available - Active ENALAPRIL MALEATE (unknown strength) Not Available - Active Procedures Procedure Date Ureteroscopy 8.77 Cysto / Stent Placemt 4.14 Xray Abdomen 1 View Cysto / Stent Placemt 4.14 Xray Abdomen 1 View OV - New Patient Urinalysis - Automated Advance Directives Directive Yes / No Effective Date File Name No Information Encounters Encounter Description Practice Location Reason(s) For Visit Diagnoses Date Provider Providers Copied on Encounter [facility] [address] [place] [address], [place], [place], [id number], [place] tel:[phone] [facility] No Information 8 Lizzie Alex. [address] [place] [address], [facility] [address], [place], [place], [id number], [place]. tel:[phone] [facility], [address] [place] [address] [address], [place], [place], [id number], [place] tel:[phone] [facility] Calculus of ureter 8 Rohlf Sanford. [address] [place] [address], [id number], [place]. tel:[phone] Referring Provider: Baljit Mccray, [address] [place] [address], [address]. tel:[phone] [facility], [address] [place] [address] , [place], [place], [id number], [place] tel:[phone] [facility] No Information 8 Rohlf Sanford. [address] [place] [address], [id number], [place]. tel:[phone] [facility], [address] [place] [address] , [place], [place], [id number], [place] tel:[phone] [facility] Calculus of ureter 8 Lizzie Alex. [address] [place] [address], [place] [address], [place], [place], [id number], [place]. tel:[phone] Referring Provider: Baljit Mccray, [address] [place] [address], [address]. tel:[phone] OV - New Patient [facility], [address] [place] [address] [address], [place], [place], [id number], [place] tel:[phone] [facility] Calculus of kidneyCalculus of ureterHydronephr osisRenal ColicPre-op Exam 0 8 Lizzie Alex. [address] [facility], [facility] [address], [place], [place], [id number], [place]. tel:[phone] Referring Provider: Baljit Mccray, [address] [place], [address]. tel:[phone] Family History Family Member Type Diagnosis Age At Onset No Information Payers Payer name Insurance type Covered libertarian ID Authoriza tion(s) No Information Social History [...]
--- OUTSIDE RECORDS SUMMARY | 2024-12-03 14:50 | XMS_ITS | Continuity of Care Document ---
Author Organization [facility] Address [address] [place] [address] Phone Care Team Providers Care Exhibit Display Representative Name Role Phone Pancho OD OD, Johnson Unavailable Unavailab le Allergies, Adverse Reactions, Alerts Substance Reaction Status Criticality Penicillins Active No Information Medications Medication Instructions Dosage Effective Dates (start - stop) Status Comments enalapril 5 mg-hydrochlorothiazide 12.5 mg tablet take 1 tablet by oral route every day 1.00 tablet - Active CHANTIX (unknown strength) take 1 tablet by oral route 2 times every day with a glass of water after meals Not Available - Active OMEPRAZOLE (unknown strength) take 1 capsule by oral route every day 30 minutes to 1 hour before a meal Not Available - Active METFORMIN HCL (unknown strength) take 1 tablet by oral route 2 times every day with morning and evening meals Not Available - Active HYDROCHLOROTHIAZIDE (unknown strength) Not Available - Active LIPITOR (unknown strength) Not Available - Active Procedures Procedure Date REFRACTION EYE EXAM & TREATMENT Glasses Rx Given OFFICE/OUTPATIENT VISIT, NEW REFRACTION EYE EXAM & TREATMENT REFRACTION EYE EXAM & TREATMENT EYE EXAM ESTABLISHED [facility] EYE EXAM ESTABLISHED [facility] Contact Lens Check Contact lens/es other type Contact Lens Check Contact Lens Check EYE EXAM, NEW PATIENT CONTACT LENS FITTING EYE EXAM, NEW PATIENT Advance Directives Directive Yes / No Effective Date File Name No Information Encounters Encounter Description Practice Location Reason(s) For Visit Diagnoses Date Provider Providers Copied on Encounter [facility] [place], [id number] tel:[phone] [facility] No Information Oct-0 3-201 8 Isgrig OD Johnson. [facility] [address] [place], [id number]. tel:[phone] [facility] [address] [place], [id number] tel:[phone] JOSE J Lakin PresbyopiaType 2 diabetes mellitus without complication, without long-term current use of insulinLong term current use of oral hypoglycemic drugKeratoconju nctivitis siccaPinguecula , bilateral Dec-1 3-201 7 Isgrig OD Johnson. [facility] [place] [place], [id number]. tel:[phone] Referring Provider: Abimael Garcia, [facility] [address] [place], [place] [address] [place], [address]. tel:[phone] OFFICE/OUTPA TIENT VISIT, NEW [facility] [address] [place], [place], [id number] tel:[phone] JOSE J Lakin Unspecified episcleritis, bilateral Oct-2 5-201 7 Gisella Varghese. [facility] [address] [place], [id number]. tel:[phone] Referring Provider: Abimael Garcia, [facility] [place], [address]. tel:[phone] [facility] [address] [place], [id number] tel:[phone] JOSE J Lakin PresbyopiaType 2 diabetes mellitus without complication Dec-0 7-201 5 Isgrig OD Johnson. [facility] [place], [id number]. tel:[phone] [facility], [address] [place], [place], [id number] tel:[phone] JOSE J Lakin HypermetropiaAs tigmatism, unspecifiedPres byopia Apr-0 3 No Information [facility], [address], [place], [place], [id number] tel:[phone] JOSE J Lakin Conjunctival hemorrhage Jul- 3 No Information [facility], [address], [place], [place], [id number] tel:[phone] JOSE J Lakin Conjunctivitis, unspecified Jan-0 2 No Information [facility], [address], [place], [place], [id number] tel:[phone] [facility] Presbyopia Apr- 1 No Information [facility], [address], [place], [place], [id number] tel:[phone] [facility] Presbyopia Apr-0 1 No Information [facility], [address], [place], [place], [id number] tel:[phone] JOSE J Lakin Hypermetropia Aug-0 1 No Information [facility], [address], [place], [place], [id number] tel:[phone] JOSE J Lakin Hypermetropia Jul-3 1 No Information [facility], [address], [place], [place], [id number] tel:[phone] [facility] Presbyopia Jul-3 1 No Information [facility], [address], [place], [place], [id number] tel:[phone] JOSE J Lakin Hypermetropia Jul-2 1 No Information [facility], [address], [place], [place], [id number] tel:[phone] JOSE J Lakin HypermetropiaAs tigmatism, unspecifiedPres byopia Jul- 1 No Information [facility], [address], [place], [place], [id number] tel:[phone] [facility] Presbyopia Mar-1 5-201 1 No Information [facility], [address], [id number] tel:[phone] [facility] Presbyopia Mar-2 0-200 7 No Information [facility], [address] [place], [id number] tel:[phone] JOSE J Lakin HypermetropiaAs tigmatism, unspecifiedPres byopia Mar-2 0-200 7 No Information Family History Family Member Type Diagnosis Age At Onset Multiple Problem (finding) Diabetes mellitus Payers Payer name Insurance type Covered green party ID Authoriza tion(s) No Information Social History Type Description Quantity Date Captured Comments Sex Female Smoking Status No Information Chief Complaint And Reason For Visit No Information Reason For Referral Reason For Referral No Information History Of Present Illness Encounter Date Complaint History Of Prese nt Illness No Information Functional Status Date Functional Assessmen t No Information Instructions Date Instruction Additional Infor faith Type 2 diabetes debra itus without complication, without long-term current use of insulin OU Condition: established, stable. - Discussed findings. Educated no diabetic retinopathy was seen in the eyes today. Will send report to PCP. Explained importance of controlling blood sugar, blood pressure, and serum lipids to help reduce the risk of vision loss, which can sometimes be severe and permanent. Laser or medication treatment may be needed if vision is ever threatened by diabetic eye changes. Explained importance of dilated eye exams at least yearly. Call brando if ever any vision changes. 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 - continue as directed by prescribing physician Related to [facility] current use of oral hypoglycemic drug Keratoconjunctivitis sicca OU Condition: new problem addtl w/u needed. - Discussed exam findings, eyes are dry, but only to a mild degree. Severe dryness, if custodial, can cause damage to the front surface of the eyes, sometimes permanent. A major component of dry eye is inflammation. Quick TBUT OU but no corneal staining. Start otc systane balance BID OU (am/pm) gave samples. Call if symptoms worsen/no improve. Explained eyes can get red/irritated simply due to dry eye, this can be a chronic condition. May need drops roller helper which is common. May need rx drop in future. Related to Keratoconjunctivitis sicca Pinguecula of both e yes OU Condition: established, stable. - discussed benign growths on white of eyes OU, this is commoncan become irritated at times, which typically we can get under control with certain eye dropscall with concerns Related to Pinguecula of both eyes Follow up - Return i n 1 year with Johnson Deleon OD for Complete. Related to Presbyopia Presbyopia OU Condit ion: established slightly worse. - Discussed findings. New glasses Rx given. Call with any changes in vision. Related to Presbyopia - Return in as scheduled Related to Episcleritis of both eyes Episcleritis of both eyes OU Condition: new prob, no addtl w/u needed. - Patient reports the white of her eyes were droopy temporally OU. Her description suggests temporal chemosis+/- chalasis OU due to inflammation. Exam shows temporal injection OU. These symptoms are most likely due to inflammation of the superficial tissues of the white part of the eye. Recommend begin FML TID OU for 5 days, then BID OU for 5 days, then QD OU for 5 days, and then stop its use. Shake well before use and ERx sent to pharmacy. Patient to call with concerns. Related to Episcleritis of both eyes Presbyopia OU Condit ion: established, stable. - Discussed findings. New glasses Rx given. Call with any changes in vision. Related to Presbyopia - Return in 1 year w Johnson Wesley OD for Complete. Related to Type 2 diabetes mellitus without complication Type 2 diabetes debra itus without complication OU Condition: new prob, no addtl w/u needed. - Discussed findings. Educated no diabetic retinopathy was seen in the eyes today. Will send report to PCP. Explained importance of controlling blood sugar, blood pressure, and serum lipids to help reduce the risk of vision loss, which can sometimes be severe and permanent. Laser or medication treatment may be needed if vision is ever threatened by diabetic eye changes. Explained importance of dilated eye exams at least yearly. Call brando if ever any vision changes. Related to Type 2 diabetes mellitus without complication Follow up - Return i n 2 years with Moises Otero OD for Complete. Related to Presbyopia Hyperopia OU Conditi on: established, worsening. Astigmatism, unspecified OU Condition: established, worsening. Presbyopia OU Condition: established, worsening. - Educational materials provided: New glasses Rx given, Stable exam call with va changes. Related to Presbyopia Follow up - Return in [facility] ed Related to Subconjunctival Hemorrhage Subconjunctival Hemo rrhage OD Condition: new prob, no addtl w/u needed. - Educational materials provided: Advised of findings call stat with decreased VA, decreased VF, or increase in flashes and floaters.Pt started ASA Tx 2 weeks ago. Does heavy lifting at work. Explained most likely reasons for olivia. No tx required. Related to Subconjunctival Hemorrhage Conjunctivitis, unsp ecified OS Condition: new prob, no addtl w/u needed. - D/C CL wearStart Tobradex qid OS x7-10 days then stopCall stat worse or no improvement Related to Conjunctivitis, unspecified Follow up - Return i n 1-2 months with Moises Otero OD for Complete. Related to Conjunctivitis, unspecified Assessments Type Assessment Date No Information Patient Care Teams Name Effective Dates (start - stop) Status Members No Information
--- OUTSIDE RECORDS SUMMARY | 2024-12-03 14:50 | XMS_ITS | Continuity of Care Document ---
Author Organization [facility] Address [address] [place] [address] Phone Care Team Providers Care Product Promoter Retail Pet Name Role Phone May WILEY MS SALES DEVELOPMENT SPECIALIST, Kalie Unavailable Unava ilable Procedures Procedure Date NUC-Cardiolite/Per Dose Nuc-Perf Scan, Mult, W/EF & WM 17 Regadenoscan Per 0.1 MG Stress Test, Complete Advance Directives Directive Yes / No Effective Date File Name No Information Encounters Encounter Description Practice Location Reason(s) For Visit Diagnoses Date Provider Providers Copied on Encounter [facility], [address], [place], [address], tel:[phone] [place] CVM No Information 8 May Jade. [facility] , [address], [place], [place], [id number], [place]. tel:[phone] [facility], [address], [place], [address], [place] tel:[phone] [address] [place] CVM Chest pain, unspecified 7 Gabino Sierra. [facility] , [address], [place], [place], [id number], [place]. tel:[phone] Referring Provider: Baljit Mccray, [address] [place], [address]. tel:[phone] Family History Family Member Type Diagnosis Age At Onset No Information Payers Payer name Insurance type Covered republican ID Jasen moore(sElie Mittal CI [id number] Social History Type Description Quantity Date Captured Comments Alcohol Use Details Unknown Caffeine Use Details Unknown Tobacco Use Status No Information Smoking Status No Information Sex Female Chief Complaint And Reason For Visit No Information Reason For Referral Reason For Referral No Information Plan Of Treatment Date Type Action Status Future Order: Radiology Order Nu clear Regadenoson One Day ([place]), Appointment on: , Collected on: , Sent on: Sent History Of Present Illness Encounter Date Complaint History Of Prese nt Illness No Information Functional Status Date Functional Assessmen t No Information Instructions Date Instruction Additional Infor mation No Information Assessments Type Assessment Date No Information Patient Care Teams Name Effective Dates (start - stop) Status Members No Information
== END 2024-12-03 14:46 | disposition home or self-care (01) ==
PROVIDERS: PCP Family Medicine; Visit Provider Physician Assistant
DX: Z12.2 Encounter for screening for malignant neoplasm of respiratory organs (principal); Z87.891 Personal history of nicotine dependence
CPT/HCPCS: 71271

== ENCOUNTER 2024-12-07 00:53 | Day surgery (SDC) | payer MEDICARE, SELFPAY ==
[2024-11-17 13:07] VITALS: BMI 27.5
--- OUTSIDE RECORDS SUMMARY | 2024-12-07 00:55 | XMS_ITS | Patient Health Record ---
Author Organization [facility] Address [address] [place] [address] Care Team Providers Care Crew Caller Name Role Phone Josh Rubio Unavailable [phone] Reason For Referral No Information Plan Of Treatment No Information
--- OUTSIDE RECORDS SUMMARY | 2024-12-07 00:55 | XMS_ITS | Continuity of Care Document ---
Author Organization [facility] Address [address] [place] [address] Phone Care Team Providers Care Sonar Subsystem Equipment Operator Name Role Phone Feliz RODRIGUEZ MD, Javon Unavailable Unavailable Procedures Procedure Date IO-Perfusion Scan, Multiple Advance Directives Directive Yes / No Effective Date File Name No Information Encounters Encounter Description Practice Location Reason(s) For Visit Diagnoses Date Provider Providers Copied on Encounter [facility], [address], [place], [address], [place] tel:[phone] [place] CVM No Information 3 Feliz Alejanrdo. [facility], [address], [place], [place], [id number], [place]. tel:[phone] [facility], [address], [place], [address], [place] tel:[phone] [facility] No Information 3 Rasheeda Tavares. [facility], [address], [place], [place], [id number], [place]. tel:[phone] Referring Provider: Kenderik Quintanilla, [address], [address]. tel:[phone] Family History Family Member Type Diagnosis Age At Onset No Information Payers Payer name Insurance type Covered libertarian ID Authorstephani moore(s) Bernardo Acevedo Premerrol CI [id number] Social History Type Description Quantity Date Captured [...]
--- OUTSIDE RECORDS SUMMARY | 2024-12-07 00:56 | XMS_ITS | Clinical Summary ---
Author Organization [facility] Address [address] [place] [address] Care Team Providers Care Stock Puller Name Role Phone Unavailable Primary Care Provider Unavailabl e Source Comments [facility],non-[facility] Affiliates and Associated Physician Practices is amultiple site organization consisting of ambulatory clinics and hospital sitesin [place], [place], [place]. This disclosure is being madepursuant to the Care Everywhere program and may not contain all information available regarding this patient. Last updated 18.[facility] Allergies Active Allergy Reactions Criticality Noted Date Comments Aspirin Anaphylaxis High 07/23/2019 Codeine Urticaria Medium 07/23/2019 Honey Bee Venom Anaphylaxis High 07/23/2019 Latex Urticaria Medium 07/23/2019 Peanut-Derived Anaphylaxis High 07/23/2019 Penicillin G Anaphylaxis High 07/23/2019 Penicillins Anaphylaxis High 07/23/2019 Pseudoephedrine Base Urticaria Medium 07/23/2019 With tongue swelling [place] Urticaria Medium 07/23/2019 Sulfa Drugs Anaphylaxis High [...] on file Legal Sex Female 7:46 PM GOLF BALL INSPECTOR Gender Identity Not on file Sexual Orientation Not on file Last Filed Vital Signs Vital Sign Reading Time Taken Comments Blood Pressure 139/79 07/24/2019 4:42 PM GOLF BALL INSPECTOR Pulse 80 07/24/2019 4:17 PM GOLF BALL INSPECTOR Temperature 36.8 C (98.2 F) 07/24/2019 4:17 PM GOLF BALL INSPECTOR Respiratory Rate 20 07/24/2019 4:17 PM GOLF BALL INSPECTOR Oxygen Saturation 99% 07/24/2019 4:17 PM GOLF BALL INSPECTOR Inhaled Oxygen Concentration - - Weight 62.9 kg (138 lb 9.6 oz) 07/22/2019 10:38 PM GOLF BALL INSPECTOR Height 152.4 cm (5') 07/22/2019 10:38 PM GOLF BALL INSPECTOR Body Mass Index 27.07 07/22/2019 10:38 PM GOLF BALL INSPECTOR Plan of Treatment Health Maintenance Due Date [...] patient's age to complete this topic Insurance [facility] MANAGED MEDICARE ADV MEDICAID - [place] SELF PAY NO INSURANCE Member Subscriber Plan / Payer (Ef fective for All Dates) Name:Gloria Menezes Member ID:Not on file Relation to Subscriber:Not on file Name:GLORIA MENEZES Subscriber ID:Not on file (Home) Address[address] [address] [id number] Payer ID:Not on file Group ID:Not on file Type:Self Pay Address: [place], [place] [employer]HC MANAGED MEDICARE ADV Advance Directives * Full Code (Latest Code Status on File) Date Activated Date Inactivated Comments 07/22/2019 8:22 PM 07/24/2019 8:59 PM * Full Code Date Activated Date Inactivated Comments 07/22/2019 7:59 PM 07/22/2019 9:35 PM
--- OUTSIDE RECORDS SUMMARY | 2024-12-07 00:56 | XMS_ITS | Data Portability ---
Author Organization [facility] [employer] Address [address] [address] Care Team Providers Care Split Leather Mosser Name Role Phone [facility] Pain [...] Lab lipid panel, serum 2017 018 lcallison [facility], [address] [facility], [place], [address], 8 09:38:26 CMP, serum or plasma 2017 018 lcallison [facility], [address] , [place], [address], 8 09:38:26 CK (creatin e kinase), total, serum 2017 018 lcallison [facility], [address] [facility], [place], [address], 8 09:38:26 HbA1c (hemoglo bin A1c), blood 2017 018 lcallison [facility], [address], [place], [address], 8 09:38:26 microalb umin/cre atinine, mass ratio, urine 2017 018 lcallison [facility], [address], [place], [address], 8 09:38:26 vitamin D, 25-hydro xy, total, serum 2017 018 lcallison [facility], [address], [place], [address], 8 09:38:25 CBC w/ auto diff 2017 018 ALENA [facility], [address], [place], [address], 8 04:51:26 unlisted lab - amylase (refl) 2017 018 ALENA [facility], [address], [place], [address], 8 02:49:09 lipase, serum or plasma 2017 018 ALENA [facility], [address], [place], [address], 8 02:49:08 urinalys is complete , reflex culture 2017 018 ALENA [facility], [address], [place], [address], 8 02:49:07 CBC w/ auto diff 2017 018 ALENA [facility], [address], [place], [address], 8 02:49:08 CBC w/ auto diff 2017 018 lcallison [facility], [address], [place], [address], 8 09:00:51 CMP, serum or plasma 2017 018 ALENA [facility], [address] [facility], [place], [address], 8 02:49:07 hepatiti s C virus Ab, serum 2017 018 lcaison [facility], [address] [facility], [place], [address], 8 08:39:06 vitamin D, 25-hydro xy, total, serum 2017 018 [facility], [address] [facility], [place], [address], 8 08:39:06 microalb umin/cre atinine, mass ratio, urine 2017 018 [facility], [address] [facility], [place], [address], 8 22:42:48 Referral pain manageme nt referral 2017 018 miranda [facility], [address], [address], [place], [address], 8 08:33:41 neurolog ist referral 2017 018 miranda [facility], [address] [place], [address], 8 08:33:39 psychiat rist referral 2017 018 miranda Rubio MD, [address] [facility] [address], [place], [address], 8 08:33:38 ophthalm ologist referral 2017 018 miranda Mckeon, [address] [facility], [facility], [place], [address], 8 08:37:10 pulmonol ogist referral 2017 018 miranda Manley MD, [address] [facility], [address], [place], [address], 8 08:33:39 psychiat rist referral 2017 018 miranda Yang, [address], [address], [place], [address], 8 08:57:01 ophthalm ologist referral 2017 018 miranda Mckeon, [address] [facility], [address] [place] [address], [address], 8 08:57:02 ENT referral 2017 018 [email or web address] Alex Grant MD, [address] [facility], [place], [address], 8 10:04:38 Procedures None recorded . Surgeries None recorded . Imaging MAMMO, screenin g, digital, bilatera l 2017 018 ATHENA[facility]X [facility], [address], [address], [place], [address], 8 13:40:27 XR, chest, 2 view 2017 ALENA [facility], [address], [address], [place], [address], 8 12:26:00 , fide garg - -- [...] 018 INTERFACE [id number], [address] [facility], [place], [id number], 8 13:26:39 benzonat ate 200 mg capsule [address] [id number], [address] [facility], [place], [place], [id number], 8 13:08:20 prometha zine 6.25 mg-codei ne 10 mg/5 mL syrup 2017 018 [facility] Not available 8 00:02:04 Levaquin 500 mg tablet 2017 018 [facility] Not available 8 00:02:09 metformi n ER 500 mg tablet,e xtended release 24 hr 2017 018 [facility] Not available 8 12:58:34 gabapent in 600 mg tablet 2017 018 [facility] Not available 8 12:57:15 duloxeti ne 60 mg capsule, delayed release 2017 018 [facility] Not available 8 12:59:40 baclofen 10 mg tablet 2017 018 INTERFACE [facility] #[id number], [address] [facility], [place], [place], [id number], 8 12:44:00 losartan 50 mg-hydro chloroth iazide 12.5 mg tablet 2017 018 lcallison Not available 8 12:21:29 Patient TargetsNo targets recorded. Patient Instructions Encounter Date Encounter Id Patient Instructions Last Modified By Organization Details Last Modified Time 06/02/2017 [id number] broken nose: car e instructions Not available 06/02/2017 12:02:56 bruises: care instructions Not available 06/02/2017 12:02:56 chest contusion: care instructions Not available 06/02/2017 12:02:56 I spent 27 minut e face to face time with this patient (> 50% spent on counseling), explaining the test result and counseling patient on pt's medical conditions. Not available 06/02/2017 12:03:24 07/08/2017 [id number] broken nose: car e instructions Not available [...] lose weight Not available 07/08/2017 12:43:53 10/07/2017 [id number] cough: care instructions Not available 10/07/2017 12:48:34 01/07/2018 [id number] prediabetes: car e instructions Not available 01/07/2018 [...] [facility], Encounter Date: 07/08/2017 Customer Service Representative Teacher Referral for Hypertelorism Referring Physician: Jorge L [facility], Encounter Date: 07/08/2017 Psychiatrist Referral for An xiety disorder Referring Physician: Jorge L [facility], Encounter Date: 01/07/2018 Customer Service Representative Teacher Referral for Hypertelorism Referring Physician: Jorge L [facility], Encounter Date: 01/07/2018 Neurologist Referral for Epi lepsy Referring Physician: Jorge L [facility], Encounter Date: 01/07/2018 Cnc Operator Referral for B ronchiolitis Referring Physician: Jorge [...] ng refer ence inter kali Not Available [facility] [address] [place], [address], 08/14/2017 02:49:07 08/14/19 18 08/14/2017 CMP, serum or plasm a urea nitrogen (BUN) 18 mg/dL 7-25 normal Not Available [facility] [address] [place], [address], 08/14/2017 02:49:07 08/14/19 18 08/14/2017 CMP, serum or plasm a creatinine 0.83 mg/dL 0.50-1 .05 normal For patie nts >49 years of age, the refer ence limit for Creat inine is appro ednat arabella 13% highe r for peopl e ident ified as Afric an-Am lauren n. Not Available [address] [address] [place], [address], 08/14/2017 02:49:07 08/14/19 18 08/14/2017 CMP, serum or plasm a eGFR non-afr. guyanese 79 mL/mi n/1.7 3m2 > or = 60 normal Not Available [employer] [address] [address] [place], [address], 08/14/2017 02:49:07 08/14/19 18 08/14/2017 CMP, serum or plasm a eGFR 91 mL/mi n/1.7 3m2 > or = 60 normal Not Available [address] [address] [place], [address], 08/14/2017 02:49:07 08/14/19 18 08/14/2017 CMP, serum or plasm a BUN/creatini ne ratio NOT APPLIC ABLE (calc ) 6-22 Not Available [employer] [address] [place], [address], 08/14/2017 02:49:07 08/14/19 18 08/14/2017 CMP, serum or plasm a sodium 139 mmol/ L 135-14 6 normal Not Available [facility] [address] [address] [place], [address], 08/14/2017 02:49:07 08/14/19 18 08/14/2017 CMP, serum or plasm a potassium 4.4 mmol/ L 3.5-5. 3 normal Not Available [employer] [address] [address] [place], [address], 08/14/2017 02:49:07 08/14/19 18 08/14/2017 CMP, serum or plasm a chloride 104 mmol/ L 98-110 normal Not Available [address], [address], 08/14/2017 02:49:07 08/14/19 18 08/14/2017 CMP, serum or plasm a carbon dioxide 27 mmol/ L 20-31 normal Not Available [address], [address], 08/14/2017 02:49:07 08/14/19 18 08/14/2017 CMP, serum or plasm a calcium 10.0 mg/dL 8.6-10 .4 normal Not Available [address], [address], 08/14/2017 02:49:07 08/14/19 18 08/14/2017 CMP, serum or plasm a protein, total 7.0 g/dL 6.1-8. 1 normal Not Available [address], [address], 08/14/2017 02:49:07 08/14/19 18 08/14/2017 CMP, serum or plasm a albumin 4.4 g/dL 3.6-5. 1 normal Not Available [address], [address], 08/14/2017 02:49:07 08/14/19 18 08/14/2017 CMP, serum or plasm a globulin 2.6 g/dL_ (calc ) 1.9-3. 7 normal Not Available [address], [address], 08/14/2017 02:49:07 08/14/19 18 08/14/2017 CMP, serum or plasm a albumin/glob ulin ratio 1.7 (calc ) 1.0-2. 5 normal Not Available [address], [address], 08/14/2017 02:49:07 08/14/19 18 08/14/2017 CMP, serum or plasm a bilirubin, total 0.2 mg/dL 0.2-1. 2 normal Not Available [address], [address], 08/14/2017 02:49:07 08/14/19 18 08/14/2017 CMP, serum or plasm a alkaline phosphatase 67 U/L 33-130 normal Not Available [address], [address], 08/14/2017 02:49:07 08/14/19 18 08/14/2017 CMP, serum or plasm a AST 16 U/L 10-35 normal Not Available [address], [address], 08/14/2017 02:49:07 08/14/19 18 08/14/2017 CMP, serum or plasm a ALT 16 U/L 6-29 normal Not Available [address], [address], 08/14/2017 02:49:07 08/14/19 18 08/14/2017 urina lysis compl ete, refle x cultu re color YELLOW yellow normal Not Available [address], [address], 08/14/2017 02:49:07 08/14/19 18 08/14/2017 urina lysis compl ete, refle x cultu re appearance CLEAR clear normal Not Available [address], [address], 08/14/2017 02:49:07 08/14/19 18 08/14/2017 urina lysis compl ete, refle x cultu re specific gravity 1.015 1.001- 1.035 normal Not Available [address], [address], 08/14/2017 02:49:07 08/14/19 18 08/14/2017 urina lysis compl ete, refle x cultu re pH 6.5 5.0-8. 0 normal Not Available [address], [address], 08/14/2017 02:49:07 08/14/19 18 08/14/2017 urina lysis compl ete, refle x cultu re glucose NEGATI VE negati ve normal Not Available [address], [address], 08/14/2017 02:49:07 08/14/19 18 08/14/2017 urina lysis compl ete, refle x cultu re bilirubin NEGATI VE negati ve normal Not Available [address], [address], 08/14/2017 02:49:07 08/14/19 18 08/14/2017 urina lysis compl ete, refle x cultu re ketones NEGATI VE negati ve normal Not Available [address], [address], 08/14/2017 02:49:07 08/14/19 18 08/14/2017 urina lysis compl ete, refle x cultu re occult blood NEGATI VE negati ve normal Not Available [address], [address], 08/14/2017 02:49:07 08/14/19 18 08/14/2017 urina lysis compl ete, refle x cultu re protein NEGATI VE negati ve normal Not Available [address], [address], 08/14/2017 02:49:07 08/14/19 18 08/14/2017 urina lysis compl ete, refle x cultu re nitrite NEGATI VE negati ve normal Not Available [address], [address], 08/14/2017 02:49:07 08/14/19 18 08/14/2017 urina lysis compl ete, refle x cultu re leukocyte esterase NEGATI VE negati ve normal Not Available [address], [address], 08/14/2017 02:49:07 08/14/19 18 08/14/2017 urina lysis compl ete, refle x cultu re WBC NONE SEEN /hpf < or = 5 normal Not Available [address], [address], 08/14/2017 02:49:07 08/14/19 18 08/14/2017 urina lysis compl ete, refle x cultu re RBC NONE SEEN /hpf < or = 2 normal Not Available [address], [address], 08/14/2017 02:49:07 08/14/19 18 08/14/2017 urina lysis compl ete, refle x cultu re squamous epithelial cells NONE SEEN /hpf < or = 5 normal Not Available [address], [address], 08/14/2017 02:49:07 08/14/19 18 08/14/2017 urina lysis compl ete, refle x cultu re bacteria NONE SEEN /hpf none seen normal Not Available [address], [address], 08/14/2017 02:49:07 08/14/19 18 08/14/2017 urina lysis compl ete, refle x cultu re hyaline cast NONE SEEN /lpf none seen normal Not Available [address], [address], 08/14/2017 02:49:07 08/14/19 18 08/14/2017 urina lysis compl ete, refle x cultu re reflexive urine culture NO CULTUR E INDICA LES Not Available [address] [place], [address], 08/14/2017 02:49:07 08/14/19 18 08/14/2017 CBC w/ auto diff white blood cell count 9.6 thous and/u L 3.8-10 .8 normal Not Available [address], [address], 08/14/2017 02:49:08 08/14/19 18 08/14/2017 CBC w/ auto diff red blood cell count 4.50 ella on/uL 3.80-5 .10 normal Not Available [address], [address], 08/14/2017 02:49:08 08/14/19 18 08/14/2017 CBC w/ auto diff hemoglobin 13.6 g/dL 11.7-1 5.5 normal Not Available [address], [address], 08/14/2017 02:49:08 08/14/19 18 08/14/2017 CBC w/ auto diff hematocrit 40.0 % 35.0-4 5.0 normal Not Available [address], [address], 08/14/2017 02:49:08 08/14/19 18 08/14/2017 CBC w/ auto diff MCV 88.9 fL 80.0-1 00.0 normal Not Available [address], [address], 08/14/2017 02:49:08 08/14/19 18 08/14/2017 CBC w/ auto diff MCH 30.2 pg 27.0-3 3.0 normal Not Available [address], [address], 08/14/2017 02:49:08 08/14/19 18 08/14/2017 CBC w/ auto diff MCHC 34.0 g/dL 32.0-3 6.0 normal Not Available [address], [address], 08/14/2017 02:49:08 08/14/19 18 08/14/2017 CBC w/ auto diff RDW 12.4 % 11.0-1 5.0 normal Not Available [address], [address], 08/14/2017 02:49:08 08/14/19 18 08/14/2017 CBC w/ auto diff platelet count 344 thous and/u L 140-40 0 normal Not Available [address], [address], 08/14/2017 02:49:08 08/14/19 18 08/14/2017 CBC w/ auto diff MPV 10.2 fL 7.5-12 .5 normal Not Available [address], [address], 08/14/2017 02:49:08 08/14/19 18 08/14/2017 CBC w/ auto diff absolute neutrophils 5357 cells /uL 1500-7 800 normal Not Available [address], [address], 08/14/2017 02:49:08 08/14/19 18 08/14/2017 CBC w/ auto diff absolute lymphocytes 3197 cells /uL 850-39 00 normal Not Available [address], [address], 08/14/2017 02:49:08 08/14/19 18 08/14/2017 CBC w/ auto diff absolute monocytes 826 cells /uL 200-95 0 normal Not Available [address], [address], 08/14/2017 02:49:08 08/14/19 18 08/14/2017 CBC w/ auto diff absolute eosinophils 173 cells /uL 15-500 normal Not Available [address] [address] [place], [address], 08/14/2017 02:49:08 08/14/19 18 08/14/2017 CBC w/ auto diff absolute basophils 48 cells /uL 0-200 normal Not Available [address] [address] [place], [address], 08/14/2017 02:49:08 08/14/19 18 08/14/2017 CBC w/ auto diff neutrophils 55.8 % normal Not Available [address] [address] [place], [address], 08/14/2017 02:49:08 08/14/19 18 08/14/2017 CBC w/ auto diff lymphocytes 33.3 % normal Not Available [address] [address] [place], [address], 08/14/2017 02:49:08 08/14/19 18 08/14/2017 CBC w/ auto diff monocytes 8.6 % normal Not Available [address] [address] [place], [address], 08/14/2017 02:49:08 08/14/19 18 08/14/2017 CBC w/ auto diff eosinophils 1.8 % normal Not Available [address] [address] [place], [address], 08/14/2017 02:49:08 08/14/19 18 08/14/2017 CBC w/ auto diff basophils 0.5 % normal Not Available [address] [address] [place], [address], 08/14/2017 02:49:08 08/14/19 18 08/14/2017 lipas e, serum or plasm a lipase 55 U/L 7-60 normal Not Available [address] [address] [place], [address], 08/14/2017 02:49:08 08/14/19 18 08/14/2017 amyla se (refl ) amylase (refl) 44 U/L 21-101 normal Not Available [address], [address], 08/14/2017 02:49:09 10/08/19 18 10/08/2017 CBC w/ auto diff white blood cell count 8.9 thous and/u L 3.8-10 .8 normal Not Available [address], [address], 10/08/2017 04:51:26 10/08/19 18 10/08/2017 CBC w/ auto diff red blood cell count 4.56 ella on/uL 3.80-5 .10 normal Not Available [address], [address], 10/08/2017 04:51:26 10/08/19 18 10/08/2017 CBC w/ auto diff hemoglobin 13.7 g/dL 11.7-1 5.5 normal Not Available [address], [address], 10/08/2017 04:51:26 10/08/19 18 10/08/2017 CBC w/ auto diff hematocrit 41.1 % 35.0-4 5.0 normal Not Available [address], [address], 10/08/2017 04:51:26 10/08/19 18 10/08/2017 CBC w/ auto diff MCV 90.1 fL 80.0-1 00.0 normal Not Available [address], [address], 10/08/2017 04:51:26 10/08/19 18 10/08/2017 CBC w/ auto diff MCH 30.0 pg 27.0-3 3.0 normal Not Available [address], [address], 10/08/2017 04:51:26 10/08/19 18 10/08/2017 CBC w/ auto diff MCHC 33.3 g/dL 32.0-3 6.0 normal Not Available [address], [address], 10/08/2017 04:51:26 10/08/19 18 10/08/2017 CBC w/ auto diff RDW 12.4 % 11.0-1 5.0 normal Not Available [address], [address], 10/08/2017 04:51:26 10/08/19 18 10/08/2017 CBC w/ auto diff platelet count 338 thous and/u L 140-40 0 normal Not Available [address], [address], 10/08/2017 04:51:26 10/08/19 18 10/08/2017 CBC w/ auto diff MPV 9.9 fL 7.5-12 .5 normal Not Available [address], [address], 10/08/2017 04:51:26 10/08/19 18 10/08/2017 CBC w/ auto diff absolute neutrophils 4325 cells /uL 1500-7 800 normal Not Available [address], [address], 10/08/2017 04:51:26 10/08/19 18 10/08/2017 CBC w/ auto diff absolute lymphocytes 3516 cells /uL 850-39 00 normal Not Available [address], [address], 10/08/2017 04:51:26 10/08/19 18 10/08/2017 CBC w/ auto diff absolute monocytes 872 cells /uL 200-95 0 normal Not Available [address], [address], 10/08/2017 04:51:26 10/08/19 18 10/08/2017 CBC w/ auto diff absolute eosinophils 134 cells /uL 15-500 normal Not Available [address], [address], 10/08/2017 04:51:26 10/08/19 18 10/08/2017 CBC w/ auto diff absolute basophils 53 cells /uL 0-200 normal Not Available [address], [address], 10/08/2017 04:51:26 10/08/19 18 10/08/2017 CBC w/ auto diff neutrophils 48.6 % normal Not Available [address], [address], 10/08/2017 04:51:26 10/08/19 18 10/08/2017 CBC w/ auto diff lymphocytes 39.5 % normal Not Available [address], [address], 10/08/2017 04:51:26 10/08/19 18 10/08/2017 CBC w/ auto diff monocytes 9.8 % normal Not Available [address], [address], 10/08/2017 04:51:26 10/08/19 18 10/08/2017 CBC w/ auto diff eosinophils 1.5 % normal Not Available [address], [address], 10/08/2017 04:51:26 10/08/19 18 10/08/2017 CBC w/ auto diff basophils 0.6 % normal Not Available [address], [address], 10/08/2017 04:51:26 06/02/19 18 05/27/2017 XR, chest , 2 view No observ ation record ed. Not Available 2017 12:41:44 06/03/19 18 05/27/2017 XR, chest , 2 view No observ ation record ed. [facility] Not Available 2017 12:41:44 06/03/19 18 05/28/2017 CT, abdom en + pelvi s, w/o contr ast No observ ation record ed. [facility] Not Available 2017 12:41:44 06/03/19 18 05/28/2017 CT, thora cic spine , w/ contr ast No observ ation record ed. [facility] Not Available 2017 12:41:44 06/03/19 18 05/28/2017 XR, hand No observ ation record ed. [facility] Not Available 2017 12:41:44 06/03/19 18 05/28/2017 CT, lumba r spine , w/ contr ast No observ ation record ed. [facility] Not Available 2017 12:41:44 08/08/19 18 08/07/2017 CT, abdom en + pelvi s, w/ contr ast No observ ation record ed. [facility] Not Available 2017 10:18:24 08/16/19 18 08/15/2017 US, gallb ladde r No observ ation record ed. [facility] [address], [place], [address], 10/07/2017 12:49:38 08/19/19 18 08/18/2017 MAMMO , scree janeen, digit al, bilat eral No observ ation record ed. [address] (Imaging) [address], [place], [address], 10/07/2017 12:49:38 08/21/19 18 08/15/2017 US, abdom en No observ ation record ed. [facility] [address], [place], [address], 10/07/2017 12:49:38 08/28/19 18 08/27/2017 NM, hepat obili anant scan, w/ CCK No observ ation record ed. [address] [facility], [place], [address], 10/07/2017 12:49:38 10/15/19 18 10/07/2017 XR, chest , 2 view No observ ation record ed. [facility] [address], [place], [address], 01/07/2018 13:28:24 01/21/20 18 elect rocar diogr am No observ ation record ed. [email or web address] Not Available 2017 13:55:39 Result Notes None recorded. Problems Name Problem SNOMED Code Status Onset Date Resolution Date Notes Provider Name and Address Organization Details Recorded Time Hypertensive disorder 90390897 Active 2016 [facility] 7 11:46:05 Heart disease 32594978 Active 2016 Ischemic Disease [facility] 7 11:47:10 Problem Notes None recorded. Procedures Surgical History Date Name Laterality Status Provider Name and Address Organization Details Recorded Time 10/25/19 17 Date of Last Pap Smear completed [facility] 03/07/2017 11:23:05 07/25/19 17 Date of Last Mammogram completed [facility] 03/07/2017 11:23:13 08/25/19 16 Colonoscopy completed [facility] 03/11/2017 12:46:40 Tonsillectomy completed Jorge L Barnes MD [address], [place], [address], [facility] 03/07/2017 12:40:03 delivery completed Jorge L Barnes MD [address], [place], [address], [facility] 03/07/2017 12:40:31 Dilation and curettage completed Jorge L Barnes MD [address], [place], [address], [facility] 03/07/2017 12:41:13 Knee Surgery completed Jorge L Barnes MD [address], [place], [address], [facility] 03/07/2017 12:44:20 Partial Hysterectomy completed Jorge L Barnes MD [address], [place], [address], [facility] 03/07/2017 12:42:51 Appendectomy completed Jorge L Barnes MD [address], [place], [address], [facility] 03/07/2017 12:43:26 Carpal tunnel surgery completed Jorge L Barnes MD [address], [place], [address], [facility] 03/07/2017 12:43:51 Unlisted px foot/toes completed Jorge L Barnes MD [address], [place], [address], [facility] 03/07/2017 12:46:11 Arthrd ant ntrbd min dsc lum completed Jorge L Barnes MD [address], [place], [address], [facility] 03/07/2017 12:49:59 Other completed Jorge L Barnes MD [address], [place], [address], [facility] 03/07/2017 12:48:07 Imaging Results None recorded. Procedure Notes None recorded. Medical Equipment None Reported. Allergies Allergen ID Allergen Name Allergen Category Reaction Reaction Severity Criticality Documentation Date Start Date Code Code System Note Provider Name and Address Organization Details Recorded Time 6276 Product containin g penicilli n (product) medicatio n anaphylax is hives Not available Not available Not available 03/07/2017 45648 8001 SNOMED Carmen Jayce [facility] 7 11:23:41 6277 pseudoeph edrine Not available anaphylax is hives Not available Not available Not available 03/07/2017 8896 RxNorm Carmendanny Eduardo [facility] 7 11:24:27 6278 bee pollen environme nt,medica tion anaphylax is Not available Not available 03/07/2017 03395 7 RxAnshu tim [facility] 7 11:25:29 6279 peanut allergeni c extract food,medi cation anaphylax is Not available Not available 03/07/2017 79687 8 RxAnshu tim [facility] 7 11:25:41 Medications Name Sig Start Date [...] Updated DateTime 8 157.48 cm 29.1 kg/m2 31568.1 9 g 16 /min 84 /min 135/88 mm[Hg] Carmen Eduardo [facility] 8 11:21:30 Date Recorded Systolic And Diastolic Provider Name and Address Organization Details Last Updated DateTime 07/08/2017 116/83 mm[Hg] Jorge L Barnes MD [address], [place], [address], [facility] 07/08/2017 12:38:26 Date Recorded Body height Respiratory rate Body mass index (BMI) Body weight Heart rate Body temperature Provider Name and Address Organization Details Last Updated DateTime 8 157.48 cm 16 /min 28.9 kg/m2 38258.5 9 g 71 /min 97.2 [degF] [facility] 8 12:06:38 Date Recorded Body height Respiratory rate Body mass index (BMI) Body weight Heart rate Systolic And Diastolic Provider Name and Address Organization Details Last Updated DateTime 8 157.48 cm 16 /min 29.3 kg/m2 57670.7 8 g 76 /min 133/80 mm[Hg] [facility] 8 09:25:14 Date Recorded Body height Heart rate Respiratory rate Body temperature Body mass index (BMI) Body weight Systolic And Diastolic Provider Name and Address Organization Details Last Updated DateTime 8 157.48 cm 76 /min 16 /min 97.5 [degF] 28.7 kg/m2 84163 g 165/95 mm[Hg] [facility] 8 12:18:10 Date Recorded Body height Body mass index (BMI) Body weight Respiratory rate Heart rate Systolic And Diastolic Provider Name and Address Organization Details Last Updated DateTime 8 157.48 cm 27.3 kg/m2 68909.2 6 g 16 /min 89 /min 129/75 mm[Hg] [facility] 8 12:40:12 Social History Question Answer Notes LastModified by Organizat ion Details LastModified Time Tobacco Smoking Status Former Smoker Smoked for about 22 years. Quit in 2012. Witnessed pt smoke a cig on 03/11- current status if daily? 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 [...] Uncle Myocardial infarction -- 2 uncles w/ [place] in their 30s Not available 10/15/2017 12:00:02 Medical History Condition Response Diabetes N Other Y Seizures/Epilepsy N Cancer N Thyroid Problems N Stroke N GI Problems N Lung Disease N Anemia N Bladder or Kidney Problems [...] Recorded Time Tdap 05/26/2013 completed Carmen Eduardo [facility] 03/07/2017 11:22:48 Past Encounters Encounter ID Performer Location Encounter Start Date Encounter Closed Date Diagnosis/Indication Diagnosis SNOMED-CT Code Diagnosis ICD10 Code Diagnosis Note [id number] Jorge L Barnes MD [employer] [employer] [address] [place] [address] 03/07/2017 11:04:57 03/07/2017 14:09:19 Chest pain 96409755 R07.9 (lower sternum; describe as Episodic shooting pain; occasional ly near the right subscapula r area) Anxiety disorder 2372871 06 F41.9 (History of panic attacks) Body mass index 25-29 - overweight 910964817 Z68.28 -- advised weight loss-- pt's BMI today is 28.9 (ideal is between 20-25) Viral screening 53671995 4 Z11.59 Active or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
--- OUTSIDE RECORDS SUMMARY | 2024-12-07 00:56 | XMS_ITS | Continuity of Care Document ---
Author Organization [facility] Address [address] [place] [address] [address] [place] [address] Phone Care Team Providers Care Currency Counter Name Role Phone [facility] Mather Unavailable U navailable Procedures Procedure Date Cystoureth/ureter &/pyeloscpy; 18 Cystourethroscopy W/insrt Sten 18 Guidewire .038 Stent Percuflex Cystourethroscopy W/insrt Sten 18 Guidewire .038 Stent Percuflex Advance Directives Directive Yes / No Effective Date File Name No Information Encounters Encounter Description Practice Location Reason(s) For Visit Diagnoses Date Provider Providers Copied on Encounter [facility], [address] [place] [address] [place], [place], [id number], tel:[phone] DO NOT USE [facility]id 09/21/20 No Information [facility]. [address] [place] [address], [id number] , [place]. tel:[phone] Referring Provider: Sanford Mandujano, [address] [place] [address], [address] . tel:[phone] [facility], [address] [place] [address], [id number], tel:[phone] 0900 [facility] No Information [facility]. [address] [place] [address], [id number] , [place]. tel:[phone] Referring Provider: Alex Samuel, [address] [place] [address], [place], [address] . tel:[phone] Family History Family Member Type Diagnosis Age At Onset No Information Payers Payer name Insurance type Covered alliance party ID Authoriza tion(s) No Information Social [...]
--- OUTSIDE RECORDS SUMMARY | 2024-12-07 00:56 | XMS_ITS | Continuity of Care Document ---
Author Organization [facility] Address [address] [address] Phone Care Team Providers Care Medical Administrator Name Role Phone Alex Samuel MD Unavailable [...] Providers Copied on Encounter [facility] , [address] [place] [address], [place], [place], [id number], [place] tel:[phone] [facility] No Information 8 Lizzie Alex. [address] [place] [address], [facility] [address], [place], [place], [id number], [place]. tel:[phone] [facility], [address] [place] [address] [address], [place], [place], [id number], [place] tel:[phone] [facility] Calculus of ureter 8 Rohlf Sanford. [address] [place] [address], [id number], [place]. tel:[phone] Referring Provider: Baljit Mccray, [address] [place] [address], [address]. tel:[phone] [facility], [address] [place] [address] , [place], [place], [id number], [place] tel:[phone] [facility] No Information 8 Rohlf Sanford. [address] [place] [address], [id number], [place]. tel:[phone] [facility], [address] [place] [address] , [place], [place], [id number], [place] tel:[phone] [facility] Calculus of ureter 8 Lizzie Alex. [address] [place] [address], [place] [address], [place], [place], [id number], [place]. tel:[phone] Referring Provider: Baljit Mccray, [address] [place] [address], [address]. tel:[phone] OV - New Patient [facility], [address] [place] [address] [address], [place], [place], [id number], [place] tel:[phone] [facility] Calculus of kidneyCalculus of ureterHydronephr osisRenal ColicPre-op Exam [address] [facility], [facility] [address], [place], [place], [id number], [place]. tel:[phone] Referring Provider: Baljit Mccray, [address] [place], [address]. tel:[phone] Family History Family Member Type Diagnosis Age At Onset No Information Payers Payer name Insurance type Covered republican ID Authoriza tion(s) No Information Social History [...]
--- OUTSIDE RECORDS SUMMARY | 2024-12-07 00:56 | XMS_ITS | Referral Summary ---
Author Organization [facility] [address] Address [address] [place] [address] Care Team Providers Care Admitting Representative Name Role Phone Ramón Mcdaniel MD Primary Care Provider [phone] Allergies Active Allergy Reactions Criticality Noted Date Comments Adhesive Hives,Redness Medium 05/16/2021 Aspirin Anaphylaxis,Hives High 07/23/2019 Bee Pollen Anaphylaxis High 05/16/2021 Codeine Anaphylaxis,Urticari a High 07/23/2019 Latex Hives,Urticaria Medium 08/07/2017 Hives Other Anaphylaxis High 08/07/2017 Anaphylaxis Peanut Anaphylaxis High 05/16/2021 Penicillins Anaphylaxis,Hives,Ot her (See comments) High 03/28/2014 Reaction: Hives Pseudoephedrine Anaphylaxis,Hives,Ot her (See comments),Urticaria High 03/28/2014 Reaction: With tongue swelling Hives Turkey Hives,Itching,Urtica klaus Medium 08/07/2017 Hives Sulfa (Sulfonamide [...] on file Legal Sex Female 2:56 AM FAMILY LAW ATTORNEY Gender Identity Not on file Sexual Orientation Not on file Occupation Industry Job Start Date Job End Date disabled Not on file Not on file Not on file Last Filed Vital Signs Vital Sign Reading Time Taken Comments Blood Pressure 133/79 04/07/2023 9:22 AM FAMILY LAW ATTORNEY Pulse 76 04/07/2023 9:22 AM FAMILY LAW ATTORNEY Temperature 37 C (98.6 F) 08/15/2021 7:55 AM CDT Respiratory Rate 18 08/15/2021 7:55 AM CDT Oxygen Saturation 96% 08/15/2021 7:55 AM CDT Inhaled Oxygen Concentration - - Weight 71 kg (156 lb 9.6 oz) 04/07/2023 9:22 AM FAMILY LAW ATTORNEY Height 152.4 cm (5') 04/07/2023 9:22 AM FAMILY LAW ATTORNEY Body Mass Index 30.58 04/07/2023 9:22 AM FAMILY LAW ATTORNEY Plan of Treatment Not on file Medical Devices Implanted Type Area Senior Manager Creative Services Device Identifier Shelf Expiration Date Model / Serial / Lot Bmp Infuse Sm [id number] - [id number] Implanted:Qty: 1 on 08/13/2021 by Jason Garcia MD at [facility] N/A: Spine Lumbar Medtronic Inc 12/23/2022 [id number] / / [id number] Joint [employer] [id number] 1-4mm Freeze Dried Crushed Graft 30ml Bone Cancellous - [id number] Implanted:Qty: 1 on 08/13/2021 by Jason Garcia MD at [facility] N/A: Spine Lumbar Allosource 06/21/2025 [id number] / / [id number] [facility] Smart Sparrow 5146.1652 Creo Od6.5 Mm L50 Mm Thread; Polyaxial Spine Screw Bone Titanium; - [id number] Implanted:Qty: 3 on 08/13/2021 by Jason Garcia MD at [facility] N/A: Spine Lumbar Globus Medical 5146.1652 / / Globus Medical 1119.0010 Creo Thread Spinal Cap Locking Nonsterile - [id number] Implanted:Qty: 8 on 08/13/2021 by Jason Garcia MD at [facility] N/A: Spine Lumbar Globus Medical 1119.0010 / / Globus Medical 1119.7125 Creo 5.5mm 125mm Curve Javier Spinal Titanium - [id number] Implanted:Qty: 1 on 08/13/2021 by Jason Garcia MD at [facility] N/A: Spine Lumbar Glob[employer] Medical 1119.7125 / / Globus Medical 5146.1752 Creo Od7.5 Mm L50 Mm Thread; Polyaxial Spine Screw Bone Titanium; - [id number] Implanted:Qty: 3 on 08/13/2021 by Jason Garcia MD at [facility] N/A: Spine Lumbar Glob[employer] Medical 5146.1752 / / Globus Medical 1119.7125 Creo 5.5mm 125mm Curve Javier Spinal Titanium - [id number] Implanted:Qty: 1 on 08/13/2021 by Jason Garcia MD at [facility] N/A: Spine Lumbar Globus Medical 1119.7125 / / Globus [id number] Implanted:Qty: 1 on 08/13/2021 by Jason Garcia MD at [facility] N/A: Spine Lumbar GLOBUS [id number] / / Description:Correction. Scre w is 75x40 NOT 75x45 Globuys Tlif Cage [id number] Implanted:Qty: 1 on 08/13/2021 by Jason Garcia MD at [facility] N/A: Spine Lumbar GLOBUS 168.251 / / Procedures Procedure Name Priority Date/Time Associated Diagnosis Comments EGFR Routine 08/15/2021 2:46 AM CDT POCT HEMOGLOBIN A1C Routine 08/09/2021 5 :12 PM CDT SERUM LIPID PANEL Routine 07/21/2015 8:3 5 PM FAMILY LAW ATTORNEY from Last 3 Months or Most Recently [...] us Blayne Elise MD LAB BLOOD ORDERABLES [facility] al Result Performing Organization Address City/State/[facility] Co [place] Phone Number [facility] [address] [facility] [place] [address] * (ABNORMAL) POCT hemoglobin A1c (08/09/2021 5:12 PM CDT) Hgb A1C, POC 5.7(H) 4.0 - 5.6 % [facility] Est Average Gluc POC 117 mg/dL [facility] Comment: The ADA recommends reporting an estimated Average Glucose (eAG) with all Hemoglobin A1c results using the equation derived from a study of 507 normal and diabetic adults. Minority populations were underrepresented and children were not included. (Diabetes Care 31:5804-6803, 2008). The eAG is not equivalent to a fasting glucose. Blood 08/09/2021 5:12 PM CDT 08/09/2021 5:12 PM CDT Jason Garcia MD POINT OF CARE TEST ORD ERABLES Final Result [facility] [place] [address] * Serum lipid panel (07/21/2015 8:35 PM FAMILY LAW ATTORNEY) Cholesterol 192 0 - 200 mg/dl HISTORICAL [...] last revised 2011. Serum 07/21/2015 8:35 PM FAMILY LAW ATTORNEY us Hudson Yung MD LAB BLOOD ORDERABLES Final Res ult HISTORICAL RESULTS from Last 3 Months or Most Recently Relevant to Health Maintenance Insurance [facility] [employer] [place] [facility] Ubertesters IDPA [facility] IDPA WORKERS COMPENSATION GENERIC [facility] AETNA MCR ADVANTRA WORKERS COMPENSATION GENERIC Advance Directives For more information, please contact: [phone] * Full Code (Latest Code Status on File) Date Activated Date Inactivated Comments 08/13/2021 3:04 PM 08/15/2021 3:49 PM * Full Code Date Activated Date Inactivated Comments 07/26/2021 4:34 AM 07/27/2021 1:56 PM Care Teams Admitting Representative Relationship Specialty Start Date End Date Ramón Mcdaniel MD PCP - General Family Practice 02/17/23
--- OUTSIDE RECORDS SUMMARY | 2024-12-07 00:56 | XMS_ITS | Continuity of Care Document ---
Author Organization [facility] Address [address] [place] [address] Phone Care Team Providers Care Tooling Supervisor Name Role Phone Pancho OD OD, Johnson [...] EYE EXAM & TREATMENT EYE EXAM ESTABLISHED [facility] EYE EXAM ESTABLISHED [facility] Contact Lens Check Contact lens/es other type Contact Lens Check Contact Lens Check EYE EXAM, NEW PATIENT CONTACT LENS FITTING EYE EXAM, NEW PATIENT Advance Directives Directive Yes / No Effective Date File Name No Information Encounters Encounter Description Practice Location Reason(s) For Visit Diagnoses Date Provider Providers Copied on Encounter [facility] [place], [id number] tel:[phone] [facility] [facility] No Information Oct-0 3-201 8 Isgrig OD Johnson. [facility] [address] Patrick [place], [place], [id number]. tel:[phone] [facility] [address] [place], [place], [id number] tel:[phone] [facility] [place] PresbyopiaType 2 diabetes mellitus without complication, without long-term current use of insulinLong term current use of oral hypoglycemic drugKeratoconju nctivitis siccaPinguecula , bilateral Dec-1 3-201 7 Isgrig OD Johnson. [facility] Janee Nguyen [place], [place], [id number]. tel:[phone] Referring Provider: Abimael Garcia, [facility] [address] [place], [place] [address] [place], [address]. tel:[phone] OFFICE/OUTPA TIENT VISIT, NEW [facility] [address] Nguyen [place], [place], [id number] tel:[phone] [facility] [place] Unspecified episcleritis, bilateral Oct-2 5-201 7 Gisella Varghese. [facility] [address] [place], [place], [id number]. tel:[phone] Referring Provider: Abimael Garcia, [facility] [place], [address]. tel:[phone] [facility] [address] Nguyen [place], [place], [id number] tel:[phone] JO[facility] [place] PresbyopiaType 2 diabetes mellitus without complication Dec-0 7-201 5 Isgrig OD Johnson. [facility] Serena [place], [id number]. tel:[phone] [facility], [address] [place], [place], [id number] tel:[phone] [facility] [place] HypermetropiaAs tigmatism, unspecifiedPres byopia Apr-0 3 No Information [facility], [address], [place], [place], [id number] tel:[phone] [facility] [place] Conjunctival hemorrhage Jul- 3 No Information [facility], [address], [place], [place], [id number] tel:[phone] [facility] [place] Conjunctivitis, unspecified Jan-0 2 No Information [facility], [address], [place], [place], [id number] tel:[phone] [facility] Presbyopia Apr- 1 No Information [facility], [address], [place], [place], [id number] tel:[phone] [facility] Presbyopia Apr-0 1 No Information [facility], [address], [place], [place], [id number] tel:[phone] [facility] [place] Hypermetropia Aug-0 1 No Information [facility], [address], [place], [place], [id number] tel:[phone] [facility] [place] Hypermetropia Jul-3 1 No Information [facility], [address], [place], [place], [id number] tel:[phone] [facility] Presbyopia Jul-3 1 No Information [facility], [address], [place], [place], [id number] tel:[phone] JO[facility] [place] Hypermetropia Jul-2 1 No Information [facility], [address], [place], [place], [id number] tel:[phone] JOSE [facility] [place] HypermetropiaAs tigmatism, unspecifiedPres byopia Jul- 1 No Information [facility], [address], [place], [place], [id number] tel:[phone] [facility] Presbyopia Mar-1 5-201 1 No Information [facility], [place], [id number] tel:[phone] [facility] Presbyopia Mar-2 0-200 7 No Information [facility], [address] Nguyen [place], [place], [id number] tel:[phone] [facility] [place] HypermetropiaAs tigmatism, unspecifiedPres byopia Mar-2 0-200 7 No Information Family History Family Member Type Diagnosis Age At Onset Multiple Problem (finding) Diabetes mellitus Payers Payer name Insurance type Covered libertarian [...] Information Instructions Date Instruction Additional Infor faith Follow up - Return i n 1 year with Johnson Deleon OD for Complete. Related to Presbyopia Presbyopia OU Condit ion: established slightly worse. - Discussed findings. New glasses Rx given. Call with any changes in vision. Related to Presbyopia Type 2 diabetes debra itus without complication, [...] complication, without long-term current use of insulin residential current us e of oral hypoglycemic drug Condition: established, stable. 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 - Discussed exam findings, eyes are dry, but only to a mild degree. Severe dryness, if extermination supervisor, can cause damage to the front surface of the eyes, sometimes permanent. A major component of dry eye is inflammation. Quick TBUT OU but no corneal staining. Start otc systane balance BID OU (am/pm) gave samples. Call if symptoms worsen/no improve. Explained eyes can get red/irritated simply due to dry eye, this can be a chronic condition. May need drops senior living which is common. May need rx drop in future. Related to Keratoconjunctivitis sicca Pinguecula of both e yes OU Condition: established, stable. - discussed benign growths on white of eyes OU, this is commoncan become irritated at times, which typically we can get under control with certain eye dropscall with concerns Related to Pinguecula of both eyes - Return in as scheduled Related to [...] call with va changes. Related to Presbyopia Subconjunctival Hemo rrhage OD Condition: new prob, no addtl w/u needed. - Educational materials provided: Advised of findings call stat with decreased VA, decreased VF, or increase in flashes and floaters.Pt started ASA Tx 2 weeks ago. Does heavy lifting at work. Explained most likely reasons for olivia. No tx required. Related to Subconjunctival Hemorrhage Follow up - Return in [facility] ed Related to Subconjunctival Hemorrhage Follow up - Return i n 1-2 months with Moises Otero OD for Complete. Related to Conjunctivitis, unspecified Conjunctivitis, unsp ecified OS Condition: new prob, no addtl w/u needed. - D/C CL wearStart Tobradex qid OS x7-10 days then stopCall stat worse or no improvement Related to Conjunctivitis, unspecified Assessments Type Assessment Date No Information Patient Care Teams Name Effective Dates (start - stop) Status Members No Information
--- OUTSIDE RECORDS SUMMARY | 2024-12-07 00:56 | XMS_ITS | Encounter Summary ---
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
--- OUTSIDE RECORDS SUMMARY | 2024-12-07 00:56 | XMS_ITS | Clinical Summary ---
Author Organization [facility] [address] Address [address] [place] [address] Care Team Providers Care School Secretary Name Role Phone Ramón Mcdaniel MD Primary Care Provider [phone] Allergies Active Allergy Reactions Criticality Noted Date Comments Adhesive Hives,Redness Medium 05/16/2021 Aspirin Anaphylaxis,Hives High 07/23/2019 Bee Pollen Anaphylaxis High 05/16/2021 Codeine Anaphylaxis,Urticari a High 07/23/2019 Latex Hives,Urticaria Medium 08/07/2017 Hives Other Anaphylaxis High 08/07/2017 Anaphylaxis Peanut Anaphylaxis High 05/16/2021 Penicillins Anaphylaxis,Hives,Ot her (See comments) High 03/28/2014 Reaction: Hives Pseudoephedrine Anaphylaxis,Hives,Ot her (See comments),Urticaria High 03/28/2014 Reaction: With tongue swelling Hives Bethany Hives,Itching,Urtica klaus Medium 08/07/2017 Hives Sulfa (Sulfonamide [...] on file Legal Sex Female 2:56 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 Gender Identity Not on file Sexual Orientation Not on file Occupation Industry Job Start Date Job End Date disabled Not on file Not on file Not on file Obstetrics History Last Filed Vital Signs Vital Sign Reading Time Taken Comments Blood Pressure 133/79 04/07/2023 9:22 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 Pulse 76 04/07/2023 9:22 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 Temperature 37 C (98.6 F) 08/15/2021 7:55 AM CDT Respiratory Rate 18 08/15/2021 7:55 AM CDT Oxygen Saturation 96% 08/15/2021 7:55 AM CDT Inhaled Oxygen Concentration - - Weight 71 kg (156 lb 9.6 oz) 04/07/2023 9:22 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 Height 152.4 cm (5') 04/07/2023 9:22 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 Body Mass Index 30.58 04/07/2023 9:22 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 Plan of Treatment Health Maintenance Due Date [...] 02/08/2018, 06/13/2014 Medical Devices Implanted Type Area Assembler Movement Device Identifier Shelf Expiration Date Model / Serial / Lot Bmp Infuse Sm [id number] - [id number] Implanted:Qty: 1 on 08/13/2021 by Jason Garcia MD at [facility] N/A: Spine Lumbar Medtronic Inc 12/23/2022 [id number] / / [id number] Joint [employer] [id number] 1-4mm Freeze Dried Crushed Graft 30ml Bone Cancellous - [id number] Implanted:Qty: 1 on 08/13/2021 by Jason Garcia MD at [facility] N/A: Spine Lumbar Allosource 06/21/2025 [id number] / / [id number] Globus Medical 5146.1652 Creo Od6.5 Mm L50 Mm Thread; Polyaxial Spine Screw Bone Titanium; - [id number] Implanted:Qty: 3 on 08/13/2021 by Jason Garcia MD at [facility] N/A: Spine Lumbar Gl[employer] 5146.1652 / / Glob[employer] Medical 1119.0010 Creo Thread Spinal Cap Locking Nonsterile - [id number] Implanted:Qty: 8 on 08/13/2021 by Jason Garcia MD at [facility] N/A: Spine Lumbar Gl[employer] 1119.0010 / / Glob[employer] Medical 1119.7125 Creo 5.5mm 125mm Curve Javier Spinal Titanium - [id number] Implanted:Qty: 1 on 08/13/2021 by Jason Garcia MD at [facility] N/A: Spine Lumbar [employer] 1119.7125 / / Glob[employer] Medical 5146.1752 Creo Od7.5 Mm L50 Mm Thread; Polyaxial Spine Screw Bone Titanium; - [id number] Implanted:Qty: 3 on 08/13/2021 by Jason Garcia MD at [facility] N/A: Spine Lumbar Gl[employer] 5146.1752 / / Glob[employer] Medical 1119.7125 Creo 5.5mm 125mm Curve Javier Spinal Titanium - [id number] Implanted:Qty: 1 on 08/13/2021 by Jason Garcia MD at [facility] N/A: Spine Lumbar Gl[employer] 1119.7125 / / Globus 75x45 Implanted:Qty: 1 on 08/13/2021 by Jason Garcia MD at [facility] N/A: Spine Lumbar GLOBUS 5146.1742 / / Description:Correction. Scre w is 75x40 NOT 75x45 Globuys Tlif Cage [id number] Implanted:Qty: 1 on 08/13/2021 by Jason Garcia MD at [facility] N/A: Spine Lumbar GLOBUS 168.251 / / Procedures Procedure Name Priority Date/Time Associated Diagnosis Comments EGFR Routine 08/15/2021 2:46 AM CDT POCT HEMOGLOBIN A1C Routine 08/09/2021 5 :12 PM CDT SERUM LIPID PANEL Routine 07/21/2015 8:3 5 PM 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 from Last 3 Months or Most Recently Relevant to Health Maintenance Results * eGFR (08/15/2021 2:46 AM CDT) [facility] [address] eGFR 99 mL/min/1. 73 m2 NAT[facility] [...] ORDERABLES Fin al Result Performing Organization Address [facility] Co de Phone Number [facility] [address] [facility] [place] [address] * (ABNORMAL) POCT hemoglobin A1c (08/09/2021 5:12 PM CDT) Hgb A1C, POC 5.7(H) 4.0 - 5.6 % [facility] Est Average Gluc POC 117 mg/dL [facility] Comment: The ADA recommends reporting an estimated Average Glucose (eAG) with all Hemoglobin A1c results using the equation derived from a study of 507 normal and diabetic adults. Minority populations were underrepresented and children were not included. (Diabetes Care 31:9800-0248, 2008). The eAG is not equivalent to a fasting glucose. Blood 08/09/2021 5:12 PM CDT 08/09/2021 5:12 PM CDT us Jason Garcia MD POINT OF CARE TEST ORD ERABLES Final Result Performing Organization Address City/[facility]/ZIP Co de Phone Number [facility] [place] [address] * Serum lipid panel (07/21/2015 8:35 PM 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) Cholesterol 192 0 - 200 mg/dl HISTORICAL [...] last revised 2011. Serum 07/21/2015 8:35 PM 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 us Hudson Yung MD LAB BLOOD ORDERABLES Final Res ult HISTORICAL RESULTS from Last 3 Months or Most Recently Relevant to Health Maintenance Insurance [facility] ADVANTRA [facility] ADVANTRA IDTX AETNA MCR ADVANTRA IDPA WORKERS COMPENSATION GENERIC LG LOVE AETNA [facility] WORK[facility] COMPENSATION GENERIC Advance Directives For more information, please contact: [phone] * Full Code (Latest Code Status on File) Date Activated Date Inactivated Comments 08/13/2021 3:04 PM 08/15/2021 3:49 PM * Full Code Date Activated Date Inactivated Comments 07/26/2021 4:34 AM 07/27/2021 1:56 PM Care Teams School Secretary Relationship Specialty Start Date End Date Ramón Mcdaniel MD PCP - General Family Practice 02/17/23
--- OUTSIDE RECORDS SUMMARY | 2024-12-07 00:56 | XMS_ITS | Clinical Summary ---
Author Organization [facility] Address [facility] [place] [address] Care Team Providers Care Bead Inspector Name Role Phone Ramón Mcdaniel MD Primary Care Provider [phone] Allergies Active Allergy Reactions Criticality Noted Date [...] Sex Assigned at Female 07/24/2024 6:35 PM SR. PAYROLL PROCESSOR Legal Sex Female 7:59 AM CDT Gender Identity Not on file Sexual Orientation Not on file Last Filed Vital Signs Vital Sign Reading Time Taken Comments Blood Pressure 172/93 07/24/2024 11:00 PM SR. PAYROLL PROCESSOR Pulse 91 07/24/2024 7:38 PM SR. PAYROLL PROCESSOR Temperature 37.5 C (99.5 F) 07/24/2024 7:38 PM SR. PAYROLL PROCESSOR Respiratory Rate 18 07/24/2024 11:00 PM SR. PAYROLL PROCESSOR Oxygen Saturation 96% 07/24/2024 11:00 PM SR. PAYROLL PROCESSOR Inhaled Oxygen Concentration - - Weight 70.3 kg (155 lb) 07/24/2024 7:38 PM SR. PAYROLL PROCESSOR Height 152.4 cm (5') 07/24/2024 7:38 PM SR. PAYROLL PROCESSOR Body Mass Index 30.27 07/24/2024 7:38 PM SR. PAYROLL PROCESSOR Plan of Treatment Health Maintenance Due Date [...] this topic Meningococcal Vaccine Aged Out No osng peggy eligible based on patient's age to complete this topic RSV Immunizations Under 20 Months Aged Out No longer eligible based on patient's age to complete this topic Insurance MEDICAID DEPT OF [address] Care Teams Bead Inspector Relationship Specialty Start Date End Date Ramón Mcdaniel MD [address] [place] [address] PCP - General FAMILY PRACTICE 07/24/24
--- OUTSIDE RECORDS SUMMARY | 2024-12-07 00:56 | XMS_ITS | Continuity of Care Document ---
Author Organization [facility] Address [address] [place] [address] Phone Care Team Providers Care Dining Room Supervisor Name Role Phone May WILEY MS VISITOR SERVICES COORDINATOR, Kalie Unavailable Unava ilable Procedures Procedure Date NUC-Cardiolite/Per Dose Nuc-Perf Scan, Mult, W/EF & WM 17 Regadenoscan Per 0.1 MG Stress Test, Complete Advance Directives Directive Yes / No Effective Date File Name No Information Encounters Encounter Description Practice Location Reason(s) For Visit Diagnoses Date Provider Providers Copied on Encounter [facility], [address], [place], [address], tel:[phone] [place] CVM No Information 8 May Jade. [facility] , [address], [place], [place], [id number], [place]. tel:[phone] [facility], [address], [place], [address], [place] tel:[phone] [place] CVM Chest pain, unspecified 7 Gabino Sierra. [facility] , [address], [place], [place], [id number], [place]. tel:[phone] Referring Provider: Baljit Mccray, [address] [place], [address]. tel:[phone] Family History Family Member Type Diagnosis Age At Onset No Information Payers Payer name Insurance type Covered alliance party ID Jasen moore(sElie Mittal CI [id number] Social History Type Description Quantity Date Captured [...]
[2024-12-07 12:18] VITALS: BP 129/78; PULSE 71; RESP 16; TEMP 36.5; O2SAT 98; BMI 28.0
[2024-12-07] MEDS: LACTATED RINGERS 1,000 ML 150 ML IV CONT (12:37)
--- NOTE | 2024-12-07 12:44 | P.PNAN_ITS ---
Anes - Initial Pre Proc Eval Procedure: Operation Date: 12/07/24 13:30 Proposed Procedures p Screening Colonoscopy - Get Andres MD Date/Time: 12/07/24 12:44 Surgeon: Get Andres MD Pre Op Diagnosis: Encounter for screening for malignant neoplasm of Patient Data Age: 64 Gender: F Height: 1.52 m Weight: 65.2 kg Last Vital Signs Temp 36.5 C 12/07/24 12:18 Pulse 71 12/07/24 12:18 Resp 16 12/07/24 12:18 BP 129/78 12/07/24 12:18 Pulse Ox 98 12/07/24 12:18 O2 Del Method Room Air 12/07/24 12:18 Allergies Allergy/AdvReac Type Severity Reaction Status Date / Time aspirin Allergy Severe Anaphylactic Verified 12/07/24 12:24 Shock bee venom protein (honey bee) Allergy Severe Anaphylactic Verified 12/07/24 12:24 Shock Penicillins Allergy Severe Anaphylaxis Verified 12/07/24 12:24 pseudoephedrine Allergy Severe Anaphylaxis Verified 12/07/24 12:24 Sulfa (Sulfonamide Allergy Severe Anaphylaxis Verified 12/07/24 12:24 Antibiotics) codeine Allergy Mild Hives Verified 12/07/24 12:24 latex Allergy Mild Hives Verified 12/07/24 12:24 Home Medications ?Medication ?Instructions ?Recorded ?Confirmed ?Type carvedilol 12.5 mg tablet 12.5 mg PO Q12H #180 tabs 07/10/22 12/07/24 Rx multivitamin 1 cap PO DAILY 10/24/22 12/07/24 History clopidogrel 75 mg tablet See Rx Instructions .Route 03/31/23 11/09/24 Rx .COMPLEX #90 tabs sertraline 100 mg tablet See Rx Instructions .Route 07/19/23 12/07/24 Rx .COMPLEX #90 tabs quetiapine 50 mg tablet 50 mg PO HS 12/15/23 12/07/24 History buspirone 15 mg tablet 15 mg PO BID 06/25/24 12/07/24 History omeprazole 40 mg capsule,delayed 40 mg PO DAILY laryngopharyngeal 08/04/24 12/07/24 Rx release reflux #30 caps pregabalin 75 mg capsule (Lyrica) 75 mg PO TID #90 caps 09/27/24 12/07/24 Rx aripiprazole 2 mg tablet 2 mg PO HS #90 tabs 10/11/24 12/07/24 Rx metformin 500 mg tablet,extended 500 mg PO QPM #100 tabs 10/11/24 12/07/24 Rx release 24 hr hydrocodone 7.5 mg-acetaminophen 1 tablet PO Q8H PRN pain #80 tabs 11/22/24 12/07/24 Rx 325 mg tablet rosuvastatin 20 mg tablet 20 mg PO DAILY #90 tabs 11/24/24 12/07/24 Rx tirzepatide 7.5 mg/0.5 mL 7.5 mg (0.5 mL) subcut WEEKLY #2 mL 11/24/24 12/07/24 Rx subcutaneous pen injector (Mounjaro) Laboratory Tests 12/07/24 12:32 POC Capillary Glucose 106 H mg/dl (65-105) Patient hx anesthesia problems: none Family hx anesthesia problems: none Results Review: All pre-operative results and documents have been reviewed as part of the pre- operative evaluation. [facility] Past Medical History Medical History Gastroparesis Diabetes Colon cancer screening Kidney stone Tobacco abuse Suicide attempt Depression with anxiety Arthritis Hyperlipidemia Transient ischemic attack Missed x2 Vaginal delivery x1 Cervical radiculopathy Essential hypertension Insomnia with sleep apnea, unspecified Other dissociative and conversion disorders Prediabetes Surgical History Surgical History History of carpal tunnel release History of arthroscopy of right knee History of tonsillectomy History of 3 sections History of spinal fusion History of right oophorectomy 09/1985 History of bilateral salpingectomy 09/1985 History of hysterectomy 09/1985 History of appendectomy Family History Family History Mother Family history of premature coronary heart disease, Onset Age: 62 Family history of malignant neoplasm of breast in first degree relative Patient's mother is Family history of gout Hypertension Family history of diabetes mellitus in first degree relative Family history of heart disease in male family member before age 55 Family history of malignant neoplasm of breast Diabetes mellitus Family history of cardiovascular disease Cerebrovascular accident Sibling Family history of kidney disease Family history of seizure disorder Family history of pancreatic cancer Diabetes mellitus Hypertension Family history of cardiovascular disease Family history of malignant neoplasm Father Malignant neoplasm of prostate, Onset Age: 50 Patient's father is Cerebrovascular accident Family history of arthritis Carcinoma of colon Grandparent Family history of malignant neoplasm of brain, Onset Age: 42 Social History Social History Social History: Surrogate medical decision maker: Enrique Menezes, spouse. Code status: Full code. Caffeine-daily Smoking packs per day: 1 Smoking cigarettes per day: 20.0 Years smoked: 35 Smoking pack-years: 35.00 Smoking status: Former smoker Tobacco type: cigarettes Second hand tobacco smoke exposure: Yes Smoking end date: 09/06/24 Alcohol intake: never Substance use: current Substance use type: marijuana Other substance usage details: Edibles Last use: 11/16/24 Do You Feel Safe in your Home?: Yes Lack of Transportation: No Lack of Food: Never True Current Housing: I Have Housing Concerned About Future Housing: No Difficulty Paying Gas/Electric Bills: No Difficulty Paying for Meds: No Currently Unemployed: No Education: Associate Degree Difficulty w/ Childcare or Family Care: No Living arrangements: with family Spiritual care concerns: No Agree to blood products: Yes Anes - Eval Final PreProcedure Day of Procedure 12/07/24 12:44 Patient weight: normal Heart: regular rate and rhythm Lungs: clear to auscultation Airway: Mallampati scale class 1 Last oral intake: >/= 8 hours ASA classification: III Emergent: no Anesthetic plan: proceed Anesthesia type and monitoring: general GIVS and standard monitoring Results Review: All pre-operative results and documents have been reviewed as part of the pre- operative evaluation. Informed Consent: The patient's anesthetic plan and its attendant risks and benefits were di scussed with the patient/family/POA. Questions were solicited and answers provided to the satisfaction of the patient/family/POA.
--- NOTE | 2024-12-07 12:49 | PM.HPGS ---
History of Present Illness History of Present Illness Consent: Risks, benefits, and alternatives have been discussed and questions answered. Patient agrees to proceed with procedure. Chief complaint: Encounter for screening for malignant neoplasm of Narrative: Gloria Menezes is a 64 year old female here for screening colonoscopy Review of Systems Review of Systems: All systems reviewed & are unremarkable except as noted in HPI and below PMFSH Past Medical History Medical History Gastroparesis Diabetes Colon cancer screening Kidney stone Tobacco abuse Suicide attempt Depression with anxiety Arthritis Hyperlipidemia Transient ischemic attack Missed x2 Vaginal delivery x1 Cervical radiculopathy Essential hypertension Insomnia with sleep apnea, unspecified Other dissociative and conversion disorders Prediabetes Surgical History Surgical History History of carpal tunnel release History of arthroscopy of right knee History of tonsillectomy History of 3 sections History of spinal fusion History of right oophorectomy 09/1985 History of bilateral salpingectomy 09/1985 History of hysterectomy 09/1985 History of appendectomy Family History Family History Mother Family history of premature coronary heart disease, Onset Age: 62 Family history of malignant neoplasm of breast in first degree relative Patient's mother is Family history of gout Hypertension Family history of diabetes mellitus in first degree relative Family history of heart disease in male family member before age 55 Family history of malignant neoplasm of breast Diabetes mellitus Family history of cardiovascular disease Cerebrovascular accident Sibling Family history of kidney disease Family history of seizure disorder Family history of pancreatic cancer Diabetes mellitus Hypertension Family history of cardiovascular disease Family history of malignant neoplasm Father Malignant neoplasm of prostate, Onset Age: 50 Patient's father is Cerebrovascular accident Family history of arthritis Carcinoma of colon Grandparent Family history of malignant neoplasm of brain, Onset Age: 42 Social History Social History Social History: Surrogate medical decision maker: Enrique Menezes, spouse. Code status: Full code. Caffeine-daily Smoking packs per day: 1 Smoking cigarettes per day: 20.0 Years smoked: 35 Smoking pack-years: 35.00 Smoking status: Former smoker Tobacco type: cigarettes Second hand tobacco smoke exposure: Yes Smoking end date: 09/06/24 Alcohol intake: never Substance use: current Substance use type: marijuana Other substance usage details: Edibles Last use: 11/16/24 Do You Feel Safe in your Home?: Yes Lack of Transportation: No Lack of Food: Never True Current Housing: I Have Housing Concerned About Future Housing: No Difficulty Paying Gas/Electric Bills: No Difficulty Paying for Meds: No Currently Unemployed: No Education: Associate Degree Difficulty w/ Childcare or Family Care: No Living arrangements: with family Spiritual care concerns: No Agree to blood products: Yes Meds Home Medications and Allergies Home Medications ?Medication ?Instructions ?Recorded ?Confirmed ?Type carvedilol 12.5 mg tablet 12.5 mg PO Q12H #180 tabs 07/10/22 12/07/24 Rx multivitamin 1 cap PO DAILY 10/24/22 12/07/24 History clopidogrel 75 mg tablet See Rx Instructions .Route 03/31/23 11/09/24 Rx .COMPLEX #90 tabs sertraline 100 mg tablet See Rx Instructions .Route 07/19/23 12/07/24 Rx .COMPLEX #90 tabs quetiapine 50 mg tablet 50 mg PO HS 12/15/23 12/07/24 History buspirone 15 mg tablet 15 mg PO BID 06/25/24 12/07/24 History omeprazole 40 mg capsule,delayed 40 mg PO DAILY laryngopharyngeal 08/04/24 12/07/24 Rx release reflux #30 caps pregabalin 75 mg capsule (Lyrica) 75 mg PO TID #90 caps 09/27/24 12/07/24 Rx aripiprazole 2 mg tablet 2 mg PO HS #90 tabs 10/11/24 12/07/24 Rx metformin 500 mg tablet,extended 500 mg PO QPM #100 tabs 10/11/24 12/07/24 Rx release 24 hr hydrocodone 7.5 mg-acetaminophen 1 tablet PO Q8H PRN pain #80 tabs 11/22/24 12/07/24 Rx 325 mg tablet rosuvastatin 20 mg tablet 20 mg PO DAILY #90 tabs 11/24/24 12/07/24 Rx tirzepatide 7.5 mg/0.5 mL 7.5 mg (0.5 mL) subcut WEEKLY #2 mL 11/24/24 12/07/24 Rx subcutaneous pen injector (Joyce) Allergies Allergy/AdvReac Type Severity Reaction Status Date / Time aspirin Allergy Severe Anaphylactic Verified 12/07/24 12:24 Shock bee venom protein (honey bee) Allergy Severe Anaphylactic Verified 12/07/24 12:24 Shock Penicillins Allergy Severe Anaphylaxis Verified 12/07/24 12:24 pseudoephedrine Allergy Severe Anaphylaxis Verified 12/07/24 12:24 Sulfa (Sulfonamide Allergy Severe Anaphylaxis Verified 12/07/24 12:24 Antibiotics) codeine Allergy Mild Hives Verified 12/07/24 12:24 latex Allergy Mild Hives Verified 12/07/24 12:24 Vital Signs Vital Signs - 24 hr 12/07/24 12:18 Temperature 97.7 F Pulse Rate 71 Respiratory Rate 16 Blood Pressure 129/78 Pulse Oximetry 98 Oxygen Delivery Room Air Exam Const: General: comfortable and no acute distress HENMT: Face/Nose/Sinus: Normal nares present Eyes: General: appearance normal, both eyes and all related structures Neck: Neck: no JVD Resp: Auscultation: clear to auscultation bilaterally Cardio: Rate: regular rate Rhythm: regular rhythm GI: Inspection: non-distended GI Palp: Yes Soft to palpation Skin: General skin exam: normal color Neuro: Speech: normal speech Extrem: General: normal to inspection Psych: Mental Status: mental status grossly normal Assessment and Plan Assessment and plan (1) Colon cancer screening: Code(s): Z12.11 - Encounter for screening for malignant neoplasm of colon Status: Acute Assessment and Plan: colonoscopy
[2024-12-07 13:08] VITALS: BP 98/57; PULSE 69; RESP 18; O2SAT 98
[2024-12-07 13:18] VITALS: BP 137/78; PULSE 76; RESP 26; O2SAT 100
[2024-12-07 13:28] VITALS: BP 111/73; PULSE 78; RESP 15; O2SAT 100
== END 2024-12-07 13:38 | disposition home or self-care (01) ==
PROVIDERS: PCP Family Medicine; Referring Provider Internal Medicine Gastroenterology; Visit Provider Internal Medicine Gastroenterology
PROC: 0DJD8ZZ Inspection of Lower Intestinal Tract, Via Natural or Artificial Opening Endoscopic (ICD-10-PCS; CPT 45378; principal; 2024-12-07 13:30)
DX: Z12.11 Encounter for screening for malignant neoplasm of colon (principal); K64.8 Other hemorrhoids; E78.5 Hyperlipidemia, unspecified; I10 Essential (primary) hypertension; E11.9 Type 2 diabetes mellitus without complications; F41.8 Other specified anxiety disorders; G47.00 Insomnia, unspecified; G47.30 Sleep apnea, unspecified; M19.90 Unspecified osteoarthritis, unspecified site; F44.9 Dissociative and conversion disorder, unspecified; F12.90 Cannabis use, unspecified, uncomplicated; Z79.02 Long term (current) use of antithrombotics/antiplatelets; Z79.84 Long term (current) use of oral hypoglycemic drugs; Z79.891 Long term (current) use of opiate analgesic; Z79.85 Long-term (current) use of injectable non-insulin antidiabetic drugs; Z98.890 Other specified postprocedural states; Z98.1 Arthrodesis status; Z87.891 Personal history of nicotine dependence; Z87.19 Personal history of other diseases of the digestive system; Z87.442 Personal history of urinary calculi; Z86.73 Personal history of transient ischemic attack (TIA), and cerebral infarction without residual deficits; Z80.3 Family history of malignant neoplasm of breast; Z80.0 Family history of malignant neoplasm of digestive organs; Z80.42 Family history of malignant neoplasm of prostate; Z80.8 Family history of malignant neoplasm of other organs or systems; Z82.49 Family history of ischemic heart disease and other diseases of the circulatory system
CPT/HCPCS: G0105; 82948; J2003; J2704; J7120

== ENCOUNTER 2025-01-20 12:46 | Outpatient (CLI) | payer MEDICARE, SELFPAY ==
--- NOTE | ~2025-01-20 | MR_ITS ---
EXAMINATION: MR cervical spine wo con DATE: 01/20/2025 13:17 INDICATION: Cervical radiculopathy TECHNIQUE: Magnetic resonance imaging (MRI) of the cervical spine was performed without intravenous contrast. Sequences included sagittal T2-weighted FSE, sagittal T2-weighted FS FSE, sagittal T1-weighted FSE, axial MERGE and axial T2- weighted FSE. COMPARISON: CT dated 08/10/2024 FINDINGS: 1-2 mm anterolisthesis C2 on C3 and C3 on C4. C4-C7 asymmetric anterior spinal fusion with interbody fusion devices at each level as well as anterior plate- screw fixation. Unfused vertebral body heights are normal. Bone marrow signal intensity is normal. Severe disc height loss at T4-T5, moderate disc height loss at C3-C4, mild disc height loss at C2-C3 and at T1-T2 through T3-T4. Cord signal intensity is normal. Visualized cervical soft tissues are unremarkable. The following disc levels are specifically discussed: C2-C3: The disc does not extend beyond the the more posterior C3 endplate margin. There is no uncovertebral joint osteoarthritis. There is severe bilateral facet joint osteoarthritis. There is mild bilateral neural foraminal stenosis. There is no central canal stenosis. C3-C4: Disc is bulging with superimposed annular fissure and right paracentral disc protrusion. There is mild left and moderate right uncovertebral joint osteoarthritis. There is severe bilateral facet joint osteoarthritis. There is moderate bilateral neural foraminal stenosis. There is mild central canal stenosis with indention of the right ventral surface of the cord. C4-C5: Anterior spinal fusion procedure with mild hypertrophic change along the posterior endplate margins and moderate hypertrophic changes along the views right uncovertebral joint. There is mild bilateral facet joint osteoarthritis. There is moderate to severe right and mild left neural foraminal stenosis. There is no central canal stenosis. C5-C6: Disc space is fused. Mild left-sided and moderate right-sided hypertrophic changes at the fused uncovertebral joints. There is mild bilateral facet joint osteoarthritis with likely developing fusion across the right facet joint. There is mild left and mild to moderate right neural foraminal stenosis. There is no central canal stenosis. C6-C7: Disc space and uncovertebral joints are fused. The bilateral facet joints are also fused. There is mild bilateral neural foraminal stenosis. There is no central canal stenosis. C7-T1: Disc is bulging. There is mild bilateral uncovertebral joint osteoarthritis. There is moderate right and severe left facet joint osteoarthritis. There is mild bilateral neural foraminal stenosis. There is mild central canal stenosis. T1-T2: Disc is bulging with superimposed bilateral foraminal zone annular fissures and disc extrusions, significantly more prominent on the right. There is mild left and moderate right facet osteoarthritis. There is mild left and severe right neural foraminal stenosis. There is mild central canal stenosis. IMPRESSION: 1. Moderate cervical spondylosis with instrumented C4-C7 anterior spinal fusion. Reviewed, dictated and finalized at location A. IMPRESSION: 1. Moderate cervical spondylosis with instrumented C4-C7 anterior spinal fusion .
--- NOTE | ~2025-01-20 | XR_ITS ---
XR cervical spine 4-5V 01/20/2025 13:28 Indication: Radiculopathy Procedure: 6 view cervical spine Comparison: 07/02/2018 Findings: There is 4 mm anterolisthesis at C2-3. There are anterior fusion changes at C4-C7. No prevertebral soft tissue swelling. No significant alteration of alignment with flexion/extension. Odontoid process is normal. Lung apices are normal. There is multilevel facet and uncinate hypertrophy. Impression: 1: Moderate-severe cervical spondylosis with fusion at C4-C7. Reviewed, dictated and finalized at location O. Impression: 1: Moderate-severe cervical spondylosis with fusion at C4-C7.
== END 2025-01-20 12:47 | disposition home or self-care (01) ==
LOC: MICIMG 12:47
PROVIDERS: PCP Family Medicine; Visit Provider Nurse Practitioner Adult Health
DX: M47.812 Spondylosis without myelopathy or radiculopathy, cervical region (principal); Z98.1 Arthrodesis status
CPT/HCPCS: 72050; 72141

== ENCOUNTER 2025-03-04 13:13 | Emergency (ER) | payer MEDICARE, SELFPAY ==
[2025-03-04 13:16] VITALS: PULSE 85; RESP 20; TEMP 36.3; O2SAT 100
[2025-03-04 13:23] VITALS: BP 119/84; PULSE 83; RESP 15; TEMP 36.4; O2SAT 100
--- NOTE | 2025-03-04 13:43 | ED.GENADULT ---
HPI - General Adult General Chief complaint: Neck Pain/Injury Stated complaint: Neck pain Time Seen by Provider: 03/04/25 13:20 History of Present Illness HPI narrative: 64 old female with history of cervical spine stenosis still follows up with Neurosurgery presents emergency department for evaluation for worsening right trapezius. Patient does report some cervical radiculopathy down the right arm that is intermittent. Recent follow-up with Neurosurgery and is scheduled of follow-up with Neurosurgery on April 01. Related Data Home Medications ?Medication ?Instructions ?Recorded ?Confirmed ?Last Taken ?Type multivitamin 1 cap PO DAILY 10/24/22 03/07/25 12/06/24 History quetiapine 50 mg tablet 50 mg PO HS 12/15/23 03/07/25 12/06/24 History buspirone 10 mg tablet 10 mg PO BID 03/07/25 03/07/25 Unknown History cariprazine 1.5 mg capsule mg PO .Q2days 03/07/25 03/07/25 Unknown History (Vraylar) Allergies Allergy/AdvReac Type Severity Reaction Status Date / Time aspirin Allergy Severe Anaphylactic Verified 03/07/25 13:49 Shock bee venom protein (honey bee) Allergy Severe Anaphylactic Verified 03/07/25 13:49 Shock Penicillins Allergy Severe Anaphylaxis Verified 03/07/25 13:49 pseudoephedrine Allergy Severe Anaphylaxis Verified 03/07/25 13:49 Sulfa (Sulfonamide Allergy Severe Anaphylaxis Verified 03/07/25 13:49 Antibiotics) codeine Allergy Mild Hives Verified 03/07/25 13:49 latex Allergy Mild Hives Verified 03/07/25 13:49 Review of Systems Review of Systems: All systems reviewed & are unremarkable except as noted in HPI and below PMFSH Past Medical History Medical History Gastroparesis Diabetes Colon cancer screening Kidney stone Tobacco abuse Suicide attempt Depression with anxiety Arthritis Hyperlipidemia Transient ischemic attack Missed x2 Vaginal delivery x1 Cervical radiculopathy Essential hypertension Insomnia with sleep apnea, unspecified Other dissociative and conversion disorders Prediabetes Surgical History Surgical History History of carpal tunnel release History of arthroscopy of right knee History of tonsillectomy History of 3 sections History of spinal fusion History of right oophorectomy 09/1985 History of bilateral salpingectomy 09/1985 History of hysterectomy 09/1985 History of appendectomy Family History Family History Mother Family history of premature coronary heart disease, Onset Age: 62 Family history of malignant neoplasm of breast in first degree relative Patient's mother is Family history of gout Hypertension Family history of diabetes mellitus in first degree relative Family history of heart disease in male family member before age 55 Family history of malignant neoplasm of breast Diabetes mellitus Family history of cardiovascular disease Cerebrovascular accident Sibling Family history of kidney disease Family history of seizure disorder Family history of pancreatic cancer Diabetes mellitus Hypertension Family history of cardiovascular disease Family history of malignant neoplasm Father Malignant neoplasm of prostate, Onset Age: 50 Patient's father is Cerebrovascular accident Family history of arthritis Carcinoma of colon Grandparent Family history of malignant neoplasm of brain, Onset Age: 42 Social History Social History Social History: Surrogate medical decision maker: Enrique Menezes, spouse. Code status: Full code. Caffeine-daily Years smoked: 35 Smoking status: Former smoker Tobacco type: cigarettes Second hand tobacco smoke exposure: Yes Smoking end date: 09/06/24 Alcohol intake: never Substance use: current Substance use type: marijuana Other substance usage details: Edibles Last use: 11/16/24 Do You Feel Safe in your Home?: Yes Lack of Transportation: No Lack of Food: Never True Current Housing: I Have Housing Concerned About Future Housing: No Difficulty Paying Gas/Electric Bills: YES Difficulty Paying for Meds: No Currently Unemployed: Decline to Answer Education: Associate Degree Difficulty w/ Childcare or Family Care: No Living arrangements: with family Spiritual care concerns: No Agree to blood products: Yes Exam Narrative: APPEARANCE: Well appearing, no pain, no distress, well-nourished. HEAD: normocephalic, atraumatic. EYES: PERRLA/EOMI, conjunctivae clear. NOSE: Normal no drainage EARS:TMS clear with good light reflex. THROAT: Pharynx clear, no exudate. NECK: Supple. No adenopathy, no masses. RESPIRATORY: Airway patent, respirations nonlabored. Clear to auscultation bilaterally, no rales, rhonchi, wheezing. CARDIOVASCULAR: Regular rate and rhythm without murmurs rubs or gallops. ABDOMINAL: Soft, nontender, nondistended, normal bowel sounds MUSCULOSKELETAL: Tenderness to right trapezius NEURO: Alert. Cranial nerves II through XII intact. Grossly intact SKIN: Warm, dry. Normal Color Course Vital Signs Vital signs: Vital Signs Temperature 97.4 F L 03/04/25 13:16 Pulse Rate 85 03/04/25 13:16 Respiratory Rate 20 03/04/25 13:16 Pulse Oximetry 100 03/04/25 13:16 Oxygen Delivery Room Air 03/04/25 13:16 Temperature 97.5 F L 03/04/25 14:13 Pulse Rate 72 03/04/25 14:13 Respiratory Rate 14 03/04/25 14:13 Blood Pressure 128/79 03/04/25 14:13 Pulse Oximetry 99 03/04/25 14:13 Oxygen Delivery Room Air 03/04/25 13:23 Medical Decision Making MDM Narrative Medical decision making narrative: 64-year-old female presents emergency department for evaluation for worsening or right cervical radiculopathy. Patient does take ibuprofen and [place] for pain control. Patient will be provided additional Medrol Dosepak along with Flexeril to help with right trapezius muscle spasm inducing radiculopathy. Patient was also encouraged close follow-up with Neurosurgery. Patient did have a recent MRI that showed moderate cervical spondylosis and instrumented C4 through C7 anterior spinal fusion. Patient was updated the results of the workup and plan for admission. Differential Diagnosis Differential Diagnosis: Cervical strain, cervical radiculopathy, trapezius strain Vital Signs Vital Signs: Vital Signs Temperature 97.4 F L 03/04/25 13:16 Pulse Rate 85 03/04/25 13:16 Respiratory Rate 20 03/04/25 13:16 Pulse Oximetry 100 03/04/25 13:16 Oxygen Delivery Room Air 03/04/25 13:16 Temperature 97.5 F L 03/04/25 14:13 Pulse Rate 72 03/04/25 14:13 Respiratory Rate 14 03/04/25 14:13 Blood Pressure 128/79 03/04/25 14:13 Pulse Oximetry 99 03/04/25 14:13 Oxygen Delivery Room Air 03/04/25 13:23 Discharge Plan Discharge Clinical Impression: Cervical radiculopathy, Spasm of right trapezius muscle Patient Disposition: Home Condition: Stable Instructions: Antibiotic Form, Cervical Radiculopathy (ED) Additional Instructions: Medrol Dosepak as directed. Flexeril for muscle spasm. Continue your [place] as needed for additional pain control. Have close follow-up with Neurosurgery as scheduled. If you have any worsening symptoms then please call or return to the emergency department. Patient Language: Japanese Prescriptions: New cyclobenzaprine 10 mg tablet 10 mg PO BID PRN (Reason: muscle spasm) Qty: 14 0RF methylprednisolone [Medrol (Reid)] 4 mg tablets,dose pack See Rx Instructions .ROUTE .COMPLEX Qty: 21 0RF Rx Instructions: for 6 days No Action rosuvastatin 20 mg tablet 20 mg PO DAILY Qty: 90 1RF carvedilol 12.5 mg tablet 12.5 mg PO Q12H Qty: 180 2RF Rx Instructions: must administer with a meal/food quetiapine 50 mg tablet 50 mg PO HS buspirone 10 mg tablet 10 mg PO BID Vraylar 1.5 mg capsule PO .Q2days multivitamin Capsule 1 cap PO DAILY clopidogrel 75 mg tablet See Rx Instructions .ROUTE .COMPLEX Qty: 90 2RF Dose Instruction: TAKE 1 TABLET BY MOUTH DAILY Patient Comments: stopped taking a couple months ago Rx Instructions: TAKE 1 TABLET BY MOUTH DAILY sertraline 100 mg tablet See Rx Instructions .ROUTE .COMPLEX Qty: 90 1RF Dose Instruction: TAKE 1 TABLET BY MOUTH DAILY Rx Instructions: TAKE 1 TABLET BY MOUTH DAILY pregabalin [Lyrica] 75 mg capsule 75 mg PO TID Qty: 90 3RF metformin 500 mg tablet extended release 24 hr 500 mg PO QPM Qty: 100 1RF omeprazole 40 mg capsule,delayed release(DR/EC) 40 mg PO DAILY Qty: 30 5RF Rx Instructions: take 1 capsule q.a.m. on empty stomach and wait 15 minutes to eat or drink Mounjaro 7.5 mg/0.5 mL pen injector 7.5 mg subcut WEEKLY Qty: 6 2RF hydrocodone-acetaminophen 7.5-325 mg tablet 1 tablet PO Q8H PRN (Reason: pain) Qty: 90 0RF Patient Comments: takes q 8hours Follow-up/Referrals: Ramón Mcdaniel MD [Primary Care Provider, Family Practice]
[2025-03-04] MEDS: dexAMETHasone SOD PHOS INJ 10 MG/ML 1 ML VIAL IM (13:51)
[2025-03-04 14:13] VITALS: BP 128/79; PULSE 72; RESP 14; TEMP 36.4; O2SAT 99
== END 2025-03-04 14:15 | disposition home or self-care (01) ==
PROVIDERS: Emergency Provider Emergency Medicine; PCP Family Medicine
DX: M54.12 Radiculopathy, cervical region (principal); M62.830 Muscle spasm of back; I10 Essential (primary) hypertension; E11.43 Type 2 diabetes mellitus with diabetic autonomic (poly)neuropathy; K31.84 Gastroparesis; E78.5 Hyperlipidemia, unspecified; G47.30 Sleep apnea, unspecified; G47.00 Insomnia, unspecified; F41.8 Other specified anxiety disorders; Z98.1 Arthrodesis status; Z86.73 Personal history of transient ischemic attack (TIA), and cerebral infarction without residual deficits; Z87.891 Personal history of nicotine dependence; Z90.721 Acquired absence of ovaries, unilateral; Z90.79 Acquired absence of other genital organ(s); Z90.710 Acquired absence of both cervix and uterus; Z79.899 Other long term (current) drug therapy; Z79.02 Long term (current) use of antithrombotics/antiplatelets; Z79.85 Long-term (current) use of injectable non-insulin antidiabetic drugs; Z79.84 Long term (current) use of oral hypoglycemic drugs
CPT/HCPCS: 96372; 99283; J1100

== ENCOUNTER 2025-03-10 13:58 | Outpatient (CLI) | payer MEDICARE, SELFPAY ==
--- OUTSIDE RECORDS SUMMARY | 2025-01-06 19:00 | XMS_ITS | Continuity of Care Document ---
Author Organization [facility] Address [address] [place] [phone] Phone Care Team Providers Care Hotel Operations Manager Name Role Phone Marcell RODRIGUEZ, FACC, Opal Unavailable Unavailab le Procedures Procedure Date TTE W/DOPPLER, COMPLETE Advance Directives Directive Yes / No Effective Date File Name No Information Encounters Encounter Description Practice Location Reason(s) For Visit Diagnoses Date Provider Providers Copied on Encounter [facility], [address] [place] [address], [id number], tel:[phone] [facility] Inpt No Information Marcell Joseph. [address] [place] [address], [id number], . tel:[phone] Referring Provider: Opal Faith, [address] [place] [address], [id number]. tel:[phone] Family History Family Member Type Diagnosis Age At Onset No Information Payers Payer name Insurance type Covered democrat ID Authoriza tion(s) [facility] [id number] PPO C [id number] Social History Type Description Quantity Date Captured [...]
--- NOTE | ~2025-03-10 | MM_ITS ---
EXAMINATION: MM screening deepak BI w mala HISTORY: Screening TECHNIQUE: Craniocaudal and mediolateral oblique 3-D tomosynthesis images were obtained and synthetic 2-D images were generated. CAD analysis was submitted and interpreted. COMPARISON: 05/10/2021 BREAST PARENCHYMAL COMPOSITION: The breasts are heterogeneously dense, which may obscure small masses. FINDINGS: There is no evidence of suspicious mass, calcification, or architectural distortion to suggest malignancy. There has been no suspicious interval change. IMPRESSION: 1. No mammographic evidence of malignancy. Recommend routine screening mammography in one year. BI-RADS Category 2: Benign finding(s) Reviewed, dictated and finalized at location Q. IMPRESSION: 1. No mammographic evidence of malignancy. Recommend routine screening mammogra phy in one year. BI-RADS Category 2: Benign finding(s)
--- OUTSIDE RECORDS SUMMARY | 2025-03-10 16:01 | XMS_ITS | Clinical Summary ---
Author Organization [facility] [place] [facility] [address] Address [address] [place] [address] Care Team Providers Care [employer] Supervisor Name Role Phone Ramón Mcdaniel MD Primary Care Provider [phone] Allergies Active Allergy Reactions Criticality Noted Date Comments Adhesive Hives,Redness Medium 05/16/2021 Aspirin Anaphylaxis,Hives High 07/23/2019 Bee Pollen Anaphylaxis High 05/16/2021 Codeine Anaphylaxis,Urticari a High 07/23/2019 Latex Hives,Urticaria Medium 08/07/2017 Hives Other Anaphylaxis High 08/07/2017 Anaphylaxis Peanut Anaphylaxis High 05/16/2021 Penicillins Anaphylaxis,Hives,Ot her (See comments) High 03/28/2014 Reaction: Hives Pseudoephedrine Anaphylaxis,Hives,Ot her (See comments),Urticaria High 03/28/2014 Reaction: With tongue swelling Hives [place] Hives,Itching,Urtica klaus Medium 08/07/2017 Hives Sulfa (Sulfonamide [...] on file Legal Sex Female 2:56 AM COFFIN MAKER Gender Identity Not on file Sexual Orientation Not on file Occupation Industry Job Start Date Job End Date disabled Not on file Not on file Not on file Obstetrics History Last Filed Vital Signs Vital Sign Reading Time Taken Comments Blood Pressure 133/79 04/07/2023 9:22 AM COFFIN MAKER Pulse 76 04/07/2023 9:22 AM COFFIN MAKER Temperature 37 C (98.6 F) 08/15/2021 7:55 AM CDT Respiratory Rate 18 08/15/2021 7:55 AM CDT Oxygen Saturation 96% 08/15/2021 7:55 AM CDT Inhaled Oxygen Concentration - - Weight 71 kg (156 lb 9.6 oz) 04/07/2023 9:22 AM COFFIN MAKER Height 152.4 cm (5') 04/07/2023 9:22 AM COFFIN MAKER Body Mass Index 30.58 04/07/2023 9:22 AM COFFIN MAKER Plan of Treatment Health Maintenance Due Date [...] Tdap) 05/26/2023 05/26/2013 Covid-19 Vaccine (3 - 2024-2 6 season) 2025 06/04/2021, 08/31/2020 Influenza Vaccine (#1) 2025 8, 02/08/2018, 06/13/2014 Medical Devices Implanted Type Area Taper Operator Device Identifier Shelf Expiration Date Model / Serial / Lot Bmp Infuse Sm [id number] - [id number] Implanted:Qty: 1 on 08/13/2021 by Jason Garcia MD at [facility] N/A: Spine Lumbar [employer] 12/23/2022 [id number] / / [id number] [employer] [id number] 1-4mm Freeze Dried Crushed Graft 30ml Bone Cancellous - [id number] Implanted:Qty: 1 on 08/13/2021 by Jason Garcia MD at [facility] N/A: Spine Lumbar [employer] 06/21/2025 [id number] / / [id number] [employer] [id number] Creo Od6.5 Mm L50 Mm Thread; Polyaxial Spine Screw Bone Titanium; - [id number] Implanted:Qty: 3 on 08/13/2021 by Jason Garcia MD at [facility] N/A: Spine Lumbar [employer] 5146.1652 / / [employer] 1119.0010 Creo Thread Spinal Cap Locking Nonsterile - [id number] Implanted:Qty: 8 on 08/13/2021 by Jason Garcia MD at [facility] N/A: Spine Lumbar [employer] 1119.0010 / / [employer] 1119.7125 Creo 5.5mm 125mm Curve Javier Spinal Titanium - [id number] Implanted:Qty: 1 on 08/13/2021 by Jason Garcia MD at [facility] N/A: Spine Lumbar [employer] [id number] / / [employer] 5146.1752 Creo Od7.5 Mm L50 Mm Thread; Polyaxial Spine Screw Bone Titanium; - [id number] Implanted:Qty: 3 on 08/13/2021 by Jason Garcia MD at [facility] N/A: Spine Lumbar [employer] 5146.1752 / / [employer] 1119.7125 Creo 5.5mm 125mm Curve Javier Spinal Titanium - [id number] Implanted:Qty: 1 on 08/13/2021 by Jason Garcia MD at [facility] N/A: Spine Lumbar [employer] [id number] / / Globus [id number] Implanted:Qty: 1 on 08/13/2021 by Jason Garcia MD at [facility] N/A: Spine Lumbar G[employer] [id number] / / Description:Correction. Scre w is 75x40 NOT 75x45 [employer] Tlif Cage [id number] Implanted:Qty: 1 on 08/13/2021 by Jason Garcia MD at [facility] N/A: Spine Lumbar GLOBUS [id number] / / Procedures Procedure Name Priority Date/Time Associated Diagnosis Comments EGFR Routine 08/15/2021 2:46 AM CDT POCT HEMOGLOBIN A1C Routine 08/09/2021 5 :12 PM CDT SERUM LIPID PANEL Routine 07/21/2015 8:3 5 PM COFFIN MAKER from Last 3 Months or Most Recently Relevant to Health Maintenance Results * eGFR (08/15/2021 2:46 AM CDT) Pathologist [facility] eGFR 99 mL/min/1. 73 m2 NATALIO CHEATHAM [...] Fin al Result Performing Organization Address [facility] Co de Phone Number [facility] [address] [facility] [place] [employer] [address] * (ABNORMAL) POCT hemoglobin A1c (08/09/2021 5:12 PM CDT) Pathologist [facility] Hgb A1C, POC 5.7(H) 4.0 - 5.6 % [facility] Est Average Gluc POC 117 mg/dL [facility] Comment: The ADA recommends reporting an estimated Average Glucose (eAG) with all Hemoglobin A1c results using the equation derived from a study of 507 normal and diabetic adults. Minority populations were underrepresented and children were not included. (Diabetes Care 31:1942-3461, 2008). The eAG is not equivalent to a fasting glucose. Blood 08/09/2021 5:12 PM CDT 08/09/2021 5:12 PM CDT us Jason Garcia MD POINT OF CARE TEST ORD ERABLES Final Result Performing Organization Address City/[facility]/ZIP Co de Phone Number [facility] [place] [address] * Serum lipid panel (07/21/2015 8:35 PM COFFIN MAKER) Cholesterol 192 0 - 200 mg/dl [...] last revised 2011. Serum 07/21/2015 8:35 PM COFFIN MAKER us Hudson Yung MD LAB BLOOD ORDERABLES Final Res ult HISTORICAL RESULTS from Last 3 Months or Most Recently Relevant to Health Maintenance Insurance [employer] MCR ADVANTRA [facility] ADVANTRA IDAR [employer] MCR ADVANTRA [employer] COMPENSATION GENERIC [employer] AETNA [facility] ADVANTRA WORKERS COMPENSATION GENERIC Advance Directives For more information, please contact: [phone] * Full Code (Latest Code Status on File) Date Activated Date Inactivated Comments 08/13/2021 3:04 PM 08/15/2021 3:49 PM * Full Code Date Activated Date Inactivated Comments 07/26/2021 4:34 AM 07/27/2021 1:56 PM Care Teams [employer] Supervisor Relationship Specialty Start Date End Date Ramón Mcdaniel MD PCP - General Family Practice 02/17/23
--- OUTSIDE RECORDS SUMMARY | 2025-03-10 16:01 | XMS_ITS | Data Portability ---
Author Organization [facility] [employer] Address [address] [address] Care Team Providers Care Clamp Operator Name Role Phone [facility] Pain [...] Lab lipid panel, serum 2017 018 lcallison [facility], [address] [facility], [place], [address], 8 09:38:26 CMP, serum or plasma 2017 018 lcallison [facility], [address] , [place], [address], 8 09:38:26 CK (creatin e kinase), total, serum 2017 018 lcallison [facility], [address] [facility], [place], [address], 8 09:38:26 HbA1c (hemoglo bin A1c), blood 2017 018 lcallison [facility], [address], [place], [address], 8 09:38:26 microalb umin/cre atinine, mass ratio, urine 2017 018 lcallison [facility], [address], [place], [address], 8 09:38:26 vitamin D, 25-hydro xy, total, serum 2017 018 lcallison [facility], [address], [place], [address], 8 09:38:25 CBC w/ auto diff 2017 018 ALENA [facility], [address], [place], [address], 8 04:51:26 unlisted lab - amylase (refl) 2017 018 ALENA [facility], [address], [place], [address], 8 02:49:09 lipase, serum or plasma 2017 018 ALENA [facility], [address], [place], [address], 8 02:49:08 urinalys is complete , reflex culture 2017 018 ALENA [facility], [address], [place], [address], 8 02:49:07 CBC w/ auto diff 2017 018 ALENA [facility], [address], [place], [address], 8 02:49:08 CBC w/ auto diff 2017 018 lcallison [facility], [address], [place], [address], 8 09:00:51 CMP, serum or plasma 2017 018 ALENA [facility], [address] [facility], [place], [address], 8 02:49:07 hepatiti s C virus Ab, serum 2017 018 lcaison [facility], [address] [facility], [place], [address], 8 08:39:06 vitamin D, 25-hydro xy, total, serum 2017 018 [facility], [address] [facility], [place], [address], 8 08:39:06 microalb umin/cre atinine, mass ratio, urine 2017 018 [facility], [address] [facility], [place], [address], 8 22:42:48 Referral pain manageme nt referral 2017 018 miranda [facility], [address], [address], [place], [address], 8 08:33:41 neurolog ist referral 2017 018 miranda [facility], [address] [place], [address], 8 08:33:39 psychiat rist referral 2017 018 miranda Rubio MD, [address] [facility] [address], [place], [address], 8 08:33:38 ophthalm ologist referral 2017 018 miranda Mckeon, [address] [facility], [facility], [place], [address], 8 08:37:10 pulmonol ogist referral 2017 018 miranda Manley MD, [address] [facility], [address], [place], [address], 8 08:33:39 psychiat rist referral 2017 018 miranda Yang, [address], [address], [place], [address], 8 08:57:01 ophthalm ologist referral 2017 018 miranda Mckeon, [address] [facility], [address] [place] [address], [address], 8 08:57:02 ENT referral 2017 018 [email or web address] Alex Grant MD, [address] [facility], [place], [address], 8 10:04:38 Procedures None recorded . Surgeries None recorded . Imaging MAMMO, screenin g, digital, bilatera l 2017 018 ATHENA[facility], [address], [place], [address], 8 13:40:27 XR, chest, 2 view 2017 ALENA [facility], [address], [place], [address], 8 12:26:00 , fide garg - -- [...] tramadol 50 mg tablet 2017 018 INTERFACE [id number], [address] [facility], [place], [place], [id number], 8 13:26:39 benzonat ate 200 mg capsule [address] [facility][id number], [address] [facility], [place], [place], [id number], 8 13:08:20 prometha zine 6.25 mg-codei ne 10 mg/5 mL syrup 2017 018 [facility] Not available 8 00:02:04 Levaquin 500 mg tablet [address] [facility] Not available 8 00:02:09 metformi n ER 500 mg tablet,e xtended release 24 hr 2017 018 [facility] Not available 8 12:58:34 gabapent in 600 mg tablet 2017 018 [facility] Not available 8 12:57:15 duloxeti ne 60 mg capsule, delayed release 2017 018 [facility] Not available 8 12:59:40 baclofen 10 mg tablet 2017 018 INTERFACE [facility] #76276, [address] [facility], [place], [place], [id number], 8 12:44:00 losartan 50 mg-hydro chloroth iazide 12.5 mg tablet 2017 018 lcallison Not available 8 12:21:29 Patient TargetsNo targets recorded. Patient Instructions Encounter Date Encounter Id Patient Instructions Last Modified By Organization Details Last Modified Time 06/02/2017 [id number] broken nose: car e instructions Not available 06/02/2017 12:02:56 bruises: care instructions Not available 06/02/2017 12:02:56 chest contusion: care instructions Not available 06/02/2017 12:02:56 I spent 27 minut e face to face time with this patient (> 50% spent on counseling), explaining the test result and counseling patient on pt's medical conditions. Not available 06/02/2017 12:03:24 07/08/2017 [id number] broken nose: car e instructions Not available [...] lose weight Not available 07/08/2017 12:43:53 10/07/2017 [id number] cough: care instructions Not available 10/07/2017 12:48:34 01/07/2018 [id number] prediabetes: car e instructions Not available 01/07/2018 [...] [facility], Encounter Date: 07/08/2017 Clam Shovel Operator Referral for Hypertelorism Referring Physician: Jorge L [facility], Encounter Date: 07/08/2017 Psychiatrist Referral for An xiety disorder Referring Physician: Jorge L [facility], Encounter Date: 01/07/2018 Clam Shovel Operator Referral for Hypertelorism Referring Physician: Jorge L [facility], Encounter Date: 01/07/2018 Neurologist Referral for Epi lepsy Referring Physician: Jorge L [facility], Encounter Date: 01/07/2018 Senior Medical Director Referral for B ronchiolitis Referring Physician: Jorge [...] ng refer ence inter kali Not Available [facility] [address] [place], [address], 08/14/2017 02:49:07 08/14/19 18 08/14/2017 CMP, serum or plasm a urea nitrogen (BUN) 18 mg/dL 7-25 normal Not Available [facility] [address] [place], [address], 08/14/2017 02:49:07 08/14/19 18 08/14/2017 CMP, serum or plasm a creatinine 0.83 mg/dL 0.50-1 .05 normal For patie nts >49 years of age, the refer ence limit for Creat inine is appro ednat arabella 13% highe r for peopl e ident ified as Afric an-Am lauren n. Not Available [address] [address] [place], [address], 08/14/2017 02:49:07 08/14/19 18 08/14/2017 CMP, serum or plasm a eGFR non-afr. ethiopian 79 mL/mi n/1.7 3m2 > or = 60 normal Not Available [facility] [address] [address] [place], [address], 08/14/2017 02:49:07 08/14/19 18 08/14/2017 CMP, serum or plasm a eGFR 91 mL/mi n/1.7 3m2 > or = 60 normal Not Available [address] [address] [place], [address], 08/14/2017 02:49:07 08/14/19 18 08/14/2017 CMP, serum or plasm a BUN/creatini ne ratio NOT APPLIC ABLE (calc ) 6-22 Not Available [facility] [address] [address] [place], [address], 08/14/2017 02:49:07 08/14/19 18 08/14/2017 CMP, serum or plasm a sodium 139 mmol/ L 135-14 6 normal Not Available [facility] [address] [address] [place], [address], 08/14/2017 02:49:07 08/14/19 18 08/14/2017 CMP, serum or plasm a potassium 4.4 mmol/ L 3.5-5. 3 normal Not Available [facility] [address] [address] [place], [address], 08/14/2017 02:49:07 08/14/19 18 08/14/2017 CMP, serum or plasm a chloride 104 mmol/ L 98-110 normal Not Available [address], [address], 08/14/2017 02:49:07 08/14/19 18 08/14/2017 CMP, serum or plasm a carbon dioxide 27 mmol/ L 20-31 normal Not Available [address], [address], 08/14/2017 02:49:07 08/14/19 18 08/14/2017 CMP, serum or plasm a calcium 10.0 mg/dL 8.6-10 .4 normal Not Available [address], [address], 08/14/2017 02:49:07 08/14/19 18 08/14/2017 CMP, serum or plasm a protein, total 7.0 g/dL 6.1-8. 1 normal Not Available [address], [address], 08/14/2017 02:49:07 08/14/19 18 08/14/2017 CMP, serum or plasm a albumin 4.4 g/dL 3.6-5. 1 normal Not Available [address], [address], 08/14/2017 02:49:07 08/14/19 18 08/14/2017 CMP, serum or plasm a globulin 2.6 g/dL_ (calc ) 1.9-3. 7 normal Not Available [address], [address], 08/14/2017 02:49:07 08/14/19 18 08/14/2017 CMP, serum or plasm a albumin/glob ulin ratio 1.7 (calc ) 1.0-2. 5 normal Not Available [address], [address], 08/14/2017 02:49:07 08/14/19 18 08/14/2017 CMP, serum or plasm a bilirubin, total 0.2 mg/dL 0.2-1. 2 normal Not Available [address], [address], 08/14/2017 02:49:07 08/14/19 18 08/14/2017 CMP, serum or plasm a alkaline phosphatase 67 U/L 33-130 normal Not Available [address], [address], 08/14/2017 02:49:07 08/14/19 18 08/14/2017 CMP, serum or plasm a AST 16 U/L 10-35 normal Not Available [address], [address], 08/14/2017 02:49:07 08/14/19 18 08/14/2017 CMP, serum or plasm a ALT 16 U/L 6-29 normal Not Available [address], [address], 08/14/2017 02:49:07 08/14/19 18 08/14/2017 urina lysis compl ete, refle x cultu re color YELLOW yellow normal Not Available [address], [address], 08/14/2017 02:49:07 08/14/19 18 08/14/2017 urina lysis compl ete, refle x cultu re appearance CLEAR clear normal Not Available [address], [address], 08/14/2017 02:49:07 08/14/19 18 08/14/2017 urina lysis compl ete, refle x cultu re specific gravity 1.015 1.001- 1.035 normal Not Available [address], [address], 08/14/2017 02:49:07 08/14/19 18 08/14/2017 urina lysis compl ete, refle x cultu re pH 6.5 5.0-8. 0 normal Not Available [address], [address], 08/14/2017 02:49:07 08/14/19 18 08/14/2017 urina lysis compl ete, refle x cultu re glucose NEGATI VE negati ve normal Not Available [address], [address], 08/14/2017 02:49:07 08/14/19 18 08/14/2017 urina lysis compl ete, refle x cultu re bilirubin NEGATI VE negati ve normal Not Available [address], [address], 08/14/2017 02:49:07 08/14/19 18 08/14/2017 urina lysis compl ete, refle x cultu re ketones NEGATI VE negati ve normal Not Available [address], [address], 08/14/2017 02:49:07 08/14/19 18 08/14/2017 urina lysis compl ete, refle x cultu re occult blood NEGATI VE negati ve normal Not Available [address], [address], 08/14/2017 02:49:07 08/14/19 18 08/14/2017 urina lysis compl ete, refle x cultu re protein NEGATI VE negati ve normal Not Available [address], [address], 08/14/2017 02:49:07 08/14/19 18 08/14/2017 urina lysis compl ete, refle x cultu re nitrite NEGATI VE negati ve normal Not Available [address], [address], 08/14/2017 02:49:07 08/14/19 18 08/14/2017 urina lysis compl ete, refle x cultu re leukocyte esterase NEGATI VE negati ve normal Not Available [address], [address], 08/14/2017 02:49:07 08/14/19 18 08/14/2017 urina lysis compl ete, refle x cultu re WBC NONE SEEN /hpf < or = 5 normal Not Available [address], [address], 08/14/2017 02:49:07 08/14/19 18 08/14/2017 urina lysis compl ete, refle x cultu re RBC NONE SEEN /hpf < or = 2 normal Not Available [address], [address], 08/14/2017 02:49:07 08/14/19 18 08/14/2017 urina lysis compl ete, refle x cultu re squamous epithelial cells NONE SEEN /hpf < or = 5 normal Not Available [address], [address], 08/14/2017 02:49:07 08/14/19 18 08/14/2017 urina lysis compl ete, refle x cultu re bacteria NONE SEEN /hpf none seen normal Not Available [address], [address], 08/14/2017 02:49:07 08/14/19 18 08/14/2017 urina lysis compl ete, refle x cultu re hyaline cast NONE SEEN /lpf none seen normal Not Available [address], [address], 08/14/2017 02:49:07 08/14/19 18 08/14/2017 urina lysis compl ete, refle x cultu re reflexive urine culture NO CULTUR E INDICA LES Not Available [address] [place], [address], 08/14/2017 02:49:07 08/14/19 18 08/14/2017 CBC w/ auto diff white blood cell count 9.6 thous and/u L 3.8-10 .8 normal Not Available [address], [address], 08/14/2017 02:49:08 08/14/19 18 08/14/2017 CBC w/ auto diff red blood cell count 4.50 ella on/uL 3.80-5 .10 normal Not Available [address], [address], 08/14/2017 02:49:08 08/14/19 18 08/14/2017 CBC w/ auto diff hemoglobin 13.6 g/dL 11.7-1 5.5 normal Not Available [address], [address], 08/14/2017 02:49:08 08/14/19 18 08/14/2017 CBC w/ auto diff hematocrit 40.0 % 35.0-4 5.0 normal Not Available [address], [address], 08/14/2017 02:49:08 08/14/19 18 08/14/2017 CBC w/ auto diff MCV 88.9 fL 80.0-1 00.0 normal Not Available [address], [address], 08/14/2017 02:49:08 08/14/19 18 08/14/2017 CBC w/ auto diff MCH 30.2 pg 27.0-3 3.0 normal Not Available [address], [address], 08/14/2017 02:49:08 08/14/19 18 08/14/2017 CBC w/ auto diff MCHC 34.0 g/dL 32.0-3 6.0 normal Not Available [address], [address], 08/14/2017 02:49:08 08/14/19 18 08/14/2017 CBC w/ auto diff RDW 12.4 % 11.0-1 5.0 normal Not Available [address], [address], 08/14/2017 02:49:08 08/14/19 18 08/14/2017 CBC w/ auto diff platelet count 344 thous and/u L 140-40 0 normal Not Available [address], [address], 08/14/2017 02:49:08 08/14/19 18 08/14/2017 CBC w/ auto diff MPV 10.2 fL 7.5-12 .5 normal Not Available [address], [address], 08/14/2017 02:49:08 08/14/19 18 08/14/2017 CBC w/ auto diff absolute neutrophils 5357 cells /uL 1500-7 800 normal Not Available [address], [address], 08/14/2017 02:49:08 08/14/19 18 08/14/2017 CBC w/ auto diff absolute lymphocytes 3197 cells /uL 850-39 00 normal Not Available [address], [address], 08/14/2017 02:49:08 08/14/19 18 08/14/2017 CBC w/ auto diff absolute monocytes 826 cells /uL 200-95 0 normal Not Available [address], [address], 08/14/2017 02:49:08 08/14/19 18 08/14/2017 CBC w/ auto diff absolute eosinophils 173 cells /uL 15-500 normal Not Available [address] [address] [place], [address], 08/14/2017 02:49:08 08/14/19 18 08/14/2017 CBC w/ auto diff absolute basophils 48 cells /uL 0-200 normal Not Available [address] [address] [place], [address], 08/14/2017 02:49:08 08/14/19 18 08/14/2017 CBC w/ auto diff neutrophils 55.8 % normal Not Available [address] [address] [place], [address], 08/14/2017 02:49:08 08/14/19 18 08/14/2017 CBC w/ auto diff lymphocytes 33.3 % normal Not Available [address] [address] [place], [address], 08/14/2017 02:49:08 08/14/19 18 08/14/2017 CBC w/ auto diff monocytes 8.6 % normal Not Available [address] [address] [place], [address], 08/14/2017 02:49:08 08/14/19 18 08/14/2017 CBC w/ auto diff eosinophils 1.8 % normal Not Available [address] [address] [place], [address], 08/14/2017 02:49:08 08/14/19 18 08/14/2017 CBC w/ auto diff basophils 0.5 % normal Not Available [address] [address] [place], [address], 08/14/2017 02:49:08 08/14/19 18 08/14/2017 lipas e, serum or plasm a lipase 55 U/L 7-60 normal Not Available [address] [address] [place], [address], 08/14/2017 02:49:08 08/14/19 18 08/14/2017 amyla se (refl ) amylase (refl) 44 U/L 21-101 normal Not Available [address], [address], 08/14/2017 02:49:09 10/08/19 18 10/08/2017 CBC w/ auto diff white blood cell count 8.9 thous and/u L 3.8-10 .8 normal Not Available [address], [address], 10/08/2017 04:51:26 10/08/19 18 10/08/2017 CBC w/ auto diff red blood cell count 4.56 ella on/uL 3.80-5 .10 normal Not Available [address], [address], 10/08/2017 04:51:26 10/08/19 18 10/08/2017 CBC w/ auto diff hemoglobin 13.7 g/dL 11.7-1 5.5 normal Not Available [address], [address], 10/08/2017 04:51:26 10/08/19 18 10/08/2017 CBC w/ auto diff hematocrit 41.1 % 35.0-4 5.0 normal Not Available [address], [address], 10/08/2017 04:51:26 10/08/19 18 10/08/2017 CBC w/ auto diff MCV 90.1 fL 80.0-1 00.0 normal Not Available [address], [address], 10/08/2017 04:51:26 10/08/19 18 10/08/2017 CBC w/ auto diff MCH 30.0 pg 27.0-3 3.0 normal Not Available [address], [address], 10/08/2017 04:51:26 10/08/19 18 10/08/2017 CBC w/ auto diff MCHC 33.3 g/dL 32.0-3 6.0 normal Not Available [address], [address], 10/08/2017 04:51:26 10/08/19 18 10/08/2017 CBC w/ auto diff RDW 12.4 % 11.0-1 5.0 normal Not Available [address], [address], 10/08/2017 04:51:26 10/08/19 18 10/08/2017 CBC w/ auto diff platelet count 338 thous and/u L 140-40 0 normal Not Available [address], [address], 10/08/2017 04:51:26 10/08/19 18 10/08/2017 CBC w/ auto diff MPV 9.9 fL 7.5-12 .5 normal Not Available [address], [address], 10/08/2017 04:51:26 10/08/19 18 10/08/2017 CBC w/ auto diff absolute neutrophils 4325 cells /uL 1500-7 800 normal Not Available [address], [address], 10/08/2017 04:51:26 10/08/19 18 10/08/2017 CBC w/ auto diff absolute lymphocytes 3516 cells /uL 850-39 00 normal Not Available [address], [address], 10/08/2017 04:51:26 10/08/19 18 10/08/2017 CBC w/ auto diff absolute monocytes 872 cells /uL 200-95 0 normal Not Available [address], [address], 10/08/2017 04:51:26 10/08/19 18 10/08/2017 CBC w/ auto diff absolute eosinophils 134 cells /uL 15-500 normal Not Available [address], [address], 10/08/2017 04:51:26 10/08/19 18 10/08/2017 CBC w/ auto diff absolute basophils 53 cells /uL 0-200 normal Not Available [address], [address], 10/08/2017 04:51:26 10/08/19 18 10/08/2017 CBC w/ auto diff neutrophils 48.6 % normal Not Available [address], [address], 10/08/2017 04:51:26 10/08/19 18 10/08/2017 CBC w/ auto diff lymphocytes 39.5 % normal Not Available [address], [address], 10/08/2017 04:51:26 10/08/19 18 10/08/2017 CBC w/ auto diff monocytes 9.8 % normal Not Available [address], [address], 10/08/2017 04:51:26 10/08/19 18 10/08/2017 CBC w/ auto diff eosinophils 1.5 % normal Not Available [address], [address], 10/08/2017 04:51:26 10/08/19 18 10/08/2017 CBC w/ auto diff basophils 0.6 % normal Not Available [address], [address], 10/08/2017 04:51:26 06/02/19 18 05/27/2017 XR, chest , 2 view No observ ation record ed. Not Available 2017 12:41:44 06/03/19 18 05/27/2017 XR, chest , 2 view No observ ation record ed. [facility] Not Available 2017 12:41:44 06/03/19 18 05/28/2017 CT, abdom en + pelvi s, w/o contr ast No observ ation record ed. [facility] Not Available 2017 12:41:44 06/03/19 18 05/28/2017 CT, thora cic spine , w/ contr ast No observ ation record ed. [facility] Not Available 2017 12:41:44 06/03/19 18 05/28/2017 XR, hand No observ ation record ed. [facility] Not Available 2017 12:41:44 06/03/19 18 05/28/2017 CT, lumba r spine , w/ contr ast No observ ation record ed. [facility] Not Available 2017 12:41:44 08/08/19 18 08/07/2017 CT, abdom en + pelvi s, w/ contr ast No observ ation record ed. [facility] Not Available 2017 10:18:24 08/16/19 18 08/15/2017 US, gallb ladde r No observ ation record ed. [facility] [address], [place], [address], 10/07/2017 12:49:38 08/19/19 18 08/18/2017 MAMMO , scree janeen, digit al, bilat eral No observ ation record ed. [address] (Imaging) [address], [place], [address], 10/07/2017 12:49:38 08/21/19 18 08/15/2017 US, abdom en No observ ation record ed. [facility] [address], [place], [address], 10/07/2017 12:49:38 08/28/19 18 08/27/2017 NM, hepat obili anant scan, w/ CCK No observ ation record ed. [address] [facility], [place], [address], 10/07/2017 12:49:38 10/15/19 18 10/07/2017 XR, chest , 2 view No observ ation record ed. [facility] [address], [place], [address], 01/07/2018 13:28:24 01/21/20 18 elect rocar diogr am No observ ation record ed. [email or web address] Not Available 2017 13:55:39 Result Notes None recorded. Problems Name Problem SNOMED Code Status Onset Date Resolution Date Notes Provider Name and Address Organization Details Recorded Time Hypertensive disorder 64743881 Active 2016 [facility] 7 11:46:05 Heart disease 31640691 Active 2016 Ischemic Disease [facility] 7 11:47:10 Problem Notes None recorded. Procedures Surgical History Date Name Laterality Status Provider Name and Address Organization Details Recorded Time 10/25/19 17 Date of Last Pap Smear completed [facility] 03/07/2017 11:23:05 07/25/19 17 Date of Last Mammogram completed [facility] 03/07/2017 11:23:13 08/25/19 16 Colonoscopy completed [facility] 03/11/2017 12:46:40 Tonsillectomy completed MD Barbara Cruz [address], [place], [address], [facility] 03/07/2017 12:40:03 delivery completed MD Barbara Cruz [address], [place], [address], [facility] 03/07/2017 12:40:31 Dilation and curettage completed MD Barbara Cruz [address], [place], [address], [facility] 03/07/2017 12:41:13 Knee Surgery completed MD Barbara Cruz [address], [place], [address], [facility] 03/07/2017 12:44:20 Partial Hysterectomy completed MD [address], [place], [address], [facility] 03/07/2017 12:42:51 Appendectomy completed MD [address], [place], [address], [facility] 03/07/2017 12:43:26 Carpal tunnel surgery completed MD [address], [place], [address], [facility] 03/07/2017 12:43:51 Unlisted px foot/toes completed MD Barbara Cruz [facility] [address], [place], [address], [facility] 03/07/2017 12:46:11 Arthrd ant ntrbd min dsc lum completed MD Barbara Cruz [facility] [address], [place], [address], [facility] 03/07/2017 12:49:59 Other completed MD Barbara Cruz [facility] [address], [place], [address], [facility] 03/07/2017 12:48:07 Imaging Results None recorded. Procedure Notes None recorded. Medical Equipment None Reported. Allergies Allergen ID Allergen Name Allergen Category Reaction Reaction Severity Criticality Documentation Date Start Date Code Code System Note Provider Name and Address Organization Details Recorded Time 6276 Product containin g penicilli n (product) medicatio n anaphylax is hives Not available Not available Not available 03/07/2017 28553 8001 SNOMED Carmen tim [facility] 7 11:23:41 6277 pseudoeph edrine Not available anaphylax is hives Not available Not available Not available 03/07/2017 8896 RxNorm Carmen Jayceiona tim [facility] 7 11:24:27 6278 bee pollen environme nt,medica tion anaphylax is Not available Not available 03/07/2017 63426 7 RxNoscout tim, [facility] 7 11:25:29 6279 peanut allergeni c extract food,medi cation anaphylax is Not available Not available 03/07/2017 61840 8 Radha tim, [facility] 7 11:25:41 Medications Name Sig Start [...] Updated DateTime 8 157.48 cm 29.1 kg/m2 50184.1 9 g 16 /min 84 /min 135/88 mm[Hg] Carmen Eduardo [facility] 8 11:21:30 Date Recorded Systolic And Diastolic Provider Name and Address Organization Details Last Updated DateTime 07/08/2017 116/83 mm[Hg] Jorge L Barnes MD [address] [facility] [address], [place], [address], [facility] 07/08/2017 12:38:26 Date Recorded Body height Respiratory rate Body mass index (BMI) Body weight Heart rate Body temperature Provider Name and Address Organization Details Last Updated DateTime 8 157.48 cm 16 /min 28.9 kg/m2 50226.5 9 g 71 /min 97.2 [degF] [facility] 12:06[facility]38 Date Recorded Body height Respiratory rate Body mass index (BMI) Body weight Heart rate Systolic And Diastolic Provider Name and Address Organization Details Last Updated DateTime 8 157.48 cm 16 /min 29.3 kg/m2 62833.7 8 g 76 /min 133/80 mm[Hg] [facility] 8 09:25:14 Date Recorded Body height Heart rate Respiratory rate Body temperature Body mass index (BMI) Body weight Systolic And Diastolic Provider Name and Address Organization Details Last Updated DateTime 8 157.48 cm 76 /min 16 /min 97.5 [degF] 28.7 kg/m2 54188 g 165/95 mm[Hg] Carmen [facility] 8 12:18:10 Date Recorded Body height Body mass index (BMI) Body weight Respiratory rate Heart rate Systolic And Diastolic Provider Name and Address Organization Details Last Updated DateTime 8 157.48 cm 27.3 kg/m2 31963.2 6 g 16 /min 89 /min 129/75 mm[Hg] [facility] 8 12:40:12 Social History Question Answer Notes LastModified by Organizat ion Details LastModified Time Tobacco Smoking Status Former Smoker Smoked for about 22 years. Quit in 2012. Witnessed pt smoke a cig on 03/11- current status if daily? 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 [...] Alcoholism Not available 10/15/2017 12:00:02 Mother Malignant neoplasm of breast 38 67 -- Diagno sed at around 38 y/o Not available 03/07/2017 12:27:09 Mother Myocardial infarction 38 -- dx'd at 38 y/o Not available 10/15/2017 12:00:02 Sister Diabetes mellitus lcallison Not available 2016 11:27:41 Sister Depressive disorder Not available 2017 12:00:02 Sister Malignant neoplasm of colon 56 57 -- Diagno sed at 56 years old Not available 03/07/2017 12:30:03 Sister Congestive heart failure -- CHF, COPD and 2 renal transp lant Not available 10/15/2017 12:00:02 Maternal Uncle Myocardial infarction -- 2 uncles w/ [place] in their 30s Not available 10/15/2017 12:00:02 [...] Recorded Time Tdap 05/26/2013 completed Carmen Eduardo [facility] 03/07/2017 11:22:48 Past Encounters Encounter ID Performer Location Encounter Start Date Encounter Closed Date Diagnosis/Indication Diagnosis SNOMED-CT Code Diagnosis ICD10 Code Diagnosis IMO Codes Diagnosis Note [id number] Jorge L Barnes MD [facility] [address] [facility] [address] [place] [address] 03/07/2017 11:04:57 03/07/2017 14:09:19 Chest pain 43594646 R07.9 (lower sternum; describe as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
--- OUTSIDE RECORDS SUMMARY | 2025-03-10 16:01 | XMS_ITS | Patient Health Record ---
Author Organization [facility] [employer] Address [address] [place] [address] Care Team Providers Care Tape Calender Name Role Phone Josh Rubio Unavailable [phone] Reason For Referral No Information Plan Of Treatment No Information
--- OUTSIDE RECORDS SUMMARY | 2025-03-10 16:02 | XMS_ITS | Clinical Summary ---
Author Organization [facility] Address Formerly [facility] [place] [address] Care Team Providers Care Diamond Die Maker Name Role Phone Ramón Mcdaniel MD Primary Care Provider [phone] Allergies Active Allergy Reactions Criticality Noted Date [...] Sex Assigned at Female 07/24/2024 6:35 PM YARN EXAMINER Legal Sex Female 7:59 AM CDT Gender Identity Not on file Sexual Orientation Not on file Last Filed Vital Signs Vital Sign Reading Time Taken Comments Blood Pressure 172/93 07/24/2024 11:00 PM YARN EXAMINER Pulse 91 07/24/2024 7:38 PM YARN EXAMINER Temperature 37.5 C (99.5 F) 07/24/2024 7:38 PM YARN EXAMINER Respiratory Rate 18 07/24/2024 11:00 PM YARN EXAMINER Oxygen Saturation 96% 07/24/2024 11:00 PM YARN EXAMINER Inhaled Oxygen Concentration - - Weight 70.3 kg (155 lb) 07/24/2024 7:38 PM YARN EXAMINER Height 152.4 cm (5') 07/24/2024 7:38 PM YARN EXAMINER Body Mass Index 30.27 07/24/2024 7:38 PM YARN EXAMINER Plan of Treatment Health Maintenance Due Date [...] Tdap) 05/26/2023 05/26/2013 COVID-19 Vaccine (2 - 2024-2 6 season) 2025 08/31/2020 Influenza Adult (#1) 2025 RSV Immunization or 60+ Years (1 - [...] complete this topic Insurance MEDICAID [employer] [address] MEDICARE Care Teams Diamond Die Maker Relationship Specialty Start Date End Date Ramón Mcdaniel MD [address] [place] [address] PCP - General FAMILY PRACTICE 07/24/24
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
--- OUTSIDE RECORDS SUMMARY | 2025-03-10 16:02 | XMS_ITS | Encounter Summary ---
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
== END 2025-03-10 13:59 | disposition home or self-care (01) ==
LOC: ANHFOHIMG 13:58
PROVIDERS: PCP Family Medicine; Visit Provider Family Medicine
DX: Z12.31 Encounter for screening mammogram for malignant neoplasm of breast (principal)
CPT/HCPCS: 77063; 77067

== ENCOUNTER 2025-03-19 16:48 | Emergency (ER) | payer MEDICARE, SELFPAY ==
--- OUTSIDE RECORDS SUMMARY | 2025-01-06 19:00 | XMS_ITS | Continuity of Care Document ---
Author Organization [facility] Address [address] [place] [phone] Phone Care Team Providers Care Recreational Director Name Role Phone Marcell RODRIGUEZ, FACC, Opal Unavailable Unavailab le Procedures Procedure Date TTE W/DOPPLER, COMPLETE Advance Directives Directive Yes / No Effective Date File Name No Information Encounters Encounter Description Practice Location Reason(s) For Visit Diagnoses Date Provider Providers Copied on Encounter [facility], [address] [place] [address], [id number], tel:[phone] [facility] Inpt No Information Marcell Joseph. [address] [place] [address], [id number], . tel:[phone] Referring Provider: Opal Faith, [address] [place] [address], [id number]. tel:[phone] Family History Family Member Type Diagnosis Age At Onset No Information Payers Payer name Insurance type Covered alliance party ID Authoriza tion(s) [facility] [address] [id number] PPO C [id number] Social History Type Description Quantity Date Captured [...]
[2025-03-19] VITALS (10 sets, daily range): BP systolic 114–154; BP diastolic 79–110; PULSE 85–114; RESP 16–22; TEMP 37.1; O2SAT 96–100
--- NOTE | ~2025-03-19 | XR_ITS ---
EXAMINATION: XR chest 2V, 03/19/2025 17:25 CDT HISTORY: chest pain COMPARISON: No comparisons available. Technique: 2 views obtained. Findings: The lungs are clear, no effusion. No pneumothorax. Heart is normal size. Mediastinal and hilar contours are within normal limits. Bony thorax no acute abnormality. Impression: No acute cardiopulmonary abnormality. Reviewed, dictated and finalized at location P. Impression: No acute cardiopulmonary abnormality.
--- NOTE | 2025-03-19 16:51 | ECG_ITS ---
Test Date: 2025-03-19 16:51:29 Measurements Intervals [place] Rate: 109 P: 68 NE: 158 QRS: 2 QRSD: 90 T: 61 QT: 328 QTc: 443 Interpretive Statements SINUS TACHYCARDIA NONSPECIFIC ST & T-WAVE ABNORMALITY- ANT/HIGH LAT LEADS BASELINE ARTIFACT- I, II, III, AVR, AVL, AVF, V1-V6 ABNORMAL ECG No previous ECG available for comparison Electronically Signed On 03-20-2025 08:04:18 CDT by Remigio Rodriguez D.O.
[2025-03-19 17:00] LABS: Hematocrit 40.3 % (37.0-47.0); Hemoglobin 12.9 g/dL (12.0-15.0); Immature Granulocyte Percent A 0.3 % (0-0.5); Lymphocytes Absolute Auto 2.99 K/mm3 (0.9-3.2); Mean Corpuscular HGB Conc 32.0 g/dl (32-36); Mean Corpuscular Hemoglobin 27.3 pg (26-34); Mean Corpuscular Volume 85.2 fl (80-100); Nucleated Red Blood Cells Absolute Auto 0.000 K/mm3 (0.0-0.012); Nucleated Red Blood Cells Perc 0.0 % (0.0-0.2); Platelet Count Result 351 k/mm3 (150-375); Red Blood Count 4.73 M/mm3 (4.2-5.4); White Blood Count 10.4 K/mm3 (4.5-10.0)
--- NOTE | 2025-03-19 17:08 | ED.CHESTPAIN ---
HPI - Chest Pain General Chief Complaint: Chest Pain Stated Complaint: chest pain History of Present Illness HPI narrative: 64-year-old female with a past medical history including hypertension, prediabetes, atrial fibrillation on Coreg and Xarelto. Patient presents to the emergency department today with chest pain for last week. Describes it as ?knives stabbing me under my chest ?denies any shortness a breath. States she just finished a course of prednisone for neck pain and symptoms started afterwards. Denies any history of ulcers. Does have history of gastroparesis with delayed gastric emptying on scan. No traumatic injuries. States she has been more thirsty lately and urinating very frequently. No fever, chills, traumatic injuries or falls. Was otherwise in her normal state of health. No MD or coronary artery disease history. Related Data Home Medications ?Medication ?Instructions ?Recorded ?Confirmed ?Last Taken ?Type multivitamin 1 cap PO DAILY 10/24/22 03/19/25 03/19/25 History quetiapine 50 mg tablet 50 mg PO HS 12/15/23 03/19/25 03/18/25 History buspirone 10 mg tablet 10 mg PO BID 03/07/25 03/19/25 03/19/25 History cariprazine 1.5 mg capsule 1.5 mg PO .Q2days 03/07/25 03/19/25 03/18/25 History (Vraylar) Allergies Allergy/AdvReac Type Severity Reaction Status Date / Time bee venom protein (honey bee) Allergy Severe Anaphylactic Verified 03/19/25 17:06 Shock Penicillins Allergy Severe Anaphylaxis Verified 03/19/25 17:06 pseudoephedrine Allergy Severe Anaphylaxis Verified 03/19/25 17:06 Sulfa (Sulfonamide Allergy Severe Anaphylaxis Verified 03/19/25 17:06 Antibiotics) codeine Allergy Mild Hives Verified 03/19/25 17:06 latex Allergy Mild Hives Verified 03/19/25 17:06 Review of Systems Review of Systems: As [facility] Past Medical History Medical History Gastroparesis Diabetes Colon cancer screening Kidney stone Tobacco abuse Suicide attempt Depression with anxiety Arthritis Hyperlipidemia Transient ischemic attack Missed x2 Vaginal delivery x1 Cervical radiculopathy Essential hypertension Insomnia with sleep apnea, unspecified Other dissociative and conversion disorders Prediabetes Surgical History Surgical History History of carpal tunnel release History of arthroscopy of right knee History of tonsillectomy History of 3 sections History of spinal fusion History of right oophorectomy 09/1985 History of bilateral salpingectomy 09/1985 History of hysterectomy 09/1985 History of appendectomy Family History Family History Mother Family history of premature coronary heart disease, Onset Age: 62 Family history of malignant neoplasm of breast in first degree relative Patient's mother is Family history of gout Hypertension Family history of diabetes mellitus in first degree relative Family history of heart disease in male family member before age 55 Family history of malignant neoplasm of breast Diabetes mellitus Family history of cardiovascular disease Cerebrovascular accident Sibling Family history of kidney disease Family history of seizure disorder Family history of pancreatic cancer Diabetes mellitus Hypertension Family history of cardiovascular disease Family history of malignant neoplasm Father Malignant neoplasm of prostate, Onset Age: 50 Patient's father is Cerebrovascular accident Family history of arthritis Carcinoma of colon Grandparent Family history of malignant neoplasm of brain, Onset Age: 42 Social History Social History Social History: Surrogate medical decision maker: Enrique Menezes, spouse. Code status: Full code. Caffeine-daily Years smoked: 35 Smoking status: Former smoker Tobacco type: cigarettes Second hand tobacco smoke exposure: Yes Smoking end date: 09/06/24 Alcohol intake: never Substance use: current Substance use type: marijuana Other substance usage details: Edibles Last use: 11/16/24 Do You Feel Safe in your Home?: Yes Lack of Transportation: No Lack of Food: Never True Current Housing: I Have Housing Concerned About Future Housing: No Difficulty Paying Gas/Electric Bills: YES Difficulty Paying for Meds: No Currently Unemployed: Decline to Answer Education: Associate Degree Difficulty w/ Childcare or Family Care: No Living arrangements: with family Spiritual care concerns: No Agree to blood products: Yes Exam Narrative: GENERAL: [Well-appearing, well-nourished, and in no acute distress.] HEAD: [Normocephalic, atraumatic.] EYES: [PERRLA and EOMI.] ENT: Nares clear, no rhinorrhea or epistaxis. Mucous membranes moist. NECK: Supple. CHEST: [Clear to auscultation. No respiratory distress.] HEART: [Regular rate and rhythm]. No murmur heard. [Normal peripheral pulses.] ABDOMEN: [Soft, nondistended], [nontender], [No rigidity or guarding] EXTREMITIES: Normal range of motion. [No edema.] SKIN: Warm, dry, no rash. NEURO: [No focal deficits]. Alert and oriented [x3.] PSYCH: [Normal mood and affect.] Course Vital Signs Vital signs: Vital Signs Temperature 37.1 C 03/19/25 16:42 Pulse Rate 106 H 03/19/25 16:42 Respiratory Rate 19 03/19/25 16:42 Blood Pressure 122/79 03/19/25 16:42 Pulse Oximetry 96 03/19/25 16:42 Oxygen Delivery Room Air 03/19/25 16:42 Temperature 37.1 C 03/19/25 16:42 Pulse Rate 96 03/19/25 18:01 Respiratory Rate 21 H 03/19/25 18:01 Blood Pressure 149/91 H 03/19/25 18:01 Pulse Oximetry 97 03/19/25 18:01 Oxygen Delivery Room Air 03/19/25 17:12 MDM - Chest Pain MDM Narrative Medical decision making narrative: 64-year-old female with a past medical history including hypertension, prediabetes, atrial fibrillation on Coreg and Xarelto. Patient presents to the emergency department today with chest pain for last week. Describes it as ?knives stabbing me under my chest ?denies any shortness a breath. States she just finished a course of prednisone for neck pain and symptoms started afterwards. Denies any history of ulcers. Does have history of gastroparesis with delayed gastric emptying on scan. No traumatic injuries. States she has been more thirsty lately and urinating very frequently. No fever, chills, traumatic injuries or falls. Was otherwise in her normal state of health. No MD or coronary artery disease history. Patient is overall well-appearing not any acute distress. Symptoms going on for a week so low suspicion acute ACS or emergent concerns but will evaluate for potential gastritis, pneumonia, pneumothorax, ACS. States she is on Xarelto so no present suspicion for thromboembolic disease given lack of DVT findings on exam and complaints of medications. She just finished prednisone and been having increased thirst and increased urination is that this could be a medication side effect and causing dehydration/gastritis. Patient given fluids and Pepcid and cardiac workup underway. EKG nonischemic. Vital signs stable. Chest x-ray reviewed shows no acute cardiopulmonary process. No significant leukocytosis or anemia. Normal platelet count. Electrolytes unremarkable but she does have an elevated creatinine consistent with acute kidney injury as her GFR is down to 54 today from prior baseline. Normal glucose. Normal LFTs. Negative troponin. Patient given 2 L of hydration and suspect her recent steroids as likely culprit. EKG is normal and troponin negative. Low heart score of 2. Safe for discharge upon rehydration. Will be given return precautions and PCP follow-up instructions. Medical Records Data Attestation: I reviewed the patient's medical records. Lab Data Attestation: I reviewed the patient's lab results. 03/19/25 16:55 03/19/25 16:55 Labs: Lab Results 03/19/25 Range/Units 16:55 WBC 10.4 H (4.5-10.0) K/mm3 RBC 4.73 (4.2-5.4) M/mm3 Hgb 12.9 (12.0-15.0) g/dL Hct 40.3 (37.0-47.0) % MCV 85.2 (80-100) fl MCH 27.3 (26-34) pg MCHC 32.0 (32-36) g/dl RDW 13.3 (11.5-14.5) % Plt Count 351 (150-375) k/mm3 MPV 9.1 (7.4-10.4) fl Immature Gran % (Auto) 0.3 (0-0.5) % Neut % (Auto) 61.4 (45.5-73.1) % Lymph % (Auto) 28.9 (18.3-44.2) % [place] % (Auto) 7.5 (2.6-8.5) % Eos % (Auto) 1.5 (0-4.4) % Baso % (Auto) 0.4 (0.2-1.2) % Lymph # (Auto) 2.99 (0.9-3.2) K/mm3 [place] # (Auto) 0.8 H (0.1-0.6) K/mm3 Eos # (Auto) 0.2 (0-0.3) K/mm3 Baso # (Auto) 0.0 (0.0-0.1) K/mm3 Abs Immat Gran (auto) 0.03 (0.00-0.031) K/mm3 Absolute Neuts (auto) 6.4 (1.3-6.7) K/mm3 Absolute Nucleated RBC 0.000 (0.0-0.012) K/mm3 Nucleated RBC % 0.0 (0.0-0.2) % PT 13.3 (11.1-14.7) Seconds INR 1.0 APTT 26.2 (22.3-36.8) Seconds Sodium 136 L (137-145) mmol/L Potassium 3.5 (3.4-5.0) mmol/L Chloride 102 (98-107) mmol/L Carbon Dioxide 25 (22-30) mmol/L Anion Gap 9 (4-12) mmol/L BUN 20 H (7-17) mg/dL Creatinine 1.03 H (0.7-1.0) mg/dL Estim Creat Clear Calc 43 ml/min Estimated GFR 54 L (59 - ) Glucose 91 (65-110) mg/dL Calcium 9.9 (8.4-10.2) mg/dL Total Bilirubin 0.4 (0.2-1.3) mg/dL AST 32 (14-36) U/L ALT 26 (6-35) U/L Alkaline Phosphatase 89 (38-126) U/L Troponin I < 0.012 (0.000-0.034) ng/mL Total Protein 7.9 (6.3-8.2) g/dL Albumin 4.3 (3.5-5.1) g/dL Lipase 128 (23-300) U/L Imaging Data Attestation: I personally reviewed and interpreted this imaging study as follows: My impression: Impressions Chest X-Ray 03/19/25 17:34 Impression: No acute cardiopulmonary abnormality. Discharge Plan Discharge Clinical Impression: Acute dehydration, NICANOR (acute kidney injury), Medication side effect, Chest pain Patient Disposition: Home Condition: Stable Instructions: Antibiotic Form, Chest Pain (DC), Dehydration (DC), Acute Kidney Injury (DC) Additional Instructions: Laboratory studies show an acute kidney injury secondary to dehydration. This is likely a consequence and side effect of your recent steroid use. The chest discomfort and lightheadedness likely secondary to this and potentially some GI upset from the steroids as they are harsh on the gastrointestinal system as well. We have provided hydration here and you are safe to go home and follow-up with your regular primary care provider. If you experience any worsening or new symptoms or any other emergent concerns please return to the emergency department at that time. Patient Language: Citizen Of [place] Prescriptions: No Action rosuvastatin 20 mg tablet 20 mg PO DAILY Qty: 90 1RF carvedilol 12.5 mg tablet 12.5 mg PO Q12H Qty: 180 2RF Rx Instructions: must administer with a meal/food quetiapine 50 mg tablet 50 mg PO HS buspirone 10 mg tablet 10 mg PO BID Vraylar 1.5 mg capsule 1.5 mg PO .Q2days cyclobenzaprine 10 mg tablet 10 mg PO BID PRN (Reason: muscle spasm) Qty: 14 0RF methylprednisolone [Medrol (Reid)] 4 mg tablets,dose pack See Rx Instructions .ROUTE .COMPLEX Qty: 21 0RF Rx Instructions: for 6 days multivitamin Capsule 1 cap PO DAILY sertraline 100 mg tablet See Rx Instructions .ROUTE .COMPLEX Qty: 90 1RF Dose Instruction: TAKE 1 TABLET BY MOUTH DAILY Rx Instructions: TAKE 1 TABLET BY MOUTH DAILY pregabalin [Lyrica] 75 mg capsule 75 mg PO TID Qty: 90 3RF metformin 500 mg tablet extended release 24 hr 500 mg PO QPM Qty: 100 1RF omeprazole 40 mg capsule,delayed release(DR/EC) 40 mg PO DAILY Qty: 30 5RF Rx Instructions: take 1 capsule q.a.m. on empty stomach and wait 15 minutes to eat or drink Mounjaro 7.5 mg/0.5 mL pen injector 7.5 mg subcut WEEKLY Qty: 6 2RF hydrocodone-acetaminophen 7.5-325 mg tablet 1 tablet PO Q8H PRN (Reason: pain) Qty: 90 0RF Patient Comments: takes q 8hours Follow-up/Referrals: Ramón Mcdaniel MD [Primary Care Provider, Family Practice] - 3 Days Referral Note: ER F/u Time of Disposition: 17:50 Quality HEART score for chest pain patients History: slightly suspicious ECG: normal Age: > 45 and < 65 years Risk factors: 1 or 2 risk factors Troponin: < or = to 1x normal limit Heart score: 2
[2025-03-19 17:14] LABS: INR 1.0; Partial Thromboplastin Time 26.2 Seconds (22.3-36.8); Prothrombin Time 13.3 Seconds (11.1-14.7)
[2025-03-19] MEDS: FAMOTIDINE 20 MG/2 ML VIAL IV PUSH (17:16)
[2025-03-19] MEDS: LACTATED RINGERS 1,000 ML 999 ML IV CONT ×2 (17:17)
--- OUTSIDE RECORDS SUMMARY | 2025-03-19 17:17 | XMS_ITS | Clinical Summary ---
Author Organization [facility] Address [facility] [place] [address] Care Team Providers Care Job Coach/Job Developer Name Role Phone Ramón Mcdaniel MD Primary Care Provider [phone] Allergies Active Allergy Reactions Criticality Noted Date [...] Sex Assigned at Female 07/24/2024 6:35 PM FINISH MOLDER Legal Sex Female 7:59 AM CDT Gender Identity Not on file Sexual Orientation Not on file Last Filed Vital Signs Vital Sign Reading Time Taken Comments Blood Pressure 172/93 07/24/2024 11:00 PM FINISH MOLDER Pulse 91 07/24/2024 7:38 PM FINISH MOLDER Temperature 37.5 C (99.5 F) 07/24/2024 7:38 PM FINISH MOLDER Respiratory Rate 18 07/24/2024 11:00 PM FINISH MOLDER Oxygen Saturation 96% 07/24/2024 11:00 PM FINISH MOLDER Inhaled Oxygen Concentration - - Weight 70.3 kg (155 lb) 07/24/2024 7:38 PM FINISH MOLDER Height 152.4 cm (5') 07/24/2024 7:38 PM FINISH MOLDER Body Mass Index 30.27 07/24/2024 7:38 PM FINISH MOLDER Plan of Treatment Health Maintenance Due Date [...] Years (1 - 1-dose 75+ series) 10/11/2035 Hepatitis A Vaccines Aged Out No long er eligible based on patient's age to complete this topic Meningococcal B Vaccine Aged Out No l onger eligible based on patient's age to complete this topic Meningococcal Vaccine Aged Out No song peggy eligible based on patient's age to complete this topic RSV Immunizations Under 20 Months Aged Out No longer eligible based on patient's age to complete this topic Insurance MEDICAID DEPT OF HUMAN [address] MEDICARE Care Teams Job Coach/Job Developer Relationship Specialty Start Date End Date Ramón Mcdaniel MD [address] [place] [address] PCP - General FAMILY PRACTICE 07/24/24
--- OUTSIDE RECORDS SUMMARY | 2025-03-19 17:17 | XMS_ITS | Patient Health Record ---
Author Organization [facility] Address [address] [place] [address] Care Team Providers Care Seismic Survey Assistant Name Role Phone Duran Sosa Primary Care Provider Destniey Wallace Unavailable [phone] Charlee Coombs Unavailable [phone] Anupam Jacobson Unavailable [phone] Allergies Allergen (clinical drug ingredient) Drug/Non Drug Allergy documented on EMR Reaction Allergy Type Onset Date Status Sudafed Unknown Drug Allergy Active codeine Codeine Unknown Drug Allergy Active Penicillin Unknown Drug Allergy Active Results Component Value Reference Range Notes Breathalyzer Reviewed date:01/25/2025 08:15:40 AM Interpretation: Performing Lab: Notes/Report: FIDELIA 0.000 QuantiFERON-TB Gold Plus (18 1251) Reviewed date:01/26/2025 08:17:10 AM Interpretation: [facility]forming [facility] [address] [place] [address], Phone - [phone], Director - PhDRicchiuti Notes/Report: QuantiFERON Incubation Incubation performed. QuantiFERON-TB Gold [...] Nil Value 0.06 QuantiFERON Mitogen Value >10.00 CMP 14 Comprehensive Metabol ic Panel* Reviewed date:01/26/2025 08:17:10 AM Interpretation: Performing Lab:[facility], [address] [facility], Phone - [phone], Director - [facility] Notes/Report: Glucose 94 70-99 mg/dL BUN 19 [...] 0-40 IU/L ALT (SGPT) 18 0-32 IU/L CBC With Differential/Platel et* Reviewed date:01/26/2025 08:17:10 AM Interpretation: Performing [facility], [address] [facility], Phone - [phone], Director - Jenna Notes/Report: WBC 7.3 3.4-10.8 [...] % Immature Grans (Abs) 0.0 0.0-0.1 x10E3/uL 14 Panel Urine Drug Screen Reviewed date:01/25/2025 08:15:40 AM Interpretation: Performing Lab: Notes/Report: THC pos JOSE pos MOP (OPI) neg AMP neg MET neg BAR neg BZO neg MDMA neg MTD neg OXY neg PCP neg BUP neg TCA neg FTY pos Reason For Referral No Information Medications Medication [...] work (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 Stress is when someone feels tense, nervous, anxious, or can\t sleep at night because their mind is troubled Quite a bit In the past year have you sp ent more than 2 nights in a row in a penitentiary, retirement, snf center, or juvenile correctional facility? No Are [...] - neck/back Legal History- None Spiritual Affiliation- Mormonism Other Social History - Lives with and gp-aonjelmk-bu-law. Doesn't have relationship with the son (middle [...] Psychiatrist or Therapist - Psych provider at [facility], wants to switch, no therapist Psychiatric Diagnosis(es) - bipolar disorder, anxiety, insomnia, gambling disorder, and conversion disorder with stroke-like symptoms Past Psychiatric Medications - Failed Trials: Trazodone, another one for sleep that she can't remember. Also took Xanax but doesn't want to take d/t dependence potential. Inpt Psych Hospitalizations - [facility] 01/2025 for SI. Was on a sexual [...] - neck/back Legal History- None Spiritual Affiliation- Mormonism Other Social History - Lives with and yd-ycegngyo-ar-law. Doesn't have relationship with the son (middle [...] Psychiatrist or Therapist - Psych provider at [facility], wants to switch, no therapist Psychiatric Diagnosis(es) - bipolar disorder, anxiety, insomnia, gambling disorder, and conversion disorder with stroke-like symptoms Past Psychiatric Medications - Failed Trials: Trazodone, another one for sleep that she can't remember. Also took Xanax but doesn't want to take d/t dependence potential. Inpt Psych Hospitalizations - [facility] 01/2025 for SI. Was on a sexual [...] Status W/U Status Risk Notes Problem Hypertension (05660037) Hypertension (I10) Active confirmed Problem Hyperlipidemia (65406465) Hyperlipidemia (E78.5) Active confirmed Problem Posttraumatic stress disorder (18689101) PTSD (post-traumatic stress disorder) (F43.10) Active confirmed Problem Chronic pain (25527059) Chronic pain (G89.29) Active confirmed back, neck Problem Generalized anxiety disorder (65848608) NILS (generalized anxiety disorder) (F41.1) Active confirmed Problem Type II diabetes mellitus well controlled (093516451) Diabetes type 2, controlled (E11.9) Active confirmed Problem Tachycardia (4451904) Tachycardia (R00.0) Active confirmed Problem Sleep disturbance (70630335) Sleep disturbance (G47.9) Active confirmed Problem Overweight (048804980) Over weight (E66.3) Active confirmed Problem Physical examination, complete (37110175) Adult general medical examination (Z00.00) Active confirmed Problem Compulsive gambling (83460535) 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 confirmed Problem Conversion disorder (322571398) Conversion disorder (F44.9) Active confirmed with stroke-lik e symptoms Problem Depressive disorder (92852431) Depressive disorder (F32.A) Active confirmed Vital Signs Heart Rate 73 /min 01/21/2025 Temperature 98.2 degrees Fahrenheit 01/21/2025 Respiratory Rate 16 /min 01/21/2025 Blood pressure diastolic 70 mm Hg 01/21/2025 Oximetry 98 % 01/21/2025 Height 60 in 01/21/2025 Blood pressure systolic 122 mm Hg 01/21/2025 Weight 156.2 lbs 01/21/2025 BMI 30.5 kg/m2 01/21/2025 Encounters Encounter Location Date Provider Diagnosis [facility] [address] [place] [id number] 01/21/2025 Anupam Jacobson Adult general medical examination Z00.00 ; Diabetes type 2, controlled E11.9 ; Conversion disorder F44.9 and Over weight E66.3 [facility] [address] [place] [id number] 01/21/2025 Charlee Coombs [address] [address] 01/31/2025 Destiney Madison PTSD (post-traumatic stress disorder) F43.10 ; NILS (generalized anxiety disorder) F41.1 ; Depressive disorder F32.A ; Sleep disturbance G47.9 ; Addictive gambling F63.0 ; Conversion disorder F44.9 and Medication management Z79.[address] [address] 02/22/2025 Destiney Madison PTSD (post-traumatic stress disorder) F43.10 ; NILS (generalized anxiety disorder) F41.1 ; Depressive disorder F32.A ; Sleep disturbance G47.9 ; Addictive gambling F63.0 ; Conversion disorder F44.9 and Medication management Z79.[address] [address] 01/12/2025 Anupam Jacobson [address] [place] [address] 01/21/2025 Anupam Jacobson Conversion disorder F44.9 Assessments Encounter Date Diagnosis (ICD Code) Assessment [...] pain/redness/swelli ng, or if soaking through bandages. 01/31/2025 PTSD (post-traumatic stress disorder) (ICD-10 - F43.10) Take sertraline and Vraylar as prescribed. Recommend trauma-based therapy. 01/31/2025 NILS (generalized anxiety disorder) (ICD-10 - F41.1) 01/21/2025 Conversion disorder (ICD-10 - F44.9) 02/22/2025 PTSD (post-traumatic stress disorder) (ICD-10 - F43.10) Take sertraline and Vraylar as prescribed. Recommend trauma-based therapy. 02/22/2025 NILS (generalized anxiety disorder) (ICD-10 - F41.1) 01/31/2025 Depressive disorder (ICD-10 - F32.A) 01/21/2025 Conversion disorder (ICD-10 - F44.9) 01/21/2025 Over weight (ICD-10 - E66.3) 01/31/2025 [...] (ICD-10 - F44.9) with stroke-like symptoms 02/22/2025 Conversion disorder (ICD-10 - F44.9) with stroke-like symptoms 01/31/2025 Medication management (ICD-10 - Z79.899) May self-administer medications or be administered own oral medications per [facility] protocols. Provided informed consent with understanding of side effects, adverse effects, risks and benefits as well as alternative treatments as previously discussed and with the above recommended medications & other aspects of the treatment program. Agrees to return sooner if symptoms worsen or suicidal or homicidal ideations occur. Labs monitored by PCP. 02/22/2025 Medication management (ICD-10 - Z79.899) May self-administer medications or be administered own oral medications per [facility] protocols. Provided informed consent with understanding of side effects, adverse effects, risks and benefits as well as alternative treatments as previously discussed and with the above recommended medications & other aspects of the treatment program. Agrees to return sooner if symptoms worsen or suicidal or homicidal ideations occur. Labs monitored by PCP. 01/21/2025 Other Continue treatment as recommended by [facility] staff. Encouraged patient to obtain routine medical care with patient's own primary care provider or [facility] if no current primary care provider. 01/21/2025 [...] Spinal fusion 2016 Hospitalization History Reason Date(Month/Year) [facility] due to Suicidal Ideatio ns 12/2024
--- OUTSIDE RECORDS SUMMARY | 2025-03-19 17:17 | XMS_ITS | Encounter Summary ---
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
--- OUTSIDE RECORDS SUMMARY | 2025-03-19 17:17 | XMS_ITS | Data Portability ---
Author Organization [facility] [employer] Address [address] [address] Care Team Providers Care Paper Inspector Name Role Phone [facility] Pain [...] Lab lipid panel, serum 2017 018 lcallison Related Content Database (RCDb) [facility], [address] [facility], [place], [address], 8 09:38:26 CMP, serum or plasma 2017 018 lcallison Related Content Database (RCDb) [facility], [address] , [place], [address], 8 09:38:26 CK (creatin e kinase), total, serum 2017 018 [facility], [address] [facility], [place], [address], 8 09:38:26 HbA1c (hemoglo bin A1c), blood 2017 018 [facility], [address], [place], [address], 8 09:38:26 microalb umin/cre atinine, mass ratio, urine 2017 018 [facility], [address], [place], [address], 8 09:38:26 vitamin D, 25-hydro xy, total, serum 2017 018 [facility], [address], [place], [address], 8 09:38:25 CBC w/ auto diff 2017 018 ALENA [facility], [address], [place], [address], 8 04:51:26 unlisted lab - amylase (refl) 2017 018 ALENA [facility], [address], [place], [address], 8 02:49:09 lipase, serum or plasma 2017 018 ALENA [facility], [address], [place], [address], 8 02:49:08 urinalys is complete , reflex culture 2017 018 ALENA [facility], [address], [place], [address], 8 02:49:07 CBC w/ auto diff 2017 018 ALENA [facility], [address], [place], [address], 8 02:49:08 CBC w/ auto diff 2017 018 [facility], [address], [place], [address], 8 09:00:51 CMP, serum or plasma 2017 018 ALENA Related Content Database (RCDb) Diagnostics [facility], [address] [facility], [place], [address], 8 02:49:07 hepatiti s C virus Ab, serum 2017 018 lcaison Related Content Database (RCDb) Diagnostics [facility], [address] [facility], [place], [address], 8 08:39:06 vitamin D, 25-hydro xy, total, serum 2017 018 [facility] (RCDb[facility], [address] [facility], [place], [address], 8 08:39:06 microalb umin/cre atinine, mass ratio, urine 2017 018 Related Content Database (RCDb) Diagnostics [facility], [address] [facility], [place], [address], 8 22:42:48 Referral pain manageme nt referral 2017 018 miranda [facility], [address], [address], [place], [address], 8 08:33:41 neurolog ist referral 2017 018 [facility], [address] [place], [address], 8 08:33:39 psychiat rist referral 2017 018 miranda Rubio MD, [address] [facility] [address], [address], [place], [address], 8 08:33:38 ophthalm ologist referral 2017 018 miranda Mckeon, [address] [facility], [facility], [place], [address], 8 08:37:10 pulmonol ogist referral 2017 018 miranda Manley MD, [address] [facility], [address], [place], [address], 8 08:33:39 psychiat rist referral 2017 018 miranda Yang, [address], [address], [place], [address], 8 08:57:01 ophthalm ologist referral 2017 018 miranda Mckeon, [address] [facility], [address] [place] [address], [address], 8 08:57:02 ENT referral 2017 018 [email or web address] Alex Grant MD, [address] [facility], [place], [address], 8 10:04:38 Procedures None recorded . Surgeries None recorded . Imaging MAMMO, screenin g, digital, bilatera l 2017 018 ATHENAFAX [facility], [address], [place], [address], 8 13:40:27 XR, chest, 2 view 2017 ALENA [facility], [address], [place], [address], 8 12:26:00 , fide garg - -- [...] tramadol 50 mg tablet 2017 018 INTERFACE [facility][id number], [address] [facility], [place], [place], [id number], 8 13:26:39 benzonat ate 200 mg capsule [address] [facility][id number], [address] [facility], [place], [place], [id number], 8 13:08:20 prometha zine 6.25 mg-codei ne 10 mg/5 mL syrup 2017 018 [facility] Not available 8 00:02:04 Levaquin 500 mg tablet 2017 018 [facility] Not available 8 00:02:09 metformi n ER 500 mg tablet,e xtended release 24 hr 2017 018 ATHENAFAX Not available 8 12:58:34 gabapent in 600 mg tablet 2017 018 ATHENAFAX Not available 8 12:57:15 duloxeti ne 60 mg capsule, delayed release 2017 018 ATHENAFAX Not available 8 12:59:40 baclofen 10 mg tablet 2017 018 INTERFACE [facility] #[id number], [address] [facility], [place], [place], [id number], 8 12:44:00 losartan 50 mg-hydro chloroth iazide 12.5 mg tablet 2017 018 lcallison Not available 8 12:21:29 Patient TargetsNo targets recorded. Patient Instructions Encounter Date Encounter Id Patient Instructions Last Modified By Organization Details Last Modified Time 06/02/2017 [id number] broken nose: car e instructions Not available 06/02/2017 12:02:56 bruises: care instructions Not available 06/02/2017 12:02:56 chest contusion: care instructions Not available 06/02/2017 12:02:56 I spent 27 minut e face to face time with this patient (> 50% spent on counseling), explaining the test result and counseling patient on pt's medical conditions. Not available 06/02/2017 12:03:24 07/08/2017 [id number] broken nose: car e instructions Not available [...] lose weight Not available 07/08/2017 12:43:53 10/07/2017 [id number] cough: care instructions Not available 10/07/2017 12:48:34 01/07/2018 [id number] prediabetes: car e instructions Not available 01/07/2018 [...] [facility], Encounter Date: 07/08/2017 Remittance Clerk Referral for Hypertelorism Referring Physician: Jorge L [facility], Encounter Date: 07/08/2017 Psychiatrist Referral for An xiety disorder Referring Physician: Jorge L [facility], Encounter Date: 01/07/2018 Remittance Clerk Referral for Hypertelorism Referring Physician: Jorge L [facility], Encounter Date: 01/07/2018 Neurologist Referral for Epi lepsy Referring Physician: Jorge L [facility], Encounter Date: 01/07/2018 Event Executive Referral for B ronchiolitis Referring Physician: Jorge [...] ng refer ence inter kali Not Available [facility] [address] [place], [address], 08/14/2017 02:49:07 08/14/19 18 08/14/2017 CMP, serum or plasm a urea nitrogen (BUN) 18 mg/dL 7-25 normal Not Available [facility] [address] [place], [address], 08/14/2017 02:49:07 08/14/19 18 08/14/2017 CMP, serum or plasm a creatinine 0.83 mg/dL 0.50-1 .05 normal For patie nts >49 years of age, the refer ence limit for Creat inine is appro ednat arabella 13% highe r for peopl e ident ified as Afric an-Am lauren n. Not Available [address] [address] [place], [address], 08/14/2017 02:49:07 08/14/19 18 08/14/2017 CMP, serum or plasm a eGFR non-afr. tongan 79 mL/mi n/1.7 3m2 > or = 60 normal Not Available Related Content Database (RCDb) [address] [address] [place], [address], 08/14/2017 02:49:07 08/14/19 18 08/14/2017 CMP, serum or plasm a eGFR 91 mL/mi n/1.7 3m2 > or = 60 normal Not Available [address] [address] [place], [address], 08/14/2017 02:49:07 08/14/19 18 08/14/2017 CMP, serum or plasm a BUN/creatini ne ratio NOT APPLIC ABLE (calc ) 6-22 Not Available Related Content Database (RCDb) [address] [address] [place], [address], 08/14/2017 02:49:07 08/14/19 18 08/14/2017 CMP, serum or plasm a sodium 139 mmol/ L 135-14 6 normal Not Available Related Content Database (RCDb) Diagnostics [address] [address] [place], [address], 08/14/2017 02:49:07 08/14/19 18 08/14/2017 CMP, serum or plasm a potassium 4.4 mmol/ L 3.5-5. 3 normal Not Available Related Content Database (RCDb) [address] [address] [place], [address], 08/14/2017 02:49:07 08/14/19 18 08/14/2017 CMP, serum or plasm a chloride 104 mmol/ L 98-110 normal Not Available [address], [address], 08/14/2017 02:49:07 08/14/19 18 08/14/2017 CMP, serum or plasm a carbon dioxide 27 mmol/ L 20-31 normal Not Available [address], [address], 08/14/2017 02:49:07 08/14/19 18 08/14/2017 CMP, serum or plasm a calcium 10.0 mg/dL 8.6-10 .4 normal Not Available [address], [address], 08/14/2017 02:49:07 08/14/19 18 08/14/2017 CMP, serum or plasm a protein, total 7.0 g/dL 6.1-8. 1 normal Not Available [address], [address], 08/14/2017 02:49:07 08/14/19 18 08/14/2017 CMP, serum or plasm a albumin 4.4 g/dL 3.6-5. 1 normal Not Available [address], [address], 08/14/2017 02:49:07 08/14/19 18 08/14/2017 CMP, serum or plasm a globulin 2.6 g/dL_ (calc ) 1.9-3. 7 normal Not Available [address], [address], 08/14/2017 02:49:07 08/14/19 18 08/14/2017 CMP, serum or plasm a albumin/glob ulin ratio 1.7 (calc ) 1.0-2. 5 normal Not Available [address], [address], 08/14/2017 02:49:07 08/14/19 18 08/14/2017 CMP, serum or plasm a bilirubin, total 0.2 mg/dL 0.2-1. 2 normal Not Available [address], [address], 08/14/2017 02:49:07 08/14/19 18 08/14/2017 CMP, serum or plasm a alkaline phosphatase 67 U/L 33-130 normal Not Available [address], [address], 08/14/2017 02:49:07 08/14/19 18 08/14/2017 CMP, serum or plasm a AST 16 U/L 10-35 normal Not Available [address], [address], 08/14/2017 02:49:07 08/14/19 18 08/14/2017 CMP, serum or plasm a ALT 16 U/L 6-29 normal Not Available [address], [address], 08/14/2017 02:49:07 08/14/19 18 08/14/2017 urina lysis compl ete, refle x cultu re color YELLOW yellow normal Not Available [address], [address], 08/14/2017 02:49:07 08/14/19 18 08/14/2017 urina lysis compl ete, refle x cultu re appearance CLEAR clear normal Not Available [address], [address], 08/14/2017 02:49:07 08/14/19 18 08/14/2017 urina lysis compl ete, refle x cultu re specific gravity 1.015 1.001- 1.035 normal Not Available [address], [address], 08/14/2017 02:49:07 08/14/19 18 08/14/2017 urina lysis compl ete, refle x cultu re pH 6.5 5.0-8. 0 normal Not Available [address], [address], 08/14/2017 02:49:07 08/14/19 18 08/14/2017 urina lysis compl ete, refle x cultu re glucose NEGATI VE negati ve normal Not Available [address], [address], 08/14/2017 02:49:07 08/14/19 18 08/14/2017 urina lysis compl ete, refle x cultu re bilirubin NEGATI VE negati ve normal Not Available [address], [address], 08/14/2017 02:49:07 08/14/19 18 08/14/2017 urina lysis compl ete, refle x cultu re ketones NEGATI VE negati ve normal Not Available [address], [address], 08/14/2017 02:49:07 08/14/19 18 08/14/2017 urina lysis compl ete, refle x cultu re occult blood NEGATI VE negati ve normal Not Available [address], [address], 08/14/2017 02:49:07 08/14/19 18 08/14/2017 urina lysis compl ete, refle x cultu re protein NEGATI VE negati ve normal Not Available [address], [address], 08/14/2017 02:49:07 08/14/19 18 08/14/2017 urina lysis compl ete, refle x cultu re nitrite NEGATI VE negati ve normal Not Available [address], [address], 08/14/2017 02:49:07 08/14/19 18 08/14/2017 urina lysis compl ete, refle x cultu re leukocyte esterase NEGATI VE negati ve normal Not Available [address], [address], 08/14/2017 02:49:07 08/14/19 18 08/14/2017 urina lysis compl ete, refle x cultu re WBC NONE SEEN /hpf < or = 5 normal Not Available [address], [address], 08/14/2017 02:49:07 08/14/19 18 08/14/2017 urina lysis compl ete, refle x cultu re RBC NONE SEEN /hpf < or = 2 normal Not Available [address], [address], 08/14/2017 02:49:07 08/14/19 18 08/14/2017 urina lysis compl ete, refle x cultu re squamous epithelial cells NONE SEEN /hpf < or = 5 normal Not Available [address], [address], 08/14/2017 02:49:07 08/14/19 18 08/14/2017 urina lysis compl ete, refle x cultu re bacteria NONE SEEN /hpf none seen normal Not Available [address], [address], 08/14/2017 02:49:07 08/14/19 18 08/14/2017 urina lysis compl ete, refle x cultu re hyaline cast NONE SEEN /lpf none seen normal Not Available [address], [address], 08/14/2017 02:49:07 08/14/19 18 08/14/2017 urina lysis compl ete, refle x cultu re reflexive urine culture NO CULTUR E INDICA LES Not Available [address] [place], [address], 08/14/2017 02:49:07 08/14/19 18 08/14/2017 CBC w/ auto diff white blood cell count 9.6 thous and/u L 3.8-10 .8 normal Not Available [address], [address], 08/14/2017 02:49:08 08/14/19 18 08/14/2017 CBC w/ auto diff red blood cell count 4.50 ella on/uL 3.80-5 .10 normal Not Available [address], [address], 08/14/2017 02:49:08 08/14/19 18 08/14/2017 CBC w/ auto diff hemoglobin 13.6 g/dL 11.7-1 5.5 normal Not Available [address], [address], 08/14/2017 02:49:08 08/14/19 18 08/14/2017 CBC w/ auto diff hematocrit 40.0 % 35.0-4 5.0 normal Not Available [address], [address], 08/14/2017 02:49:08 08/14/19 18 08/14/2017 CBC w/ auto diff MCV 88.9 fL 80.0-1 00.0 normal Not Available [address], [address], 08/14/2017 02:49:08 08/14/19 18 08/14/2017 CBC w/ auto diff MCH 30.2 pg 27.0-3 3.0 normal Not Available [address], [address], 08/14/2017 02:49:08 08/14/19 18 08/14/2017 CBC w/ auto diff MCHC 34.0 g/dL 32.0-3 6.0 normal Not Available [address], [address], 08/14/2017 02:49:08 08/14/19 18 08/14/2017 CBC w/ auto diff RDW 12.4 % 11.0-1 5.0 normal Not Available [address], [address], 08/14/2017 02:49:08 08/14/19 18 08/14/2017 CBC w/ auto diff platelet count 344 thous and/u L 140-40 0 normal Not Available [address], [address], 08/14/2017 02:49:08 08/14/19 18 08/14/2017 CBC w/ auto diff MPV 10.2 fL 7.5-12 .5 normal Not Available [address], [address], 08/14/2017 02:49:08 08/14/19 18 08/14/2017 CBC w/ auto diff absolute neutrophils 5357 cells /uL 1500-7 800 normal Not Available [address], [address], 08/14/2017 02:49:08 08/14/19 18 08/14/2017 CBC w/ auto diff absolute lymphocytes 3197 cells /uL 850-39 00 normal Not Available [address], [address], 08/14/2017 02:49:08 08/14/19 18 08/14/2017 CBC w/ auto diff absolute monocytes 826 cells /uL 200-95 0 normal Not Available [address], [address], 08/14/2017 02:49:08 08/14/19 18 08/14/2017 CBC w/ auto diff absolute eosinophils 173 cells /uL 15-500 normal Not Available [address] [address] [place], [address], 08/14/2017 02:49:08 08/14/19 18 08/14/2017 CBC w/ auto diff absolute basophils 48 cells /uL 0-200 normal Not Available [address] [address] [place], [address], 08/14/2017 02:49:08 08/14/19 18 08/14/2017 CBC w/ auto diff neutrophils 55.8 % normal Not Available [address] [address] [place], [address], 08/14/2017 02:49:08 08/14/19 18 08/14/2017 CBC w/ auto diff lymphocytes 33.3 % normal Not Available [address] [address] [place], [address], 08/14/2017 02:49:08 08/14/19 18 08/14/2017 CBC w/ auto diff monocytes 8.6 % normal Not Available [address] [address] [place], [address], 08/14/2017 02:49:08 08/14/19 18 08/14/2017 CBC w/ auto diff eosinophils 1.8 % normal Not Available [address] [address] [place], [address], 08/14/2017 02:49:08 08/14/19 18 08/14/2017 CBC w/ auto diff basophils 0.5 % normal Not Available [address] [address] [place], [address], 08/14/2017 02:49:08 08/14/19 18 08/14/2017 lipas e, serum or plasm a lipase 55 U/L 7-60 normal Not Available [address] [address] [place], [address], 08/14/2017 02:49:08 08/14/19 18 08/14/2017 amyla se (refl ) amylase (refl) 44 U/L 21-101 normal Not Available [address], [address], 08/14/2017 02:49:09 10/08/19 18 10/08/2017 CBC w/ auto diff white blood cell count 8.9 thous and/u L 3.8-10 .8 normal Not Available [address], [address], 10/08/2017 04:51:26 10/08/19 18 10/08/2017 CBC w/ auto diff red blood cell count 4.56 ella on/uL 3.80-5 .10 normal Not Available [address], [address], 10/08/2017 04:51:26 10/08/19 18 10/08/2017 CBC w/ auto diff hemoglobin 13.7 g/dL 11.7-1 5.5 normal Not Available [address], [address], 10/08/2017 04:51:26 10/08/19 18 10/08/2017 CBC w/ auto diff hematocrit 41.1 % 35.0-4 5.0 normal Not Available [address], [address], 10/08/2017 04:51:26 10/08/19 18 10/08/2017 CBC w/ auto diff MCV 90.1 fL 80.0-1 00.0 normal Not Available [address], [address], 10/08/2017 04:51:26 10/08/19 18 10/08/2017 CBC w/ auto diff MCH 30.0 pg 27.0-3 3.0 normal Not Available [address], [address], 10/08/2017 04:51:26 10/08/19 18 10/08/2017 CBC w/ auto diff MCHC 33.3 g/dL 32.0-3 6.0 normal Not Available [address], [address], 10/08/2017 04:51:26 10/08/19 18 10/08/2017 CBC w/ auto diff RDW 12.4 % 11.0-1 5.0 normal Not Available [address], [address], 10/08/2017 04:51:26 10/08/19 18 10/08/2017 CBC w/ auto diff platelet count 338 thous and/u L 140-40 0 normal Not Available [address], [address], 10/08/2017 04:51:26 10/08/19 18 10/08/2017 CBC w/ auto diff MPV 9.9 fL 7.5-12 .5 normal Not Available [address], [address], 10/08/2017 04:51:26 10/08/19 18 10/08/2017 CBC w/ auto diff absolute neutrophils 4325 cells /uL 1500-7 800 normal Not Available [address], [address], 10/08/2017 04:51:26 10/08/19 18 10/08/2017 CBC w/ auto diff absolute lymphocytes 3516 cells /uL 850-39 00 normal Not Available [address], [address], 10/08/2017 04:51:26 10/08/19 18 10/08/2017 CBC w/ auto diff absolute monocytes 872 cells /uL 200-95 0 normal Not Available [address], [address], 10/08/2017 04:51:26 10/08/19 18 10/08/2017 CBC w/ auto diff absolute eosinophils 134 cells /uL 15-500 normal Not Available [address], [address], 10/08/2017 04:51:26 10/08/19 18 10/08/2017 CBC w/ auto diff absolute basophils 53 cells /uL 0-200 normal Not Available [address], [address], 10/08/2017 04:51:26 10/08/19 18 10/08/2017 CBC w/ auto diff neutrophils 48.6 % normal Not Available [address], [address], 10/08/2017 04:51:26 10/08/19 18 10/08/2017 CBC w/ auto diff lymphocytes 39.5 % normal Not Available [address], [address], 10/08/2017 04:51:26 10/08/19 18 10/08/2017 CBC w/ auto diff monocytes 9.8 % normal Not Available [address], [address], 10/08/2017 04:51:26 10/08/19 18 10/08/2017 CBC w/ auto diff eosinophils 1.5 % normal Not Available [address], [address], 10/08/2017 04:51:26 10/08/19 18 10/08/2017 CBC w/ auto diff basophils 0.6 % normal Not Available [address], [address], 10/08/2017 04:51:26 06/02/19 18 05/27/2017 XR, chest , 2 view No observ ation record ed. Not Available 2017 12:41:44 06/03/19 18 05/27/2017 XR, chest , 2 view No observ ation record ed. [facility] Not Available 2017 12:41:44 06/03/19 18 05/28/2017 CT, abdom en + pelvi s, w/o contr ast No observ ation record ed. [facility] Not Available 2017 12:41:44 06/03/19 18 05/28/2017 CT, thora cic spine , w/ contr ast No observ ation record ed. [facility] Not Available 2017 12:41:44 06/03/19 18 05/28/2017 XR, hand No observ ation record ed. [facility] Not Available 2017 12:41:44 06/03/19 18 05/28/2017 CT, lumba r spine , w/ contr ast No observ ation record ed. [facility] Not Available 2017 12:41:44 08/08/19 18 08/07/2017 CT, abdom en + pelvi s, w/ contr ast No observ ation record ed. [facility] Not Available 2017 10:18:24 08/16/19 18 08/15/2017 US, gallb ladde r No observ ation record ed. [facility] [address], [place], [address], 10/07/2017 12:49:38 08/19/19 18 08/18/2017 MAMMO , scree janeen, digit al, bilat eral No observ ation record ed. [address] (Imaging) [address], [place], [address], 10/07/2017 12:49:38 08/21/19 18 08/15/2017 US, abdom en No observ ation record ed. [facility] [address], [place], [address], 10/07/2017 12:49:38 08/28/19 18 08/27/2017 NM, hepat obili anant scan, w/ CCK No observ ation record ed. [address] [facility], [place], [address], 10/07/2017 12:49:38 10/15/19 18 10/07/2017 XR, chest , 2 view No observ ation record ed. [facility] [address], [place], [address], 01/07/2018 13:28:24 01/21/20 18 elect rocar diogr am No observ ation record ed. [email or web address] Not Available 2017 13:55:39 Result Notes None recorded. Problems Name Problem SNOMED Code Status Onset Date Resolution Date Notes Provider Name and Address Organization Details Recorded Time Hypertensive disorder 21224157 Active 2016 [facility] 7 11:46:05 Heart disease 29042150 Active 2016 Ischemic Disease [facility] 7 11:47:10 Problem Notes None recorded. Procedures Surgical History Date Name Laterality Status Provider Name and Address Organization Details Recorded Time 10/25/19 17 Date of Last Pap Smear completed [facility] 03/07/2017 11:23:05 07/25/19 17 Date of Last Mammogram completed [facility] 03/07/2017 11:23:13 08/25/19 16 Colonoscopy completed [facility] 03/11/2017 12:46:40 Tonsillectomy completed MD Barbara Cruz [address], [place], [address], [facility] 03/07/2017 12:40:03 delivery completed MD Barbara Cruz [address], [place], [address], [facility] 03/07/2017 12:40:31 Dilation and curettage completed MD Barbara Cruz [address], [place], [address], [facility] 03/07/2017 12:41:13 Knee Surgery completed MD Barbara Cruz [address], [place], [address], [facility] 03/07/2017 12:44:20 Partial Hysterectomy completed MD [address], [place], [address], [facility] 03/07/2017 12:42:51 Appendectomy completed MD [address], [place], [address], [facility] 03/07/2017 12:43:26 Carpal tunnel surgery completed MD Barbara [address], [place], [address], [facility] 03/07/2017 12:43:51 Unlisted px foot/toes completed MD Barbara Cruz [facility] [address], [place], [address], [facility] 03/07/2017 12:46:11 Arthrd ant ntrbd min dsc lum completed MD Barbara Cruz [facility] [address], [place], [address], [facility] 03/07/2017 12:49:59 Other completed MD Barbara Cruz [facility] [address], [place], [address], [facility] 03/07/2017 12:48:07 Imaging Results None recorded. Procedure Notes None recorded. Medical Equipment None Reported. Allergies Allergen ID Allergen Name Allergen Category Reaction Reaction Severity Criticality Documentation Date Start Date Code Code System Note Provider Name and Address Organization Details Recorded Time 6276 Product containin g penicilli n (product) medicatio n anaphylax is hives Not available Not available Not available 03/07/2017 99323 8001 SNOMED Carmen tim [facility] 7 11:23:41 6277 pseudoeph edrine Not available anaphylax is hives Not available Not available Not available 03/07/2017 8896 RxNorm Carmen Jayceiona tim [facility] 7 11:24:27 6278 bee pollen environme nt,medica tion anaphylax is Not available Not available 03/07/2017 84638 7 RxNoscout tim, [facility] 7 11:25:29 6279 peanut allergeni c extract food,medi cation anaphylax is Not available Not available 03/07/2017 06264 8 Radha tim, [facility] 7 11:25:41 Medications Name Sig Start Date [...] Updated DateTime 8 157.48 cm 29.1 kg/m2 05459.1 9 g 16 /min 84 /min 135/88 mm[Hg] Carmen Eduardo [facility] 8 11:21:30 Date Recorded Systolic And Diastolic Provider Name and Address Organization Details Last Updated DateTime 07/08/2017 116/83 mm[Hg] Jorge L Barnes MD [address], [place], [address], [facility] 07/08/2017 12:38:26 Date Recorded Body height Respiratory rate Body mass index (BMI) Body weight Heart rate Body temperature Provider Name and Address Organization Details Last Updated DateTime 8 157.48 cm 16 /min 28.9 kg/m2 66488.5 9 g 71 /min 97.2 [degF] [facility] 12:06:38 Date Recorded Body height Respiratory rate Body mass index (BMI) Body weight Heart rate Systolic And Diastolic Provider Name and Address Organization Details Last Updated DateTime 8 157.48 cm 16 /min 29.3 kg/m2 16078.7 8 g 76 /min 133/80 mm[Hg] [facility] 8 09:25:14 Date Recorded Body height Heart rate Respiratory rate Body temperature Body mass index (BMI) Body weight Systolic And Diastolic Provider Name and Address Organization Details Last Updated DateTime 8 157.48 cm 76 /min 16 /min 97.5 [degF] 28.7 kg/m2 68709 g 165/95 mm[Hg] Carmen [facility] 8 12:18:10 Date Recorded Body height Body mass index (BMI) Body weight Respiratory rate Heart rate Systolic And Diastolic Provider Name and Address Organization Details Last Updated DateTime 8 157.48 cm 27.3 kg/m2 69803.2 6 g 16 /min 89 /min 129/75 mm[Hg] [facility] 8 12:40:12 Social History Question Answer Notes LastModified by Organizat ion Details LastModified Time Tobacco Smoking Status Former Smoker Smoked for about 22 years. Quit in 2012. Witnessed pt smoke a cig on 03/11- current status if daily? 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 Y Obstetrics History GPAL:G 0 P 0 0 0 0 Immunizations Vaccine Type Date Status Note Provider Nam e and Address Organization Details Recorded Time Tdap 05/26/2013 completed Carmen Eduardo [facility] 03/07/2017 11:22:48 Past Encounters Encounter ID Performer Location Encounter Start Date Encounter Closed Date Diagnosis/Indication Diagnosis SNOMED-CT Code Diagnosis ICD10 Code Diagnosis IMO Codes Diagnosis Note [id number] Jorge L Barnes MD [employer] [address] [place] [address] 03/07/2017 11:04:57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
--- OUTSIDE RECORDS SUMMARY | 2025-03-19 17:17 | XMS_ITS | Clinical Summary ---
Author Organization [facility] Address [address] [address] Care Team Providers Care Casting Repairer Name Role Phone Unavailable Primary Care Provider Unavailabl e Source Comments [facility],non[facility] Affiliates and Associated Physician Practices is amultiple site organization consisting of ambulatory clinics and hospital sitesin [place], [place], [place] and [place]. This disclosure is being madepursuant to the Care Everywhere program and may not contain all information available regarding this patient. Last updated 18.[facility] [place] Allergies Active Allergy Reactions Criticality Noted Date Comments Aspirin Anaphylaxis High 07/23/2019 Codeine Urticaria Medium 07/23/2019 Honey Bee Venom Anaphylaxis High 07/23/2019 Latex Urticaria Medium 07/23/2019 Peanut-Derived Anaphylaxis High 07/23/2019 Penicillin G Anaphylaxis High 07/23/2019 Penicillins Anaphylaxis High 07/23/2019 Pseudoephedrine Base Urticaria Medium 07/23/2019 With tongue swelling [place] Urticaria Medium 07/23/2019 Sulfa Drugs Anaphylaxis High [...] on file Legal Sex Female 7:46 PM APPLICATIONS DEVELOPMENT CONSULTANT Gender Identity Not on file Sexual Orientation Not on file Last Filed Vital Signs Vital Sign Reading Time Taken Comments Blood Pressure 139/79 07/24/2019 4:42 PM APPLICATIONS DEVELOPMENT CONSULTANT Pulse 80 07/24/2019 4:17 PM APPLICATIONS DEVELOPMENT CONSULTANT Temperature 36.8 C (98.2 F) 07/24/2019 4:17 PM APPLICATIONS DEVELOPMENT CONSULTANT Respiratory Rate 20 07/24/2019 4:17 PM APPLICATIONS DEVELOPMENT CONSULTANT Oxygen Saturation 99% 07/24/2019 4:17 PM APPLICATIONS DEVELOPMENT CONSULTANT Inhaled Oxygen Concentration - - Weight 62.9 kg (138 lb 9.6 oz) 07/22/2019 10:38 PM APPLICATIONS DEVELOPMENT CONSULTANT Height 152.4 cm (5') 07/22/2019 10:38 PM APPLICATIONS DEVELOPMENT CONSULTANT Body Mass Index 27.07 07/22/2019 10:38 PM APPLICATIONS DEVELOPMENT CONSULTANT Plan of Treatment Health Maintenance Due Date [...] 2010 ZOSTER VACCINE (1 of 2) 2010 DEPRESSION SCREENING 05/26/2024 MEDICARE AWV CALENDAR YEAR 2024 COVID-19 VACCINE ( - 2023-2 5 season) 2025 INFLUENZA VACCINE (#1) 2025 Respiratory Syncytial Virus [...] patient's age to complete [place] [address] [facility] MANAGED MEDICARE ADV MEDICAID - [place] SELF PAY NO INSURANCE Member Subscriber Plan / Payer (Ef fective for All Dates) Name:Gloria Menezes Member ID:Not on file Relation to Subscriber:Not on file Name:GLORIA MENEZES Subscriber ID:Not on file (Home) Address: [address] [id number] Payer ID:Not on file Group ID:Not on file Type:Self Pay Address: [place], [place] UHC MANAGED MEDICARE ADV Advance Directives * Full Code (Latest Code Status on File) Date Activated Date Inactivated Comments 07/22/2019 8:22 PM 07/24/2019 8:59 PM * Full Code Date Activated Date Inactivated Comments 07/22/2019 7:59 PM 07/22/2019 9:35 PM
--- OUTSIDE RECORDS SUMMARY | 2025-03-19 17:17 | XMS_ITS | Patient Health Record ---
Author Organization [facility] [employer] Address [address] [place] [address] Care Team Providers Care Mechanical Piping Designer Name Role Phone Josh Rubio Unavailable [phone] Reason For Referral No Information Plan Of Treatment No Information
--- OUTSIDE RECORDS SUMMARY | 2025-03-19 17:17 | XMS_ITS | Clinical Summary ---
Author Organization [id number] [address] Address [address] [place] [address] Care Team Providers Care Outsoles Channel Opener Name Role Phone Ramón Mcdaniel MD Primary Care Provider [phone] Allergies Active Allergy Reactions Criticality Noted Date Comments Adhesive Hives,Redness Medium 05/16/2021 Aspirin Anaphylaxis,Hives High 07/23/2019 Bee Pollen Anaphylaxis High 05/16/2021 Codeine Anaphylaxis,Urticari a High 07/23/2019 Latex Hives,Urticaria Medium 08/07/2017 Hives Other Anaphylaxis High 08/07/2017 Anaphylaxis Peanut Anaphylaxis High 05/16/2021 Penicillins Anaphylaxis,Hives,Ot her (See comments) High 03/28/2014 Reaction: Hives Pseudoephedrine Anaphylaxis,Hives,Ot her (See comments),Urticaria High 03/28/2014 Reaction: With tongue swelling Hives [place] Hives,Itching,Urtica klaus Medium 08/07/2017 Hives Sulfa (Sulfonamide [...] on file Legal Sex Female 2:56 AM CHILD DEVELOPMENT PROFESSOR Gender Identity Not on file Sexual Orientation Not on file Occupation Industry Job Start Date Job End Date disabled Not on file Not on file Not on file Obstetrics History Last Filed Vital Signs Vital Sign Reading Time Taken Comments Blood Pressure 133/79 04/07/2023 9:22 AM CHILD DEVELOPMENT PROFESSOR Pulse 76 04/07/2023 9:22 AM CHILD DEVELOPMENT PROFESSOR Temperature 37 C (98.6 F) 08/15/2021 7:55 AM CDT Respiratory Rate 18 08/15/2021 7:55 AM CDT Oxygen Saturation 96% 08/15/2021 7:55 AM CDT Inhaled Oxygen Concentration - - Weight 71 kg (156 lb 9.6 oz) 04/07/2023 9:22 AM CHILD DEVELOPMENT PROFESSOR Height 152.4 cm (5') 04/07/2023 9:22 AM CHILD DEVELOPMENT PROFESSOR Body Mass Index 30.58 04/07/2023 9:22 AM CHILD DEVELOPMENT PROFESSOR Plan of Treatment Health Maintenance Due Date [...] 02/08/2018, 06/13/2014 Medical Devices Implanted Type Area Completion Engineer Device Identifier Shelf Expiration Date Model / Serial / Lot Bmp Infuse Sm [id number] - [id number] Implanted:Qty: 1 on 08/13/2021 by Jason Garcia MD at [facility] N/A: Spine Lumbar [employer] 12/23/2022 [id number] / / [id number] [employer] [id number] 1-4mm Freeze Dried Crushed Graft 30ml Bone Cancellous - [id number] Implanted:Qty: 1 on 08/13/2021 by Jason Garcai MD at [facility] N/A: Spine Lumbar [employer] 06/21/2025 [id number] / / [id number] [employer] 5146.1652 Creo Od6.5 Mm L50 Mm Thread; Polyaxial Spine Screw Bone Titanium; - [id number] Implanted:Qty: 3 on 08/13/2021 by Jason Garcia MD at [facility] N/A: Spine Lumbar [employer] 5146.1652 / / [employer] 1119.0010 Creo Thread Spinal Cap Locking Nonsterile - [id number] Implanted:Qty: 8 on 08/13/2021 by Jason Garcia MD at [facility] N/A: Spine Lumbar [employer] 1119.0010 / / [employer] 1119.7125 Creo 5.5mm 125mm Curve Javier Spinal Titanium - [id number] Implanted:Qty: 1 on 08/13/2021 by Jason Garcia MD at [facility] N/A: Spine Lumbar [employer] [id number] / / [employer] 5146.1752 Creo Od7.5 Mm L50 Mm Thread; Polyaxial Spine Screw Bone Titanium; - [id number] Implanted:Qty: 3 on 08/13/2021 by Jason Garcia MD at [facility] N/A: Spine Lumbar [employer] 5146.1752 / / [employer] 1119.7125 Creo 5.5mm 125mm Curve Javier Spinal Titanium - [id number] Implanted:Qty: 1 on 08/13/2021 by Jason Garcia MD at [facility] N/A: Spine Lumbar [employer] [id number] / / Globus [id number] Implanted:Qty: 1 on 08/13/2021 by Jason Garcia MD at [facility] N/A: Spine Lumbar G[employer] [id number] / / Description:Correction. Scre w is 75x40 NOT 75x45 Glob[employer] Tlif Cage [id number] Implanted:Qty: 1 on 08/13/2021 by Jason Garcia MD at [facility] N/A: Spine Lumbar GLOBUS 168.251 / / Procedures Procedure Name Priority Date/Time Associated Diagnosis Comments EGFR Routine 08/15/2021 2:46 AM CDT POCT HEMOGLOBIN A1C Routine 08/09/2021 5 :12 PM CDT SERUM LIPID PANEL Routine 07/21/2015 8:3 5 PM CHILD DEVELOPMENT PROFESSOR from Last 3 Months or Most Recently Relevant to Health Maintenance Results * eGFR (08/15/2021 2:46 AM CDT) Pathologist [facility] eGFR 99 mL/min/1. 73 m2 NATALIO CHEATHAM [...] AM CDT 08/15/2021 2:53 AM CDT us Blyane Elise MD LAB BLOOD ORDERABLES Fin al Result Performing Organization Address [facility] Co de Phone Number [facility] [address] [facility] [place] [address] * (ABNORMAL) POCT hemoglobin A1c (08/09/2021 5:12 PM CDT) Pathologist [facility] Hgb A1C, POC 5.7(H) 4.0 - 5.6 % [facility] Est Average Gluc POC 117 mg/dL [facility] Comment: The ADA recommends reporting an estimated Average Glucose (eAG) with all Hemoglobin A1c results using the equation derived from a study of 507 normal and diabetic adults. Minority populations were underrepresented and children were not included. (Diabetes Care 31:7534-9234, 2008). The eAG is not equivalent to a fasting glucose. Blood 08/09/2021 5:12 PM CDT 08/09/2021 5:12 PM CDT us Jason Garcia MD POINT OF CARE TEST ORD ERABLES Final Result Performing Organization Address City/[facility]/ZIP Co de Phone Number [facility] [place] [address] * Serum lipid panel (07/21/2015 8:35 PM CHILD DEVELOPMENT PROFESSOR) Cholesterol 192 0 - 200 mg/dl HISTORICAL [...] last revised 2011. Serum 07/21/2015 8:35 PM CHILD DEVELOPMENT PROFESSOR us Hudson Yung MD LAB BLOOD ORDERABLES Final Res ult HISTORICAL RESULTS from Last 3 Months or Most Recently Relevant to Health Maintenance Insurance [employer]ANTRA [facility] [address] [facility] ADVANTRA [place]WI [employer] COMPENSATION GENERIC [employer] [facility] ADVANTRA WORKERS COMPENSATION GENERIC Advance Directives For more information, please contact: [phone] * Full Code (Latest Code Status on File) Date Activated Date Inactivated Comments 08/13/2021 3:04 PM 08/15/2021 3:49 PM * Full Code Date Activated Date Inactivated Comments 07/26/2021 4:34 AM 07/27/2021 1:56 PM Care Teams Outsoles Channel Opener Relationship Specialty Start Date End Date Ramón Mcdaniel MD PCP - General Family Practice 02/17/23
[2025-03-19 17:18] LABS: Alanine Aminotransferase 26 U/L (6-35); Albumin Level 4.3 g/dL (3.5-5.1); Alkaline Phosphatase 89 U/L (38-126); Anion Gap 9 mmol/L (4-12); Aspartate Amino Transferase 32 U/L (14-36); Bilirubin,Total 0.4 mg/dL (0.2-1.3); Blood Urea Nitrogen 20 mg/dL (7-17); Calcium 9.9 mg/dL (8.4-10.2); Carbon Dioxide 25 mmol/L (22-30); Chloride 102 mmol/L (98-107); Estimated CRCL calculation 43 ml/min; Estimated Glomerular Filt Rate 54; Glucose 91 mg/dL (65-110); Lipase 128 U/L (23-300); Potassium 3.5 mmol/L (3.4-5.0); Sodium 136 mmol/L (137-145); Total Protein 7.9 g/dL (6.3-8.2)
[2025-03-19 17:28] LABS: Troponin I < 0.012 ng/mL (0.000-0.034)
[2025-03-19] MEDS: ONDANSETRON INJ 4 MG/2 ML VIAL IV PUSH (17:38)
== END 2025-03-19 19:05 | disposition home or self-care (01) ==
PROVIDERS: Emergency Provider Student in an Organized Health Care Education/Training Program; PCP Family Medicine
DX: E86.0 Dehydration (principal); N17.9 Acute kidney failure, unspecified; R07.9 Chest pain, unspecified; T50.905A Adverse effect of unspecified drugs, medicaments and biological substances, initial encounter; I48.91 Unspecified atrial fibrillation; I10 Essential (primary) hypertension; Z79.01 Long term (current) use of anticoagulants; E11.9 Type 2 diabetes mellitus without complications; E78.5 Hyperlipidemia, unspecified; Z86.73 Personal history of transient ischemic attack (TIA), and cerebral infarction without residual deficits; Z87.891 Personal history of nicotine dependence
CPT/HCPCS: 36415; 71046; 80053; 83690; 84484; 85025; 85610; 85730; 93005; 96361; 96374; 96375; 99284; J2405; J7120

== ENCOUNTER 2025-04-11 07:48 | Outpatient (CLI) | payer MEDICARE, SELFPAY ==
--- NOTE | 2025-05-04 09:25 | WPDSLEEPSTUD ---
Sleep Study Date of Study: 04/11/25 Ordering Provider: Ramón Mcdaniel MD Interpreting Physician: Flora Hatch MD Sleep Study Type: Split Polysomnogram Height: 1.52 m Weight: 66.224 kg Body Mass Index: 28.5 Neck Circumference (inches): 16 [place]: 1 Reason for Sleep Study Poor quality sleep, sleeps 2-3 hours a night, wakes up with headaches and dizziness Sleep History Gloria Menezes is a 64-year-old woman with poor quality sleep reports sleeping only 2-3 hours a night and waking with headaches and dizziness. She has difficulty falling asleep and she wakes up during the night. She wakes up earlier in the morning than desirable. She is now taking quetiapine 50 mg, 1-2 tablets at night. She has tried trazodone. She never awakens from sleep short of breath. She occasionally wakes at night with heartburn, belching or coughing.??She never snores that she is aware of and no but he tells her that she snoring loudly. She constantly has trouble sleeping when she has a cold. She never wakes up gasping for breath during the night. She never has breathing problems at night. She constantly sweats excessively at night. She constantly notices her heart pounding or beating irregularly during the night. She rarely falls asleep during the day. She never falls asleep involuntarily, never falls asleep while driving. She never experiences loss of muscle tone with strong emotion. She never feels paralyzed on waking or falling asleep. She never experiences vivid dreams upon waking or falling asleep. She never feels afraid of going to sleep. She never has nightmares. She rarely recalls her dreams. She frequently has thoughts racing through her mind. She rarely feels sad or depressed although she constantly has anxiety.. She rarely notices parts of her body jerk. She never kicks during the night. She occasionally feels crawling or aching feelings in her legs. She occasionally feels leg pain at night. She never has morning jaw pain, and constantly grinds her teeth at night. She constantly feels bothered by pain during the day, is constantly awakened by pain during the night. She constantly wakes up feeling stiff in the morning, frequently wakes feeling sore or achy in the morning. She constantly awakens with pain in her neck, spine, or joints. Normal bedtime is between 10:00 p.m. and 12 midnight, falling asleep within 30 minutes, waking several times at night usually to urinate but while awake, watches television or plays with her iPad or telephone. She wakes at 4:00 a.m., reports getting between 2 and 3 hours of sleep per night. On weekends, schedule is different, bedtime is between midnight and 2:00 a.m., wake time is 6:00 a.m.. She does not work outside the home. She sometimes takes naps in the afternoon or evening. A short nap lasting 10-15 minutes may be refreshing. She feels better in the morning and the afternoon compared to the evening. Habits:??Tobacco: Former smoker, quit 6 months ago Caffeine: 8 oz daily Alcohol: none Recreational substances: Gummies 25 mg 2-3 times per week PMFSH Past Medical History Medical History Gastroparesis Diabetes Colon cancer screening Kidney stone Tobacco abuse Suicide attempt Depression with anxiety Arthritis Hyperlipidemia Transient ischemic attack Missed x2 Vaginal delivery x1 Cervical radiculopathy Essential hypertension Insomnia with sleep apnea, unspecified Other dissociative and conversion disorders Prediabetes Surgical History Surgical History History of carpal tunnel release History of arthroscopy of right knee History of tonsillectomy History of 3 sections History of spinal fusion History of right oophorectomy 09/1985 History of bilateral salpingectomy 09/1985 History of hysterectomy 09/1985 History of appendectomy Family History Family History Mother Family history of premature coronary heart disease, Onset Age: 62 Family history of malignant neoplasm of breast in first degree relative Patient's mother is Family history of gout Hypertension Family history of diabetes mellitus in first degree relative Family history of heart disease in male family member before age 55 Family history of malignant neoplasm of breast Diabetes mellitus Family history of cardiovascular disease Cerebrovascular accident Sibling Family history of kidney disease Family history of seizure disorder Family history of pancreatic cancer Diabetes mellitus Hypertension Family history of cardiovascular disease Family history of malignant neoplasm Father Malignant neoplasm of prostate, Onset Age: 50 Patient's father is Cerebrovascular accident Family history of arthritis Carcinoma of colon Grandparent Family history of malignant neoplasm of brain, Onset Age: 42 Social History Social History Social History: Surrogate medical decision maker: Enrique Menezes, spouse. Code status: Full code. Caffeine-daily Years smoked: 35 Smoking status: Former smoker Tobacco type: cigarettes Second hand tobacco smoke exposure: Yes Smoking end date: 09/06/24 Alcohol intake: never Substance use: former Substance use type: marijuana Other substance usage details: Edibles Last use: 11/16/24 Lack of Transportation: No Lack of Food: Never True Current Housing: I Have Housing Concerned About Future Housing: No Difficulty Paying Gas/Electric Bills: YES Difficulty Paying for Meds: No Currently Unemployed: Decline to Answer Education: Associate Degree Difficulty w/ Childcare or Family Care: No Living arrangements: with family Spiritual care concerns: No Agree to blood products: Yes Medications Home Medications ?Medication ?Instructions ?Recorded ?Confirmed ?Type carvedilol 12.5 mg tablet 12.5 mg PO Q12H #180 tabs 07/10/22 03/19/25 Rx multivitamin 1 cap PO DAILY 10/24/22 03/19/25 History sertraline 100 mg tablet See Rx Instructions .Route 07/19/23 03/19/25 Rx .COMPLEX #90 tabs quetiapine 50 mg tablet 50 mg PO HS 12/15/23 03/19/25 History metformin 500 mg tablet,extended 500 mg PO QPM #100 tabs 10/11/24 03/19/25 Rx release 24 hr rosuvastatin 20 mg tablet 20 mg PO DAILY #90 tabs 11/24/24 03/19/25 Rx omeprazole 40 mg capsule,delayed 40 mg PO DAILY laryngopharyngeal 12/22/24 03/19/25 Rx release reflux #30 caps buspirone 10 mg tablet 10 mg PO BID 03/07/25 03/19/25 History cariprazine 1.5 mg capsule 1.5 mg PO .Q2days 03/07/25 03/19/25 History (Vraylar) pregabalin 75 mg capsule (Lyrica) 75 mg PO TID #90 caps 03/28/25 Rx hydrocodone 7.5 mg-acetaminophen 1 tablet PO Q8H PRN pain #90 tabs 04/18/25 Rx 325 mg tablet tirzepatide 7.5 mg/0.5 mL 7.5 mg (0.5 mL) subcut WEEKLY #6 mL 05/03/25 Rx subcutaneous pen injector (Mounjaro) Sleep Procedure A split night polysomnogram using the Nextworth multi-channel system recorded the standard physiologic parameters including EEG, EOG, submentalis EMG, anterior tibialis EMG, EKG, body position, nasal and oral airflow using nasal pressure sensor and thermistor. Respiratory parameters of chest and abdominal movements were recorded with Respiratory Inductance Plethysmography belts. Oxygen saturation was recorded by pulse oximetry. Video monitoring was also performed. Sleep stages, periodic limb movements, and EEG arousals were scored in 30 second epochs according to the criteria of the AASM Scoring Manual. The Apnea-Hypopnea Index was calculated using [facility] guidelines for definition of hypopnea while scoring respiratory events. After the baseline portion the patient met criteria for a titration with an AHI of 24.9 and desaturation to 80%. She used a medium Eeson mask, later switched to a medium ResMed F 30 I fullface mask with heated humidity, initial CPAP pressure was 5 cm titrated to a maximum of CPAP 11 cm. At CPAP 11 cm, she spent 21 minutes in bed, 5.5 minutes awake, 2.5 minutes in non-REM, 13 minutes in REM. Sleep efficiency was 73.8%. The residual apnea-hypopnea index was 0. The lowest saturation was 94%. REM occurred in the supine position. She had numerous leg movements during the night. During the CPAP titration, sleep was more consolidated and she had recovery sleep, stage III at the end of the night as well as improved REM. Sleep Architecture During the diagnostic portion of the study, the total recording time was 171.0 minutes. The total sleep time was 140.0 minutes. Sleep latency was 4.5 minutes. REM latency was 72.0 minutes. Sleep Efficiency was 81.9%. The patient had 16 awakenings for an awakening index of 6.9. Wake after sleep onset time was 26.5 minutes. The patient spent 13.0 minutes, 9.3% of total sleep time in Stage N1. The patient spent 106.5 minutes, 76.1% in Stage N2. The patient spent 9.0 minutes, 6.4% in Stage N3. The patient spent 11.5 minutes, 8.2% in Stage REM sleep. At 02:19:04 AM the patient was placed on PAP treatment. During the treatment portion of the study, the total recording time was 217.4 minutes. The total sleep time was 198.0 minutes. Sleep latency was 0.5 minutes. REM latency was 44.0 minutes. Sleep Efficiency was 91.1%. Wake after Sleep Onset time was 18.5 minutes. The patient spent 14.5 minutes, 7.3% of total sleep time in Stage N1. The patient spent 113.0 minutes, 57.1% in Stage N2. The patient spent 27.5 minutes, 13.9% in Stage N3. The patient spent 43.0 minutes, 21.7% in Stage REM. Respiratory Analysis During the diagnostic portion of the study, the patient had 57 hypopneas, no obstructive apneas, 1 mixed apnea, and no central apneas for an overall Apnea Hypopnea Index of 24.9 events per hour. The REM Apnea Hypopnea Index was 41.7. The NREM Apnea Hypopnea Index was 24.3. The patient had a Central Apnea Hypopnea Index of 0. The supine apnea-hypopnea index was 67.9, the nonsupine apnea-hypopnea index was 8.8. There were no Respiratory Effort Related Arousals. The Respiratory Disturbance Index is 28.3 events per hour. There was no evidence of Bernard-Melendez Respirations. During the treatment portion of the study, the patient had 36 hypopneas, 6 obstructive apneas, 1 mixed apnea, and 6 central apneas for an overall Apnea Hypopnea Index of 14.8 events per hour. The REM Apnea Hypopnea Index was 15.3. The NREM Apnea Hypopnea Index was 14.7. The patient had a Central Apnea Hypopnea Index of 1.8. The supine apnea-hypopnea index was 24.1, the nonsupine apnea-hypopnea index was 1.5. There were no Respiratory Effort Related Arousals. The Respiratory Disturbance Index is 17.9 events per hour. There was no evidence of Bernard-Melendez Respirations. Arousals During the diagnostic portion of the study, there were a total of 65 arousals for an arousal index of 27.9. There were 5 respiratory arousals for an index of 2.1. There were 9 periodic limb movement arousals for an index of 3.9. There were 4 isolated limb movement arousals for an index of 1.7. There were 47 spontaneous arousals for an index of 20.1. During the treatment portion of the study, there were a total of 64 arousals for an index of 19.4. There were 7 respiratory arousals for an index of 2.1. There were 12 periodic limb movement arousals for an index of 3.6. There were 16 isolated limb movement arousals for an index of 4.8. There were 29 spontaneous arousals for an index of 8.8. Periodic Limb Movements During the diagnostic portion of the study, the patient had 16 isolated limb movements with an index of 6.9. The patient had 72 periodic limb movements with an index of 30.9. The patient had a total of 88 limb movements with a total limb movement index of 37.7. During the treatment portion of the study, the patient had 36 isolated limb movements with an index of 10.9. The patient had 83 periodic limb movements with an index of 25.2. The patient had a total of 119 limb movements with a total limb movement index of 36.1. Oximetry Data During the diagnostic portion of the study, the patient had an average oxygen saturation of 94% in wake with a minimum oxygen saturation of 80% and a maximum oxygen saturation of 98%. The patient had an average oxygen saturation of 92% in sleep with a minimum oxygen saturation of 800% and a maximum oxygen saturation of 98%. The patient had 74 oxygen desaturations resulting in an Oxygen Desaturation Index of 31.7. The patient spent 5.5 minutes, 3.4% of total sleep time with an oxygen saturation less than 88%. During the treatment portion of the study, the patient had an average oxygen saturation of 96.6% in wake with a minimum oxygen saturation of 91% and a maximum oxygen saturation of 100%. The patient had an average oxygen saturation of 94.9% in sleep with a minimum oxygen saturation of 88% and a maximum oxygen saturation of 98%. The patient had 56 oxygen desaturations resulting in an Oxygen Desaturation Index of 17.0. The patient spent 0.1 minutes, 0.1% of total sleep time with an oxygen saturation less than 88%. Snoring Profile Snoring was mild throughout the night, eliminated during the titration. Cardiac Profile During the diagnostic portion of the study, the EKG showed normal sinus rhythm. The average pulse rate was 92 bpm, minimum pulse rate was 75 bpm. The maximum pulse rate was 100 bpm. No arrhythmias noted. During the treatment portion of the study, the EKG showed normal sinus rhythm. The average pulse rate was 76.9 bpm. The minimum pulse rate was 68 bpm, maximum pulse rate was 88 bpm. No arrhythmias noted. EEG Profile Alpha delta sleep was noted during N3. This was during the middle portion of the titration. Otherwise, EEG was not remarkable.. Assessment and Plan Assessment and Plan (1) Obstructive sleep apnea: Code(s): G47.33 - Obstructive sleep apnea (adult) (pediatric) Status: Acute Assessment and Plan: This split night sleep study on 04/11/2025 shows moderate obstructive sleep apnea with an AHI of 24.9 (p>4%) and desaturation 80% successfully managed using a medium ResMed med F 30 I fullface mask with heated humidity and CPAP 11 cm. Events were much worse in the supine position. At CPAP 11 cm, she spent 21 minutes in bed, 5.5 minutes awake, 2.5 minutes in non-REM, 13 minutes in REM. Sleep efficiency was 73.8%. The residual apnea-hypopnea index was 0. The lowest saturation was 94%. REM occurred in the supine position. She had numerous leg movements during the night. During the CPAP titration, sleep was more consolidated and she had recovery sleep, stage III at the end of the night as well as improved REM. The patient should be prescribed this ResMed equipment as well as tubing, filters and reservoir. This should be used with all episodes of sleep. Compliance should be reviewed within 31-90 days of starting therapy for usage greater than 4 hours per night greater than 70% of the nights. The patient should be asked about symptoms such as excessive daytime sleepiness, quality of sleep, decreased nocturia, increased mental functioning such as memory, mood, and concentration. Alpha delta sleep was present in Stage N3, recovery sleep, during the middle of the titration. Alpha delta sleep can be seen in various conditions conditions including chronic pain syndromes as well as other condition. She notes chronic pain in her sleep history. Alpha intrusion can be associated with non-restorative sleep and daytime fatigue. Treating her underlying obstructive sleep apnea is important to minimize the impact of alpha intrusion on daytime functioning. She should maintain a regular sleep schedule, limit caffeine and alcohol especially before bed and have regular physical activity but not to close before bedtime. Practices such as yoga, deep breathing or meditation can promote relaxation and potentially may reduce alpha intrusion. She complains of grinding her teeth at night. Bruxism was not noted on this test. Bruxism can be seen in the setting of untreated obstructive sleep apnea. She should talk with her dentist about any in a.m. all damage. She may need additional management with a mouth guard. In follow-up, patient should be asked about symptoms including whether not she still grinds her teeth. She does not complain of jaw pain in the morning which sometimes accompanies bruxism. (2) Restless legs syndrome (RLS): Code(s): G25.81 - Restless legs syndrome Status: Acute Assessment and Plan: Her clinical presentation with history and leg movements is consistent with restless legs syndrome. She has excessive leg movements during sleep. Her overall limb movement index was 37.7 on baseline and 36.1 during treatment. These limb movements did not cause arousals. Her periodic limb movement arousal index was 3.9 on baseline, 3.6 during the titration. She has complaints of uncomfortable feelings in her legs at night on occasion, and occasionally leg pain during the night. She denies kicking, rarely notices her body jerking. Ferritin level is indicated to exclude iron deficiency anemia as a contributing factor. Ferritin should be 75 ng/mL or greater. If ferritin is below this, iron supplementation should be given to achieve ferritin of 75 ng/mL. There are nonpharmacologic methods to treat limb movements including daily exercise, stretching calf muscles before bed, avoiding excessive amounts of caffeine and alcohol, vitamin B supplementation, magnesium lotion massaged into legs before bed, and use of a weighted blanket. Pharmacologic therapy is very effective for restless legs syndrome and limb movements during sleep and may include [id number] voltage-gated calcium channel ligands such as gabapentin which is preferable to dopaminergic agents which can have augmentation. Other treatments can include opioids and benzodiazepines. Data The data obtained during this sleep study is adequate for interpretation. Certification This sleep study has been reviewed by a board certified sleep medicine physician.
== END 2025-04-12 06:45 | disposition home or self-care (01) ==
PROVIDERS: PCP Family Medicine; Visit Provider Family Medicine
DX: G47.30 Sleep apnea, unspecified (principal)
CPT/HCPCS: 95811

== ENCOUNTER 2025-05-23 08:55 | Outpatient (CLI) | payer MEDICARE, SELFPAY ==
--- OUTSIDE RECORDS SUMMARY | 2025-05-23 09:09 | XMS_ITS | Encounter Summary ---
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
--- OUTSIDE RECORDS SUMMARY | 2025-05-23 09:09 | XMS_ITS | Clinical Summary ---
Author Organization [facility] Address [address] [place] [address] Care Team Providers Care Health Safety Instructor Name Role Phone Unavailable Primary Care Provider Unavailabl e Source Comments [facility] Affiliates and Associated Physician Practices is amultiple site organization consisting of ambulatory clinics and hospital sitesin [place], [place], [place] and [place]. This disclosure is being madepursuant to the Care Everywhere program and may not contain all information available regarding this patient. 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 Gender Identity Not on file Sexual Orientation Not on file Last Filed Vital Signs Vital Sign Reading Time Taken Comments Blood Pressure 139/79 07/24/2019 4:42 PM BIOLOGICAL SCIENCE TECHNICIAN FISH Pulse 80 07/24/2019 4:17 PM BIOLOGICAL SCIENCE TECHNICIAN FISH Temperature 36.8 C (98.2 F) 07/24/2019 4:17 PM BIOLOGICAL SCIENCE TECHNICIAN FISH Respiratory Rate 20 07/24/2019 4:17 PM BIOLOGICAL SCIENCE TECHNICIAN FISH Oxygen Saturation 99% 07/24/2019 4:17 PM BIOLOGICAL SCIENCE TECHNICIAN FISH Inhaled Oxygen Concentration - - Weight 62.9 kg (138 lb 9.6 oz) 07/22/2019 10:38 PM BIOLOGICAL SCIENCE TECHNICIAN FISH Height 152.4 cm (5') 07/22/2019 10:38 PM BIOLOGICAL SCIENCE TECHNICIAN FISH Body Mass Index 27.07 07/22/2019 10:38 PM BIOLOGICAL SCIENCE TECHNICIAN FISH Plan of Treatment Health Maintenance Due Date [...] CALENDAR YEAR 2024 COVID-19 VACCINE ( - 2024-2 6 season) 2025 INFLUENZA VACCINE (#1) 2025 Respiratory [...] patient's age to complete this topic Insurance [facility] MANAGED MEDICARE ADV MEDICAID - [place] SELF PAY NO INSURANCE Member Subscriber Plan / Payer (Ef fective for All Dates) Name:Gloria Menezes Member ID:Not on file Relation to Subscriber:Not on file Name:GLORIA MENEZES Subscriber ID:Not on file (Home) Address: [address] [id number] Payer ID:Not on file Group ID:Not on file Type:Self Pay Address: [place], [place] [employer]HC MANAGED MEDICARE ADV Advance Directives * Full Code (Latest Code Status on File) Date Activated Date Inactivated Comments 07/22/2019 8:22 PM 07/24/2019 8:59 PM * Full Code Date Activated Date Inactivated Comments 07/22/2019 7:59 PM 07/22/2019 9:35 PM
--- OUTSIDE RECORDS SUMMARY | 2025-05-23 09:09 | XMS_ITS | Clinical Summary ---
Author Organization [facility] Address [facility] [place] [address] Care Team Providers Care Oracle Manager Name Role Phone Ramón Mcdaniel MD Primary Care Provider Allergies Active Allergy Reactions Criticality Noted Date [...] Sex Assigned at Female 07/24/2024 6:35 PM SUBSTATION OPERATOR AUTOMATIC Legal Sex Female 7:59 AM CDT Gender Identity Not on file Sexual Orientation Not on file Last Filed Vital Signs Vital Sign Reading Time Taken Comments Blood Pressure 172/93 07/24/2024 11:00 PM SUBSTATION OPERATOR AUTOMATIC Pulse 91 07/24/2024 7:38 PM SUBSTATION OPERATOR AUTOMATIC Temperature 37.5 C (99.5 F) 07/24/2024 7:38 PM SUBSTATION OPERATOR AUTOMATIC Respiratory Rate 18 07/24/2024 11:00 PM SUBSTATION OPERATOR AUTOMATIC Oxygen Saturation 96% 07/24/2024 11:00 PM SUBSTATION OPERATOR AUTOMATIC Inhaled Oxygen Concentration - - Weight 70.3 kg (155 lb) 07/24/2024 7:38 PM SUBSTATION OPERATOR AUTOMATIC Height 152.4 cm (5') 07/24/2024 7:38 PM SUBSTATION OPERATOR AUTOMATIC Body Mass Index 30.27 07/24/2024 7:38 PM SUBSTATION OPERATOR AUTOMATIC Plan of Treatment Health Maintenance Due Date [...] this topic Insurance MEDICAID [employer] [address] MEDICARE Care Teams Oracle Manager Relationship Specialty Start Date End Date Ramón Mcdaniel MD [address] [place] [address] PCP - General FAMILY PRACTICE 07/24/24
--- OUTSIDE RECORDS SUMMARY | 2025-05-23 09:09 | XMS_ITS | Patient Health Record ---
Author Organization [facility] Address [address] [place] [address] Phone [phone] Care Team Providers Care Transformation Architect Name Role Phone Duran Sosa APRN Primary Care Provider Destiney Wallace Unavailable [phone] Charlee Coombs Unavailable [phone] Anupam Jacobson Unavailable Allergies Allergen (clinical drug ingredient) Drug/Non Drug Allergy documented on EMR Reaction Allergy Type Onset Date Status Sudafed Unknown Drug Allergy Active codeine Codeine Unknown Drug Allergy Active Penicillin Unknown Drug Allergy Active Results Component Value Reference Range Flag Notes 14 Panel Urine Drug Screen Order date: 01/21/2025 Reviewed date:01/25/2025 08:15:40 AM Interpretation: Performing Lab: Notes/Report: THC pos JOSE pos MOP (OPI) neg AMP neg MET neg BAR neg BZO neg MDMA neg MTD neg OXY neg PCP neg BUP neg TCA neg FTY pos CBC With Differential/Platel et* Order date: 01/21/2025 Reviewed date:01/26/2025 08:17:10 AM Interpretation: Performing Lab:[facility], [address] [facility], Phone - [phone], Director - Jenna Notes/Report: WBC 7.3 3.4-10.8 x10E3/uL RBC 4.17 3.77-5.28 x10E6/uL Hemoglobin 11.9 11.1-15.9 g/dL Hematocrit 38.5 34.0-46.6 % MCV 92 79-97 fL MCH 28.5 26.6-33.0 pg MCHC 30.9 31.5-35.7 g/dL L RDW 13.0 11.7-15.4 % Platelets 334 150-450 [...] x10E3/uL CMP 14 Comprehensive Metabol ic Panel* Order date: 01/21/2025 Reviewed date:01/26/2025 08:17:10 AM Interpretation: Performing Lab:[facility], [address] [facility], Phone - [phone], Director - Jenna Notes/Report: Glucose 94 70-99 mg/dL BUN 19 8-27 mg/dL Creatinine 0.87 0.57-1.00 mg/dL eGFR 74 >59 mL/min/1.73 BUN/Creatinine Ratio 22 12-28 Sodium 140 134-144 mmol/L Potassium 5.5 3.5-5.2 mmol/L H Chloride 103 96-106 mmol/L Carbon Dioxide, Total [...] 18 0-32 IU/L QuantiFERON-TB Gold Plus ([id number]) Order date: 01/21/2025 Reviewed date:01/26/2025 08:17:10 AM Interpretation: Performing Lab:[facility], [address] [place] [address], Phone - [phone], Director - Jenna Notes/Report: QuantiFERON Incubation Incubation [...] Value 0.06 QuantiFERON Mitogen Value >10.00 Breathalyzer Order date: 01/21/2025 Reviewed date:01/25/2025 08:15:40 AM Interpretation: Performing Lab: Notes/Report: FIDELIA 0.000 Reason For Referral No Information Medications Medication SIG (Take, Route, Frequency, Duration) Notes Start Date End Date Diagnosis (ICD Code) Status Melatonin 5 MG Tablet 1 tablet at bedtime as needed Orally Once a day; Duration: 30 days 01/21/2025 Adult general medical examination (ICD_10 - Z00.00) Active Multivitamin - Tablet 1 tablet Orally Once a day Active Carvedilol 12.5 MG Tablet 1 tablet with food Orally Twice a day; Duration: 30 days Conversion disorder (ICD_10 - F44.9) Active Clopidogrel Bisulfate 75 MG Tablet 1 tablet Orally Once a day Conversion disorder (ICD_10 - F44.9) Active Rosuvastatin Calcium 20 MG Tablet 1 tablet Orally Once a day Conversion disorder (ICD_10 - F44.9) Active metFORMIN HCl 500 MG Tablet 1 tablet with a meal Orally Once a day Diabetes type 2, controlled (ICD_10 - E11.9) Active Mounjaro 7.5 MG/0.5ML Solution Auto-injector as directed Subcutaneous Diabetes type 2, controlled (ICD_10 - E11.9) Active Omeprazole 40 MG Capsule Delayed Release 1 capsule 1/2 to 1 hour before morning meal Orally Once a day Adult general medical examination (ICD_10 - Z00.00) Active Pregabalin 75 MG Capsule 1 capsule Orally 3 times a day Adult general medical examination (ICD_10 - Z00.00) Active Vraylar 1.5 MG Capsule 1 capsule Orally Every other day; Duration: 30 days Depressive disorder (ICD_10 - F32.A) Active QUEtiapine Fumarate 50 MG Tablet 1-2 tablets at bedtime Orally Once a day; Duration: 30 days Sleep disturbance (ICD_10 - G47.9) Active hydrOXYzine Pamoate 25 MG Capsule 1 - 2 capsules up to 3 times a day as needed for anxiety (max 100 mg/day) Orally three times a day; Duration: 30 days NILS (generaliz ed anxiety disorder) (ICD_10 - F41.1) Active busPIRone HCl 15 MG Tablet 1 tablet Orally Twice a day Depressive disorder (ICD_10 - F32.A) Active Sertraline HCl 100 MG Tablet 1 tablet Orally twice a day; Duration: 30 days Depressive disorder (ICD_10 - F32.A) Active Social History Tobacco Use: Social History Observation Description Date Details (start date - stop date) Never Smoker NA - NA Sex Observation Social History Observation Description Sex Observation Female SDOH Assessments Date Tool Assessment Assessment LOINC Value Assessment Notes Goals Interventions General Notes 01/31 KEL PARHAM (JOEIN C: 10157 -5) Total Score : 5 Date Completed/U pdated: 2024 - - - - - - - [...] - neck/back Legal History- None Spiritual Affiliation- Taoist Other Social History - Lives with and ky-dvmexerc-rk-l aw. Doesn't have relationship with the son (middle [...] Psychiatrist or Therapist - Psych provider at [facility], wants to switch, no therapist Psychiatric Diagnosis(es) [...] - - - - - - - What is your current housing situation? 43947-6 I have housing (JT22734-6) Are you worried about losing your housing? 19727-9 No (LA32-8) What is the highest level of school that you have finished? 06938-6 More than high school (GA18231-4) What is your current work situation? 48052-7 Otherwise unemployed but not seeking work (ex. 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 Check all that apply 62789-6 Utilities (KM78191-7) Has lack of transportation k ept you from medical appointments, meetings, work or from getting things needed for daily living? 00420-2 No (LA32-8) How often do you see or talk to people that you care about and feel close to? (For example: talking to friends on the phone, visiting friends or family, going to mandaen or club meetings) 04703-5 3 to 5 times a week (XH98612-9) How stressed are you? Stress is when someone feels tense, nervous, anxious, or can\t sleep at night because their mind is troubled 20084-0 Quite a bit (QZ58269-5) In the past year have you sp ent more than 2 nights in a row in a mcc, mcfp, senior care center, or juvenile correctional facility? 55810-0 No (LA32-8) Do you feel physically and emotionally safe where you currently live? 21112-9 Yes (LA33-6) In the past year, have you b een afraid of your partner or ex-partner? 69837-1 No (LA32-8) Are you a refugee? No What country are you from? [place] PRAPARE Score: 5 Social History Social Determinants Social Info Question Answer Notes PRAPARE Date Completed/Updated: 01/21/2025 What is your current housing situation? I have h ousing Are you worried about losing your housing? No What is the highest level of school that you have finished? More than high school What is your current work situation? Oth erwise unemployed but not seeking work (ex. 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 Stress is when someone feels tense, nervous, anxious, or can\t sleep at night because their mind is troubled Quite a bit In the past year have you sp ent more than 2 nights in a row in a mcc, mcfp, senior care center, or juvenile correctional facility? No Are you a refugee? No What country are you from? [facility] Do you feel physically and e motionally safe where you currently live? Yes In the past year, have you b een afraid of your partner or ex-partner? No PRAPARE Score: 5 Miscellaneous Social Info Question Answer Notes Method of learning: Preferred method of learning: Demonstration Primary Social History Social Info Question Answer Notes Living Arrangement Living Arrangement: Independent Zaira ing - lives with Is this a supportive environment? Yes Single Question Alcohol Screening How ma ny times in the past year have you had (4 for women, or 5 for men) or more drinks in a day? 0 Employment Status Employment Status: On Disability Illicit Substance Usage Illicit Substance Usage: Yes Substance Used: Cannabis Interested in quitting: No Alcohol Use Alcohol Use Frequency: Never Tobacco Use: Social Info Question Answer Notes Tobacco Control (Standard) Tobacco use: Nonsmoker Section Notes: - - [...] - neck/back Legal History- None Spiritual Affiliation- Taoist Other Social History - Lives with and nv-xspygflp-kq-law. Doesn't have relationship with the son (middle [...] Psychiatrist or Therapist - Psych provider at [facility], wants to switch, no therapist Psychiatric Diagnosis(es) [...] Problems Problem Type SNOMED Code ICD Code Dates Problem Status W/U Status Risk Notes Problem Hypertension (61314204) Hypertension (I10) Added On:12/2024 Active confirmed Problem Hyperlipidemia (75450712) Hyperlipidemia (E78.5) Added On:12/2024 Active confirmed Problem Posttraumatic stress disorder (53053534) PTSD (post-traumatic stress disorder) (F43.10) Added On:12/2024 Onset Date: Active confirmed Problem Chronic pain (34432243) Chronic pain (G89.29) Added On:12/2024 Onset Date: Active confirmed back, neck Problem Generalized anxiety disorder (68296740) NILS (generalized anxiety disorder) (F41.1) Added On:12/2024 Onset Date: Active confirmed Problem Type II diabetes mellitus well controlled (964402639) Diabetes type 2, controlled (E11.9) Added On:12/25 Active confirmed Problem Tachycardia (4378181) Tachycardia (R00.0) Added On:12/2024 Active confirmed Problem Sleep disturbance (63053268) Sleep disturbance (G47.9) Added On:12/2024 Onset Date: Active confirmed Problem Overweight (027321235) Over weight (E66.3) Added On:12/25 Active confirmed Problem Physical examination, complete (26117103) Adult general medical examination (Z00.00) Added On:12/25 Active confirmed Problem Compulsive gambling (34851441) 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) Added On:12/2024 Active confirmed Problem Conversion disorder (668987447) Conversion disorder (F44.9) Added On:12/25 Active confirmed with stroke-lik e symptoms Problem Depressive disorder (49197145) Depressive disorder (F32.A) Added On:12/2024 Onset Date: Active confirmed Vital Signs Vital Sign Value Notes Appt Date Heart Rate 73 /min 01/21/2025 Temperature 98.2 degrees Fahrenheit 12/25 Respiratory Rate 16 /min 01/21/2025 Blood pressure diastolic 70 mm Hg Oximetry 98 % 01/21/2025 Height 60 in 01/21/2025 Blood pressure systolic 122 mm Hg 12/25 Weight 156.2 lbs 01/21/2025 BMI 30.5 kg/m2 01/21/2025 Encounters Date Time Type Facility Location Provider Diagnosis 5 08:40 AM Office Visit, New Pt., Level 3 (34963) [place] [address] [place] [address] Anupam Jacobson Adult general medical examination Z00.00 ; Diabetes type 2, controlled E11.9 ; Conversion disorder F44.9 and Over weight E66.3 5 09:20 AM Office Visit [place] [address] [place] [address] Charlee Coombs 5 03:30 PM Telehealth Office Visit, New Pt., Level 3 (97990) [address] [place] [address] Destiney Wallace PTSD (post-traumatic stress disorder) F43.10 ; NILS (generalized anxiety disorder) F41.1 ; Depressive disorder F32.A ; Sleep disturbance G47.9 ; Addictive gambling F63.0 ; Conversion disorder F44.9 and Medication management Z79.899 5 10:30 AM Telehealth Office Visit, Est Pt., Level 4 (44800) [address] [place] [address] Destiney Wallace PTSD (post-traumatic stress disorder) F43.10 ; NILS (generalized anxiety disorder) F41.1 ; Depressive disorder F32.A ; Sleep disturbance G47.9 ; Addictive gambling F63.0 ; Conversion disorder F44.9 and Medication management Z79.899 5 11:20 AM Telephone Encounter [address] [place] [address] Anupam Jacobson 5 10:44 AM Telephone Encounter [place] [address] [place] [address] Anupam Jacobson Conversion disorder F44.9 Assessments Encounter Date Diagnosis (ICD Code) Assessment Notes Treatment Notes Section Notes 01/31/2025 PTSD (post-traumatic stress disorder) (ICD-10 - F43.10) Take sertraline and Vraylar as prescribed. Recommend trauma-based therapy. 02/22/2025 PTSD (post-traumatic stress disorder) (ICD-10 - F43.10) Take sertraline and Vraylar as prescribed. Recommend trauma-based therapy. 01/31/2025 NILS (generalized anxiety disorder) (ICD-10 - F41.1) 01/21/2025 Diabetes type 2, controlled (ICD-10 - [...] there is pus, a foul odor, increased pain/redness/swelling, or if soaking through bandages. 01/21/2025 Conversion disorder (ICD-10 - F44.9) 01/31/2025 Depressive disorder (ICD-10 - F32.A) 01/21/2025 Conversion disorder (ICD-10 - F44.9) 02/22/2025 NILS (generalized anxiety disorder) (ICD-10 - F41.1) 01/31/2025 Sleep disturbance (ICD-10 - G47.9) 01/21/2025 Over weight (ICD-10 - E66.3) 02/22/2025 Depressive disorder (ICD-10 - F32.A) 01/31/2025 [...] or be administered own oral medications per [facility] protocols. Provided informed consent with understanding of side effects, adverse effects, risks and benefits as well as alternative treatments as previously discussed and with the above recommended medications & other aspects of the treatment program. Agrees to return sooner if symptoms worsen or suicidal or homicidal ideations occur. 02/22/2025 Medication management (ICD-10 - Z79.899) May self-administer medications or be administered own oral medications per [facility] protocols. Provided informed consent with understanding of side effects, adverse effects, risks and benefits as well as alternative treatments as previously discussed and with the above recommended medications & other aspects of the treatment program. Agrees to return sooner if symptoms worsen or suicidal or homicidal ideations occur. 01/21/2025 Other Continue treatment as recommended by [facility] staff. Encouraged patient to obtain routine medical care with patient's own primary care provider or establish as a patient at [facility] if no current primary care provider. 01/21/2025 Other Clinician met harsha pereira Gloria to assess needs for residential services. Clinician gathered information regarding historical presentation of mental health and substance use symptoms including withdrawal, HIV Risk assessment, psychiatric hospitalization history and presenting concern. Clinician conducted PHQ9 and CSSRS assessments as well as social drivers of health screening for the purposes of identifying additional service needs. Plan Of Treatment No Information Insurance Providers Payer Name Payer Address Payer Phone Subscriber Number Group Number Insured Name Patient Relationship to Insured Coverage Start Date Coverage End Date MEDICAID [address] [phone] [id number] RiriGloria saavedra Self - patient is the insured 5 Medical (General) History Medical History History ICD Code Suicidal ideations Hypertension I10 Hyperlipidemia E78.5 Tachycardia R00.0 Chronic pain G89.29 Surgical History Surgery Date(Month/Year) Hysterectomy 1985 right foot surgery 1991 Carpal tunnel surgery in both wrists 199 0 C- sections x 3 Spinal fusion 2016 Hospitalization History Reason Date(Month/Year) [facility] due to Suicidal Ideatio ns 12/2024
--- OUTSIDE RECORDS SUMMARY | 2025-05-23 09:09 | XMS_ITS | Clinical Summary ---
Author Organization [facility] [address] Address [address] [place] [address] Care Team Providers Care Blocker Polishing Name Role Phone Ramón Mcdaniel MD Primary Care Provider [phone] Allergies Active Allergy Reactions Criticality Noted Date Comments Adhesive Hives,Redness Medium 05/16/2021 Aspirin Anaphylaxis,Hives High 07/23/2019 Bee Pollen Anaphylaxis High 05/16/2021 Codeine Anaphylaxis,Urticari a High 07/23/2019 Latex Hives,Urticaria Medium 08/07/2017 Hives Other Anaphylaxis High 08/07/2017 Anaphylaxis Peanut Anaphylaxis High 05/16/2021 Penicillins Anaphylaxis,Hives,Ot her (See comments) High 03/28/2014 Reaction: Hives Pseudoephedrine Anaphylaxis,Hives,Ot her (See comments),Urticaria High 03/28/2014 Reaction: With tongue swelling Hives Plato Hives,Itching,Urtica klaus Medium 08/07/2017 Hives Sulfa (Sulfonamide [...] on file Legal Sex Female 2:56 AM INTERNATIONAL SOURCING MANAGER Gender Identity Not on file Sexual Orientation Not on file Occupation Industry Job Start Date Job End Date disabled Not on file Not on file Not on file Last Filed Vital Signs Vital Sign Reading Time Taken Comments Blood Pressure 133/79 04/07/2023 9:22 AM INTERNATIONAL SOURCING MANAGER Pulse 76 04/07/2023 9:22 AM INTERNATIONAL SOURCING MANAGER Temperature 37 C (98.6 F) 08/15/2021 7:55 AM CDT Respiratory Rate 18 08/15/2021 7:55 AM CDT Oxygen Saturation 96% 08/15/2021 7:55 AM CDT Inhaled Oxygen Concentration - - Weight 71 kg (156 lb 9.6 oz) 04/07/2023 9:22 AM INTERNATIONAL SOURCING MANAGER Height 152.4 cm (5') 04/07/2023 9:22 AM INTERNATIONAL SOURCING MANAGER Body Mass Index 30.58 04/07/2023 9:22 AM INTERNATIONAL SOURCING MANAGER Plan of Treatment Health Maintenance Due Date Last Done Comments Albumin Creatinine Ratio, Urine 1960 Breast Cancer Screening-Mammogram 1960 Colon Cancer Screening-Colonoscopy 1960 Hepatitis C Screening 1960 Dilated Eye Exam 1960 Foot Exam 1960 Hepatitis B Screening 1978 Regular Well Visit/Exam 18-64 1978 Zoster Vaccine (2 of 2) 04/05/2018 02/08/2018 [...] 02/08/2018, 06/13/2014 Medical Devices Implanted Type Area Director Transportation Device Identifier Shelf Expiration Date Model / Serial / Lot Bmp Infuse Sm [id number] - [id number] Implanted:Qty: 1 on 08/13/2021 by Jason Garcia MD at [facility] N/A: Spine Lumbar [employer] Inc 12/23/2022 [id number] / / [id number] Joint [employer] [id number] 1-4mm Freeze Dried Crushed Graft 30ml Bone Cancellous - [id number] Implanted:Qty: 1 on 08/13/2021 by Jason Garcia MD at [facility] N/A: Spine Lumbar Allosource 06/21/2025 [id number] / / [id number] [employer] 5146.1652 Creo Od6.5 Mm L50 Mm Thread; Polyaxial Spine Screw Bone Titanium; - [id number] Implanted:Qty: 3 on 08/13/2021 by Jason Garcia MD at [facility] N/A: Spine Lumbar [employer] 5146.1652 / / [employer] 1119.0010 Creo Thread Spinal Cap Locking Nonsterile - [id number] Implanted:Qty: 8 on 08/13/2021 by Jason Garcia MD at [facility] N/A: Spine Lumbar [employer] 1119.0010 / / [employer] 1119.7125 Creo 5.5mm 125mm Curve Javier Spinal Titanium - [id number] Implanted:Qty: 1 on 08/13/2021 by Jason Garcia MD at [facility] N/A: Spine Lumbar [employer] [id number] / / [employer] 5146.1752 Creo Od7.5 Mm L50 Mm Thread; Polyaxial Spine Screw Bone Titanium; - [id number] Implanted:Qty: 3 on 08/13/2021 by Jason Garcia MD at [facility] N/A: Spine Lumbar [employer] 5146.1752 / / [employer] 1119.7125 Creo 5.5mm 125mm Curve Javier Spinal Titanium - [id number] Implanted:Qty: 1 on 08/13/2021 by Jason Garcia MD at [facility] N/A: Spine Lumbar [employer] 1119.7125 / / Globus [id number] Implanted:Qty: 1 on 08/13/2021 by Jason Garcia MD at [facility] N/A: Spine Lumbar GLOBUS [id number] / / Description:Correction. Scre w is 75x40 NOT 75x45 Globuys Tlif Cage [id number] Implanted:Qty: 1 on 08/13/2021 by Jason Garcia MD at [facility] N/A: Spine Lumbar GLOBUS 168.251 / / Procedures Procedure Name Priority Date/Time Associated Diagnosis Comments EGFR Routine 08/15/2021 2:46 AM CDT POCT HEMOGLOBIN A1C Routine 08/09/2021 5 :12 PM CDT SERUM LIPID PANEL Routine 07/21/2015 8:3 5 PM INTERNATIONAL SOURCING MANAGER from Last 3 Months or Most Recently Relevant to Health Maintenance Results * eGFR (08/15/2021 2:46 AM CDT) [facility] eGFR 99 mL/min/1. 73 m2 [facility] Comment: Interpretive Data Reference Interval Normal >/= [...] 2:46 AM CDT 08/15/2021 2:53 AM CDT Blayne Elise MD LAB BLOOD ORDERABLES Fin al Result Performing Organization Address [facility] Co de Phone Number [facility] [address] [facility] [place] [address] * (ABNORMAL) POCT hemoglobin A1c (08/09/2021 5:12 PM CDT) Pathologist [facility] Hgb A1C, POC 5.7(H) 4.0 - 5.6 % [facility] Est Average Gluc POC 117 mg/dL [facility] Comment: The ADA recommends reporting an estimated Average Glucose (eAG) with all Hemoglobin A1c results using the equation derived from a study of 507 normal and diabetic adults. Minority populations were underrepresented and children were not included. (Diabetes Care 31:7989-4382, 2008). The eAG is not equivalent to a fasting glucose. Blood 08/09/2021 5:12 PM CDT 08/09/2021 5:12 PM CDT us Jason Garcia MD POINT OF CARE TEST ORD ERABLES Final Result Performing Organization Address City/[facility] Co de Phone Number [facility] Department [place] [address] * Serum lipid panel (07/21/2015 8:35 PM INTERNATIONAL SOURCING MANAGER) Pathologist [facility] Cholesterol 192 0 - 200 mg/dl HISTORICAL [...] last revised 2011. Serum 07/21/2015 8:35 PM INTERNATIONAL SOURCING MANAGER us Hudson Yung MD LAB BLOOD ORDERABLES Final Res ult HISTORICAL RESULTS from Last 3 Months or Most Recently Relevant to Health Maintenance Insurance [facility]NA [facility] IDPA AETNA [facility] ADVANTRA IDPA WORKERS COMPENSATION GENERIC [facility] WORK[facility] COMPENSATION GENERIC Advance Directives For more information, please contact: [phone] * Full Code (Latest Code Status on File) Date Activated Date Inactivated Comments 08/13/2021 3:04 PM 08/15/2021 3:49 PM * Full Code Date Activated Date Inactivated Comments 07/26/2021 4:34 AM 07/27/2021 1:56 PM Care Teams Blocker Polishing Relationship Specialty Start Date End Date Ramón Mcdaniel MD PCP - General Family Practice 02/17/23
[2025-05-23 10:07] LABS: Hematocrit 41.9 % (37.0-47.0); Hemoglobin 13.2 g/dL (12.0-15.0); Mean Corpuscular HGB Conc 31.5 g/dl (32-36); Mean Corpuscular Hemoglobin 26.7 pg (26-34); Mean Corpuscular Volume 84.8 fl (80-100); Platelet Count Result 304 k/mm3 (150-375); Red Blood Count 4.94 M/mm3 (4.2-5.4); White Blood Count 6.2 K/mm3 (4.5-10.0)
[2025-05-23 10:18] LABS: INR 1.0; Prothrombin Time 13.4 Seconds (11.1-14.7)
[2025-05-23 10:18] LABS: Add Urine Microscopic? YES; Appearance Urine Clear (Clear); Glucose Urine UA Negative (Negative); Leukocyte Esterase Ur 2+ LEU/UL (Negative); Nitrate Urine Negative (Negative); Specific Grav Ur 1.024 (1.001-1.035)
[2025-05-23 10:20] LABS: Partial Thromboplastin Time 27.2 Seconds (22.3-36.8)
[2025-05-23 10:21] LABS: Hemoglobin A1C 5.7 % (<5.7)
[2025-05-23 10:29] LABS: Anion Gap 6 mmol/L (4-12); Blood Urea Nitrogen 21 mg/dL (7-17); Calcium 9.7 mg/dL (8.4-10.2); Carbon Dioxide 29 mmol/L (22-30); Chloride 107 mmol/L (98-107); Estimated Glomerular Filt Rate > 60; Glucose 74 mg/dL (65-110); Potassium 5.3 mmol/L (3.4-5.0); Sodium 142 mmol/L (137-145)
== END 2025-05-23 08:56 | disposition home or self-care (01) ==
LOC: ANHSURGERY 09:00
PROVIDERS: PCP Family Medicine; Visit Provider Neurological Surgery
DX: M54.10 Radiculopathy, site unspecified (principal); Z01.818 Encounter for other preprocedural examination
CPT/HCPCS: 36415; 80048; 81001; 83036; 85027; 85610; 85730; 87086